=== PATIENT | female | born 1960 | race Caucasian/White ===

== ENCOUNTER 2020-07-02 13:04 | Outpatient (REF) | payer MEDICARE, SELFPAY | END 2020-07-02 13:05 | disposition home or self-care (01) | LOC: HO.LAB 13:04 | PROVIDERS: Visit Provider Nurse Practitioner Family | DX: K14.8 Other diseases of tongue (principal) | CPT/HCPCS: 87255 ==

== ENCOUNTER 2020-11-08 11:47 | Observation (INO) | payer MEDICARE, SELFPAY ==
--- NOTE | ~2020-11-08 | CT_ITS ---
EXAMINATION: CT ABDOMEN AND PELVIS WITH CONTRAST CLINICAL INFORMATION: Left flank/lower quadrant abdominal pain. COMPARISON: None TECHNIQUE: Multidetector volumetric images were obtained from the superior aspect of the liver through the pubic symphysis following administration 85 mL of Omnipaque 350 intravenous contrast. Sagittal and coronal reformatted images were obtained on the technologist's workstation. Oral contrast: No This CT examination was performed using dose optimization techniques as appropriate, variously including the following: *Automated exposure control *Adjustment of mA and/or kV according to patient size (this includes techniques or standardized protocols for targeted exams where dose is matched to indication/reason for exam; i.e. extremities or head) *Use of iterative reconstruction technique DLP: 444 mGy-cm FINDINGS: LUNG BASES: The visualized lung bases are unremarkable. No pleural or pericardial effusion. LIVER, GALLBLADDER, AND BILIARY TREE: The liver is normal in size, shape, and attenuation. No focal hepatic lesion or significant biliary ductal dilatation is present. Patient is status post cholecystectomy. PANCREAS: Unremarkable. SPLEEN: Unremarkable. ADRENAL GLANDS: Unremarkable. KIDNEYS AND URETERS: The kidneys are normal in size, shape, and attenuation. No hydronephrosis, hydroureter, or calculi seen. No perinephric stranding. BLADDER: Unremarkable. GASTROINTESTINAL TRACT: No dilated loops of large or small bowel are seen. No free air or free fluid. No pericolonic inflammatory change is noted. No definite abscess collection is seen. The cecum lies low within the pelvis adjacent to right adnexa, sigmoid colon, and small bowel. The appendix appears unremarkable. ABDOMINAL WALL: No significant hernia is appreciated. LYMPH NODES: No lymphadenopathy appreciated. VASCULAR: There is mild calcified plaque seen within the aorta. Portal vein is patent. No abdominal aortic aneurysm. PELVIC VISCERA: There are prominent uterine veins present but Not measuring greater than 1 cm in diameter. The evaluation is somewhat limited due to the large amount of bowel lying within the pelvis with some lack of fat planes. If there is suspicion of ovarian or adnexal abnormality. Pelvic ultrasound would be more sensitive for this evaluation. OSSEOUS STRUCTURES: No suspicious destructive bony lesions identified. There is multilevel degenerative disc disease present within the lumbar and lower thoracic spine. CT/CT abdomen pelvis w con IMPRESSION: No evidence of obstructive uropathy. No evidence of acute diverticulitis. No CT findings to explain patient's left lower quadrant and left flank pain.
--- NOTE | ~2020-11-08 | US_ITS ---
EXAMINATION: US PELVIS CLINICAL INFORMATION: Follow-up abnormal CT scan. COMPARISON: CT scan of the abdomen and pelvis from earlier the same day TECHNIQUE: Transabdominal pelvic ultrasound was performed. Patient refused transvaginal exam. FINDINGS: The uterus is slightly retroverted and retroflexed and measures 5.2 x 2.5 x 3.8 cm in dimension. No focal uterine lesion is seen. The endometrium is not well visualized but does not appear thickened. The ovaries are not seen. No pelvic mass is seen. There is no fluid in the pelvis. US/US pelvic complete IMPRESSION: Normal-appearing uterus. Ovaries not seen.
[2020-11-08 11:57] VITALS: BP 139/80; PULSE 87; RESP 16; TEMP 36.4; O2SAT 100; BMI 24.5
[2020-11-08 12:55] LABS: MANUAL DIFF FLAG NO
[2020-11-08] MEDS: ondansetron HCL 4 MG/2 ML VIAL IVPUSH (12:55)
[2020-11-08] MEDS: Ketorolac Tromethamine 15 MG/ML VIAL IVPUSH (12:56)
[2020-11-08] MEDS: Morphine Sulfate 4 MG/ML CARTRIDGE IVPUSH (12:56)
[2020-11-08] MEDS: 0.9 % Sodium Chloride 1,000 ML 999 ML IVCONT ×2 (12:57→16:32)
[2020-11-08 12:58] LABS: Basophils Absolute Auto 0.1 X10*3/uL (0.0-0.2); Basophils Percent Auto 0.5 % (0-2); Eosinophils Percent Auto 0.2 % (0-4); Hematocrit 47.8 % (37-47); Hemoglobin 15.5 g/dl (12.0-16.0); Imm Gran Abs Auto 0.14 X10*3/uL (0.00-0.03); Imm Gran Pct Auto 0.8 % (0.0-0.4); Lymphocytes Absolute Auto 1.9 X10*3/uL (1.2-4.9); Lymphocytes Percent Auto 10.2 % (20-40); Mean Corpuscular HGB Conc 32.4 g/dl (31.0-35.0); Mean Corpuscular Hemoglobin 29.6 pg (27.0-33.0); Mean Corpuscular Volume 91.2 fL (80-98); Mean Platelet Volume 8.9 fL (9.4-12.3); Monocytes Percent Auto 5.5 % (2-11); Neutrophils Absolute Auto 15.3 X10*3/uL (2.0-8.3); Neutrophils Percent Auto 82.8 % (45-73); Platelet Count 456 X10*3/uL (160-400); Red Blood Count 5.24 X10*6/uL (4.20-5.50); Red Cell Distribution Width 12.4 % (11.0-16.0); White Blood Count 18.4 X10*3/uL (4.8-10.8)
[2020-11-08 12:59] LABS: Glucose Urine UA 250 MG/DL (NEG); Leukocyte Esterase Urine NEG (NEG); Nitrite Urine NEG (NEG); Specific Gravity - Urine >= 1.030 (1.005-1.025); Urine Blood NEG (NEG); Urine Ketones >=80 MG/DL (NEG); Urine Protein TRACE MG/DL (NEG-TRACE)
[2020-11-08 13:01] LABS: Appearance Urine CLEAR; Color Urine YELLOW
[2020-11-08 13:18] LABS: Alanine Aminotransferase 19 U/L (0-31); Albumin Level 5.1 g/dL (3.5-5.0); Alkaline Phosphatase 97 U/L (39-117); Anion Gap 21 (12-20); Aspartate Amino Transferase 23 U/L (5-31); Bilirubin Total 1.3 mg/dL (0.0-1.0); Blood Urea Nitrogen 21 mg/dL (9-16); Carbon Dioxide 22 mmol/L (22-29); Chloride 96 mmol/L (96-108); Creatinine Clr Calc Pharmacy 56.5; Estimated Glomerular Filt Rate > 60; Glucose Random 233 mg/dL (60-115); Potassium 4.6 mmol/L (3.3-5.1); Sodium 134 mmol/L (135-145); Total Protein 7.9 g/dL (6.5-8.0)
--- NOTE | 2020-11-08 13:20 | ED.ABDPAIN ---
HPI - Abdominal Pain General Chief Complaint: Abdominal Pain Stated Complaint: L SIDED ABD PAIN Time Seen by Provider: 11/08/20 12:38 Source: patient Mode of arrival: ambulatory Limitations: no limitations History of Present Illness HPI narrative: 60-year-old female with a past medical history of diabetes currently on an insulin pump, hypertension, GERD, osteoporosis, tongue lesion and kidney stones presenting to the ED with complaints of left back pain that is now radiates to the left flank / left lower quadrant with associated nausea /vomiting for the past 2 days. Denies any fevers, chills, chest pain, shortness of breath, dyspnea on exertion, orthopnea, diarrhea, constipation, black or bloody stools, hematuria, abnormal vaginal discharge, dysuria, recent travel or sick contacts or any other symptoms complaints or concerns at this time. MD elicited complaint: abdominal pain and flank pain Pertinent past history: kidney stones Onset (ago): day(s) ( Two days worse today) Pain Consistency: constant Location: LLQ and L flank Severity: severe Pain scale (0-10): 10 Quality: aching and sharp Radiation: none Migration to: no migration Exacerbating factors: nothing Relieving factors: nothing Associated symptoms: nausea and vomiting Related Data Home Medications Medication Instructions Recorded Confirmed zoledronic acid 5 mg/100 mL in IV 07/11/20 07/11/20 mannitol 5 %-water intravenous piggybck Previous Rx's Medication Instructions Recorded azithromycin 500 mg tablet 500 mg PO DAILY 5 Days #5 tab 07/08/20 lidocaine HCl 2 % mucosal solution 1 appl MUCOUS MEMBRANE QID PRN 08/18/20 #100 ml triamcinolone acetonide 0.5 % 1 appl TOPICAL BID 14 Days #15 g 09/19/20 topical cream insulin lispro 200 unit/mL (3 mL) 20 unit SUBCUT BID 90 Days #18 ml 10/19/20 subcutaneous pen losartan 50 mg tablet 50 mg PO DAILY 90 Days #90 tab 10/19/20 omeprazole 20 mg capsule,delayed 20 mg PO BID PRN 90 Days #180 cap 10/19/20 release Allergies Allergy/AdvReac Type Severity Reaction Status Date / Time acetaminophen [Percocet] Allergy Unknown Unknown Verified 11/08/20 12:01 alendronate sodium Allergy Unknown STOMACH Verified 11/08/20 12:01 [From FOSAMAX] PROBLEMS aspirin [Percodan] Allergy Unknown Unknown Verified 11/08/20 12:01 cephalexin [CEPHALEXIN] Allergy Unknown WHOLE BODY Verified 11/08/20 12:01 RASH clindamycin Allergy Unknown Unknown Verified 11/08/20 12:01 latex Allergy Unknown Unknown Verified 11/08/20 12:01 oxycodone [Percocet] Allergy Unknown Unknown Verified 11/08/20 12:01 risedronate sodium Allergy Unknown STOMACH Verified 11/08/20 12:01 [From ACTONEL] PROBLEMS sulfamethoxazole Allergy Unknown BODY RASH Verified 11/08/20 12:01 [SULFAMETHOXAZOLE] trimethoprim [Bactrim] Allergy Unknown Unknown Verified 11/08/20 12:01 Review of Systems Review of Systems Constitutional : No Weight loss, No Fever, No Chills, No Night Sweats, No Fatigue, NoMalaise ENT/Mouth: No ear pain, No sore throat, No Difficulty swallowing Cardiovascular : No Chest Pain, No SOB, No Dyspnea on Exertion, No Orthopnea, NoEdema, No Palpitations Respiratory : No Cough, No Sputum, No Wheezing, No Dyspnea Gastrointestinal : positive nausea/vomiting /abdominal pain/ flank pain, No Diarrhea, No blood streaked emesis, No coffee-ground emesis, No gross hematemesis, No blood streak stool, No gross hematochezia, No Melena Genitourinary : No irregular bleeding, No Dysuria, No Urinary Frequency, No Hematuria,No Urinary Incontinence, No Urgency, No Flank Pain Musculoskeletal : No joint pain, No Myalgias, No Joint Swelling Skin : No Skin Lesions, No rash Neuro : No Weakness, No Numbness, No Paresthesias, No Loss of Consciousness, NoDizziness, No Headache Psych : No Social Issues, Heme/Lymph: No Bruising, No Bleeding,No Lymphadenopathy Endocrine : No Polyuria, No Polydipsia, No Temperature Intolerance Yes all other systems are reviewed and are negative Physical Exam Vital Signs: Vital Signs: Last Vital Signs Temp 98.9 F 11/08/20 13:22 Pulse 99 11/08/20 13:22 Resp 18 11/08/20 13:22 BP 157/62 H 11/08/20 13:22 Pulse Ox 100 11/08/20 13:22 Body Mass Index 24.5 vital signs have been reviewed as normal and appeared to be correct. Blood pressure normal. Heart rate normal. Respiration rate normal. Temperature normal. Oxygen saturation normal. Appearance: Alert. Oriented X3. No acute distress. Head: Normal external exam. Normocephalic. Eyes: PERRLA. EOMI. Conjunctiva and sclera normal. Eyelids normal. ENT: Pharynx normal. Uvula midline. Moist mucous membranes. Neck: Normal inspection. Neck supple. FROM. No adenopathy. No meningeal signs. CVS: Normal heart rate and rhythm. Heart sound normal. No murmurs noted. Pulses normal throughout. Respiratory: No respiratory distress. Painless inspiration. Breath sounds normal. No wheezes/rales/rhonchi noted. Chest nontender. No accessory muscle usage noted or decreased air movement noted. Abdomen: Soft and tender to palpation of left flank /left lower quadrant with guarding. Nondistended. No rigidity. Bowel sounds normal in all 4 quadrants. No distention noted. No organomegaly noted. No visible injury noted. No rebound tenderness. Negative Rovsing sign. Negative obturator's sign. Negative psoas sign. Negative Ferrer sign. Back: positive left CVA tenderness. no right CVA tenderness is noted. Full range of motion noted. Skin: Skin warm and dry. Normal skin color. Normal skin turgor. No rashes/lesions/lacerations noted. Extremities: Extremities exhibit normal range of motion. Extremities nontender. Neuro: Oriented X 3. No motor deficit. No sensory deficit. Reflexes normal. Normal steady gait. Course Course Course Narrative: 12:40 - 60-year-old female with a past medical history of diabetes currently on an insulin pump, hypertension, GERD, osteoporosis, tongue lesion and kidney stones presenting to the ED with complaints of left back pain that is now radiates to the left flank / left lower quadrant with associated nausea /vomiting for the past 2 days. Plan: Labs, CT scan abdomen pelvis with IV contrast, UA. Provide a L of IV fluids, 4 mg of Zofran, 15 mg of IV Toradol and 4 mg of morphine and re-evaluate. Reevaluation(s) Reevaluation #1: - labs obtained and patient noted to have an elevated white blood cell count. Elevated platelet count at 456. Sodium 134. Anion gap 21. BUN 21. Random glucose 233. Total bilirubin 1.3. Albumin 5.1. UA with 80 ketones and 250 glucose otherwise no evidence of UTI. - Therefore blood cultures lactic acid and fluids were ordered. Although no source of infection at this time to indicate IV antibiotics. Time: 14:00 Reevaluation #2: - CT scan abdomen pelvis with IV contrast was unable to evaluate the pelvis/ovarian/ adnexal area therefore they recommended a pelvic ultrasound otherwise no other acute processes were noted. - Therefore pelvis ultrasound obtained due to patient refused transvaginal exam which revealed normal appearing uterus they were unable to see the ovaries. - I explained this to the patient and she became very tearful and reports that she can not go home with this much pain I have not found a source of the patient's left flank/ left abdominal pain therefore will admit to Dr. Coleman at this time for unknown source of abdominal pain /intractable pain. Patient understands agrees with this plan. Time: 17:41 [facility] - Abdominal Pain Medical Records Attestation: I reviewed the patient's medical records. Lab Data Attestation: I reviewed the patient's lab results. Result diagrams: 11/08/20 12:51 11/08/20 12:51 Labs: Lab Results 11/08/20 11/08/20 11/08/20 Range/Units 12:51 12:51 12:51 WBC 18.4 H (4.8-10.8) X10*3/uL RBC 5.24 (4.20-5.50) X10*6/uL Hgb 15.5 (12.0-16.0) g/dl Hct 47.8 H (37-47) % MCV 91.2 (80-98) fL MCH 29.6 (27.0-33.0) pg MCHC 32.4 (31.0-35.0) g/dl RDW 12.4 (11.0-16.0) % Plt Count 456 H (160-400) X10*3/uL MPV 8.9 L (9.4-12.3) fL Immature Gran % (Auto) 0.8 H (0.0-0.4) % Neut % (Auto) 82.8 H (45-73) % Lymph % (Auto) 10.2 L (20-40) % [place] % (Auto) 5.5 (2-11) % Eos % (Auto) 0.2 (0-4) % Baso % (Auto) 0.5 (0-2) % Lymph # (Auto) 1.9 (1.2-4.9) X10*3/uL [place] # (Auto) 1.0 (0.1-1.2) X10*3/uL Eos # (Auto) 0.0 (0.0-0.4) X10*3/uL Baso # (Auto) 0.1 (0.0-0.2) X10*3/uL Abs Immat Gran (auto) 0.14 H (0.00-0.03) X10*3/uL Absolute Neuts (auto) 15.3 H (2.0-8.3) X10*3/uL Absolute Nucleated RBC 0.000 (0.0-0.012) X10*3/uL Nucleated RBC % (auto) 0.0 (0.0-0.2) /100WBC Sodium 134 L (135-145) mmol/L Potassium 4.6 (3.3-5.1) mmol/L Chloride 96 (96-108) mmol/L Carbon Dioxide 22 (22-29) mmol/L Anion Gap 21 H (12-20) BUN 21 H (9-16) mg/dL Creatinine 0.89 (0.5-1.4) mg/dL Estim Creat Clear Calc 56.5 Estimated GFR > 60 Random Glucose 233 H (60-115) mg/dL Calcium 10.0 (8.4-10.2) mg/dL Magnesium 2.0 (1.6-2.6) mg/dL Total Bilirubin 1.3 H (0.0-1.0) mg/dL AST 23 (5-31) U/L ALT 19 (0-31) U/L Alkaline Phosphatase 97 (39-117) U/L Total Protein 7.9 (6.5-8.0) g/dL Albumin 5.1 H (3.5-5.0) g/dL Urine Color YELLOW Urine Appearance CLEAR Urine pH 6.0 (5.0-8.0) Ur Specific [place] >= 1.030 H (1.005-1.025) Urine Protein TRACE (NEG-TRACE) MG/DL Urine Glucose (UA) 250 H (NEG) MG/DL Urine Ketones >=80 (NEG) MG/DL Urine Blood NEG (NEG) Urine Nitrite NEG (NEG) Ur Leukocyte Esterase NEG (NEG) Imaging Data CT scan abdomen pelvis with IV contrast: Attestation: I personally reviewed and interpreted this imaging study as follows: Radiologist's impression: FINDINGS: LUNG BASES: The visualized lung bases are unremarkable. No pleural or pericardial effusion. LIVER, GALLBLADDER, AND BILIARY TREE: The liver is normal in size, shape, and attenuation. No focal hepatic lesion or significant biliary ductal dilatation is present. Patient is status post cholecystectomy. PANCREAS: Unremarkable. SPLEEN: Unremarkable. ADRENAL GLANDS: Unremarkable. KIDNEYS AND URETERS: The kidneys are normal in size, shape, and attenuation. No hydronephrosis, hydroureter, or calculi seen. No perinephric stranding. BLADDER: Unremarkable. GASTROINTESTINAL TRACT: No dilated loops of large or small bowel are seen. No free air or free fluid. No pericolonic inflammatory change is noted. No definite abscess collection is seen. The cecum lies low within the pelvis adjacent to right adnexa, sigmoid colon, and small bowel. The appendix appears unremarkable. ABDOMINAL WALL: No significant hernia is appreciated. LYMPH NODES: No lymphadenopathy appreciated. VASCULAR: There is mild calcified plaque seen within the aorta. Portal vein is patent. No abdominal aortic aneurysm. PELVIC VISCERA: There are prominent uterine veins present but Not measuring greater than 1 cm in diameter. The evaluation is somewhat limited due to the large amount of bowel lying within the pelvis with some lack of fat planes. If there is suspicion of ovarian or adnexal abnormality. Pelvic ultrasound would be more sensitive for this evaluation. OSSEOUS STRUCTURES: No suspicious destructive bony lesions identified. There is multilevel degenerative disc disease present within the lumbar and lower thoracic spine. CT/CT abdomen pelvis w con IMPRESSION: No evidence of obstructive uropathy. No evidence of acute diverticulitis. No CT findings to explain patient's left lower quadrant and left flank pain. pelvis ultrasound patient refused transvaginal aspect: Attestation: I personally reviewed and interpreted this imaging study as follows: Radiologist's impression: FINDINGS: The uterus is slightly retroverted and retroflexed and measures 5.2 x 2.5 x 3.8 cm in dimension. No focal uterine lesion is seen. The endometrium is not well visualized but does not appear thickened. The ovaries are not seen. No pelvic mass is seen. There is no fluid in the pelvis. US/US pelvic complete IMPRESSION: Normal-appearing uterus. Ovaries not seen. Critical Care Time Critical Care Time Critical Care Time: Yes Total Critical Care Time: 60 Attestation: I personally attest to this time spent taking care of the patient Discharge Plan Discharge Clinical Impression: Abdominal pain, Intractable abdominal pain Patient Disposition: Admitted As Inpatient Prescriptions: No Action azithromycin 500 mg tablet 500 mg PO DAILY 5 Days Qty: 5 RF: 0 Lidocaine Viscous 2 % solution 1 appl mucous membrane QID PRN (Reason: pain) Qty: 100 RF: 0 triamcinolone acetonide 0.5 % cream 1 appl topical BID 14 Days Qty: 15 RF: 1 losartan 50 mg tablet 50 mg PO DAILY 90 Days Qty: 90 RF: 3 Humalog KwikPen Insulin 200 unit/mL (3 mL) insulin pen 20 unit subcut BID 90 Days Qty: 18 RF: 3 omeprazole 20 mg capsule,delayed release(DR/EC) 20 mg PO BID PRN (Reason: gerd) 90 Days Qty: 180 RF: 3 zoledronic [id number] [Reclast] 5 mg/100 mL piggyback IV RF: 0 PMFSH Past Medical History Attestation statement: The following information was validated with the patient. Medical History Diabetes mellitus Essential hypertension GERD (gastroesophageal reflux disease) Osteoporosis Surgical History No pertinent past surgical history Family History Family History Father Diabetes CVD (cardiovascular disease) Chronic mental illness Mother CVD (cardiovascular disease) Diabetes Family/Other FH: mental illness Social History Social History Advance Directives: Yes Advance Directives Information Provided: Yes Advance Directives on File: No
[2020-11-08 13:22] VITALS: BP 157/62; PULSE 99; RESP 18; TEMP 37.2; O2SAT 100
[2020-11-08] MEDS: iohexoL 350 MG/ML 100 ML INFUS..BTL IV (13:47)
[2020-11-08 17:43] LABS: Glucose, Whole Blood 209 mg/dL (60-115)
[2020-11-08 17:57] LABS: COVID-19 Test Negative (Negative); IDNOW Serial# 9DD0AD1C
--- NOTE | 2020-11-08 17:58 | PM.IMHP ---
History of Present Illness Date of Service: 11/08/20 Chief Complaint: left hip pain, n/v 60F presented with 4 days of left hip pain. pain is on lateral side of hip, radiates to suprapubic region. worse on motion, relieved by lying on same side and opiates. denies specific trauma. she has also been complaining of severe nausa and vomitting, inability to tolerate po. in ED labs c/w dehydration. CT abd and pelvis us unremarkable. Review of Systems Review of Systems: Constitutional: Denies fever, denies Chills Eyes: denies blurry vision ENT: denies sore throat CVS: denies chest pain Respiratory: Denies dyspnea GI: abdominal pain : denies dysuria MSK: denies neck pain Skin: denies rash Neuro: denies specific motor weakness Psych: denies suicidal ideation Endocrine: denies heat/cold intoleratnce Hematologic: denies easy bleeding Allergy: denies hives [facility] Medical History Diabetes mellitus Essential hypertension GERD (gastroesophageal reflux disease) Osteoporosis Family History Father Diabetes CVD (cardiovascular disease) Chronic mental illness Mother CVD (cardiovascular disease) Diabetes Family/Other FH: mental illness Family history: reviewed and not pertinent Surgical History No pertinent past surgical history Social History Patient Tobacco Use Status: Former Tobacco user Use of substances other than those prescribed or required for medical reasons: No Advance Directives: Yes Advance Directives Information Provided: Yes Advance Directives on File: No Meds Allergies Allergy/AdvReac Type Severity Reaction Status Date / Time acetaminophen [Percocet] Allergy Unknown Unknown Verified 11/08/20 12:01 alendronate sodium Allergy Unknown STOMACH Verified 11/08/20 12:01 [From FOSAMAX] PROBLEMS aspirin [Percodan] Allergy Unknown Unknown Verified 11/08/20 12:01 cephalexin [CEPHALEXIN] Allergy Unknown WHOLE BODY Verified 11/08/20 12:01 RASH clindamycin Allergy Unknown Unknown Verified 11/08/20 12:01 latex Allergy Unknown Unknown Verified 11/08/20 12:01 oxycodone [Percocet] Allergy Unknown Unknown Verified 11/08/20 12:01 risedronate sodium Allergy Unknown STOMACH Verified 11/08/20 12:01 [From ACTONEL] PROBLEMS sulfamethoxazole Allergy Unknown BODY RASH Verified 11/08/20 12:01 [SULFAMETHOXAZOLE] trimethoprim [Bactrim] Allergy Unknown Unknown Verified 11/08/20 12:01 Active Medications: Current Medications Generic Name Dose Route Start Last Admin Trade Name Freq PRN Reason Stop Dose Admin Pharmacy Consult 1 each 11/08/20 17:15 Consult Rx Perform Med Rec MISCELLANE ONCE PRN Consult order Home Medications Medication Instructions Recorded Confirmed Last Taken Type zoledronic acid 5 mg/100 mL in IV 07/11/20 07/11/20 Unknown History mannitol 5 %-water intravenous piggybck Physical Exam Vital Signs and Narrative: Vital Signs: Last Vital Signs Temp 98.9 F 11/08/20 13:22 Pulse 99 11/08/20 13:22 Resp 18 11/08/20 13:22 BP 157/62 H 11/08/20 13:22 Pulse Ox 100 11/08/20 13:22 Body Mass Index 24.5 General: appears to be in less distress since recieivng analgesics HEENT: atraumatic Neck: normal to visual inspection CVS: S1, S2, RRR Resp: CTA bilateral Chest: non tender GI: soft, non tender, non distended : no CVA tenderness Skin: no rashes Extremities: no edema, point tenderness over lateral left hip, negative straight leg test Neuro: Oriented X3, grossly intact Psych: cooperative Results Labs CBC and Chem 7: 11/08/20 12:51 11/08/20 12:51 Labs: Laboratory Results - last 24 hr 11/08/20 11/08/20 11/08/20 12:51 12:51 12:51 MCV 91.2 MCH 29.6 MCHC 32.4 RDW 12.4 Plt Count 456 H MPV 8.9 L Immature Gran % (Auto) 0.8 H Neut % (Auto) 82.8 H Lymph % (Auto) 10.2 L [place] % (Auto) 5.5 Eos % (Auto) 0.2 Baso % (Auto) 0.5 Lymph # (Auto) 1.9 [place] # (Auto) 1.0 Eos # (Auto) 0.0 Baso # (Auto) 0.1 Abs Immat Gran (auto) 0.14 H Absolute Neuts (auto) 15.3 H Absolute Nucleated RBC 0.000 Nucleated RBC % (auto) 0.0 Anion Gap 21 H Estim Creat Clear Calc 56.5 Estimated GFR > 60 POC Glucose Random Glucose 233 H Lactic Acid Calcium 10.0 Magnesium 2.0 Total Bilirubin 1.3 H AST 23 ALT 19 Alkaline Phosphatase 97 Total Protein 7.9 Albumin 5.1 H Urine Color YELLOW Urine Appearance CLEAR Urine pH 6.0 Ur Specific [place] >= 1.030 H Urine Protein TRACE Urine Glucose (UA) 250 H Urine Ketones >=80 Urine Blood NEG Urine Nitrite NEG Ur Leukocyte Esterase NEG COVID-19 ([facility]) COVID-19 Clin Com 11/08/20 11/08/20 11/08/20 17:05 17:36 17:39 MCV MCH MCHC RDW Plt Count MPV Immature Gran % (Auto) Neut % (Auto) Lymph % (Auto) [place] % (Auto) Eos % (Auto) Baso % (Auto) Lymph # (Auto) [place] # (Auto) Eos # (Auto) Baso # (Auto) Abs Immat Gran (auto) Absolute Neuts (auto) Absolute Nucleated RBC Nucleated RBC % (auto) Anion Gap Estim Creat Clear Calc Estimated GFR POC Glucose 209 H Random Glucose Lactic Acid 1.0 Calcium Magnesium Total Bilirubin AST ALT Alkaline Phosphatase Total Protein Albumin Urine Color Urine Appearance Urine pH Ur Specific [place] Urine Protein Urine Glucose (UA) Urine Ketones Urine Blood Urine Nitrite Ur Leukocyte Esterase COVID-19 ([facility]) Negative COVID-19 Clin Com See Note Imaging Radiologist's Impressions: Impressions Abdomen/Pelvis CT 11/08/20 13:26 IMPRESSION: No evidence of obstructive uropathy. No evidence of acute diverticulitis. No CT findings to explain patient's left lower quadrant and left flank pain. Pelvis Ultrasound 11/08/20 14:46 IMPRESSION: Normal-appearing uterus. Ovaries not seen. Assessment and Plan (1) Left hip pain: Status: Acute (2) Dehydration: Status: Acute 60F presented with left hip pain, nausea and vomiting left hip pain ddx includes trochanteric bursitis, piriformis syndrome, muscle strain nsaids, opiates n/v dehydration IVF, antiemetics DM insulin Quality Stroke Does the patient have a stroke diagnosis?: No VTE Prior VTE?: No VTE Risk Level:: Medical - moderate - high VTE Device Contraindication: Treatment Not Indicated VTE Drug Contraindication: N/A - Med Ordered
--- NOTE | 2020-11-08 18:26 | PHA.MEDREC ---
Pharmacy Consult ? Medication Reconciliation Pharmacy has completed the medication reconciliation. Patient uses a Humalog Insulin Pump. She receives zoldronic acid once yearly. She reports last taking her home med about 2 days ago.
[2020-11-08] MEDS: Metoclopramide HCl 10 MG/2 ML VIAL IVPUSH (18:30)
[2020-11-08] MEDS: HYDROmorphone HCl 0.5 MG/0.5 ML SYRINGE IVPUSH (18:30)
[2020-11-08] MEDS: Lactated Ringers 1,000 ML 80 ML IVCONT ×2 (19:48→20:21)
--- NOTE | 2020-11-08 20:18 | MHC.CM.PN ---
Pt admitted to Observation. GUILLE reviewed and signed per protocol. Pt had some concerns about possible co-pay. Encouraged pt to check with her Health Care Plan. CM also explained that if she receives a bill that she cannot pay, she can contact the billing office for payment options. Pt given copy of [facility] and [facility] pamphlet. Pt agreeable to admisssion under Observation.HCP/, Alex Burnham ([phone]). HCP is not on file. Copy requested. Pt lives with , has just returned to work at [employer], and has an insulin pump. D/C plan is home without services. Transportation by family. CM to follow for d/c needs.
[2020-11-08 21:51] VITALS: BP 135/66; PULSE 98; RESP 18; TEMP 36.7; O2SAT 98
[2020-11-08 22:01] LABS: Glucose, Whole Blood 226 mg/dL (60-115)
[2020-11-08] MEDS: Ascorbic Acid 500 MG TABLET PO (22:10)
[2020-11-08] MEDS: Atorvastatin Calcium 40 MG TABLET PO (22:10)
[2020-11-08 23:24] VITALS: BP 143/63; PULSE 95; RESP 16; TEMP 37.3; O2SAT 97
[2020-11-09] VITALS (7 sets, daily range): BP systolic 138–148; BP diastolic 61–68; PULSE 80–96; RESP 16–20; TEMP 36.3–36.8; O2SAT 94–97
[2020-11-09] MEDS: Omeprazole 40 MG CAPSULE.DR PO (06:00)
[2020-11-09 07:34] LABS: Glucose, Whole Blood 63 mg/dL (60-115)
[2020-11-09 07:37] LABS: Hematocrit 40.9 % (37-47); Hemoglobin 13.2 g/dl (12.0-16.0); Mean Corpuscular HGB Conc 32.3 g/dl (31.0-35.0); Mean Corpuscular Hemoglobin 29.8 pg (27.0-33.0); Mean Corpuscular Volume 92.3 fL (80-98); Mean Platelet Volume 9.3 fL (9.4-12.3); Platelet Count 428 X10*3/uL (160-400); Red Blood Count 4.43 X10*6/uL (4.20-5.50); Red Cell Distribution Width 12.6 % (11.0-16.0); White Blood Count 14.5 X10*3/uL (4.8-10.8)
[2020-11-09 07:43] LABS: Anion Gap 16 (12-20); Blood Urea Nitrogen 16 mg/dL (9-16); Calcium 8.7 mg/dL (8.4-10.2); Carbon Dioxide 20 mmol/L (22-29); Chloride 104 mmol/L (96-108); Creatinine Clr Calc Pharmacy 71.9; Estimated Glomerular Filt Rate > 60; Glucose Random 64 mg/dL (60-115); Potassium 4.5 mmol/L (3.3-5.1); Sodium 135 mmol/L (135-145)
[2020-11-09] MEDS: Morphine Sulfate 2 MG/ML CARTRIDGE IVPUSH ×2 (07:51→16:04)
[2020-11-09] MEDS: Lactated Ringers 1,000 ML 80 ML IVCONT ×2 (07:58→21:54)
[2020-11-09] MEDS: 0.9 % Sodium Chloride Flush 3 ML SYRINGE IVFLUSH ×2 (07:59→16:08)
--- NOTE | 2020-11-09 10:08 | HO.PM.IMPN ---
Subjective Subjective Date of Service: 11/09/20 Interval History: was ok overnight, but woke up with persisent hip pain, LLQ pain, nausea with no appetite Cardiovascular Cardiovascular: Reports no additional cardiovascular complaints Respiratory Respiratory: Reports no additional respiratory complaints Physical Exam Vital Signs: Vital Signs: Last Vital Signs Temp 97.9 F 11/09/20 07:27 Pulse 84 11/09/20 08:23 Resp 17 11/09/20 07:27 BP 140/63 H 11/09/20 08:23 Pulse Ox 97 11/09/20 08:23 Body Mass Index 24.5 General: AO X 3, in pain Resp: CTA bilateral CVS: S1,S2,RRR GI: soft, LLQ tender, non distended Neuro: motor grossly intact Psych: appropriate affect Objective Data Current Medications Generic Name Dose Route Start Last Admin Trade Name Freq PRN Reason Stop Dose Admin Ascorbic Acid 500 mg 11/08/20 21:00 11/08/20 22:10 Ascorbic Acid 500 Mg Tablet PO 500 mg BID PERNELL Administration Aspirin 81 mg 11/09/20 09:00 Aspirin 81 Mg Tab.Chew PO DAILY [facility] Atorvastatin Calcium 40 mg 11/08/20 21:00 11/08/20 22:10 Atorvastatin Calcium 40 Mg Tablet PO 40 mg BEDTIME PERNELL Administration Lactated Ringer's 1,000 mls @ 80 mls/hr 11/08/20 18:30 11/09/20 07:58 Lr IVCONT 80 mls/hr .[id number] PERNELL Administration Ibuprofen 600 mg 11/08/20 18:06 Ibuprofen 600 Mg Tablet PO Q8H PRN Pain, Moderate (Pain Scale 4-6 Insulin Human Lispro 0 unit 11/08/20 21:00 11/09/20 07:41 Insulin Lispro 100 Unit/Ml 3 Ml Vial SUBCUT Not Given QIDACHS [facility] Protocol Loratadine 10 mg 11/09/20 09:00 Loratadine 10 Mg Tablet PO DAILY [facility] Morphine Sulfate 2 mg 11/08/20 18:06 11/09/20 07:51 Morphine Sulfate 2 Mg/Ml Cartridge IVPUSH 2 mg Q4H PRN Administration Pain, Severe (Pain Scale 7-10) Omeprazole 40 mg 11/09/20 06:30 11/09/20 06:00 Omeprazole 40 Mg Capsule. PO 40 mg DAILY@0630 [facility] Administration Pharmacy Consult 1 each 11/08/20 17:15 Consult Rx Perform Med Rec MISCELLANE ONCE PRN Consult order Rivaroxaban 10 mg 11/09/20 09:00 Rivaroxaban 10 Mg Tablet PO DAILY [facility] Sodium Chloride 3 ml 11/09/20 00:00 11/09/20 07:59 0.9 % Sodium Chloride Flush 3 Ml Syringe IVFLUSH 3 ml QSHIFT [facility] Administration Labs CBC & Chem 7: 11/09/20 06:15 11/09/20 06:15 Labs: Laboratory Results - last 24 hr 11/08/20 11/08/20 11/08/20 12:51 12:51 12:51 WBC 18.4 H RBC 5.24 Hgb 15.5 Hct 47.8 H MCV 91.2 MCH 29.6 MCHC 32.4 RDW 12.4 Plt Count 456 H MPV 8.9 L Immature Gran % (Auto) 0.8 H Neut % (Auto) 82.8 H Lymph % (Auto) 10.2 L [place] % (Auto) 5.5 Eos % (Auto) 0.2 Baso % (Auto) 0.5 Lymph # (Auto) 1.9 Daggett # (Auto) 1.0 Eos # (Auto) 0.0 Baso # (Auto) 0.1 Abs Immat Gran (auto) 0.14 H Absolute Neuts (auto) 15.3 H Absolute Nucleated RBC 0.000 Nucleated RBC % (auto) 0.0 Sodium 134 L Potassium 4.6 Chloride 96 Carbon Dioxide 22 Anion Gap 21 H BUN 21 H Creatinine 0.89 Estim Creat Clear Calc 56.5 Estimated GFR > 60 POC Glucose Random Glucose 233 H Lactic Acid Calcium 10.0 Magnesium 2.0 Total Bilirubin 1.3 H AST 23 ALT 19 Alkaline Phosphatase 97 Total Protein 7.9 Albumin 5.1 H Urine Color YELLOW Urine Appearance CLEAR Urine pH 6.0 Ur Specific [place] >= 1.030 H Urine Protein TRACE Urine Glucose (UA) 250 H Urine Ketones >=80 Urine Blood NEG Urine Nitrite NEG Ur Leukocyte Esterase NEG COVID-19 ([facility]) COVID-19 Clin Com 11/08/20 11/08/20 11/08/20 17:05 17:36 17:39 WBC RBC Hgb Hct MCV MCH MCHC RDW Plt Count MPV Immature Gran % (Auto) Neut % (Auto) Lymph % (Auto) Daggett % (Auto) Eos % (Auto) Baso % (Auto) Lymph # (Auto) Daggett # (Auto) Eos # (Auto) Baso # (Auto) Abs Immat Gran (auto) Absolute Neuts (auto) Absolute Nucleated RBC Nucleated RBC % (auto) Sodium Potassium Chloride Carbon Dioxide Anion Gap BUN Creatinine Estim Creat Clear Calc Estimated GFR POC Glucose 209 H Random Glucose Lactic Acid 1.0 Calcium Magnesium Total Bilirubin AST ALT Alkaline Phosphatase Total Protein Albumin Urine Color Urine Appearance Urine pH Ur Specific [place] Urine Protein Urine Glucose (UA) Urine Ketones Urine Blood Urine Nitrite Ur Leukocyte Esterase COVID-19 ([facility]) Negative COVID-19 Clin Com See Note 11/08/20 11/09/20 11/09/20 21:54 06:15 06:15 WBC 14.5 H RBC 4.43 Hgb 13.2 Hct 40.9 MCV 92.3 MCH 29.8 MCHC 32.3 RDW 12.6 Plt Count 428 H MPV 9.3 L Immature Gran % (Auto) Neut % (Auto) Lymph % (Auto) Daggett % (Auto) Eos % (Auto) Baso % (Auto) Lymph # (Auto) Daggett # (Auto) Eos # (Auto) Baso # (Auto) Abs Immat Gran (auto) Absolute Neuts (auto) Absolute Nucleated RBC 0.000 Nucleated RBC % (auto) 0.0 Sodium 135 Potassium 4.5 Chloride 104 Carbon Dioxide 20 L Anion Gap 16 BUN 16 Creatinine 0.70 Estim Creat Clear Calc 71.9 Estimated GFR > 60 POC Glucose 226 H Random Glucose 64 D Lactic Acid Calcium 8.7 D Magnesium Total Bilirubin AST ALT Alkaline Phosphatase Total Protein Albumin Urine Color Urine Appearance Urine pH Ur Specific [place] Urine Protein Urine Glucose (UA) Urine Ketones Urine Blood Urine Nitrite Ur Leukocyte Esterase COVID-19 ([facility]) COVID-19 Clin Com 11/09/20 07:25 WBC RBC Hgb Hct MCV MCH MCHC RDW Plt Count MPV Immature Gran % (Auto) Neut % (Auto) Lymph % (Auto) Daggett % (Auto) Eos % (Auto) Baso % (Auto) Lymph # (Auto) Dag[place] # (Auto) Eos # (Auto) Baso # (Auto) Abs Immat Gran (auto) Absolute Neuts (auto) Absolute Nucleated RBC Nucleated RBC % (auto) Sodium Potassium Chloride Carbon Dioxide Anion Gap BUN Creatinine Estim Creat Clear Calc Estimated GFR POC Glucose 63 Random Glucose Lactic Acid Calcium Magnesium Total Bilirubin AST ALT Alkaline Phosphatase Total Protein Albumin Urine Color Urine Appearance Urine pH Ur Specific [place] Urine Protein Urine Glucose (UA) Urine Ketones Urine Blood Urine Nitrite Ur Leukocyte Esterase COVID-19 ([facility]) COVID-19 Clin Com Quality Stroke Does the patient have a stroke diagnosis?: No VTE Prior VTE?: No VTE Risk Level:: Medical - moderate - high VTE Device Contraindication: Treatment Not Indicated VTE Drug Contraindication: N/A - Med Ordered Assessment and Plan (1) Dehydration: Status: Acute Assessment and Plan: 60F presented with left hip pain, nausea and vomiting left hip pain ddx includes trochanteric bursitis, piriformis syndrome, muscle strain nsaids, opiates hip seems to be improved, now complaining more of LLQ pain CT and US were both unremarkable, continue concervative management for now and monitor n/v dehydration IVF, antiemetics DM insulin
[2020-11-09 11:27] LABS: Glucose, Whole Blood 157 mg/dL (60-115)
[2020-11-09] MEDS: Insulin Lispro 100 UNIT/ML 3 ML VIAL SUBCUT ×2 (11:49→16:07)
[2020-11-09] MEDS: Ascorbic Acid 500 MG TABLET PO ×2 (11:50→20:12)
[2020-11-09] MEDS: Aspirin 81 MG TAB.CHEW PO (11:51)
[2020-11-09 16:04] LABS: Glucose, Whole Blood 208 mg/dL (60-115)
[2020-11-09 20:11] LABS: Glucose, Whole Blood 138 mg/dL (60-115)
[2020-11-09] MEDS: Atorvastatin Calcium 40 MG TABLET PO (20:12)
[2020-11-09] MEDS: Ibuprofen 600 MG TABLET PO (21:56)
[2020-11-10 04:00] VITALS: BP 168/76; PULSE 83; RESP 18; TEMP 36.6; O2SAT 97
[2020-11-10] MEDS: Ibuprofen 600 MG TABLET PO (06:00)
[2020-11-10] MEDS: Omeprazole 40 MG CAPSULE.DR PO (06:00)
[2020-11-10 07:11] LABS: Hematocrit 41.6 % (37-47); Hemoglobin 13.5 g/dl (12.0-16.0); Mean Corpuscular HGB Conc 32.5 g/dl (31.0-35.0); Mean Corpuscular Hemoglobin 30.2 pg (27.0-33.0); Mean Corpuscular Volume 93.1 fL (80-98); Platelet Count 343 X10*3/uL (160-400); Red Blood Count 4.47 X10*6/uL (4.20-5.50); Red Cell Distribution Width 12.3 % (11.0-16.0); White Blood Count 9.2 X10*3/uL (4.8-10.8)
[2020-11-10 07:18] LABS: Glucose, Whole Blood 11 mg/dL (60-115)
[2020-11-10 07:26] LABS: Glucose, Whole Blood 14 mg/dL (60-115)
[2020-11-10 07:41] LABS: Alanine Aminotransferase 17 U/L (0-31); Albumin Level 3.9 g/dL (3.5-5.0); Alkaline Phosphatase 74 U/L (39-117); Anion Gap 17 (12-20); Aspartate Amino Transferase 29 U/L (5-31); Bilirubin Direct 0.6 mg/dL (0.0-0.5); Bilirubin Total 0.7 mg/dL (0.0-1.0); Blood Urea Nitrogen 10 mg/dL (9-16); C Reactive Protein 0.39 mg/dL (< or = 0.50); Calcium 8.8 mg/dL (8.4-10.2); Carbon Dioxide 21 mmol/L (22-29); Chloride 105 mmol/L (96-108); Creatinine Clr Calc Pharmacy 86.8; Estimated Glomerular Filt Rate > 60; Glucose Fasting 22 mg/dL (60-99); Magnesium 2.1 mg/dL (1.6-2.6); Potassium 3.9 mmol/L (3.3-5.1); Sodium 139 mmol/L (135-145); Total Protein 6.3 g/dL (6.5-8.0)
[2020-11-10 07:44] LABS: Glucose, Whole Blood 186 mg/dL (60-115)
--- NOTE | 2020-11-10 07:46 | PC.NURSE ---
pt this am arousable for vital signs and blood sugar. Initial blood sugar reading 11 and recheck was 14. pt alert and appropriate, diaphoretic/ shivering. updated, stat order for dextrose 25g pushed via IV. pt also given juice and rechecked BS 15 min after - now 186. MD updated. pt reported that last night her blood sugar was 130s and she only had half of an [place] muffin and soup. pt reported that she typically eats more after dinner/ has a snack before bed, but did not last night. Pt also reported that when her blood sugar is good and she doesn't eat she can manually change the basal in her pump, but did not think to last night. Will cont to monitor and assess.
[2020-11-10] MEDS: 0.9 % Sodium Chloride Flush 3 ML SYRINGE IVFLUSH (07:53)
[2020-11-10 08:00] VITALS: BP 161/84; PULSE 99; RESP 19; TEMP 36.5; O2SAT 97
[2020-11-10] MEDS: Ascorbic Acid 500 MG TABLET PO (09:12)
[2020-11-10] MEDS: Aspirin 81 MG TAB.CHEW PO (09:12)
[2020-11-10] MEDS: Loratadine 10 MG TABLET PO (09:13)
--- NOTE | 2020-11-10 10:19 | PM.DS ---
DS: Providers Provider Date of Service: 11/10/20 Date of admission: 11/08/20 18:06 Primary care physician: Wilda Brooks MD DS: Diagnosis Discharge Diagnosis (1) Dehydration: Status: Acute DS: Medications Discharge Medications Home Medications: Home Medications Medication Instructions Recorded Confirmed zoledronic acid 5 mg/100 mL in 1 ea IV DIRECTED 07/11/20 11/08/20 mannitol 5 %-water intravenous piggybck Caltrate 600 plus D 1 tab PO BID 11/08/20 11/08/20 ascorbic acid (vitamin C) 500 mg PO BID 11/08/20 11/08/20 aspirin [Aspirin Childrens] 81 mg PO DAILY 11/08/20 11/08/20 cholecalciferol (vitamin D3) 25 mcg PO DAILY 11/08/20 11/08/20 insulin lispro [Humalog U-100 See Rx Instructions .ROUTE .COMPLEX 11/08/20 11/08/20 Insulin] insulin pump-infus. set-meter 11/08/20 11/08/20 loratadine [Claritin] 10 mg PO DAILY 11/08/20 11/08/20 polyvinyl alcohol [Artificial 1 drp OPHTHALMIC (EYE) QID PRN 11/08/20 11/08/20 Tears (polyvin alc)] rosuvastatin 1 tab PO BEDTIME 11/08/20 11/08/20 triamcinolone acetonide 1 appl TOPICAL BID PRN 11/08/20 11/08/20 Previous Rx's Medication Instructions Recorded losartan 50 mg tablet 50 mg PO DAILY 90 Days #90 tab 10/19/20 omeprazole 20 mg capsule,delayed 20 mg PO BID PRN 90 Days #180 cap 10/19/20 release DS: Summary Hospital Course Hospital Course: Patient was admitted for dehydration in the setting of gastroenteritis and left hip presumed trochanteric bursitis. She was given pain meds and antiemetics along with IV hydration. She seemed to respond best to NSAIDs. Eventually nausea vomiting improved and patient was able to tolerate solid diet. Course was complicated by hypoglycemia, patient is very knowledgeable about her diabetes and will continue to monitor closely at home, now that appetite has improved do not expect hypoglycemia to recur. Time Spent with Patient Time attestation: Total time spent providing and/or coordinating discharge services: Discharge coordination time: Greater than 30 minutes Quality: Stroke Does the patient have a stroke diagnosis?: No Physical Exam Vital Signs: Vital Signs: Last Vital Signs Temp 97.7 F 11/10/20 08:00 Pulse 99 11/10/20 08:00 Resp 19 11/10/20 08:00 BP 161/84 H 11/10/20 08:00 Pulse Ox 97 11/10/20 08:00 Body Mass Index 24.5 General: AO X 3, no acute distress Resp: CTA bilateral CVS: S1,S2,RRR GI: soft, non tender, non distended Neuro: motor grossly intact Psych: appropriate affect DS: Data Data Completed and Pending Labs on day of discharge: Laboratory Results - last 24 hr 11/09/20 11/09/20 11/09/20 11:14 15:52 20:01 WBC RBC Hgb Hct MCV MCH MCHC RDW Plt Count MPV Absolute Nucleated RBC Nucleated RBC % (auto) Sodium Potassium Chloride Carbon Dioxide Anion Gap BUN Creatinine Estim Creat Clear Calc Estimated GFR POC Glucose 157 H 208 H 138 H Fasting Glucose Calcium Magnesium Total Bilirubin Direct Bilirubin AST ALT Alkaline Phosphatase C-Reactive Protein Total Protein Albumin 11/10/20 11/10/20 11/10/20 06:21 06:21 07:14 WBC 9.2 RBC 4.47 Hgb 13.5 Hct 41.6 MCV 93.1 MCH 30.2 MCHC 32.5 RDW 12.3 Plt Count 343 MPV 9.0 L Absolute Nucleated RBC 0.000 Nucleated RBC % (auto) 0.0 Sodium 139 Potassium 3.9 Chloride 105 Carbon Dioxide 21 L Anion Gap 17 BUN 10 Creatinine 0.58 Estim Creat Clear Calc 86.8 Estimated GFR > 60 POC Glucose 11 L* Fasting Glucose 22 L* Calcium 8.8 Magnesium 2.1 Total Bilirubin 0.7 Direct Bilirubin 0.6 H AST 29 ALT 17 Alkaline Phosphatase 74 D C-Reactive Protein 0.39 Total Protein 6.3 L D Albumin 3.9 D 11/10/20 11/10/20 07:21 07:40 WBC RBC Hgb Hct MCV MCH MCHC RDW Plt Count MPV Absolute Nucleated RBC Nucleated RBC % (auto) Sodium Potassium Chloride Carbon Dioxide Anion Gap BUN Creatinine Estim Creat Clear Calc Estimated GFR POC Glucose 14 L* 186 H Fasting Glucose Calcium Magnesium Total Bilirubin Direct Bilirubin AST ALT Alkaline Phosphatase C-Reactive Protein Total Protein Albumin Preliminary micro results at discharge 11/08/20 17:36 Blood Culture - Preliminary Blood - Venous No growth after 24 hours. 11/08/20 17:05 Blood Culture - Preliminary Blood - Venous No growth after 24 hours. Discharge Plan Discharge Patient Disposition: Home, Self-Care Discharge Diagnosis: dehydration, gastroenteritis, left hip pain Referrals: Wilda Schwartz MD [Primary Care Provider] - 1 Week Discharge Medications: Continued losartan 50 mg tablet 50 mg PO DAILY 90 Days Qty: 90 RF: 3 omeprazole 20 mg capsule,delayed release(DR/EC) 20 mg PO BID PRN (Reason: gerd) 90 Days Qty: 180 RF: 3 polyvinyl alcohol [Artificial Tears (polyvin alc)] 1.4 % drops 1 drp ophthalmic (eye) QID PRN (Reason: Dry Eye(S)) RF: 0 insulin lispro [Humalog U-100 Insulin] 100 unit/mL solution See Rx Instructions .ROUTE .COMPLEX RF: 0 (DME) insulin pump-infus. set-meter Kit MISCELLANEOUS RF: 0 triamcinolone acetonide 0.1 % cream 1 appl topical BID PRN (Reason: SHINGLES) RF: 0 ascorbic acid (vitamin C) 500 mg Tablet 500 mg PO BID RF: 0 aspirin [Aspirin Childrens] 81 mg Tablet,Chewable 81 mg PO DAILY RF: 0 loratadine [Claritin] 10 mg Tablet 10 mg PO DAILY RF: 0 rosuvastatin 10 mg tablet 1 tab PO BEDTIME RF: 0 cholecalciferol (vitamin D3) 25 mcg (1,000 unit) Tablet 25 mcg PO DAILY RF: 0 Caltrate 600 plus D 600 mg (1,500 mg)-800 unit Tablet,Chewable 1 tab PO BID RF: 0 zoledronic [id number] [Reclast] 5 mg/100 mL piggyback 1 ea IV DIRECTED RF: 0 Discharge Orders: Discharge Order (Routine); Ordered 11/10/20 Ordered By: Giovanni Coleman Diet: advance to usual diet Activity on Discharge: As tolerated Stand Alone Forms: Patient Portal Discharge page Care Plan Goals: recovery Health Concerns: hip pain, stomache pains, hypoglycemia Plan of Treatment: monitor sugars closely, can use nsaids for hip pain Assessment: see above
--- NOTE | 2020-11-10 10:20 | MHC.CM.PN ---
PT CLEARED TO DC HOME TODAY WITH NO SERVICES FAMILY TO TRANSPORT
[2020-11-10 11:25] LABS: Glucose, Whole Blood 187 mg/dL (60-115)
== END 2020-11-10 11:51 | disposition home or self-care (01) ==
LOC: HO.ED 17:44 → HO.S3 11-09 13:49
PROVIDERS: Physician Assistant Medical; Admitting Provider Internal Medicine; Emergency Provider Emergency Medicine; PCP Internal Medicine; Visit Provider Internal Medicine
DX: E86.0 Dehydration (principal); K52.9 Noninfective gastroenteritis and colitis, unspecified; R10.32 Left lower quadrant pain; M25.552 Pain in left hip; E11.649 Type 2 diabetes mellitus with hypoglycemia without coma; I10 Essential (primary) hypertension; K21.9 Gastro-esophageal reflux disease without esophagitis; M81.0 Age-related osteoporosis without current pathological fracture; Z90.49 Acquired absence of other specified parts of digestive tract; Z79.4 Long term (current) use of insulin; Z96.41 Presence of insulin pump (external) (internal); Z79.899 Other long term (current) drug therapy
CPT/HCPCS: 36415; 74177; 76856; 80048; 80053; 80076; 81003; 82947; 83605; 83735; 85025; 85027; 86140; 87040; 87635; 96361; 96374; 96375; 96376; 97162; 99218; 99285; 99291; J1170; J1885; J2270; J2405; J2765; Q9967

== ENCOUNTER 2021-11-12 09:01 | Outpatient (REF) | payer MEDICARE, SELFPAY ==
[2021-11-12 11:33] LABS: Hematocrit 43.1 % (37.0-47.0); Mean Corpuscular HGB Conc 32.5 g/dl (31.0-35.0); Mean Corpuscular Hemoglobin 31.1 pg (27.0-33.0); Mean Corpuscular Volume 95.8 fL (80.0-98.0); Platelet Count 464 X10*3/uL (160-400); Red Cell Distribution Width 13.9 % (11.0-16.0); White Blood Count 9.8 X10*3/uL (4.8-10.8)
[2021-11-12 11:48] LABS: Anion Gap 11 (12-20); Blood Urea Nitrogen 13 mg/dL (9-16); Calcium 9.8 mg/dL (8.4-10.2); Carbon Dioxide 28 mmol/L (22-29); Chloride 104 mmol/L (96-108); Estimated Glomerular Filt Rate > 60; Glucose Fasting 92 mg/dL (60-99); Sodium 138 mmol/L (135-145)
== END 2021-11-12 09:02 | disposition home or self-care (01) ==
LOC: HO.HMGCLDS 09:01
PROVIDERS: PCP Internal Medicine; Visit Provider Nurse Practitioner Family
DX: E87.6 Hypokalemia (principal)
CPT/HCPCS: 36415; 80048; 85027

== ENCOUNTER → 2022-03-17 11:24 | Outpatient (BNVA) | payer MEDICARE, SELFPAY | PROVIDERS: PCP Internal Medicine; Referring Provider Internal Medicine; Visit Provider Nurse Practitioner Family | DX: K90.0 Celiac disease (principal); K21.9 Gastro-esophageal reflux disease without esophagitis; K58.2 Mixed irritable bowel syndrome; R63.4 Abnormal weight loss | CPT/HCPCS: 99202 ==

== ENCOUNTER 2022-03-25 08:36 | Outpatient (REF) | payer MEDICARE, SELFPAY ==
[2022-03-25 11:43] LABS: Alanine Aminotransferase 17 U/L (0-31); Albumin Level 4.6 g/dL (3.5-5.0); Alkaline Phosphatase 98 U/L (39-117); Anion Gap 15 (12-20); Aspartate Amino Transferase 22 U/L (5-31); Bilirubin Total 0.4 mg/dL (0.0-1.0); Blood Urea Nitrogen 11 mg/dL (9-16); Calcium 9.7 mg/dL (8.4-10.2); Carbon Dioxide 28 mmol/L (22-29); Chloride 102 mmol/L (96-108); Cholesterol 161 mg/dL; Estimated Glomerular Filt Rate > 60; Glucose Fasting 119 mg/dL (60-99); HDL Cholesterol 55 mg/dL; LDL Cholesterol Calculated 85 mg/dl; Sodium 140 mmol/L (135-145); Total Protein 6.9 g/dL (6.5-8.0); Triglycerides 108 mg/dL
[2022-03-25 11:58] LABS: Creatinine Urine 192.73 mg/dL; Microalbum/Creatinine Ratio Ur 7.7 ug/mg cr
[2022-03-30 12:12] LABS: Transglutaminase Ab IgG <1.0 U/mL
[2022-03-31 05:52] LABS: Vitamin D 25-OH, D2 <4 ng/mL; Vitamin D 25-OH, D3 42 ng/mL; Vitamin D 25-OH, Total 42 ng/mL (30-100)
[2022-04-03 23:14] LABS: Pancreatic Elastase-1 274 mcg/g
== END 2022-03-25 08:37 | disposition home or self-care (01) ==
LOC: HO.HMGCLDS 08:36
PROVIDERS: Absent Provider Nurse Practitioner Family; PCP Internal Medicine; Visit Provider Internal Medicine
DX: R10.9 Unspecified abdominal pain (principal); E55.9 Vitamin D deficiency, unspecified; E78.5 Hyperlipidemia, unspecified; E11.9 Type 2 diabetes mellitus without complications
CPT/HCPCS: 36415; 80053; 80061; 82043; 82306; 82656; 86364

== ENCOUNTER 2023-02-01 10:50 | Outpatient (AMB) | payer MEDICARE, SELFPAY ==
[2023-02-01 10:56] VITALS: BP 135/77; PULSE 81; BMI 22.5
--- NOTE | 2023-02-01 10:56 | MHC.OFFVIS ---
Intake Vital Signs 02/01/23 10:56 Height 5 ft 4.5 in Weight 133 lb 2.547 oz BMI 22.5 BP 135/77 Blood Pressure Location Lt brachial Position Sitting Pulse 81 Intake Visit Reasons: pt is requesting a f/u Intake Note: Presents to in office visit today in follow up of celiac disease. CC: Patient reports she has been eating well and feeling good. Denies any new GI concerns today. [employer] Lead Required: No Accompanied by: Self / Same As Patient Allergies metronidazole Allergy (Severe, Verified 02/01/23 11:02) Rash acetaminophen [Percocet] Allergy (Unknown, Verified 02/01/23 11:02) Unknown alendronate sodium [From FOSAMAX] Allergy (Unknown, Verified 02/01/23 11:02) STOMACH PROBLEMS aspirin [Percodan] Allergy (Unknown, Verified 02/01/23 11:02) Unknown cephalexin [CEPHALEXIN] Allergy (Unknown, Verified 02/01/23 11:02) WHOLE BODY RASH clindamycin Allergy (Unknown, Verified 02/01/23 11:02) Unknown latex Allergy (Unknown, Verified 02/01/23 11:02) Unknown oxycodone [Percocet] Allergy (Unknown, Verified 02/01/23 11:02) Unknown risedronate sodium [From ACTONEL] Allergy (Unknown, Verified 02/01/23 11:02) STOMACH PROBLEMS sulfamethoxazole [SULFAMETHOXAZOLE] Allergy (Unknown, Verified 02/01/23 11:02) BODY RASH trimethoprim [Bactrim] Allergy (Unknown, Verified 02/01/23 11:02) Unknown HPI pt is requesting a f/u HPI Details LAST VISIT GERD (gastroesophageal reflux disease) Patient reports that she is on low-dose PPI and she is able to tolerate that okay. For the most part she denies having any symptoms. Discussed with patient avoiding dietary triggers and late night snacking. Staying upright for minimum 3 hours after meals discussed with patient. Celiac disease Patient reports that she was diagnosed with celiac disease she believes in her 30s. Patient states that she does not remember what kind the test was performed. Patient states that she had upper endoscopies in the past, however unsure if she was told she has a celiac disease then or not. I will do transglutaminase. Patient will go for upper endoscopy to better evaluate in the short future. Will try to obtain her records Weight loss Weight loss of 17 lb since August. Patient did change her diet unsure if this weight loss is related to her new diet. She continues to have occasional postprandial abdominal bloating and cramping. Will send her to rule out pancreatic insufficiency. Patient should probably go for colonoscopy. Last colonoscopy over 5 years ago. Patient believes that it was in 2014. IBS (irritable bowel syndrome) Patient diagnosed with IBS in the past. Continue avoiding gluten and lactose. List of food recommended and lose the food to avoid given to patient. Discussed with patient FODMAP diet. I will see patient in 3 months, sooner on as needed basis. We will discuss her going for upper endoscopy and colonoscopy then. Patient is agreeable to this plan and verbalizes understanding of instructions. She was given the opportunity to ask questions and all questions answered. ? Thank you for allowing me to participate in her care Plan Orders Orders Pancreatic Elastase-1 Today R10.9 Transglutaminase IgA Today R10.9 Transglutaminase Ab IgG Today R10.9 Vitamin D 25-OH (D2 and D3) Today E55.9 TODAY'S VISIT Patient is here today for follow-up. Patient reports that she has been feeling quite well and is avoiding gluten. Her last labs show no elevation in transglutaminase. Patient reports that she has been feeling well. She takes omeprazole as needed basis and her symptoms of acid reflux are suppressed for the most part. Patient denies dyspepsia, dysphagia or odynophagia. Denies melena, hematochezia, unintentional weight loss or ribbon like stools. Ten year colo screen will be in 2024. Patient would like to wait till then to have colonoscopy. Patient denies any other GI concerning symptoms. [facility] Medical History IBS (irritable bowel syndrome) Osteoporosis Essential hypertension Diabetes mellitus GERD (gastroesophageal reflux disease) Surgical History (Updated 02/01/23 @ 11:03 by HAYDER Major) H/O colonoscopy Hx laparoscopic cholecystectomy Family History Father Diabetes CVD (cardiovascular disease) Chronic mental illness Mental health disorder Mother CVD (cardiovascular disease) Diabetes Family/Other FH: mental illness Mental health disorder Social History Housing: House Alcohol intake: current Alcohol intake frequency: holidays/special occasions only Alcohol type: hard liquor Patient Tobacco Use Status: Former Tobacco user (30 years plus) e-Cigarette/Vaping Use: Never Used Second Hand Smoke Exposure: No Advance Directives Date on File: 11/08/20 service: No Current occupational status: employed Cognitive needs: No Hearing needs: No Vision needs: Yes (glasses) Review of Systems Const Denies weight gain and Denies weight loss ENT Reports no additional complaints, Denies dysphagia and Denies odynophagia Card Reports no additional complaints Resp Reports no additional complaints GI Denies abdominal pain, Denies belching, Denies melena, Denies bloating, Denies change in bowel habits, Denies dysphagia, Denies excessive flatus, Denies dyspepsia, Denies heartburn, Denies diarrhea, Denies loose stools, Denies nausea, Denies odynophagia and Denies vomiting Musc Reports no additional complaints Neuro Reports no additional complaints Psych Reports no additional complaints Endo Reports no additional complaints Physical Exam Vital Signs: Last Vital Signs Pulse 81 02/01/23 10:56 BP 135/77 02/01/23 10:56 BMI result Body Mass Index 22.5 Const General: healthy appearing, no acute distress and well developed Nutritional Appearance: well nourished Orientation/consciousness: patient oriented x3 HEENT Head: Yes normal to inspection, Yes normocephalic and Yes atraumatic Face and sinus: Yes normal facial exam Mouth: Normal oral and palatal mucosa present Throat: Yes posterior oropharynx normal, Yes tonsils normal and Yes uvula midline Eyes General: appearance normal, both eyes and all related structures Neck Neck: Yes normal visual inspection, Yes full ROM and Yes trachea midline Thyroid: Thyroid normal Resp Effort & Inspection: normal respiratory effort, able to speak in complete sentences, no tracheal deviation and symmetric chest movement Auscultation: clear to auscultation bilaterally Cardio Rate: regular rate Heart sounds: S1 normal heart sound present and S2 normal heart sound present GI Inspection: Yes normal to inspection and No distended Palpation (GI): Soft to palpation, not firm, nontender and No hepatosplenomegaly present Auscultation: normal bowel sounds General: Yes no CVA tenderness Back/Spine/Pelvis Back: no CVA tenderness Skin General skin exam: elasticity normal, turgor normal and dry skin Neuro General: patient oriented x3 Psych Appearance: grossly normal Mental Status: mental status grossly normal Speech and movement: Normal speech and movement present Assessment & Plan Assessment & Plan (1) Celiac disease: Code(s): K90.0 - Celiac disease (2) GERD (gastroesophageal reflux disease): Code(s): K21.9 - Gastro-esophageal reflux disease without esophagitis Qualifiers: Esophagitis presence: esophagitis presence not specified Qualified Code(s): K21.9 - Gastro-esophageal reflux disease without esophagitis Plan Continue avoiding gluten. For continue avoiding dietary triggers and late night snacking. Staying upright for minimal 3 hours after meals discussed with patient. Mom patient will follow-up in our office in 1 year, sooner on as needed basis. She is agreeable to this plan and verbalizes understanding of instructions. She was given the opportunity to ask questions and all questions answered. Thank you for allowing me to participate in her care Coding Level of Care Code Est Pt Level 3 (22485) Diagnoses Celiac disease K90.0 Gastroesophageal reflux disease, unspecified whether esophagitis present K21.9 Esophagitis presence: esophagitis presence not specified Time Spent (min) 25 Comment 30 minutes spent with patient and additional 10 minutes spent reviewing her records
== END 2023-02-01 11:24 | disposition home or self-care (01) ==
PROVIDERS: PCP Internal Medicine; Visit Provider Nurse Practitioner Family
DX: K90.0 Celiac disease (principal); K21.9 Gastro-esophageal reflux disease without esophagitis
CPT/HCPCS: 99213

== ENCOUNTER → 2023-02-01 10:50 | Outpatient (BNVA) | payer MEDICARE, SELFPAY | PROVIDERS: PCP Internal Medicine; Visit Provider Nurse Practitioner Family | DX: K90.0 Celiac disease (principal); K21.9 Gastro-esophageal reflux disease without esophagitis | CPT/HCPCS: 99212 ==

== ENCOUNTER 2024-02-24 10:24 | Outpatient (AMB) | payer MEDICARE, SELFPAY ==
--- NOTE | 2024-02-24 10:26 | A.OFFVIS_ITS ---
Vital Signs 02/24/24 10:30 Height 5 ft 4.5 in Weight 141 lb 1.533 oz BMI 23.8 BP 122/72 Blood Pressure Location Rt brachial Position Sitting Pulse 84 Pulse Source Pulse Oximeter Intake Visit Reasons: T2DM/LVM Intake Note: NEW Patient presents today to establish treatment for Type 2 Diabetes Mellitus: Last Diabetic eye exam was on: 12/31/2023 Last Podiatry exam was on: Does not see a Diecast Machine Operator Most recent HbA1c: 8.9%, 02/24/2024 Random Glucose- 216 mg/dL, Today Hand Bunch Maker Required: No Accompanied by: Self / Same As Patient Allergies metronidazole Allergy (Severe, Verified 02/24/24 10:27) Rash acetaminophen [Percocet] Allergy (Unknown, Verified 02/24/24 10:27) Unknown alendronate sodium [From FOSAMAX] Allergy (Unknown, Verified 02/24/24 10:27) STOMACH PROBLEMS aspirin [Percodan] Allergy (Unknown, Verified 02/24/24 10:) Unknown cephalexin [CEPHALEXIN] Allergy (Unknown, Verified 02/24/24 10:) WHOLE BODY RASH clindamycin Allergy (Unknown, Verified 02/24/24 10:) Unknown latex Allergy (Unknown, Verified 02/24/24 10:27) Unknown oxycodone [Percocet] Allergy (Unknown, Verified 02/24/24 10:27) Unknown risedronate sodium [From ACTONEL] Allergy (Unknown, Verified 02/24/24 10:27) STOMACH PROBLEMS sulfamethoxazole [SULFAMETHOXAZOLE] Allergy (Unknown, Verified 02/24/24 10:) BODY RASH trimethoprim [Bactrim] Allergy (Unknown, Verified 02/24/24 10:) Unknown HPI Comments Details: This is a 63-year-old female with diabetes mellitus type 2 on insulin pump presenting for diabetes She has been 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 [facility] Medical History IBS (irritable bowel syndrome) Osteoporosis Essential hypertension Diabetes mellitus GERD (gastroesophageal reflux disease) Surgical History H/O colonoscopy Hx laparoscopic cholecystectomy Family History Father Diabetes CVD (cardiovascular disease) Chronic mental illness Mental health disorder Mother CVD (cardiovascular disease) Diabetes Family/Other FH: mental illness Mental health disorder Social History Housing: House Alcohol intake: current Alcohol intake frequency: holidays/special occasions o nly Alcohol type: hard liquor Patient Tobacco Use Status: Former Tobacco user e-Cigarette/Vaping Use: Never Used Second Hand Smoke Exposure: No Advance Directives Date on File: 11/08/20 service: No Current occupational status: employed Cognitive needs: No Hearing needs: No Vision needs: Yes (glasses) Physical Exam Vital Signs: Last Vital Signs Pulse 84 02/24/24 10:30 BP 122/72 02/24/24 10:30 BMI result Body Mass Index 23.8 Results AMB Hemoglobin A1c AMB Hemoglobin A1c 8.9 % Last Edit by MOHAN Guerra on 02/24/24 11:09 Results Reviewed Results Reviewed: Laboratory Last Values Glucose (Clinic) 216 mg/dL (60-115) H 02/24/24 10:34 Hgb A1c (Clinic) 8.9 % (4.0-6.0) H 02/24/24 10:52 Assessment & Plan Assessment & Plan Orders: Orders AMB Hemoglobin A1c Today E11.9 - Type 2 diabetes mellitus without complications Coding
[2024-02-24 10:30] VITALS: BP 122/72; PULSE 84; BMI 23.8
[2024-02-24 10:40] LABS: Glucose, Whole Blood 216 mg/dL (60-115)
== END 2024-02-24 11:21 | disposition home or self-care (01) ==
PROVIDERS: PCP Internal Medicine; Visit Provider Internal Medicine
DX: E11.9 Type 2 diabetes mellitus without complications (principal)

== ENCOUNTER → 2024-02-24 10:24 | Outpatient (BNVA) | payer MEDICARE, SELFPAY | PROVIDERS: PCP Internal Medicine; Visit Provider Internal Medicine | DX: E11.9 Type 2 diabetes mellitus without complications (principal) | CPT/HCPCS: 82947; 83036 ==

== ENCOUNTER 2024-03-02 12:24 | Outpatient (AMB) | payer MEDICARE, SELFPAY ==
[2024-03-02 12:33] VITALS: BP 160/84; PULSE 84; BMI 24.0
--- NOTE | 2024-03-02 12:33 | A.OFFVIS_ITS ---
Vital Signs 3 03/02/24 12:33 Height 5 ft 4.5 in Weight 141 lb 12.116 oz BMI 24.0 BP 160/84 H Blood Pressure Location Lt brachial Position Sitting Pulse 84 Pulse Source Pulse Oximeter Intake Visit Reasons: T2DM, Osteoporosis-per Dr. Valenzuela-conf Intake Note: Patient presents today for D2MT and Osteoporosis follow up visit. Last Diabetic Eye exam: 01/2024 Last Podiatry Visit: Doesn't' have one Random Glucose: 138 mg/dl HgA1c: 8.9% 02/24/24 Ski Molder Required: No Accompanied by: Self / Same As Patient Allergies metronidazole Allergy (Severe, Verified 03/02/24 12:38) Rash acetaminophen [Percocet] Allergy (Unknown, Verified 03/02/24 12:38) Unknown alendronate sodium [From FOSAMAX] Allergy (Unknown, Verified 03/02/24 12:38) STOMACH PROBLEMS aspirin [Percodan] Allergy (Unknown, Verified 03/02/24 12:38) Unknown cephalexin [CEPHALEXIN] Allergy (Unknown, Verified 03/02/24 12:38) WHOLE BODY RASH clindamycin Allergy (Unknown, Verified 03/02/24 12:38) Unknown latex Allergy (Unknown, Verified 03/02/24 12:38) Unknown oxycodone [Percocet] Allergy (Unknown, Verified 03/02/24 12:38) Unknown risedronate sodium [From ACTONEL] Allergy (Unknown, Verified 03/02/24 12:38) STOMACH PROBLEMS sulfamethoxazole [SULFAMETHOXAZOLE] Allergy (Unknown, Verified 03/02/24 12:38) BODY RASH trimethoprim [Bactrim] Allergy (Unknown, Verified 03/02/24 12:38) Unknown Medication List - Last Reconciled 03/02/24 by Sandi Ortiz MD ascorbic acid (vitamin C) 500 mg PO BID aspirin (Aspirin Childrens) 81 mg PO DAILY cholecalciferol (vitamin D3) 25 mcg PO DAILY glucagon 1 mg IM Q20M PRN insulin glargine (Lantus Solostar U-100 Insulin) 30 units (0.3 mL) subcut QAM insulin lispro (Humalog U-100 Insulin) PT USING HUMALOG IN INSULIN PUMP insulin pump-infus. set-meter HUMALOG loratadine (Claritin) 10 mg PO DAILY losartan 50 mg PO BID olopatadine 0.1% 1 drp ophthalmic (eye) BID omeprazole 20 mg PO BID pen needle, diabetic (1st Tier Unifine Pentips) As directed rosuvastatin 1 tab PO BEDTIME triamcinolone acetonide 0.1% 1 appl topical BID PRN zoledronic xddp-obwthfus-nqcij 5 mg/100 mL (Reclast) 1 ea IV DIRECTED HPI Comments Details: 63-year-old female here for initial evaluation of type 2 diabetes mellitus as well as osteoporosis. Was previously seeing Dr. Scotty Koo who retired. Type 2 diabetes mellitus History of diabetes Diagnosed at age 33 Prior therapy: Was on glucophage for 1 year and didnt help acheive targets hence insulin was started Current regimen: Medtronic insulin pump 780 G with humalog U-100 Isnt using guardian sensor due to prior bad exerience with sensor resulting in hemoatoma, huge needle 20 years ago and afraid of extra cost Checks finger sticks Denies any symptoms of hyperglycemia including polyphagia, polyuria. Gets symptoms of hypoglycemia in 50s. Decreased awareness. Random Glucose: 138 mg/dl HgA1c: 8.9% 02/24/24 Complications Last Diabetic Eye exam: 01/2024, no retinopathy Last Podiatry Visit: Doesn't' have one Neuropathy: very mild pins and needles, foot exam done 03/02/24 Kidney disease: no kidney disease Macrovascular complications: No history of macrovascular complications. Statin: on rosuvastatin 10 mg daily LEEANNE/ARB: on losartan 50 mg BID Exercise: active at work , walks the dog twice daily Diet control: she has celiac has never had any hospitalizations for hyperglycemia/hypoglycemia. Osteoporosis new pt evaluation Diagnosed in her 30s. She reports she had early natural menopause in her 30s, subsequently was not on HRT. Her construction flagger ordered a bone density which showed osteoporosis. Fracture History:None Height loss: ? Back pain: None Pharmacotherapeutic hx: She describes she has been on therapy for many years, her last Reclast infusion was in June 2023 this year. She has also been trialed on Prolia in the middle but gave her excessive aches inner thighs. I will obtain these records. She can not tell me exactly what year she got which medication. vitamin D 1000 units day Secondary risk factors: Steroid use: None Hyperthyroidism: Neg Seizure medication use: None Chemo or Radiation use: Neg Heparin Use: Neg History of eating disorder: Negative long-term immobilization: Negative History of kidney stones or disease: negative PI Use: Chronic use Chronic inflammatory lung disease: Negative Chronic inflammatory bowel disease: Negative Daily calcium intake: She is not on calcium supplements, drinks milk occasionally, no yogurt or cheese. Vitamin D intake: 1000 units daily Exercise: active at work , walks the dog twice daily Smoking history: quit 31 years ago Dental: Has regular dental cleaning, no issues Review of systems Constitutional: no fevers, chills or weight loss HEENT: no changes in vision Cardiac: No chest pain, discomfort or palpitations. Pulmonary: No SOB GI:No abdominal pain, no nausea or vomiting, no anorexia, no blood in stool : no burning micturition, dysuria or increase in urinary frequency Physical exam General: sitting comfortably in no acute distress HEENT: normocephalic/atraumatic, moist oral mucosa Neck: supple, symmetrical, no thyromegaly , no dorsocervical or supraclavicular fat pads Cardiac: normal heart sounds Pulm: normal breath sounds B/L, no added breath sounds Abd: not distended, no tenderness Extremities: no edema, no signs of myxedema Neuro: AAO x3, Speech: normal, no facial droop, moving all 4 extremities Skin: no rash Foot exam: intact sensation to monofilament, intact pulses, intact vibration, she does have thickened nails questionable fungus. Laboratory Tests Laboratory Tests 03/25/22 08:45 Calcium 9.7 25-OH Vitamin D Total 42 25-Hydroxy Vitamin D2 <4 25-Hydroxy Vitamin D3 42 11/12/21 03/25/22 02/24/24 09:08 08:45 10:52 Hgb 14.0 Hct 43.1 Plt Count 464 H Creatinine 0.71 Estimated GFR > 60 Hgb A1c (Clinic) 8.9 H AST 22 ALT 17 Albumin 4.6 Triglycerides 108 Cholesterol 161 LDL Cholesterol, Calc 85 HDL Cholesterol 55 PFSH Medical History IBS (irritable bowel syndrome) Osteoporosis Essential hypertension Diabetes mellitus GERD (gastroesophageal reflux disease) Surgical History H/O colonoscopy Hx laparoscopic cholecystectomy Family History Father Diabetes CVD (cardiovascular disease) Chronic mental illness Mental health disorder Mother CVD (cardiovascular disease) Diabetes Family/Other FH: mental illness Mental health disorder Social History Housing: House Alcohol intake: current Alcohol intake frequency: holidays/special occasions only Alcohol type: hard liquor Patient Tobacco Use Status: Former Tobacco user e-Cigarette/Vaping Use: Never Used Second Hand Smoke Exposure: No Advance Directives Date on File: 11/08/20 service: No Current occupational status: employed Cognitive needs: No Hearing needs: No Vision needs: Yes (glasses) Assessment & Plan Assessment & Plan (1) Diabetes mellitus: Code(s): E11.9 - Type 2 diabetes mellitus without complications Category: Medical Qualifiers: Diabetes mellitus type: type 2 Diabetes mellitus penitentiary insulin use: with filler leaf cutter long use Diabetes mellitus complication status: with hyperglycemia Qualified Code(s): E11.65 - Type 2 diabetes mellitus with hyperglycemia; Z79.4 - terminal block assembler (current) use of insulin Plan: Patient with insulin-dependent diabetes mellitus diagnosed in her 30s, with mild neuropathy, who has very poor control at this time with most recent A1c from February 2024 at 8.9%. She is on insulin pump Medtronic 780G with Humalog. About 20 years ago she had a bad experience with the sensor so she has not been using any sensor hence she is not in automated mode. She is using fingersticks to manually give herself boluses through the pump. I reviewed her pump data, which showed that she is hyperglycemic at dinner time and definitely after breakfast. Her post lunch readings are usually better. She also has hyperglycemia in the morning. However given no sensor data is limited and she is reporting hypoglycemic episodes as well which she has not recorded with fingersticks into the pump. She has so many basal rates set into her Medtronic pump, I would like to limit these to much fewer, however this time given lack of data I do not want to modify her settings. I would like to obtain more data by putting her on the sensor. I will refer her to our special education paraeducator to get her started on guardian for sensor that goes with her Medtronic 780 G pump. Patient is willing to try. She tells me she has been having hypoglycemic episodes in the 40s and 50s which are not available on her pump data. She also tells me that she lacks hypoglycemia awareness in the 60s and 70s and only has symptoms when she is down to the 40s or 50s. All the more reason for her to go on a sensor. Her fingersticks have been mostly around 200s during pre meal checks, fastings have been very variable anywhere from early 100s to late 100s. I will also have her see our mounter sousaphones, especially given that she has gluten sensitivity, it is difficult for her to be Akila with her foods. She finds it hard manage her nutrition. She also reports history of celiac disease and given that she is insulin dependent I am concerned that she might have type 1 diabetes or latent autoimmune diabetes. I will check her antibodies. Counseled about hypoglycemia management Plan: -referred to special education paraeducator to start guardian sensor with the Medtronic pump -see mounter sousaphones -ordered annual screening labs for complications including urine microalbumin, BMP, lipid panel -up-to-date with eye visit, no history of retinopathy -foot exam showed thickened nails today, we talked about referral to podiatry however given most of the visit time was spent with counseling her about the pump and sensor usage, I will place Podiatry referral next time after talking to her which 1 is close to her area -follow up in 3 weeks On insulin pump: Backup Lantus pen and pen needles prescribed: To take 30 units of Lantus in case pump failure , she has been using 37 units daily on the pump Glucagon prescribed Pump insertion sites look unremarkable (2) Osteoporosis: Code(s): M81.0 - Age-related osteoporosis without current pathological fracture Category: Medical Qualifiers: Osteoporosis type: other Presence of current pathological fracture: w ithout current pathological fracture Qualified Code(s): M81.8 - Other osteoporosis without current pathological fracture Plan: Patient with a history of osteoporosis diagnosed in her 30s. Her risk factors were early menopause in her 30s. Unclear why she had premature ovarian insufficiency. She was not on hormone replacement therapy. Her most recent bone density scan is from May 2023 which showed T-score of-3.3 at the femoral neck with 6.9 % decreased compared to last time, T-score of-2.4 at the total hip with 3.4 % decrease compared to last time. No lumbar spine done. Bone density-2.7 at the forearm. She denies any fracture history. She has been on Reclast therapy most recently last infusion was June 2023 per patient. I do not have any of these records size get them done since she reports being on therapy for osteoporosis for many years since her 30s. She reports she was also briefly on Prolia in the middle. Plan: -obtain calcium, phosphorus, magnesium, PTH, vitamin-D levels -encouraged to continue vitamin-D 1000 units daily -encouraged to incorporate 1000 mg of calcium in her diet -weight-bearing exercise advised -obtain records from her prior construction flagger -follow up in 3 weeks (3) Dyslipidemia: Code(s): E78.5 - Hyperlipidemia, unspecified Category: Medical Plan: LDL at 85 from 2022. Ordered repeat lipid panel Plan: -continue rosuvastatin 10 mg daily (4) Essential hypertension: Code(s): I10 - Essential (primary) hypertension Category: Medical Plan: Blood pressure elevated today, we will follow up in the next few visits. Plan: -continue losartan 50 mg BID Plan I spent 60 minutes in reviewing the record, seeing the patient and documenting in the medical record. Orders: Orders 2 Islet Cell Antibody Scrn/Titer Today E11.9 - Type 2 diabetes mellitus without complications Liver Panel Today E11.9 - Type 2 diabetes mellitus without complications Platelet Count Today E11.9 - Type 2 diabetes mellitus without complications Alkaline Phosphatase Bone Today M81.0 - Age-related osteoporosis without current pathological fracture TSH reflex Free T4 Today M81.0 - Age-related osteoporosis without current pathological fracture Phosphorus Today M81.0 - Age-related osteoporosis without current pathological fracture Calcium, Random Urine Today M81.0 - Age-related osteoporosis without current pathological fracture Lipid Panel Today E11.9 - Type 2 diabetes mellitus without complications Microalbumin, Random (w Creat) Today E11.9 - Type 2 diabetes mellitus without complications Basic Metabolic Panel Today E11.9 - Type 2 diabetes mellitus without complications Glutamic acid decarboxylase Ab Today E11.9 - Type 2 diabetes mellitus without complications C Peptide Today E11.9 - Type 2 diabetes mellitus without complications Collagen Type I C-Telopeptide Today M81.0 - Age-related osteoporosis without current pathological fracture Albumin Level Today M81.0 - Age-related osteoporosis without current pathological fracture Calcium Today M81.0 - Age-related osteoporosis without current pathological fracture Vitamin D 25-OH Total Today M81.0 - Age-related osteoporosis without current pathological fracture Parathyroid Hormone Intact Today M81.0 - Age-related osteoporosis without current pathological fracture Magnesium Today M81.0 - Age-related osteoporosis without current pathological fracture Collagen Crosslinks NTX Today M81.0 - Age-related osteoporosis without current pathological fracture Creatinine Urine Today M81.0 - Age-related osteoporosis without current pathological fracture Referrals 2 Head Buyer Tobacco Nutrition Referral E11.9 - Type 2 diabetes mellitus without complications Diabetes Education Referral E11.9 - Type 2 diabetes mellitus without complications Medications: New 2 glucagon until target blood sugar attained 1 mg IM Q20M PRN 1 ea 0RF hypoglycemia insulin glargine (Lantus Solostar U-100 Insulin) Inject 30 units in case of pump failure 30 units (0.3 mL) subcut QAM 3 mL 0RF pen needle, diabetic (1st Tier Unifine Pentips) As directed 100 ea 0RF Patient Instructions: For Diabetes See mounter sousaphones See diabtes educator to consider switching to automated mode on pump with sensor Back up lantus prescribed : inject 30 units in case of pump failure and call medtronic Glucagon prescribed for emergencies Rule of 15 Treatment for Hypoglycemia (Low blood sugar) If your blood glucose is low (70 and below)*, follow the steps below to treat: Eat or drink something from the list below equal to 15 grams of carbohydrate (carb). Rest for 15 minutes Re-check your blood glucose. If it is still low, (below 70), repeat step 1 above. ? If your next meal is more than an hour away, you will need to eat one carbohydrate choice as a snack to keep your blood glucose from going low again. ?If you can't figure out why you have low blood glucose, call your healthcare provider, as your medicine may need to be adjusted. ?Always carry something with you to treat an insulin reaction. Use food from the list below. ? Foods equal to One Carbohydrate Choice (15 grams of carbohydrate): 3 Glucose ?tablets or 4 Dextrose tablets 4 ounces of fruit juice 5-6 ounces (about 1/2 can) of regular soda such as Coke or Pepsi ? 7-8 gummy or regular Life Savers ? 1 Tbsp. of sugar or jelly NOTE: If your blood sugar is less than 50, double the portion above for a total of 30 gm. ?Carbohydrate. ? Follow meal plan of 45-60 g of consistent carbohydrates at 3 meals each day and 15 g of carbohydrate at 1-2 snacks each day. Coding Level of Care Code New Pt Level 5 (50235) Complex EM visit Add On G2211 Diagnoses Type 2 diabetes mellitus with hyperglycemia, with long-term current use of insulin E11.65; Z79.4 Diabetes mellitus type: type 2 Diabetes mellitus filler leaf cutter long insulin use: with penitentiary use Diabetes mellitus complication status: with hyperglycemia Other osteoporosis without current pathological fracture M81.8 Osteoporosis type: other Presence of current pathological fracture: without current pathological fracture Dyslipidemia E78.5 Essential hypertension I10 Time Spent (min) 60
[2024-03-02 12:45] LABS: Glucose, Whole Blood 138 mg/dL (60-115)
== END 2024-03-02 13:50 | disposition home or self-care (01) ==
LOC: HO.ENCR 12:24
PROVIDERS: PCP Internal Medicine; Visit Provider Student in an Organized Health Care Education/Training Program
DX: E11.65 Type 2 diabetes mellitus with hyperglycemia (principal); Z79.4 Long term (current) use of insulin; M81.8 Other osteoporosis without current pathological fracture; E78.5 Hyperlipidemia, unspecified; I10 Essential (primary) hypertension
CPT/HCPCS: 99205; G2211

== ENCOUNTER → 2024-03-02 12:24 | Outpatient (BNVA) | payer MEDICARE, SELFPAY | PROVIDERS: PCP Internal Medicine; Visit Provider Student in an Organized Health Care Education/Training Program | DX: E11.65 Type 2 diabetes mellitus with hyperglycemia (principal); M81.8 Other osteoporosis without current pathological fracture; E78.5 Hyperlipidemia, unspecified; I10 Essential (primary) hypertension; Z79.4 Long term (current) use of insulin | CPT/HCPCS: 82947; 99202 ==

== ENCOUNTER 2024-03-21 08:52 | Outpatient (AMB) | payer MEDICARE, SELFPAY ==
--- NOTE | 2024-03-21 08:56 | MHC.PC.OV ---
Vital Signs 03/21/24 08:59 Height 5 ft 4.5 in Weight 140 lb BMI 23.7 BP 148/80 H Blood Pressure Location Lt brachial Position Sitting Intake Visit Reasons: annual exam- needs A1C Intake Note: Patient here for an annual physical exam Manager Integrity Required: No Accompanied by: Self / Same As Patient Allergies metronidazole Allergy (Severe, Verified 03/21/24 09:27) Rash acetaminophen [Percocet] Allergy (Unknown, Verified 03/21/24 09:27) Unknown alendronate sodium [From FOSAMAX] Allergy (Unknown, Verified 03/21/24 09:27) STOMACH PROBLEMS aspirin [Percodan] Allergy (Unknown, Verified 03/21/24 09:27) Unknown cephalexin [CEPHALEXIN] Allergy (Unknown, Verified 03/21/24 09:27) WHOLE BODY RASH clindamycin Allergy (Unknown, Verified 03/21/24 09:27) Unknown latex Allergy (Unknown, Verified 03/21/24 09:27) Unknown oxycodone [Percocet] Allergy (Unknown, Verified 03/21/24 09:27) Unknown risedronate sodium [From ACTONEL] Allergy (Unknown, Verified 03/21/24 09:27) STOMACH PROBLEMS sulfamethoxazole [SULFAMETHOXAZOLE] Allergy (Unknown, Verified 03/21/24 09:27) BODY RASH trimethoprim [Bactrim] Allergy (Unknown, Verified 03/21/24 09:27) Unknown Medication List - Last Reconciled 03/21/24 by Wilda Brooks MD ascorbic acid (vitamin C) 500 mg PO BID aspirin (Aspirin Childrens) 81 mg PO DAILY cholecalciferol (vitamin D3) 25 mcg PO DAILY glucagon 1 mg IM Q20M PRN insulin glargine (Lantus Solostar U-100 Insulin) 30 units (0.3 mL) subcut QAM insulin lispro (Humalog U-100 Insulin) PT USING HUMALOG IN INSULIN PUMP insulin pump-infus. set-meter HUMALOG lidocaine 5% 1 patch topical DAILY loratadine (Claritin) 10 mg PO DAILY losartan 50 mg PO BID olopatadine 0.1% 1 drp ophthalmic (eye) BID omeprazole 20 mg PO BID pen needle, diabetic (1st Tier Unifine Pentips) As directed rosuvastatin 1 tab PO BEDTIME triamcinolone acetonide 0.1% 1 appl topical BID PRN zoledronic rfbp-wfrsjcza-vqavx 5 mg/100 mL (Reclast) 1 ea IV DIRECTED Tobacco use date assessed: 03/21/24 Fall risk assessment: No Falls in past year Last assessed Fall Risk: 03/21/24 Dental Screening Dental Screen Date: 03/21/24 Did you have a dental visit in the last 12 months?: Yes Did you have a dental problem in the last 6 months where you did not have access to dental care?: No Was dental information given to patient?: Patient has dentist HPI HPI Comments History of Present Illness Details The patient is a 63-year-old female presenting with a request for a physical examination. She has a significant medical history including Type 1 Diabetes Mellitus, for which she follows with endocrinology and uses an insulin pump along with Lantus 30 units daily. She was reviewed by her covered buckle assembler shortly ago. Her last Hemoglobin A1c was reported as 8.9% last month, indicating suboptimal glycemic control. She had a diabetic eye exam 2-3 weeks ago, which did not reveal diabetic retinopathy, and her routine eye exam was in January. The patient also has a history of Essential Hypertension managed with Losartan 50 mg twice daily and reports adherence issues related to meal timing. Hyperlipidemia is managed with Rosuvastatin. Osteoporosis is treated with Reclast annually, and she had a bone density scan last year. Her GERD is managed with Omeprazole. Her surgical history includes cholecystectomy, and she underwent a colonoscopy in 2014 which returned normal. She is adherent to annual mammograms, with the last one conducted in May, and current with her Pap smear from last year. Declines pneumonia and Td vaccine today. Her allergy profile indicates reactions to several medications including rashes. She discontinued smoking and limits alcohol intake to special occasions. She is not currently experiencing any symptoms of depression or anxiety. [facility] Medical History IBS (irritable bowel syndrome) Osteoporosis Essential hypertension Diabetes mellitus GERD (gastroesophageal reflux disease) Surgical History H/O colonoscopy Hx laparoscopic cholecystectomy Family History Father Diabetes CVD (cardiovascular disease) Chronic mental illness Mental health disorder Mother CVD (cardiovascular disease) Diabetes Family/Other FH: mental illness Mental health disorder Social History Housing: House Alcohol intake: current Alcohol intake frequency: holidays/special occasions only Alcohol type: hard liquor Patient Tobacco Use Status: Former Tobacco user e-Cigarette/Vaping Use: Never Used Second Hand Smoke Exposure: No Advance Directives Date on File: 11/08/20 service: No Current occupational status: employed Current occupational exposures/hazards: No Cognitive needs: No Hearing needs: No Vision needs: Yes (glasses) Questionnaire PHQ-9 Over the last 2 weeks, how often have you been bothered by any of the following problems? 1. Little interest or pleasure in doing things: not at all 2. Feeling down, depressed, or hopeless: not at all 3. Trouble falling or staying asleep, or sleeping too much: not at all 4. Feeling tired or having little energy: not at all 5. Poor appetite or overeating: not at all 6. Feeling bad about yourself - or that you are a failure or have let yourself or your family down: not at all 7. Trouble concentrating on things, such as reading the newspaper or watching television: not at all 8. Moving or speaking so slowly that other people could have noticed. Or the opposite - being so fidgety or restless that you have been moving around a lot more than usual: not at all 9. Thoughts that you would be better off or of hurting yourself in some way: not at all Total score: 0 Depression Screening Interpretation: Negative Depression Screening Done: Yes 57450 - PHQ-9 Billing: Yes Source: Developed by Drs. Miguelangel Jeong, Alannah Ferreira, Murali Norton and colleagues, with an educational jefe from [employer]. Thrive Questionnaire Date Thrive assessed: 03/21/24 I am a: Patient What is your living situation today?: I have a steady place to live Within the past 12 months, did the food you bought not last and you didn't have the money to get more?: Never true Within the past 12 months, did you worry whether your food would run out before you got money to buy more?: Never true Do you have trouble paying for medicines?: No Do you have trouble getting transportation to medical appointments?: No Do you have trouble paying your heating and electricity bill?: No Do you have trouble taking care of your child, family member or friend?: No Do you have trouble with day-to-day activities such as bathing, preparing meals, shopping, managing finances, etc.?: No Are you currently unemployed and looking for a job?: No Are you interested in more education?: No Please select the resources that you would like help with: None Currently or been in a relationship where the following occur: No concerns reported THRIVE Score: 0 AUDIT C Alcohol Use Questionnaire (AUDIT-C) 1. How often do you have a drink containing alcohol?: Monthly or less 2. How many drinks containing alcohol do you have on a typical day when you are drinking?: 1 or 2 3. How often do you have six or more drinks on one occasion?: Never Total Score: 1 Score Reviewed/Action Taken: No YOVANY-7 AMB Questionnaire YOVANY-7 Date YOVANY - 7 assessed: 03/21/24 Feeling nervous, anxious, or on edge: 0 = Not at all Not being able to stop or control worryin = Not at all Worrying too much about different things: 0 = Not at all Trouble relaxin = Not at all Being so restless that it is hard to sit still: 0 = Not at all Becoming easily annoyed or irritable: 0 = Not at all Feeling afraid as if something awful might happen: 0 = Not at all Total YOVANY-7 score (0-4 normal; 5-9 mild; 10-14 moderate; 15-21 severe): 0 Source: Developed by Drs. Miguelangel Jeong, Alannah Ferreira, Murali Norton and colleagues, with an educational jefe from [employer]. YOVANY-7 Assessment Billing YOVANY-7 Assessment Tool: YOVANY-7 Assessment 47278 Review of Systems Const All systems reviewed & are unremarkable except as noted in HPI and below Card Denies chest pain at rest, Denies chest pain with activity, Denies edema, Denies irregular heart rhythm, Denies claudication, Denies dyspnea, Denies dyspnea on exertion, Denies orthopnea, Denies paroxysmal nocturnal dyspnea and Denies slow heart rate Resp Denies cough, Denies dyspnea and Denies dyspnea on exertion GI Denies abdominal pain, Denies change in bowel habits, Denies excessive flatus, Denies nausea and Denies vomiting Physical exam (Primary Care) Vital Signs: Last Vital Signs BP 148/80 H 03/21/24 08:59 BMI result Body Mass Index 23.7 Tobacco/Smoking Status: Tobacco use Status Tobacco use date assessed 03/21/24 03/21/24 09:11 Patient Tobacco Use Status Former Tobacco user 03/21/24 08:58 e-Cigarette/Vaping Use Never Used 03/21/24 08:58 PHQ-9: PHQ-9 Score PHQ-9: Total score 0 03/21/24 09:33 Depression Screening Interpretation: Negative Thrive Assessment: Date of Thrive Assessment Date Thrive assessed 03/21/24 03/21/24 08:58 Currently or been in a relationship where the following occur: No concerns reported HENMT Head: Yes normal to inspection, Yes normocephalic and Yes atraumatic Ears: external ears normal Eyes General: appearance normal, both eyes and all related structures Eyelids: Yes eyelids normal Conjunctivae: conjunctivae normal Neck Neck: Yes normal visual inspection and Yes supple Resp Effort & Inspection: normal respiratory effort Auscultation: clear to auscultation bilaterally Cardio Jugular venous distension: no JVD Rate: regular rate Rhythm: regular rhythm Heart sounds: S1 normal heart sound present and S2 normal heart sound present GI Inspection: Yes normal to inspection Palpation (GI): Soft to palpation and nontender Auscultation: normal bowel sounds Skin General skin exam: no rashes or lesions noted Neuro General: no focal motor deficits Extrem General: Yes full ROM Psych Appearance: grossly normal Office Procedures Flu Questionnaire Does the patient have a severe egg allergy?: No Immunizations Fluarix Triv [id number] (PF) 45 mcg (15 mcg x 3)/0.5 mL IM syringe Performing Provider: Wilda Brooks MD [facility] [place] Documented (not given) by: MOHAN Brown on 03/21/24 09:11 Reason Not Given: Patient Refused Coding Level of Care Code Est Pt Prev Care >65y(45707) Diagnoses Physical exam Z00.00 Type 2 diabetes mellitus with hyperglycemia, with long-term current use of insulin E11.65; Z79.4 Diabetes mellitus type: type 2 Diabetes mellitus half-way insulin use: with supervisor intermediates use Diabetes mellitus complication status: with hyperglycemia Additional Codes YOVANY-7 Assessment Billing - YOVANY-7 Assessment Tool: YOVANY-7 Assessment 97483 ([id number]) PHQ-9 - 92658 - PHQ-9 Billing: Yes ([id number]) Time Spent (min) 32 Assessment & Plan Assessment & Plan (1) Physical exam: Code(s): Z00.00 - Encounter for general adult medical examination without abnormal findings Category: Medical (2) Diabetes mellitus: Code(s): E11.9 - Type 2 diabetes mellitus without complications Category: Medical Qualifiers: Diabetes mellitus type: type 2 Diabetes mellitus half-way insulin use: with supervisor intermediates use Diabetes mellitus complication status: with hyperglycemia Qualified Code(s): E11.65 - Type 2 diabetes mellitus with hyperglycemia; Z79.4 - 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) use of insulin Plan - Continue current management for Type 1 Diabetes with insulin therapy; encourage adherence to covered buckle assembler's follow-up - Monitor blood pressure with encouragement for regular Losartan intake - Maintain current treatment for Hyperlipidemia with Rosuvastatin - Continue annual Reclast for Osteoporosis and remain vigilant for bone density screenings - Persist with Omeprazole for GERD management - Remain vigilant about allergies and avoid known allergens - Schedule routine follow-ups to reassess treatment plans and preventive screenings Patient was informed and verbally consented to the use of an ambient scribe for clinic note documentation during this visit. We discussed the importance of maintaining compliance with prescribed insulin regimen and the impact of managing blood glucose levels on overall health. We reviewed her refusal to receive the Td booster and pneumonia vaccine at this time and will revisit these in future appointments. The patient was reminded of the necessitated annual laboratory work to monitor her diabetes, cholesterol, and organ functions. The possibility of family history implications on her cardiovascular risk was acknowledged. We agreed that routine health screenings like mammograms and bone density tests are critical and will continue as per guidelines. Orders: Orders Lipid Panel Today E78.5 - Hyperlipidemia, unspecified Microalbumin, Random (w Creat) Today R80.9 - Proteinuria, unspecified Vitamin D 25-OH Total Today E55.9 - Vitamin D deficiency, unspecified Comprehensive [place]. Panel Fast Today Z00.00 - Encounter for general adult medical examination without abnormal findings Influenza [id number] Immunization Today Z23 - Encounter for immunization Patient Instructions: - Continue all current medications as prescribed - Monitor blood glucose levels regularly and report significant changes - Schedule and complete pending laboratory tests within the next three months - Adhere to recommended annual health screenings, including future colonoscopy - Follow-up with covered buckle assembler as previously scheduled - Maintain current lifestyle choices; limit alcohol intake and avoid allergens - Return for medical reassessment if any new symptoms arise or existing conditions worsen
[2024-03-21 08:59] VITALS: BP 148/80; BMI 23.7
== END 2024-03-21 09:40 | disposition home or self-care (01) ==
PROVIDERS: PCP Internal Medicine; Visit Provider Internal Medicine
DX: Z00.00 Encounter for general adult medical examination without abnormal findings (principal); E11.65 Type 2 diabetes mellitus with hyperglycemia; Z79.4 Long term (current) use of insulin

== ENCOUNTER → 2024-03-21 08:52 | Outpatient (BNVA) | payer MEDICARE, SELFPAY | PROVIDERS: PCP Internal Medicine; Visit Provider Internal Medicine | DX: Z00.00 Encounter for general adult medical examination without abnormal findings (principal); E11.65 Type 2 diabetes mellitus with hyperglycemia; Z79.4 Long term (current) use of insulin | CPT/HCPCS: 96127; 99397 ==

== ENCOUNTER 2024-03-23 13:48 | Outpatient (AMB) | payer MEDICARE, SELFPAY ==
[2024-03-23 13:50] VITALS: BP 150/72; PULSE 86; BMI 23.7
--- NOTE | 2024-03-23 13:50 | A.OFFVIS_ITS ---
Vital Signs 3 03/23/24 13:50 03/23/24 14:46 Height 5 ft 4.5 in Weight 140 lb 3.424 oz BMI 23.7 BP 150/72 H 142/72 H Blood Pressure Location Lt brachial Lt brachial Position Sitting Pulse 86 Pulse Source Pulse Oximeter Intake Visit Reasons: Type 1 dm, osteoporosis-confirmed Intake Note: Patient presents today for D1MT follow up visit. Last Diabetic Eye exam: 01/2024 Last Podiatry Visit: Doesn't have one Random Glucose: 114 mg/dl HgA1c: 8.9% 02/24/24 Belly Dump Driver Required: No Accompanied by: Self / Same As Patient Allergies metronidazole Allergy (Severe, Verified 03/23/24 13:55) Rash acetaminophen [Percocet] Allergy (Unknown, Verified 03/23/24 13:55) Unknown alendronate sodium [From FOSAMAX] Allergy (Unknown, Verified 03/23/24 13:55) STOMACH PROBLEMS aspirin [Percodan] Allergy (Unknown, Verified 03/23/24 13:55) Unknown cephalexin [CEPHALEXIN] Allergy (Unknown, Verified 03/23/24 13:55) WHOLE BODY RASH clindamycin Allergy (Unknown, Verified 03/23/24 13:55) Unknown latex Allergy (Unknown, Verified 03/23/24 13:55) Unknown oxycodone [Percocet] Allergy (Unknown, Verified 03/23/24 13:55) Unknown risedronate sodium [From ACTONEL] Allergy (Unknown, Verified 03/23/24 13:55) STOMACH PROBLEMS sulfamethoxazole [SULFAMETHOXAZOLE] Allergy (Unknown, Verified 03/23/24 13:55) BODY RASH trimethoprim [Bactrim] Allergy (Unknown, Verified 03/23/24 13:55) Unknown Medication List - Last Reconciled 03/23/24 by Sandi Ortiz MD ascorbic acid (vitamin C) 500 mg PO BID aspirin (Aspirin Childrens) 81 mg PO DAILY cholecalciferol (vitamin D3) 25 mcg PO DAILY glucagon 1 mg IM Q20M PRN insulin glargine (Lantus Solostar U-100 Insulin) 30 units (0.3 mL) subcut QAM insulin lispro (Humalog U-100 Insulin) PT USING HUMALOG IN INSULIN PUMP insulin pump-infus. set-meter HUMALOG lidocaine 5% 1 patch topical DAILY loratadine (Claritin) 10 mg PO DAILY losartan 50 mg PO BID olopatadine 0.1% 1 drp ophthalmic (eye) BID omeprazole 20 mg PO BID pen needle, diabetic (1st Tier Unifine Pentips) As directed rosuvastatin 1 tab PO BEDTIME triamcinolone acetonide 0.1% 1 appl topical BID PRN zoledronic hytx-[id number]-[id number] 5 mg/100 mL (Reclast) 1 ea IV DIRECTED HPI Comments Details: 63-year-old female here for initial evaluation of type 2 diabetes mellitus as well as osteoporosis. Was previously seeing Dr. Scotty Koo who retired. Type 2 diabetes mellitus History of diabetes Diagnosed at age 33 Prior therapy: Was on glucophage for 1 year and didnt help acheive targets hence insulin was started Current regimen: Medtronic insulin pump 780 G with humalog U-100 Isnt using guardian sensor due to prior bad exerience with sensor resulting in hemoatoma, huge needle 20 years ago and afraid of extra cost Checks finger sticks Denies any symptoms of hyperglycemia including polyphagia, polyuria. Gets symptoms of hypoglycemia in 50s. Decreased awareness. Random Glucose: 114 mg/dl HgA1c: 8.9% 02/24/24 Fingersticks data reviewed, blood sugars all over the place with hyperglycemia in the 200s mostly with breakfast, and then sometimes pre-dinner, blood sugars are lower sometimes around lunchtime. Again pattern is very variable, and also noted to have hypoglycemic episodes multiple times some of these are in the middle of the day when blood sugars dropped to the 40s, other episodes noted at 03:00. Complications Last Diabetic Eye exam: 01/2024, no retinopathy Last Podiatry Visit: Doesn't' have one Neuropathy: very mild pins and needles, foot exam done 03/02/24 Kidney disease: no kidney disease Macrovascular complications: No history of macrovascular complications. Statin: on rosuvastatin 10 mg daily LEEANNE/ARB: on losartan 50 mg BID Exercise: active at work , walks the dog twice daily Diet control: she has celiac has never had any hospitalizations for hyperglycemia/hypoglycemia. Osteoporosis Diagnosed in her 40s. She reports she had early natural menopause in her 40s s, subsequently was not on HRT. Her field sales executive ordered a bone density which showed osteoporosis. Fracture History:None Height loss: ? Back pain: None Pharmacotherapeutic hx: She describes she has been on therapy for many years, her last Reclast infusion was in June 2023 this year. She has also been trialed on Prolia in the middle, just 2 injections some 10 years ago, but gave her excessive aches inner thighs. She can not tell me exactly what year she got which medication. I reviewed the records from her circulation man as well as her previous field sales executive but very unclear in the nodes how many Reclast infusion she has gotten, but patient says she has at least gotten 10 infusions, likely more over the last 20 years. vitamin D 1000 units day Secondary risk factors: Steroid use: None Hyperthyroidism: Neg Seizure medication use: None Chemo or Radiation use: Neg Heparin Use: Neg History of eating disorder: Negative terminal manager immobilization: Negative History of kidney stones or disease: negative PI Use: Chronic use Chronic inflammatory lung disease: Negative Chronic inflammatory bowel disease: Negative Daily calcium intake: She is not on calcium supplements, drinks milk occasionally, no yogurt or cheese. Vitamin D intake: 1000 units daily Exercise: active at work , walks the dog twice daily Smoking history: quit 31 years ago Dental: Has regular dental cleaning, no issues Review of systems Constitutional: no fevers, chills or weight loss HEENT: no changes in vision Cardiac: No chest pain, discomfort or palpitations. Pulmonary: No SOB GI:No abdominal pain, no nausea or vomiting, no anorexia, no blood in stool : no burning micturition, dysuria or increase in urinary frequency Physical exam General: sitting comfortably in no acute distress HEENT: normocephalic/atraumatic, moist oral mucosa Neck: supple, symmetrical, no thyromegaly , no dorsocervical or supraclavicular fat pads Cardiac: normal heart sounds Pulm: normal breath sounds B/L, no added breath sounds Abd: not distended, no tenderness Extremities: no edema, no signs of myxedema Neuro: AAO x3, Speech: normal, no facial droop, moving all 4 extremities Skin: no rash Foot exam: Done February 2024: intact sensation to monofilament, intact pulses, intact vibration, she does have thickened nails questionable fungus. Laboratory Tests Laboratory Tests 03/25/22 08:45 Calcium 9.7 25-OH Vitamin D Total 42 25-Hydroxy Vitamin D2 <4 25-Hydroxy Vitamin D3 42 11/12/21 03/25/22 02/24/24 09:08 08:45 10:52 Hgb 14.0 Hct 43.1 Plt Count 464 H Creatinine 0.71 Estimated GFR > 60 Hgb A1c (Clinic) 8.9 H AST 22 ALT 17 Albumin 4.6 Triglycerides 108 Cholesterol 161 LDL Cholesterol, Calc 85 HDL Cholesterol 55 [facility] Medical History IBS (irritable bowel syndrome) Osteoporosis Essential hypertension Diabetes mellitus GERD (gastroesophageal reflux disease) Surgical History H/O colonoscopy Hx laparoscopic cholecystectomy Family History Father Diabetes CVD (cardiovascular disease) Chronic mental illness Mental health disorder Mother CVD (cardiovascular disease) Diabetes Family/Other FH: mental illness Mental health disorder Social History Housing: House Alcohol intake: current Alcohol intake frequency: holidays/special occasions only Alcohol type: hard liquor Patient Tobacco Use Status: Former Tobacco user e-Cigarette/Vaping Use: Never Used Second Hand Smoke Exposure: No Advance Directives Date on File: 11/08/20 service: No Current occupational status: employed Current occupational exposures/hazards: No Cognitive needs: No Hearing needs: No Vision needs: Yes (glasses) Physical Exam Vital Signs: Last Vital Signs Pulse 86 03/23/24 13:50 BP 150/72 H 03/23/24 13:50 BMI result Body Mass Index 23.7 Results Reviewed Results Reviewed: Laboratory Last Values Glucose (Clinic) 114 mg/dL (60-115) 03/23/24 13:57 Assessment & Plan Assessment & Plan (1) Diabetes mellitus: Code(s): E11.9 - Type 2 diabetes mellitus without complications Category: Medical Qualifiers: Diabetes mellitus type: type 2 Diabetes mellitus termite technician insulin use: with termite technician use Diabetes mellitus complication status: with hyperglycemia Qualified Code(s): E11.65 - Type 2 diabetes mellitus with hyperglycemia; Z79.4 - jail (current) use of insulin Plan: Patient with insulin-dependent diabetes mellitus diagnosed in her 30s, with mild neuropathy, who has very poor control at this time with most recent A1c from February 2024 at 8.9%. She is on insulin pump Medtronic 780G with Humalog. About 20 years ago she had a bad experience with the sensor so she has not been using any sensor hence she is not in automated mode. She is using fingersticks to manually give herself boluses through the pump. I reviewed her pump data, Fingersticks data reviewed, blood sugars all over the place with hyperglycemia in the 200s mostly with breakfast, and then sometimes pre-dinner, blood sugars are lower sometimes around lunchtime. Again pattern is very variable, and also noted to have hypoglycemic episodes multiple times some of these are in the middle of the day when blood sugars dropped to the 40s, other episodes noted at 03:00. I would like to obtain more data by putting her on the sensor. She has an upcoming appointment with our living manager on 03/27/2024 to get her started on guardian for sensor that goes with her Medtronic 780 G pump. Patient is willing to try. She also tells me that she lacks hypoglycemia awareness in the 60s and 70s and only has symptoms when she is down to the 40s or 50s. All the more reason for her to go on a sensor. Her fingersticks have been mostly around 200s during pre meal checks She has a lot of basal rates divided in different time intervals, making everything very confusing, we will streamline this. Pump change is made as below: 20:00 to 06:00: 0.8 units/hour 06:00 to 20:00: 0.75 units/hour Based on her total daily dose of around 38 units, her carb ratio should be around 15, sensitivity should be around 45. Midnight to 15:00: From 10 to 12 15:00 to midnight: From 20 to 18 No changes made to sensitivity factor which is as below Midnight to noon: 100 Noon to midnight: 75 I will also have her see our warehouse packer, especially given that she has gluten sensitivity, it is difficult for her to be picky with her foods. She finds it hard manage her nutrition. She also reports history of celiac disease and given that she is insulin dependent I am concerned that she might have type 1 diabetes or latent autoimmune diabetes. I will check her antibodies. Counseled about hypoglycemia management Plan: -referred to living manager to start guardian sensor with the Medtronic pump -see warehouse packer -ordered annual screening labs for complications including urine microalbumin, BMP, lipid panel -up-to-date with eye visit, no history of retinopathy -follow up in 8 weeks On insulin pump: Backup Lantus pen and pen needles prescribed: To take 18 units of Lantus in case pump failure Glucagon prescribed Pump insertion sites look unremarkable (2) Osteoporosis: Code(s): M81.0 - Age-related osteoporosis without current pathological fracture Category: Medical Qualifiers: Osteoporosis type: other Presence of current pathological fracture: w ithout current pathological fracture Qualified Code(s): M81.8 - Other osteoporosis without current pathological fracture Plan: Patient with a history of osteoporosis diagnosed in her 40s. Her risk factors were early menopause in her 30s. Unclear why she had premature ovarian insufficiency. She was not on hormone replacement therapy. Her most recent bone density scan is from May 2023 which showed T-score of-3.3 at the femoral neck with 6.9 % decreased compared to last time, T-score of-2.4 at the total hip with 3.4 % decrease compared to last time. No lumbar spine done. Bone density-2.7 at the forearm. Unclear why they did not include the spine, she denies getting any procedures in her spine, no recent fractures. She denies any fracture history. She has been on Reclast therapy most recently last infusion was June 2023 per patient. She says she has at least gotten 10, likely more infusions over the last 20 years. She also received 2 injections of Prolia around 10 years ago, could not tolerate these. I reviewed the records from her circulation man in previous field sales executive, however very unclear history in terms of when and how many Reclast she got, just states she has been on Reclast therapy. Given that she has received so many Reclast infusions, I am concerned about long-term side effects of bisphosphonates in her. I have ordered bone resorption markers to see how those are, might consider holding off on the Reclast infusion this year if her resorption marker is suppressed. Plan: -obtain calcium, phosphorus, magnesium, PTH, vitamin-D levels , CTX -encouraged to continue vitamin-D 1000 units daily -encouraged to incorporate 1000 mg of calcium in her diet -weight-bearing exercise advised -follow up in 8 weeks (3) Dyslipidemia: Code(s): E78.5 - Hyperlipidemia, unspecified Category: Medical Plan: LDL at 85 from 2022. Ordered repeat lipid panel Plan: -continue rosuvastatin 10 mg daily (4) Essential hypertension: Code(s): I10 - Essential (primary) hypertension Category: Medical Plan: Blood pressure elevated today, we will follow up in the next few visits. Plan: -continue losartan 50 mg BID Plan I spent 30 minutes in reviewing the record, seeing the patient and documenting in the medical record. Patient Instructions: For Diabetes See warehouse packer See diabtes educator to consider switching to automated mode on pump with sensor Back up lantus prescribed : inject 18 units in case of pump failure and call medtronic Glucagon prescribed for emergencies Rule of 15 Treatment for Hypoglycemia (Low blood sugar) If your blood glucose is low (70 and below)*, follow the steps below to treat: Eat or drink something from the list below equal to 15 grams of carbohydrate (carb). Rest for 15 minutes Re-check your blood glucose. If it is still low, (below 70), repeat step 1 above. ? If your next meal is more than an hour away, you will need to eat one carbohydrate choice as a snack to keep your blood glucose from going low again. ?If you can't figure out why you have low blood glucose, call your healthcare provider, as your medicine may need to be adjusted. ?Always carry something with you to treat an insulin reaction. Use food from the list below. ? Foods equal to One Carbohydrate Choice (15 grams of carbohydrate): 3 Glucose ?tablets or 4 Dextrose tablets 4 ounces of fruit juice 5-6 ounces (about 1/2 can) of regular soda such as Coke or Pepsi ? 7-8 gummy or regular Life Savers ? 1 Tbsp. of sugar or jelly NOTE: If your blood sugar is less than 50, double the portion above for a total of 30 gm. ?Carbohydrate. ? Follow meal plan of 45-60 g of consistent carbohydrates at 3 meals each day and 15 g of carbohydrate at 1-2 snacks each day. Coding Level of Care Code Est Pt Level 4 (93418) Complex EM visit Add On G2211 Diagnoses Type 2 diabetes mellitus with hyperglycemia, with long-term current use of insulin E11.65; Z79.4 Diabetes mellitus type: type 2 Diabetes mellitus termite technician insulin use: with halfway use Diabetes mellitus complication status: with hyperglycemia Other osteoporosis without current pathological fracture M81.8 Osteoporosis type: other Presence of current pathological fracture: without current pathological fracture Dyslipidemia E78.5 Essential hypertension I10 Time Spent (min) 30
[2024-03-23 14:01] LABS: Glucose, Whole Blood 114 mg/dL (60-115)
[2024-03-23 14:46] VITALS: BP 142/72
== END 2024-03-23 14:45 | disposition home or self-care (01) ==
PROVIDERS: PCP Internal Medicine; Visit Provider Student in an Organized Health Care Education/Training Program
DX: E11.65 Type 2 diabetes mellitus with hyperglycemia (principal); Z79.4 Long term (current) use of insulin; M81.8 Other osteoporosis without current pathological fracture; E78.5 Hyperlipidemia, unspecified; I10 Essential (primary) hypertension
CPT/HCPCS: 99214; G2211

== ENCOUNTER → 2024-03-23 13:48 | Outpatient (BNVA) | payer MEDICARE, SELFPAY | PROVIDERS: PCP Internal Medicine; Visit Provider Student in an Organized Health Care Education/Training Program | DX: E10.65 Type 1 diabetes mellitus with hyperglycemia (principal); M81.8 Other osteoporosis without current pathological fracture; E78.5 Hyperlipidemia, unspecified; I10 Essential (primary) hypertension; Z79.4 Long term (current) use of insulin; Z96.41 Presence of insulin pump (external) (internal) | CPT/HCPCS: 82947; 99212 ==

== ENCOUNTER 2024-03-27 11:05 | Outpatient (AMB) | payer MEDICARE, SELFPAY ==
--- NOTE | 2024-03-27 11:40 | MHC.AMDMED ---
Intake Intake Visit Reasons: DM-confirmed Full Stack Net Developer Required: No Accompanied by: Self / Same As Patient Allergies metronidazole Allergy (Severe, Verified 03/23/24 13:55) Rash acetaminophen [Percocet] Allergy (Unknown, Verified 03/23/24 13:55) Unknown alendronate sodium [From FOSAMAX] Allergy (Unknown, Verified 03/23/24 13:55) STOMACH PROBLEMS aspirin [Percodan] Allergy (Unknown, Verified 03/23/24 13:55) Unknown cephalexin [CEPHALEXIN] Allergy (Unknown, Verified 03/23/24 13:55) WHOLE BODY RASH clindamycin Allergy (Unknown, Verified 03/23/24 13:55) Unknown latex Allergy (Unknown, Verified 03/23/24 13:55) Unknown oxycodone [Percocet] Allergy (Unknown, Verified 03/23/24 13:55) Unknown risedronate sodium [From ACTONEL] Allergy (Unknown, Verified 03/23/24 13:55) STOMACH PROBLEMS sulfamethoxazole [SULFAMETHOXAZOLE] Allergy (Unknown, Verified 03/23/24 13:55) BODY RASH trimethoprim [Bactrim] Allergy (Unknown, Verified 03/23/24 13:55) Unknown HPI Comprehensive Diabetes Asmnt Most Recent Diabetes Results: No Data to Display [facility] Medical History IBS (irritable bowel syndrome) Osteoporosis Essential hypertension Diabetes mellitus GERD (gastroesophageal reflux disease) Surgical History H/O colonoscopy Hx laparoscopic cholecystectomy Family History Father Diabetes CVD (cardiovascular disease) Chronic mental illness Mental health disorder Mother CVD (cardiovascular disease) Diabetes Family/Other FH: mental illness Mental health disorder Social History Housing: House Alcohol intake: current Alcohol intake frequency: holidays/special occasions only Alcohol type: hard liquor Patient Tobacco Use Status: Former Tobacco user e-Cigarette/Vaping Use: Never Used Second Hand Smoke Exposure: No Advance Directives Date on File: 11/08/20 service: No Current occupational status: employed Current occupational exposures/hazards: No Cognitive needs: No Hearing needs: No Vision needs: Yes (glasses) Assessment & Plan Assessment & Plan (1) Diabetes mellitus: Code(s): E11.9 - Type 2 diabetes mellitus without complications Qualifiers: Diabetes mellitus type: type 2 Diabetes mellitus [facility] insulin use: with program clerk use Diabetes mellitus complication status: with hyperglycemia Qualified Code(s): E11.65 - Type 2 diabetes mellitus with hyperglycemia; Z79.4 - FDC (current) use of insulin Plan: Patient presents for pump training for Medtronic 780 G pump not intergrated CGM The following topics were reviewed today: -Pump therapy basic concepts: Basal/bolus, insulin to carb ratio, correction factor, insulin on board -Device settings: Bluetooth/mobile connection (if applicable), correct date and time, sound volume -Benefits of CGM And is not currently using CGM She is doing 4-12 fingersticks daily. Patient's pump settings adjusted by tattoo identifier on 03/23/2024 Patient reports since then glucose numbers have been much better,, teaching on the Meghan been reduced amount of hypoglycemia. At today's visit demonstrated to patient how to stop Bolus once in progress Connected patient's glucose meter to patient's insulin pump Extensively reviewed rules about testing for ketones, message sent to provider to send prescription for keto strips Insulin delivery settings Instructed patient to only use room temperature insulin, how to load cartridge or fill pod, with insulin. Fill tubing and cannula (if applicable) Troubleshooting after starting new pod or inserting new insulin set: Occlusion, adhesive tape sensitivity, redness Check BG 2 hours after site change Safety information: Importance of a backup plan, for manual injections, proper prescriptions and emergency supplies ketone strips, and rules for testing for ketones Patient was able to insert insulin set today without difficulty. Patient understands the basic concepts of pump therapy, how to give insulin for meals and snacks, how to troubleshoot for hyper and hypoglycemia. Setting verified by CDCES Basal rate(s) (units/hour) : 12 AM to 6 AM?0.750 units / hr 6 AM? to 8 PM 0.800 units / hr 8 PM? to 12 AM? 0.750 units / hr Bolus setting Insulin Carbohydrate Ratio (s) 12 AM? to 3 PM? 1:12 3 PM to 12 AM 1:18 Correction Factor / Sensitivity Factor 12 AM to 12 PM 1:100 12 PM to 12 AM 1:75 Active Insulin Time:? 4 hours Target(s): 12 AM? to 12 AM 120-120 mg/dL Patient will follow up with [facility] as instructed Patient will contact [facility] with questions or concerns, patient given IT number to support in any technical issues related to insulin pump Portions of this note were created using voice recognition software, please excuse any words or phrases that may have been misinterpreted. Patient Instructions: DIABETES PROBLEMS HOMECARE INSTRUCTIONS? for High Blood Sugar and When to Test for Ketones Hyperglycemia is the technical term for high blood glucose (blood sugar). High blood sugar happens when the body has too little insulin or when the body can't use insulin properly. What causes hyperglycemia? A number of things can cause hyperglycemia: If you have type 1, you may not have given yourself enough insulin. ? If you have type 2, your body may have enough insulin, but it is not as effective as it should be. You ate more than planned or exercised less than planned. You have stress from an illness, such as a cold or flu. You have other stress, such as family conflicts or school or dating problems. How to lower your blood sugar level. ? Take medications as directed by physician. ? Drink extra water or noncaffeinated, nonsugared drinks to prevented hydration. ? Exercise if you are not sick However, if your blood sugar is above 250 mg/dl, check your urine for ketones. If you have ketones, do not exercise Exercising when ketones are present may make your blood sugar level go even higher. You'll need to work with your doctor to find the safest way for you to lower your blood sugar level. Regularly check blood sugar or urine for sugar and acetone during illness. Diabetic ketoacidosis (DKA) Is serious condition that can lead to diabetic coma (passing out for a long time) or even . When your cells don't get the glucose they need for energy, your body begins to burn fat for energy, which produces ketones. Ketones are chemicals that the body creates when it breaks down fat to use for energy. The body does this when it doesn?t have enough insulin to use glucose, the body?s normal source of energy. When ketones build up in the blood, they make it more acidic. They are a warning sign that your diabetes is out of control or that you are getting sick. Symptoms of Diabetic Ketoacidosis (DKA) ? DKA usually develops slowly. But when vomiting occurs, this life-threatening condition can develop in a few hours. Early symptoms include the following: ? Thirst or a very dry mouth ? Frequent urination ? High blood glucose (blood sugar) levels ? High levels of ketones in the urine ? Then, other symptoms appear: ? Constantly feeling tired ? Dry or flushed skin ? Nausea, vomiting, or abdominal pain ? (Vomiting can be caused by many illnesses, not just ketoacidosis. If vomiting continues for more than 2 hours, contact your health care provider.) ? Difficulty breathing ? Fruity odor on breath ? A hard time paying attention, or confusion When should you test for ketones? It is advisable to check for ketones under the following conditions when: Your blood glucose is higher than 250mg/dl. Feeling nauseated, throwing up, or have pains in your abdominal region. Have a cold or flu. Have general body fatigue. Feel thirsty or have a very dry mouth. Have flushed skin. Have a fruity breath or a hard time breathing. You feel perplexed or in fog. How to Test Urine for Ketones You can detect ketones with a simple urine test using a test strip, similar to a blood testing strip. Ask your health care provider when and how you should test for ketones. Many experts advise to check your urine for ketones when your blood glucose is more than 250 mg/dl. When you are ill (when you have a cold or the flu, for example), check for ketones every 4 to 6 hours. And check every 4 to 6 hours when your blood sugar is more than 250 mg/dl. Also, check for ketones when you have any symptoms of DKA. How to lower your blood sugar level. ? Take medications as directed by physician. ? Drink extra water or noncaffeinated, nonsugared drinks to prevented hydration. ? Exercise if you are not sick However, if your blood sugar is above 250 mg/dl, check your urine for ketones. If you have ketones, do not exercise Exercising when ketones are present may make your blood sugar level go even higher. You'll need to work with your doctor to find the safest way for you to lower your blood sugar level. Regularly check blood sugar or urine for sugar and acetone during illness Follow-up with outreach educator in 3 months, contact outreach educator with questions concerns Coding Level of Care Code Est Pt Level 1 (10842) Diagnoses Type 2 diabetes mellitus with hyperglycemia, with long-term current use of insulin E11.65; Z79.4 Diabetes mellitus type: type 2 Diabetes mellitus [facility] insulin use: with program clerk use Diabetes mellitus complication status: with hyperglycemia
== END 2024-03-27 11:53 | disposition home or self-care (01) ==
PROVIDERS: PCP Internal Medicine; Visit Provider Registered Nurse Diabetes Educator
DX: E11.65 Type 2 diabetes mellitus with hyperglycemia (principal); Z79.4 Long term (current) use of insulin

== ENCOUNTER → 2024-03-27 11:05 | Outpatient (BNVA) | payer MEDICARE, SELFPAY | PROVIDERS: PCP Internal Medicine; Visit Provider Registered Nurse Diabetes Educator | DX: E11.65 Type 2 diabetes mellitus with hyperglycemia (principal); Z96.41 Presence of insulin pump (external) (internal); Z46.81 Encounter for fitting and adjustment of insulin pump; Z79.4 Long term (current) use of insulin | CPT/HCPCS: 99211 ==

== ENCOUNTER 2024-04-10 10:30 | Outpatient (AMB) | payer MEDICARE, SELFPAY ==
[2024-04-10 10:33] VITALS: BP 148/62; PULSE 76; BMI 23.6
--- NOTE | 2024-04-10 10:33 | MHC.OFFVIS ---
Vital Signs 04/10/24 10:33 Height 5 ft 4.5 in Weight 139 lb 12.369 oz BMI 23.6 BP 148/62 H Blood Pressure Location Rt brachial Position Sitting Pulse 76 Pulse Source Pulse Oximeter Intake Visit Reasons: Type 1 DM Intake Note: Patient presents today for D1MT follow up visit. Last Diabetic Eye exam: 01/2024 Last Podiatry Visit: Doesn't have one Random Glucose: 211 mg/dl HgA1c: 8.9% 02/24/24 Accounts Payable Associate Required: No Accompanied by: Self / Same As Patient Allergies metronidazole Allergy (Severe, Verified 04/10/24 10:37) Rash acetaminophen [Percocet] Allergy (Unknown, Verified 04/10/24 10:37) Unknown alendronate sodium [From FOSAMAX] Allergy (Unknown, Verified 04/10/24 10:37) STOMACH PROBLEMS aspirin [Percodan] Allergy (Unknown, Verified 04/10/24 10:37) Unknown cephalexin [CEPHALEXIN] Allergy (Unknown, Verified 04/10/24 10:37) WHOLE BODY RASH clindamycin Allergy (Unknown, Verified 04/10/24 10:37) Unknown latex Allergy (Unknown, Verified 04/10/24 10:37) Unknown oxycodone [Percocet] Allergy (Unknown, Verified 04/10/24 10:37) Unknown risedronate sodium [From ACTONEL] Allergy (Unknown, Verified 04/10/24 10:37) STOMACH PROBLEMS sulfamethoxazole [SULFAMETHOXAZOLE] Allergy (Unknown, Verified 04/10/24 10:37) BODY RASH trimethoprim [Bactrim] Allergy (Unknown, Verified 04/10/24 10:37) Unknown HPI Comments Details: 63-year-old female here for initial evaluation of type 2 diabetes mellitus as well as osteoporosis. Was previously seeing Dr. Scotty Koo who retired. Todays visit was to address hypoglycemic episodes and make pump chnages Type 2 diabetes mellitus History of diabetes Diagnosed at age 33 Prior therapy: Was on glucophage for 1 year and didnt help acheive targets hence insulin was started Current regimen: Medtronic insulin pump 780 G with humalog U-100 Isnt using guardian sensor due to prior bad exerience with sensor resulting in hemoatoma, huge needle 20 years ago and afraid of extra cost Checks finger sticks Denies any symptoms of hyperglycemia including polyphagia, polyuria. Gets symptoms of hypoglycemia in 50s. Decreased awareness. Random Glucose: 211 mg/dl HgA1c: 8.9% 02/24/24 Fingersticks data reviewed, blood sugars all over the place with hyperglycemia in the 200s mostly with breakfast, and then sometimes pre-dinner, blood sugars are lower sometimes around lunchtime. Sice making chnages to seetings last time noted to have hypoglycemia mostly between 4 pm to 8 PM and then sometimes around 6 AM.Hyperglycemic mostly with breakfast and dinner around 200s Complications Last Diabetic Eye exam: 01/2024, no retinopathy Last Podiatry Visit: Doesn't' have one Neuropathy: very mild pins and needles, foot exam done 03/02/24 Kidney disease: no kidney disease Macrovascular complications: No history of macrovascular complications. Statin: on rosuvastatin 10 mg daily LEEANNE/ARB: on losartan 50 mg BID Exercise: active at work , walks the dog twice daily Diet control: she has celiac has never had any hospitalizations for hyperglycemia/hypoglycemia. Osteoporosis : not addressed today Diagnosed in her 40s. She reports she had early natural menopause in her 40s s, subsequently was not on HRT. Her chief engineering division ordered a bone density which showed osteoporosis. Fracture History:None Height loss: ? Back pain: None Pharmacotherapeutic hx: She describes she has been on therapy for many years, her last Reclast infusion was in June 2023 this year. She has also been trialed on Prolia in the middle, just 2 injections some 10 years ago, but gave her excessive aches inner thighs. She can not tell me exactly what year she got which medication. I reviewed the records from her gear tester as well as her previous chief engineering division but very unclear in the nodes how many Reclast infusion she has gotten, but patient says she has at least gotten 10 infusions, likely more over the last 20 years. vitamin D 1000 units day Secondary risk factors: Steroid use: None Hyperthyroidism: Neg Seizure medication use: None Chemo or Radiation use: Neg Heparin Use: Neg History of eating disorder: Negative FDC immobilization: Negative History of kidney stones or disease: negative PI Use: Chronic use Chronic inflammatory lung disease: Negative Chronic inflammatory bowel disease: Negative Daily calcium intake: She is not on calcium supplements, drinks milk occasionally, no yogurt or cheese. Vitamin D intake: 1000 units daily Exercise: active at work , walks the dog twice daily Smoking history: quit 31 years ago Dental: Has regular dental cleaning, no issues Review of systems Constitutional: no fevers, chills or weight loss HEENT: no changes in vision Cardiac: No chest pain, discomfort or palpitations. Pulmonary: No SOB GI:No abdominal pain, no nausea or vomiting, no anorexia, no blood in stool : no burning micturition, dysuria or increase in urinary frequency Physical exam General: sitting comfortably in no acute distress HEENT: normocephalic/atraumatic, moist oral mucosa Neck: supple, symmetrical, no thyromegaly , no dorsocervical or supraclavicular fat pads Cardiac: normal heart sounds Pulm: normal breath sounds B/L, no added breath sounds Abd: not distended, no tenderness Extremities: no edema, no signs of myxedema Neuro: AAO x3, Speech: normal, no facial droop, moving all 4 extremities Skin: no rash Foot exam: Done February 2024: intact sensation to monofilament, intact pulses, intact vibration, she does have thickened nails questionable fungus. Laboratory Tests Laboratory Tests 03/25/22 08:45 Calcium 9.7 25-OH Vitamin D Total 42 25-Hydroxy Vitamin D2 <4 25-Hydroxy Vitamin D3 42 11/12/21 03/25/22 02/24/24 09:08 08:45 10:52 Hgb 14.0 Hct 43.1 Plt Count 464 H Creatinine 0.71 Estimated GFR > 60 Hgb A1c (Clinic) 8.9 H AST 22 ALT 17 Albumin 4.6 Triglycerides 108 Cholesterol 161 LDL Cholesterol, Calc 85 HDL Cholesterol 55 PFSH Medical History IBS (irritable bowel syndrome) Osteoporosis Essential hypertension Diabetes mellitus GERD (gastroesophageal reflux disease) Surgical History H/O colonoscopy Hx laparoscopic cholecystectomy Family History Father Diabetes CVD (cardiovascular disease) Chronic mental illness Mental health disorder Mother CVD (cardiovascular disease) Diabetes Family/Other FH: mental illness Mental health disorder Social History Housing: House Alcohol intake: current Alcohol intake frequency: holidays/special occasions only Alcohol type: hard liquor Patient Tobacco Use Status: Former Tobacco user e-Cigarette/Vaping Use: Never Used Second Hand Smoke Exposure: No Advance Directives Date on File: 11/08/20 service: No Current occupational status: employed Current occupational exposures/hazards: No Cognitive needs: No Hearing needs: No Vision needs: Yes (glasses) Physical Exam Vital Signs: Last Vital Signs Pulse 76 04/10/24 10:33 BP 148/62 H 04/10/24 10:33 BMI result Body Mass Index 23.6 Assessment & Plan Assessment & Plan (1) Diabetes mellitus: Code(s): E11.9 - Type 2 diabetes mellitus without complications Category: Medical Qualifiers: Diabetes mellitus type: type 2 Diabetes mellitus remote computer terminal operator insulin use: with halfway use Diabetes mellitus complication status: with hyperglycemia Qualified Code(s): E11.65 - Type 2 diabetes mellitus with hyperglycemia; Z79.4 - FDC (current) use of insulin Plan: Patient with insulin-dependent diabetes mellitus diagnosed in her 30s, with mild neuropathy, who has very poor control at this time with most recent A1c from February 2024 at 8.9%. She is on insulin pump Medtronic 780G with Humalog. About 20 years ago she had a bad experience with the sensor so she has not been using any sensor hence she is not in automated mode. She is using fingersticks to manually give herself boluses through the pump. I reviewed her pump data, Fingersticks data reviewed, blood sugars all over the place with hyperglycemia in the 200s mostly with breakfast, and then sometimes pre-dinner, blood sugars are lower sometimes around lunchtime. Sice making chnages to seetings last time noted to have hypoglycemia mostly between 4 pm to 8 PM and then sometimes around 6 AM.Hyperglycemic mostly with breakfast and dinner around 200s Again pattern is very variable, and also noted to have hypoglycemic episodes multiple times. She met with our educator , doesnt want sensore at this time, ongoing discussions. She also tells me that she lacks hypoglycemia awareness in the 60s and 70s and only has symptoms when she is down to the 40s or 50s. All the more reason for her to go on a sensor. Her fingersticks have been mostly around 200s during pre meal checks Pump change is made as below: 20:00 to 06:00: from 0.75 to 0.725 units/hour 06:00 to 20:00: from 0.8 to 0.725 units/hour Based on her total daily dose of around 36 units, her carb ratio should be around 15, sensitivity should be around 47. Carb ratio Midnight to 15:00: From 12 to 15 15:00 to midnight: From 18 to 15 Sensitivity Midnight to noon: 100 to 47 Noon to midnight: 75 to 47 Counseled about hypoglycemia management Plan: -follow with educator -see food bagging machine operator -ordered annual screening labs for complications including urine microalbumin, BMP, lipid panel ( already ordered) -up-to-date with eye visit, no history of retinopathy -follow up in 4 weeks On insulin pump: Backup Lantus pen and pen needles prescribed: To take 15 units of Lantus in case pump failure Glucagon prescribed (2) Osteoporosis: Code(s): M81.0 - Age-related osteoporosis without current pathological fracture Category: Medical Qualifiers: Osteoporosis type: other Presence of current pathological fracture: without current pathological fracture Qualified Code(s): M81.8 - Other osteoporosis without current pathological fracture Plan: Not addressed today : Patient with a history of osteoporosis diagnosed in her 40s. Her risk factors were early menopause in her 30s. Unclear why she had premature ovarian insufficiency. She was not on hormone replacement therapy. Her most recent bone density scan is from May 2023 which showed T-score of-3.3 at the femoral neck with 6.9 % decreased compared to last time, T-score of-2.4 at the total hip with 3.4 % decrease compared to last time. No lumbar spine done. Bone density-2.7 at the forearm. Unclear why they did not include the spine, she denies getting any procedures in her spine, no recent fractures. She denies any fracture history. She has been on Reclast therapy most recently last infusion was June 2023 per patient. She says she has at least gotten 10, likely more infusions over the last 20 years. She also received 2 injections of Prolia around 10 years ago, could not tolerate these. I reviewed the records from her gear tester in previous chief engineering division, however very unclear history in terms of when and how many Reclast she got, just states she has been on Reclast therapy. Given that she has received so many Reclast infusions, I am concerned about long-term side effects of bisphosphonates in her. I have ordered bone resorption markers to see how those are, might consider holding off on the Reclast infusion this year if her resorption marker is suppressed. Plan: -obtain calcium, phosphorus, magnesium, PTH, vitamin-D levels , CTX, alk phos (already ordered) -encouraged to continue vitamin-D 1000 units daily -encouraged to incorporate 1000 mg of calcium in her diet -weight-bearing exercise advised -follow up in 8 weeks (3) Dyslipidemia: Code(s): E78.5 - Hyperlipidemia, unspecified Category: Medical Plan: LDL at 85 from 2022. Ordered repeat lipid panel Plan: -continue rosuvastatin 10 mg daily (4) Essential hypertension: Code(s): I10 - Essential (primary) hypertension Category: Medical Plan: Blood pressure elevated today, we will follow up in the next few visits. Plan: -continue losartan 50 mg BID Plan I spent 30 minutes in reviewing the record, seeing the patient and documenting in the medical record. Medications: Refilled glucagon until target blood sugar attained 1 mg IM Q20M PRN 1 ea 0RF hypoglycemia Patient Instructions: For Diabetes See food bagging machine operator See diabtes educator Back up lantus prescribed : inject 15 units in case of pump failure and call medtronic Glucagon prescribed for emergencies Rule of 15 Treatment for Hypoglycemia (Low blood sugar) If your blood glucose is low (70 and below)*, follow the steps below to treat: Eat or drink something from the list below equal to 15 grams of carbohydrate (carb). Rest for 15 minutes Re-check your blood glucose. If it is still low, (below 70), repeat step 1 above. ? If your next meal is more than an hour away, you will need to eat one carbohydrate choice as a snack to keep your blood glucose from going low again. ?If you can't figure out why you have low blood glucose, call your healthcare provider, as your medicine may need to be adjusted. ?Always carry something with you to treat an insulin reaction. Use food from the list below. ? Foods equal to One Carbohydrate Choice (15 grams of carbohydrate): 3 Glucose ?tablets or 4 Dextrose tablets 4 ounces of fruit juice 5-6 ounces (about 1/2 can) of regular soda such as Coke or Pepsi ? 7-8 gummy or regular Life Savers ? 1 Tbsp. of sugar or jelly NOTE: If your blood sugar is less than 50, double the portion above for a total of 30 gm. ?Carbohydrate. ? Follow meal plan of 45-60 g of consistent carbohydrates at 3 meals each day and 15 g of carbohydrate at 1-2 snacks each day. Do fasting blood work and urine test Coding Level of Care Code Est Pt Level 4 (77933) Complex EM visit Add On [id number] Diagnoses Type 2 diabetes mellitus with hyperglycemia, with long-term current use of insulin E11.65; Z79.4 Diabetes mellitus type: type 2 Diabetes mellitus remote computer terminal operator insulin use: with halfway use Diabetes mellitus complication status: with hyperglycemia Other osteoporosis without current pathological fracture M81.8 Osteoporosis type: other Presence of current pathological fracture: without current pathological fracture Dyslipidemia E78.5 Essential hypertension I10 Time Spent (min) 30
[2024-04-10 10:43] LABS: Glucose, Whole Blood 211 mg/dL (60-115)
--- OUTSIDE RECORDS SUMMARY | 2024-04-12 14:45 | XMS_ITS | Continuity of Care Document ---
Author Organization [facility] [address] [place] [address] Phone [phone] Care Team Providers Care Embedded Nurse Name Role Phone Wilda Schwartz Care Team Information Chief Engineer Production [phone] Problems Active Problems Provider Date Diabetes mellitus Scotty River M.D. Onset: 0 12/15/2021 Osteoporosis Scotty River M.D. Onset: Hyperkalemia Scotty River M.D. Onset: Gastroesophageal reflux disease Scotty River M.D. Onset: 12/15/2021 Essential hypertension Scotty River M.D. Ons et: 12/15/2021 Celiac disease Scotty River M.D. Onset: Social History Type Date Description Comments Sex Unknown Lives With Spouse ETOH Use Rarely consumes alcohol Tobacco Use Start: Unknown End: Unknown Patient is a former smoker Smoking Status Reviewed: 08/28/22 Patient is a former smoker Allergies and adverse reactions Active Allergies Criticality Reaction Severity Comments Date Percocet Unable to assess criticality 12/15/2021 Bactrim Unable to assess criticality 12/15/2021 Cephalexin Unable to assess criticality 12/15/2021 Keflex Unable to assess criticality 12/15/2021 Medications Active Medications SIG Qnty Indications Order ing Provider Date Accu-Chek GuideStrips Use 1 Strip Via Meter as Directed. Test Up To 7 Times Daily With The Pump. 900units E10.9 Scotty River M.D. 10/20/2023 Vovqcjp873Gvrm/ML Solution Inject 50 Units Every Day With Pump 50units E10.9 Scotty River M.D. 05/26/2022 Rosuvastatin Rxdrzki08kp Tablets Take 1 Tablet 1 Time Daily 90tabs Scotty River M.D. 05/18/2022 Losartan Qboxccfxt72rp Tablets Take 1 Tablet twice a day 180tabs Scotty River M.D. 12/15/2021 Aspirin Adult Low Myis58ub Tablets DR 1 by mouth every day Scotty River M.D. 12/15/2021 Vqvjqad2hf/100ML Solution Scotty River M.D. 12/15/2021 Lidocaine5% Patches Use 1 Patch Daily 90units Florence Gilbert M.D. Valacyclovir HCL1gm Tablets Take 2 Tablets By Mouth Now And 2 Tabs 12 Hours Later. Evan Kraus MD Pantoprazole Ghoucr82af Tablets DR Take One Tablet By Mouth Half An Hour Before Breakfast Edna Pope NP Vital Signs Date Vital Result Comment 01/13/2024 3:12pm BP Systolic 150 mmHg BP Diastolic 90 mmHg Heart Rate 75 /min Height 64 inches 5'4 Weight 139.38 lb BMI (Body Mass Index) 23.9 kg/m2 Results Test Acquired Date Facility Test Result H/L Range Note Laboratory test finding 01/13/2024 [facility]house Hemoglobin A1c 8.2% Glucose Fingerstick 135 Laboratory test finding 08/31/2023 [facility] Potassium 5.0 mmol/L 3.5-5.2 Laboratory test finding 08/31/2023 Inhouse Hemoglobin A1c 8.3% Glucose Fingerstick 112 Laboratory test finding 07/29/2023 [facility] C-Peptide, Serum <0.1 ng/mL Low 1.1-4.4 1 Glucose 94 mg/dL 70-99 Laboratory test finding 07/08/2023 [facility] Potassium 5.3 mmol/L High (3.6-5.2 ) Laboratory test finding 06/04/2023 [facility] TSH With Reflex To FT4 1.20 uIU/mL (0.4-4.2 ) Urinary Microalbumin 06/04/2023 [facility] Micro-Albumin <12.0 mg/L (<20) 2 Malb/Creat Ratio Unable t o calcul <SEE NOTE> MG/GM (0-20) 3 Urine Creat For Micro Albumin 82.6 mg/dL Complete Abc With Diff 06/04/2023 [facility] WBC 9.0 K/MM3 (4.0-11. 0) RBC 4.67 M/MM3 (4.20-5. 40) HGB 14.0 GM/DL (11.7-15 .5) HCT 43.1 % (35.7-45 .8) MCV 92.3 FL (80.0-10 0.0) MCH 30.0 pg (27.0-34 .0) MCHC 32.5 g/dL Low (33.0-37 .0) PLT 463 K/MM3 High (150-460 ) RDW-SD 45.7 FL (<47.0) MPV 8.9 FL Low (9.4-12. 4) Automated NRBC 0.0 #/100WBC' S Abs. NRBC 0.0 K/MM3 Neut # 5.0 K/MM3 (1.3-7.0 ) Lymph # 2.4 K/MM3 (0.8-3.1 ) Lassen# 0.9 K/MM3 (0.4-0.9 ) Eo # 0.4 K/MM3 (0.0-0.4 ) Baso # 0.1 K/MM3 (0.0-0.1 ) Abs. Imm Gran 0.1 K/MM3 Neut 55.8 % (44-76) Lymph 27.1 % (15-43) Monocyte 9.9 % (4.5-10. 5) Eo 4.8 % (0-6) Baso 1.0 % (0-2) Imm Gran 1.4 % Laboratory test finding 06/04/2023 [facility] Hemoglobin A1c 8.5 % High (4.0-5.6 ) 4 Lipid Panel 06/04/2023 [facility] Cholesterol, Total 182 mg/dL (<200) Triglyceride 57 mg/dL (<150) HDL Chol 81 mg/dL (>39) LDL Cholesterol , Calculated 90 mg/dL (0-130) Non HDL Cholesterol (Calc) 101 mg/dL (<160) Comprehensive Metabolic Panl 06/04/2023 [facility] Glucose 204 mg/dL High (70-99) BUN 9 mg/dL (8-23) Creatinine 0.7 mg/dL (0.5-1.0 ) Sodium 136 mmol/L (133-145 ) Potassium 5.6 mmol/L High (3.6-5.2 ) Chloride 97 mmol/L Low (98-107) Bicarbonate 28 mmol/L (22-29) Anion Gap 11 (4-17) Albumin 4.7 GM/DL (3.4-4.8 ) Calcium 9.9 mg/dL (8.6-10. 5) Bilirubin,Total 0.3 mg/dL (0-1.2 ) Total Protein 7.2 GM/DL (6.2-8.2 ) Ag Ratio 1.9 Ast 18 U/L (0-32) Alk Phos 130 U/L High (35-104) Alt 17 U/L (0-33) Estimated GFR Creatinine 97 ML/MIN/1. 73M2 5 Laboratory test finding 05/14/2023 [facility] Hemoglobin A1c 8.8% Glucose Fingerstick 246 Laboratory test finding 12/29/2022 [facility] Hemoglobin A1c 8.7% Glucose Fingerstick 199 Urinary Microalbumin 08/28/2022 [facility] Micro-Albumin <12.0 mg/L (<20) 6 Malb/Creat Ratio Unable t o calcul <SEE NOTE> MG/GM (0-20) 7 Urine Creat For Micro Albumin 28.5 mg/dL Laboratory test finding 08/28/2022 [facility] Hemoglobin A1c 407 Glucose Fingerstick 8.7% Laboratory test finding 05/29/2022 [facility] Albumin 4.7 GM/DL (3.4-4.8 ) BUN 10 mg/dL (8-23) Calcium 9.9 mg/dL (8.6-10. 5) Creatinine 05/29/2022 [facility] Creatinine 0.6 mg/dL (0.5-1.0 ) Estimated GFR Creatinine 99 ML/MIN/1. 73M2 8 Laboratory test finding 05/14/2022 [facility] Hemoglobin A1c 8.6% Glucose Fingerstick 214 Laboratory test finding 12/15/2021 [facility]house Hemoglobin A1c 8.0% Glucose Fingerstick 221 1 C-Peptide reference interval is for fasting patients. 2 The urine microalbum in test is designed to monitor renal function. When screening for Bence Owen proteinuria, urine electrophoresis is recommended. 3 Unable to calculate 4 MONITORING: In known diabetic patients, hemoglobin A1c targets should be discussed with health care provider. DIAGNOSTIC USE: The [place] Diabetes Association (ADA) and the World Health Organization (WHO) recommend the use of HbA1c to diagnose diabetes using a threshold of 6.5%. Patients who have an HbA1c between 5.7% and 6.4% are considered at increased risk for developing diabetes in the future. CAUTION: Falsely low HbA1c results may be observed in patients with hemolytic anemia, homozygous forms of abnormal hemoglobin (e.g. SS, CC, SC), , recent blood loss or hemoglobin F greater than 7%. Fructosamine may be used as an alternate test in these cases. REFERENCE: ADA: Standards of Medical Care in Diabetes 2020, The Journal of Clinical and Applied Research and Education Volume 43, Supplement 1 5 Creatinine based est imated glomerular filtration (eGFR) in adults is calculated using the National Kidney Foundation recommended 2020 CKD-EPI equation. Estimates GFR from serum creatinine, age and sex. 6 The urine microalbum in test is designed to monitor renal function. When screening for Bence Owen proteinuria, urine electrophoresis is recommended. 7 Unable to calculate 8 Creatinine based est imated glomerular filtration (eGFR) in adults is calculated using the National Kidney Foundation recommended 2020 CKD-EPI equation. Estimates GFR from serum creatinine, age and sex. Procedures Date Code Description Status 01/13/2024 22358 Glucose Monitoring Interpeta tion And Report Completed 08/28/2022 71816 Glucose Monitoring Interpeta tion And Report Completed 05/14/2022 63652 Glucose Monitoring Interpeta tion And Report Completed 05/12/2022 NSHOWOFF No Show Office Visit Complet ed Medical Devices Description No Information Available Encounters Type Date Location Provider Dx Diagnosis Office Visit 01/13/2024 3:00p Main Office ANA Vigil E10.9 Type 1 diabet es mellitus without complications M81.0 Age-related osteopor osis w/o current pathological fracture I10 Essential (primary) hypertension Assessments Date Code Description Provider 01/13/2024 E10.9 Type 1 diabetes mellitus wit hout complications ANA Vigil 01/13/2024 M81.0 Osteoporosis ANA Vigil 01/13/2024 I10 Essential (primary) hyperten sandro ANA Vigil Plan of Treatment No Information Available Functional Status Description No Information Available Mental Status Description No Information Available Referrals Description No Information Available
== END 2024-04-10 11:20 | disposition home or self-care (01) ==
PROVIDERS: PCP Internal Medicine; Visit Provider Student in an Organized Health Care Education/Training Program
DX: E11.65 Type 2 diabetes mellitus with hyperglycemia (principal); Z79.4 Long term (current) use of insulin; M81.8 Other osteoporosis without current pathological fracture; E78.5 Hyperlipidemia, unspecified; I10 Essential (primary) hypertension
CPT/HCPCS: 99214; G2211

== ENCOUNTER → 2024-04-10 10:30 | Outpatient (BNVA) | payer MEDICARE, SELFPAY | PROVIDERS: PCP Internal Medicine; Visit Provider Student in an Organized Health Care Education/Training Program | DX: E11.65 Type 2 diabetes mellitus with hyperglycemia (principal); E78.5 Hyperlipidemia, unspecified; I10 Essential (primary) hypertension; M81.8 Other osteoporosis without current pathological fracture; Z79.4 Long term (current) use of insulin | CPT/HCPCS: 82947; 99212 ==

== ENCOUNTER 2024-06-26 07:46 | Outpatient (REF) | payer MEDICARE, SELFPAY ==
--- OUTSIDE RECORDS SUMMARY | 2024-06-26 07:59 | XMS_ITS ---
Author Organization [facility] Address [address] [facility] [address] [place] [address] Care Team Providers Care Child Development Instructor Name Role Phone TAYLOR KNIGHT Primary Care Provider Puja Horn Unavailable [phone] REASON FOR VISIT WANTS TO RESUME CALTRATE Encounters Encounter Location Date Provider Diagnosis [facility] [address] [facility] [address] [place] [address] 05/30/2024 Puja Camp Plan Of Treatment Next Appt Details Provider Name:Puja cook, 05/18/2025 01:00:00 PM, [address] [facility] [address] [facility], [address], [place], [address], Progress Notes * GINO DORANTESB:1960 ([age] yo F)Acc No.[id number]:05/30/2024 Patient:?STORM DORANTES :1960???Age:64 Y???Sex:Female [address] [facility] [place], [address] * true * Date:? Generated for Printi ng/Fanatalieg/eTransmitting on:?06/26/2024 07:59 AM EST
--- OUTSIDE RECORDS SUMMARY | 2024-06-26 07:59 | XMS_ITS | Patient Health Record ---
Author Organization [facility] Address [address] [place] [address] Care Team Providers Care Professor Of Music Name Role Phone TAYLOR KNIGHT Primary Care Provider Unavailab Puja Escobar Unavailable [phone] Allergies Allergen (clinical drug ingredient) Drug/Non Drug Allergy documented on EMR Reaction Allergy Type Onset Date Status risedronate ACTONEL Unknown Drug Allergy Activ e cephalexin Cephalexin Unknown Drug Allergy Activ e clindamycin Clindamycin HCl Unknown Drug Allergy Active alendronate FOSAMAX Internal Bleeding Drug Allergy Active acetaminophen / oxycodone PERCOCET Unknown Drug Allergy Active PERCODAN Skin Rash Drug Allergy Active Sulfamethoxazole Skin Rash Drug Allergy Active metronidazole Metronidazole Unknown Drug Allergy Active Reason For Referral No Information Medications Medication SIG (Take, Route, Frequency, Duration) Notes Start Date End Date Status Vitamin D 1000 UNIT 1 tablet Orally Once a day Active Reclast 5 MG/100ML as directed Intravenous Once a year Active Lantus SoloStar 100 UNIT/ML Subcutaneous for 90 Days Active Vitamin C 500 MG 1 tablet Orally Twice a day Active Aspirin 81MG 1 ORAL daily for -3 12/15/2012 Active Denia Allergy Acti ve HumaLOG 100 UNIT/ML Subcutaneous bolus on pump Active Propranolol HCl Acti ve Omeprazole 20 MG 1 capsule Orally 1-2 x daily prn 12/15/2012 Active Glucagon Emergency 1 MG PLEASE SEE ATTACHED FOR DETAILED DIRECTIONS Injection for 1 Days Active Rosuvastatin Calcium 10 MG 1 tablet Orally Once a day Active Lotrisone 1-0.05 % 1 application to affected area Externally Twice a day for 14 days 12/25/2019 Not-Taking Lidocaine 5 % External for 90 Days Active Losartan Potassium 50 MG 1 tablet Orally Once a day for 30 day(s) plus 25 mg at night Active Social History Tobacco Use: Social History Observation Description Date Details (start date - stop date) Former Smoker NA - NA Sexual History Question Answer Notes Had sex in the past 12 months (vaginal, oral, or anal)? Yes with Men only Prevention strategies discussed: Other AUDIT-C (Standard) Question Answer Notes Did you have a drink contain ing alcohol in the past year? Yes How often did you have six o r more drinks on one occasion in the past year? Never (0 point) How many drinks did you have on a typical day when you were drinking in the past year? 1 or 2 drinks (0 point) How often did you have a dri nk containing alcohol in the past year? Monthly or less (1 point) Points 1 Interpretation Negative Tobacco Control (Standard) Question Answer Notes Tobacco use: Former smoker How long has it been since you last smoked? Grea ter than 10 years Problems Problem Type SNOMED Code ICD Code Onset Dates Problem Status W/U Status Risk Notes Problem Postmenopausal atrophic vaginitis (92152718) Postmenopausal atrophic vaginitis (N95.2) Active confirmed Problem Age-related osteoporosis (019749281) Age-related osteoporosis without current pathological fracture (M81.0) Active confirmed Problem Type I diabetes mellitus without complication (478031012) Diabetes mellitus without mention of complication, type I [juvenile type], not stated as uncontrolled (250.01) Active confirmed Major Problem Menopausal symptom (50946138) Symptomatic menopausal or female climacteric states (627.2) Active confirmed Major Problem Osteoporosis (14534026) Unspecified osteoporosis (733.00) Active confirmed Diag Problem Gynecological examination normal (439802851928729) Routine gynecological examination (V72.31) Active confirmed Major Problem Screening for malignant neoplasm of colon (439514299) Special screening for malignant neoplasms, colon (V76.51) Active confirmed Major Vital Signs Temperature 97.9 degrees Fahrenheit 05/11/2024 Blood pressure diastolic 78 mm Hg 05/11/2024 Height 65 in 05/11/2024 Blood pressure systolic 128 mm Hg 05/11/2024 Weight 134 lbs 05/11/2024 BMI 22.3 kg/m2 05/11/2024 Encounters Encounter Location Date Provider Diagnosis [facility] [address] [place] [address] 05/11/2024 Puja Camp Encounter for gynecological examination (general) (routine) without abnormal findings Z01.419 ; Encounter for screening mammogram for malignant neoplasm of breast Z12.31 ; Age-related osteoporosis without current pathological fracture M81.0 and Other ovarian cyst, right side N83.291 [facility] [address] [place] [address] 05/30/2024 Puja Camp Assessments Encounter Date Diagnosis (ICD Code) Assessment Notes Treatment Notes Treatment Clinical Notes Section Notes 05/11/2024 Encounter for gynecological examination (general) (routine) without abnormal findings (ICD-10 - Z01.419) NO PAP TEST, DUE IN 2025. 05/11/2024 Encounter for screening mammogram for malignant neoplasm of breast (ICD-10 - Z12.31) REGULAR MAMMOGRAMS AND SBE'S WERE RECOMMENDED. 05/11/2024 Age-related osteoporosis without current pathological fracture (ICD-10 - M81.0) DISCUSSED HER LAST BMD AND OSTEOPOROSIS AND THE NEGATIVE EFFECTS OF PROLONGED RECLAST TREATMENTS. DISCUSSED NEGATIVE EFFECTS OF OSTEOPOROSIS ON HER HEALTH. ADEQUATE CALCIUM AND VIT D. WEIGHT BEARING EXERCISES. REPEAT BMD IN 2025. PAT IS NOW SEEING DR BLACKMON FOR HER OSTEOPOROSIS. 05/11/2024 Other ovarian cyst, right side (ICD-10 - N83.291) PELVIC ULTRASOUND WAS ORDERED TO MONITOR THIS RIGHT CYST. Plan Of Treatment Pending Test Test Name Order Date X ray : Pelvis 09/17/2021 BONE DENSITY EXTREMITY 12/15/2018 MAMMOGRAM, SCREENING 12/15/2018 MAMMOGRAM, SCREENING 09/17/2021 MAMMOGRAM, SCREENING 12/31/2022 MAMMOGRAM, SCREENING 05/11/2024 Urinalysis 09/17/2021 Urinalysis 12/05/2020 BONE DENSITY 09/17/2021 BONE DENSITY 12/31/2022 MM Digital Mammo Screening 05/11/2024 MM Digital Mammo Screening 12/31/2022 MM Digital Mammo Screening 09/17/2021 MM Digital Mammo Screening 12/15/2018 Next Appt Details Provider Name:Puja Bandar cook, 05/18/2025 01:00:00 PM, [address], [place], [address], Insurance Providers Payer Name Payer Address Payer Phone Subscriber Number Group Number Insured Name Patient Relationship to Insured Coverage Start Date Coverage End Date [employer] [address] [facility] [place] [id number] [phone] [id number] STORM DORANTES Self - patient is the insured Medical (General) History Medical History History ICD Code Age-related osteoporosis without current pathological fracture M81.0 Type 1 diabetes mellitus without complic ations E10.9 Menopausal and female climacteric states N95.1 Postmenopausal atrophic vaginitis N95.2 Abnormal weight loss R63.4 Pelvic Pain R10.2 Disorder of bone density and structure, unspecified 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
--- OUTSIDE RECORDS SUMMARY | 2024-06-26 07:59 | XMS_ITS ---
Author Organization [facility] Address [address] [place] [address] Care Team Providers Care Kier Operator Name Role Phone TAYLOR KNIGHT Primary Care Provider Jasenab Puja Escobar Unavailable [phone] REASON FOR VISIT HR MEDICARE PE Encounters Encounter Location Date Provider Diagnosis [facility] [address] [place] [address] 01/07/2024 Puja Camp Plan Of Treatment Next Appt Details Provider Name:Puja cook, 05/18/2025 01:00:00 PM, [address], [address], [place], [address], Progress Notes * GINO DORANTESB:1960 ([age] yo F)Acc No.[id number]:01/07/2024 PROGRESS NOTES Patient:?REYMUNDO DORANTESI Appointment Provider:?Puja cook M.D. :1960???Age:63 Y???Sex:Female D ate:01/07/2024 Address:[address] [place], [place] [id number] Pcp:TAYLOR NEWMAN Subjective: * Chief Complaints: * ???1. HR MEDICARE PE. * Medical History:? Objective: * Vitals:? Assessment: Plan: * Treatment: * Images: Billing Information: * Visit Code:? * Procedure Codes:? * Electronic signature of Екатерина Camp MD on 06/26/2024 at 07:58 AM EST Sign off status: Pending * Appointment Provider:?Puja Camp M.D. Date:?01/07/2024 Generated for Owen pantoja/Santana/Rosalind on:?06/26/2024 07:58 AM EST
--- OUTSIDE RECORDS SUMMARY | 2024-06-26 07:59 | XMS_ITS ---
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+ Medications Medication SIG (Take, Route, Frequency, Duration) Notes Start Date End Date Status HumaLOG 100 UNIT/ML Subcutaneous bolus on pump Active Omeprazole 20 MG 1 capsule Orally 1-2 x daily prn 12/15/2012 Active Lotrisone 1-0.05 % 1 application to affected area Externally Twice a day for 14 days 12/25/2019 Not-Taking Lidocaine 5 % External for 90 Days Active Vitamin D 1000 UNIT 1 tablet Orally Once a day Active Reclast 5 MG/100ML as directed Intravenous Once a year Active Vitamin C 500 MG 1 tablet Orally Twice a day Active Aspirin 81MG 1 ORAL daily for -3 12/15/2012 Active Losartan Potassium 50 MG 1 tablet Orally Once a day for 30 day(s) plus 25 mg at night Active Lantus SoloStar 100 UNIT/ML Subcutaneous for 90 Days Active Denia Allergy Acti ve Propranolol HCl Acti ve Glucagon Emergency 1 MG PLEASE SEE ATTACHED FOR DETAILED DIRECTIONS Injection for 1 Days Active Rosuvastatin Calcium 10 MG 1 tablet Orally Once a day Active Social History Tobacco Use: Social History [...] has it been since you last smoked? Noah ter than 10 years Vital Signs Temperature 97.9 degrees Fahrenheit 05/11/19 25 Blood pressure systolic 128 mm Hg 05/11/19 25 Blood pressure diastolic 78 mm Hg 025 Height 65 in 05/11/2024 Weight 134 lbs 05/11/2024 BMI 22.3 kg/m2 05/11/2024 Encounters Encounter Location Date Provider Diagnosis [address] [place] [address] 05/11/2024 Puja Camp Encounter for gynecological examination (general) (routine) without abnormal findings Z01.419 ; Encounter for screening mammogram for malignant neoplasm of breast Z12.31 ; Age-related osteoporosis without current pathological fracture M81.0 and Other ovarian cyst, right side N83.291 Assessments Encounter Date Diagnosis (ICD Code) Assessment [...] MONITOR THIS RIGHT CYST. Plan Of Treatment Treatment Notes Assessment Notes Encounter for gynecological examination (general) (routine) without abnormal findings NO PAP TEST, DUE IN 2025. Encounter for screening mamm ogram for malignant neoplasm of breast REGULAR MAMMOGRAMS AND SBE'S WERE RECOMMENDED. Age-related osteoporosis wit hout current pathological fracture DISCUSSED HER LAST BMD AND OSTEOPOROSIS AND THE NEGATIVE EFFECTS OF PROLONGED RECLAST TREATMENTS. DISCUSSED NEGATIVE EFFECTS OF OSTEOPOROSIS ON HER HEALTH. ADEQUATE CALCIUM AND VIT D. WEIGHT BEARING EXERCISES. REPEAT BMD IN 2025. PAT IS NOW SEEING DR BLACKMON FOR HER OSTEOPOROSIS. Other ovarian cyst, right side PELVIC UL TRASOUND WAS ORDERED TO MONITOR THIS RIGHT CYST. Pending Test Test Name Order Date MAMMOGRAM, SCREENING 05/11/2024 MM Digital Mammo Screening 05/11/2024 Next Appt Details Follow Up: 1 Year, Reason: Provider Name:Puja cook, 05/18/2025 01:00:00 PM, [email or web address] [facility], [address], [place], [address], Progress Notes * GINO DORANTESB:1960 (4 5 yo F)Acc No.[id number]:05/11/2024 PROGRESS NOTES Patient:?JOSE E STORM Appointment Provider:?Puja cook M.D. :1960???Age:63 Y???Sex:Female D ate:05/11/2024 Address:[address] [place] [address] [address] 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 SHE DENIES DYSPAREUNIA. SHE IS A KNOWN TYPE 2 DIABETIC WITH GOOD GLUCOSE CONTROL. PELVIC ULTRASOUND DONE IN 2021 SHOWED A POSSIBLE RIGHT DERMOID CYST.? SHE REMAINS ASYMPTOMATIC.? WE WILL REPEAT HER PELVIC ULTRASOUND THIS YEAR. SHE HAD SKIN LESIONS ALONG THE MONS PUBIS THAT HAVE NOW RESOLVED. HER LAST MAMMOGRAM DONE IN MAY 2023 SHOWED BREASTS ARE NOT DENSE AND WAS NORMAL. HER LAST PAP TEST IN 2022 WAS NEGATIVE AND HPV NEGATIVE.?? SHE IS KNOWN TO BE OSTEOPOROTIC AND HAD BEEN UNDER THE CARE OF HER PCP, DR ALBRECHT WHO HAS BEEN GIVING HER RECLAST YEARLY FOR AT LEAST 10 YEARS.? HER LAST BMD IN 2023 SHOWED HER T-SCORES TO BE -2.4 AT THE SPINE, -3.3 AT THE FEMORAL NECK AND -2.7 AT THE FOREARM.? NO SIGNIFICANT CHANGE COMPARED TO HER BMD IN 2021.?? SHE HAD A COLONOSCOPY DONE IN 2018.?? PFIZER X 2. ???Annual:? Patient presents for annual exam, ages 60-85, postmenopausal. 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 * Medical History:? * Consulting Sme History:?/ Para?2/1.?Sexual activity?currently sexually active.?Last Pap Smear:?12/31/22 NIL, NEG HPV, 12/25/19 NIL, NEG HPV, 12/24/2016, neg, NEG HRHPV.?Mammogram:?05/11/23 Breast Tissue is Almost Entirely Fatty, 10/16/21 Breast Tissue is Almost Entirely Fatty, 03/11/20 Breast Tissue is Almost Entirely Fatty, 07/05/18 Breast Tissue is Almost Entirely Fatty, 05/08/16 Breast Tissue is Almost Entirely Fatty, 04/2014 , normal, < 25 % Glandular.?LMP and menses?nacho.?Colonoscopy?yes 2017, 2007.?Bone Density:?05/11/23, 03/11/20, 06/08/2017 05/01/15, 03/2013.? * OB History:?Total pregnancies?2.?Total living children?1.?NVD?1.? * Surgical History:?Cholecyste ctomy 01/2015D&C 1976Colonoscopy * Hospitalization/Major Diagno stic Procedure:?Child See Surgical Hx * Family History:?Mother: dece ased 60 yrs, coronary artery disease, [place], diagnosed with Diabetes mellitus without mention of complication, type II or unspecified type, not stated as uncontrolled.?Father: 51 yrs, Brain Embolism.?Paternal Grand Father: prostate cancer.? * Social History:?Tobacco Use:?Tobacco Control (Standard)?Tobacco use:?Former smoker ?How long has it been since you last smoked??Greater than 10 years ???Sexual History:?Sexual History?Had sex in the past 12 months (vaginal, oral, or anal)??Yes ?with?Men only ?Prevention strategies discussed:?Other ?Details of Sexual History?Are you sexually active??Yes ???Drugs/Alcohol:?Drugs?Have you used drugs other than those for medical reasons in the past 12 months??No ???Miscellaneous:?Children: yes. ?Exercise: yes, Cardio, Weight Lifting. ?Home smoke detector use: yes. ?Living with: spouse. ?Marital status: . ?Natural support system: yes. ?Occupation: Unemployed Disability. ?Sexually active: yes, monogamous relationship. ???Drug/Alcohol:?AUDIT-C (Standard)?Did you have a drink containing alcohol in the past year??Yes ?How often did you have six or more drinks on one occasion in the past year??Never (0 point) ?How many drinks did you have on a typical day when you were drinking in the past year??1 or 2 drinks (0 point) ?How often did you have a drink containing alcohol in the past year??Monthly or less (1 point) ?Points?1 ?Interpretation?Negative * Medications:?TakingPropranol ol HCl Denia Allergy Rosuvastatin Calcium 10 MG Tablet 1 tablet Orally Once a day Glucagon Emergency 1 MG Kit PLEASE SEE ATTACHED FOR DETAILED DIRECTIONS Injection Lantus SoloStar 100 UNIT/ML Solution Pen-injector Subcutaneous Reclast 5 MG/100ML Solution as directed Intravenous Once a year Aspirin 81MG 1 ORAL daily Vitamin C 500 MG Capsule 1 tablet Orally Twice a day Vitamin D 1000 UNIT Tablet 1 tablet Orally Once a day Losartan Potassium 50 MG Tablet 1 tablet Orally Once a day , Notes to Pharmacist: plus 25 mg at nightLidocaine 5 % Patch External Omeprazole 20 MG Capsule Delayed Release 1 capsule Orally 1-2 x daily prn HumaLOG 100 UNIT/ML Solution Subcutaneous bolus on pump Taking Propranolol HCl Taking Denia Allergy Taking Rosuvastatin Calcium 10 MG Tablet 1 tablet Orally Once a day Taking Glucagon Emergency 1 MG Kit PLEASE SEE ATTACHED FOR DETAILED DIRECTIONS Injection Taking Lantus SoloStar 100 UNIT/ML Solution Pen-injector Subcutaneous Taking Reclast 5 MG/100ML Solution as directed Intravenous Once a year Taking Aspirin 81MG 1 ORAL daily Taking Vitamin C 500 MG Capsule 1 tablet Orally Twice a day Taking Vitamin D 1000 UNIT Tablet 1 tablet Orally Once a day Taking Losartan Potassium 50 MG Tablet 1 tablet Orally Once a day , Notes to Pharmacist: plus 25 mg at nightTaking Lidocaine 5 % Patch External Taking Omeprazole 20 MG Capsule Delayed Release 1 capsule Orally 1-2 x daily prn Taking HumaLOG 100 UNIT/ML Solution Subcutaneous bolus on pump Not-TakingLotrisone 1-0.05 % Cream 1 application to affected area Externally Twice a day Not-Taking Lotrisone 1-0.05 % Cream 1 application to affected area Externally Twice a day DiscontinuedCaltrate 600 1500 (600 Ca) MG Tablet Orally twice a day Medication List reviewed and reconciled with the patientDiscontinued Caltrate 600 1500 (600 Ca) MG Tablet Orally twice a day Medication List reviewed and reconciled with the patient * Allergies:?ACTONEL: AllergyF OSAMAX: Internal Bleeding - AllergyPERCOCET: AllergyPERCODAN: Skin Rash - AllergySulfamethoxazole: Skin Rash - AllergyClindamycin HCl: AllergyCephalexin: AllergyMetronidazole: Allergyno[Allergies Verified] Objective: * Vitals:?Ht: 65 in, Wt: 134 l bs, BMI:22.3Index, BP: 128/78 mm Hg, Temp: 97.9 F. * Examination: ???General Exam: ?CONSTITUTIONAL:?NECK/THYROID:?RESPIRATORY:?Auscultation: clear to auscultation bilaterally, Respiratory Effort: normal.?CARDIOVASCULAR:?Auscultation: regular rate and rhythm.?BREAST, Right:?BREAST, Left:?GASTROINTESTINAL:?MUSCULOSKELETAL:?SKIN:?NEURO/PSYCH:?Genitourinary: ?EXTERNAL GENITALIA:?VAGINA:?BLADDER:?URETHRA:?CERVIX:?UTERUS:?ADNEXA:?ANUS AND PERINEUM:? Assessment: * Assessment: 1.?Encounter for gynecologic al examination (general) (routine) without abnormal findings - Z01.419 (Primary)???2.?Encounter for screening mammogram for malignant neoplasm of breast - Z12.31???3.?Age-related osteoporosis without current pathological fracture - M81.0???4.?Other ovarian cyst, right side - N83.291??? Plan: * Treatment: 2.?Encounter for screening m ammogram for malignant neoplasm of breast?Imaging: MM Digital Mammo Screening Notes: REGULAR MAMMOGRAMS AND SBE'S WERE RECOMMENDED.?? 3.?Age-related osteoporosis without current pathological fracture? Notes: DISCUSSED HER LAST BMD AND OSTEOPOROSIS AND THE NEGATIVE EFFECTS OF PROLONGED RECLAST TREATMENTS. DISCUSSED NEGATIVE EFFECTS OF OSTEOPOROSIS ON HER HEALTH. ADEQUATE CALCIUM AND VIT D. WEIGHT BEARING EXERCISES. REPEAT BMD IN 2025. CHACHA IS NOW SEEING DR BLACKMON FOR HER OSTEOPOROSIS.?? 4.?Other ovarian cyst, right side? Notes: PELVIC ULTRASOUND WAS ORDERED TO MONITOR THIS RIGHT CYST.?? * Imaging:? * ?Imaging: MAMMOGRAM, SCR EENING * Procedure Codes:? * Preventive Medicine:? ??YOUR PREVENTIVE WELLNESS PLAN:?Osteoporosis prevention?Calcium, D, strength training.?Breast Cancer Screening (Mammogram):?annually.?Cervical Cancer Screening (Pap Smear):?q 3 years with HPV screen.?Colorectal Cancer Screening:?q 10 years.? * Follow Up:?1 Year * Images: Billing Information: * Visit Code:? 66971 Preventive Care Est Pt. Age 65 and over. * Procedure Codes:? * Sign off status: Completed true * Appointment Provider:?Puja Camp M.D. Date:?05/11/2024 Generated for Owen pantoja/Santana/Joeitting on:?06/26/2024 07:58 AM EST History and Physical Notes * HPI (History of Present Illness) Category Sub-Category Detail Notes Category Not es New/Follow-up Patient Consult PAT ENTERED MENOPAUSE IN HER 50'S. SHE DENIES DYSPAREUNIA. SHE IS A KNOWN TYPE 2 DIABETIC WITH GOOD GLUCOSE CONTROL. PELVIC ULTRASOUND DONE IN 2021 SHOWED A POSSIBLE RIGHT DERMOID CYST. SHE REMAINS ASYMPTOMATIC. WE WILL REPEAT HER PELVIC ULTRASOUND THIS YEAR. SHE HAD SKIN LESIONS ALONG THE MONS PUBIS THAT HAVE NOW RESOLVED. HER LAST MAMMOGRAM DONE IN MAY 2023 SHOWED BREASTS ARE NOT DENSE AND WAS NORMAL. HER LAST PAP TEST IN 2022 WAS NEGATIVE AND HPV NEGATIVE. SHE IS KNOWN TO BE OSTEOPOROTIC AND HAD BEEN UNDER THE CARE OF HER PCP, DR ALBRECHT WHO HAS BEEN GIVING HER RECLAST YEARLY FOR AT LEAST 10 YEARS. HER LAST BMD IN 2023 SHOWED HER T-SCORES TO BE -2.4 AT THE SPINE, -3.3 AT THE FEMORAL NECK AND -2.7 AT THE FOREARM. NO SIGNIFICANT CHANGE COMPARED TO HER BMD IN 2021. SHE HAD A COLONOSCOPY DONE IN 2018. PFIZER X 2. 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 problems:: n o significant engineering analyst symptoms or problems Examination Category Sub-Category Detail Notes Category Not es General Exam CONSTITUTIONAL: General Appearan ce:: alert, in no acute distress, normal, well nourished NECK/THYROID: Thyroid:: normal size and shape Inspection/Palpation:: normal RESPIRATORY: Auscultation: clear to auscultation bilaterally, Respiratory Effort: normal CARDIOVASCULAR: Auscultation: regula r rate and rhythm GASTROINTESTINAL: Hernias:: no hernias present, no inguinal adenopathy Liver and Spleen:: normal Abdomen:: no masses, nontender, nondiste nded MUSCULOSKELETAL: Inspection/Palpation:: no clubb ing, cyanosis, or edema SKIN: Skin:: normal NEURO/PSYCH: Mood/Affect:: normal Orientation:: time , place, person BREAST, Right: Inspection/Palpation :: no discharge, no masses present, no nipple retraction, no skin changes, no skin dimpling, no tenderness, no lymphadenopathy, no axillary mass, no axillary tenderness BREAST, Left: Inspection/Palpation :: no discharge, no masses present, no nipple retraction, no skin changes, no skin dimpling, no tenderness, no lymphadenopathy, no axillary mass, no axillary tenderness Genitourinary EXTERNAL GENITALIA: External Genitalia:: nor mal, no lesions VAGINA: Vagina:: normal appearance, no a bnormal discharge, no lesions BLADDER: Bladder:: no mass, nontender URETHRA: Urethra:: no erythema or lesions present CERVIX: Cervix:: no lesions, nontender UTERUS: Uterus:: nontender, normal conto ur, normal mobility, normal size ADNEXA: Adnexa:: no masses, no tendernes s ANUS AND PERINEUM: Anus/Perineum:: visually norm al
--- OUTSIDE RECORDS SUMMARY | 2024-06-26 07:59 | XMS_ITS | Continuity of Care Document ---
Author Organization [facility] [address] [place] [address] Phone [phone] Care Team Providers Care Project Manager/Team Coach Name Role Phone Wilda Schwartz Care Team Information Painter Maintenance [phone] Problems Active Problems Provider Date Diabetes mellitus Scotty River M.D. Onset: 0 12/15/2021 Osteoporosis Scotty River M.D. Onset: Hyperkalemia Scotty River M.D. Onset: Gastroesophageal reflux disease Scotyt River M.D. Onset: 12/15/2021 Essential hypertension Scotty [...] Pump. 900units E10.9 Scotty River M.D. 10/20/2023 Eaallyp430Zxpo/ML Solution Inject 50 Units Every Day With Pump 50units E10.9 Scotty River M.D. 05/26/2022 Rosuvastatin Uzivejq46ai Tablets Take 1 Tablet 1 Time Daily 90tabs Scotty River M.D. 05/18/2022 Losartan Daruldnnh48lr Tablets Take 1 Tablet twice a day 180tabs Scotty River M.D. 12/15/2021 Aspirin Adult Low Avag45qs Tablets DR 1 by mouth every day Scotty River M.D. 12/15/2021 Ukdhxnf4ke/100ML Solution Scotty River M.D. 12/15/2021 Lidocaine5% Patches Use 1 Patch Daily 90units Florence Gilbert M.D. Valacyclovir HCL1gm Tablets Take 2 Tablets By Mouth Now And 2 Tabs 12 Hours Later. Evan Kraus MD Pantoprazole Escbkz05yx Tablets DR Take One Tablet By Mouth [...] 94 mg/dL 70-99 Laboratory test finding 07/08/2023 [facility] Potassium 5.3 mmol/L High (3.6-5.2 ) Laboratory test finding 06/04/2023 [facility] TSH With Reflex To FT4 1.20 uIU/mL (0.4-4.2 ) Urinary Microalbumin 06/04/2023 [facility] Micro-Albumin <12.0 mg/L (<20) 2 Malb/Creat Ratio Unable t o calcul <SEE NOTE> MG/GM (0-20) 3 Urine Creat For Micro Albumin 82.6 mg/dL Complete Abc With Diff 06/04/2023 [facility] WBC 9.0 K/MM3 (4.0-11. 0) [...] ) Lymph # 2.4 K/MM3 (0.8-3.1 ) Bacon# 0.9 K/MM3 (0.4-0.9 ) Eo # 0.4 K/MM3 (0.0-0.4 ) Baso # 0.1 K/MM3 (0.0-0.1 ) Abs. Imm Gran 0.1 K/MM3 Neut 55.8 % (44-76) Lymph 27.1 % (15-43) Monocyte 9.9 % (4.5-10. 5) Eo 4.8 % (0-6) Baso 1.0 % (0-2) Imm Gran 1.4 % Laboratory test finding 06/04/2023 [facility] Hemoglobin A1c 8.5 % High (4.0-5.6 ) 4 Lipid Panel 06/04/2023 [facility] Cholesterol, Total 182 mg/dL (<200) Triglyceride 57 mg/dL (<150) HDL Chol 81 mg/dL (>39) LDL Cholesterol , Calculated 90 mg/dL (0-130) Non HDL Cholesterol (Calc) 101 mg/dL (<160) Comprehensive Metabolic Panl 06/04/2023 [facility] Glucose 204 mg/dL High (70-99) [...] 8.7% Glucose Fingerstick 199 Urinary Microalbumin 08/28/2022 [facility] Micro-Albumin <12.0 mg/L (<20) 6 Malb/Creat Ratio Unable t o calcul <SEE NOTE> MG/GM (0-20) 7 Urine Creat For Micro Albumin 28.5 mg/dL Laboratory test finding 08/28/2022 [facility] Hemoglobin A1c 407 Glucose Fingerstick 8.7% Laboratory test finding 05/29/2022 [facility] Albumin 4.7 GM/DL (3.4-4.8 ) BUN 10 mg/dL (8-23) Calcium 9.9 mg/dL (8.6-10. 5) Creatinine 05/29/2022 [facility] Creatinine 0.6 mg/dL (0.5-1.0 ) [...] with health care provider. DIAGNOSTIC USE: The [place] [employer] (ADA) and the World Health [...] sex. Procedures Date Code Description Status 01/13/2024 38050 Glucose Monitoring Interpeta tion And Report Completed 08/28/2022 94595 Glucose Monitoring Interpeta tion And Report Completed 05/14/2022 04641 Glucose Monitoring Interpeta tion And Report Completed [...]
[2024-06-26 10:37] LABS: Platelet Count 486 X10*3/uL (160-400)
[2024-06-26 11:22] LABS: Alanine Aminotransferase 24 U/L (0-31); Albumin Level 4.3 g/dL (3.5-5.0); Alkaline Phosphatase 101 U/L (39-117); Anion Gap 12 (12-20); Aspartate Amino Transferase 31 U/L (5-31); Bilirubin Direct 0.2 mg/dL (0.0-0.5); Bilirubin Total 0.5 mg/dL (0.0-1.0); Blood Urea Nitrogen 13 mg/dL (9-16); Calcium 9.4 mg/dL (8.4-10.2); Carbon Dioxide 28 mmol/L (22-29); Chloride 101 mmol/L (96-108); Cholesterol 139 mg/dL (<200); Estimated Glomerular Filt Rate > 60; Glucose Random 246 mg/dL (60-115); HDL Cholesterol 61 mg/dL (>40); LDL Cholesterol Calculated 67 mg/dL (<100); Magnesium 2.2 mg/dL (1.6-2.6); Phosphorus 3.2 mg/dL (2.7-4.5); Potassium 4.7 mmol/L (3.3-5.1); Sodium 136 mmol/L (135-145); Triglycerides 56 mg/dL (<150)
[2024-06-26 11:30] LABS: TSH reflex Free T4 1.28 uIU/mL (0.32-4.0)
[2024-06-26 12:26] LABS: Creatinine Urine 130.36 mg/dL; Microalbum/Creatinine Ratio Ur 6.1 ug/mg cr (<30)
[2024-06-26 14:28] LABS: Parathyroid Hormone Intact 63.2 pg/mL (8.7-77.1)
[2024-06-27 17:33] LABS: Calcium, Random Urine 23.6 mg/dL
[2024-06-28 17:34] LABS: C Peptide 0.98 ng/mL (0.80-3.85)
[2024-06-30 20:08] LABS: Glutamic acid decarboxylase Ab 25 IU/mL (<5)
[2024-06-30 23:19] LABS: Islet Cell Antibody Screen NEGATIVE (NEGATIVE)
[2024-07-02 07:08] LABS: N-Telopeptide 48 (see note); NTXCreaRU 138 mg/dL (20-275)
[2024-07-02 17:59] LABS: Collagen Type I C-Telopeptide 296 pg/mL (see note)
== END 2024-06-26 07:47 | disposition home or self-care (01) ==
LOC: HO.HMGCLDS 07:46
PROVIDERS: PCP Internal Medicine; Visit Provider Student in an Organized Health Care Education/Training Program
DX: E11.9 Type 2 diabetes mellitus without complications (principal); M81.0 Age-related osteoporosis without current pathological fracture
CPT/HCPCS: 36415; 80048; 80061; 80076; 82043; 82306; 82310; 82523; 82570; 83735; 83970; 84075; 84100; 84443; 84681; 85049; 86341

== ENCOUNTER 2024-06-29 10:48 | Outpatient (AMB) | payer MEDICARE, SELFPAY ==
[2024-06-29 11:14] VITALS: BP 148/76; PULSE 78; O2SAT 95; BMI 23.1
--- NOTE | 2024-06-29 11:14 | A.OFFVIS_ITS ---
Vital Signs 3 06/29/24 11:14 Height 5 ft 4.5 in Weight 136 lb 10.986 oz BMI 23.1 BP 148/76 H Blood Pressure Location Lt brachial Position Sitting Pulse 78 Pulse Source Pulse Oximeter Pulse Oximetry (%) 95 Oxygen Delivery Method Room Air Intake Visit Reasons: T1DM Intake Note: Patient present today for Type 1 Diabetes Mellitus Last Diabetic eye exam: 05/2024 Last Podiatry Visit: Doesn't have one Random Glucose: 402 mg/dl @11:22am HgA1C: 8.6% Scalp Treatment Operator Required: No Accompanied by: Self / Same As Patient Allergies metronidazole Allergy (Severe, Verified 06/29/24 11:19) Rash acetaminophen [Percocet] Allergy (Unknown, Verified 06/29/24 11:19) Unknown alendronate sodium [From FOSAMAX] Allergy (Unknown, Verified 06/29/24 11:19) STOMACH PROBLEMS aspirin [Percodan] Allergy (Unknown, Verified 06/29/24 11:19) Unknown cephalexin [CEPHALEXIN] Allergy (Unknown, Verified 06/29/24 11:19) WHOLE BODY RASH clindamycin Allergy (Unknown, Verified 06/29/24 11:19) Unknown latex Allergy (Unknown, Verified 06/29/24 11:19) Unknown oxycodone [Percocet] Allergy (Unknown, Verified 06/29/24 11:19) Unknown risedronate sodium [From ACTONEL] Allergy (Unknown, Verified 06/29/24 11:19) STOMACH PROBLEMS sulfamethoxazole [SULFAMETHOXAZOLE] Allergy (Unknown, Verified 06/29/24 11:19) BODY RASH trimethoprim [Bactrim] Allergy (Unknown, Verified 06/29/24 11:19) Unknown HPI Comments Details: 63-year-old female here for initial evaluation of type 2 diabetes mellitus as well as osteoporosis. Was previously seeing Dr. Scotty Koo who retired. Todays visit was to address hypoglycemic episodes and make pump chnages Type 2 diabetes mellitus History of diabetes Diagnosed at age 33 Prior therapy: Was on glucophage for 1 year and didnt help acheive targets hence insulin was started Current regimen: Medtronic insulin pump 780 G with humalog U-100 Isnt using guardian sensor due to prior bad exerience with sensor resulting in hemoatoma, huge needle 20 years ago and afraid of extra cost Checks finger sticks Random Glucose: 402 mg/dl @11:22am, urine ketones checked were negative. Patient denies any nausea, vomiting, abdominal pain, mental status changes, does complain of fatigue. We checked her pump site, which looks good, no leakage of any insulin. We gave her about a L of water during this visit to drink up. I advised her that given blood glucose level is greater than 400 mg/dL and we get concerned about diabetic ketoacidosis, I would like to give her an injection of rapid acting insulin and then repeat her blood glucose and urine ketones in an hour. Patient says she has a lot of things to do today and can not wait in the office for 1 hour. I explained to her policy that we can not administer insulin if she is not willing to wait for repeat blood glucose level. She told me that she will be home in the next few hours, and give herself an injection of rapid acting insulin if blood sugars are greater than 350 mg/dL. We discussed she will have to give herself the amount of correction she would give for her blood glucose based on sensitivity factor. I also advised her to repeat her urine ketone levels when she gets home of blood sugars continued to be greater than 350 mg/dL. We reviewed signs and symptoms of diabetic ketoacidosis in to go to the emergency room if she is having any of those symptoms. HgA1C POC 06/29/2024: 8.6% HgA1c: 8.9% 02/24/24 Gets symptoms of hypoglycemia in 50s. Decreased awareness. Fingersticks data reviewed, blood sugars all over the place with hyperglycemia in the 200s and 300s mostly with breakfast, with a worsening control over the past 2 weeks and her morning numbers are in the 300s. and then sometimes pre- dinner, blood sugars are lower sometimes around lunchtime. She feels that she has been under lot of stress lately due to her has been undergoing surgery resulting in worsened control over the past 2-3 weeks. Complications Last Diabetic eye exam: 05/2024, no retinopathy Last Podiatry Visit: Doesn't have one Neuropathy: very mild pins and needles, foot exam done 03/02/24 Kidney disease: no kidney disease Macrovascular complications: No history of macrovascular complications. Statin: on rosuvastatin 10 mg daily LEEANNE/ARB: on losartan 50 mg BID Exercise: active at work , walks the dog twice daily Diet control: she has celiac has never had any hospitalizations for hyperglycemia/hypoglycemia. Osteoporosis Diagnosed in her 40s. She reports she had early natural menopause in her 40s s, subsequently was not on HRT. Her curer acid drum ordered a bone density which showed osteoporosis. Fracture History:None Height loss: ? Back pain: None Pharmacotherapeutic hx: She describes she has been on therapy for many years, her last Reclast infusion was in June 2023 . She has also been trialed on Prolia in the middle, just 2 injections some 10 years ago, but gave her excessive aches inner thighs. She can not tell me exactly what year she got which medication. 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 vitamin D 1000 units day Secondary risk factors: Steroid use: None Hyperthyroidism: Neg Seizure medication use: None Chemo or Radiation use: Neg Heparin Use: Neg History of eating disorder: Negative group home immobilization: Negative History of kidney stones or disease: negative PI Use: Chronic use Chronic inflammatory lung disease: Negative Chronic inflammatory bowel disease: Negative Daily calcium intake: She is not on calcium supplements, drinks milk occasionally, no yogurt or cheese. Vitamin D intake: 1000 units daily Exercise: active at work , walks the dog twice daily Smoking history: quit 31 years ago Dental: Has regular dental cleaning, no issues Physical exam General: sitting comfortably in no acute distress HEENT: normocephalic/atraumatic, moist oral mucosa Neck: supple, symmetrical, no thyromegaly , no dorsocervical or supraclavicular fat pads Cardiac: normal heart sounds Pulm: normal breath sounds B/L, no added breath sounds Abd: not distended, no tenderness Extremities: no edema, no signs of myxedema Neuro: AAO x3, Speech: normal, no facial droop, moving all 4 extremities Skin: no rash Foot exam: Done February 2024: intact sensation to monofilament, intact pulses, intact vibration, she does have thickened nails questionable fungus. Laboratory Tests Laboratory Tests 03/25/22 08:45 Calcium 9.7 25-OH Vitamin D Total 42 25-Hydroxy Vitamin D2 <4 25-Hydroxy Vitamin D3 42 11/12/21 03/25/22 02/24/24 09:08 08:45 10:52 Hgb 14.0 Hct 43.1 Plt Count 464 H Creatinine 0.71 Estimated GFR > 60 Hgb A1c (Clinic) 8.9 H AST 22 ALT 17 Albumin 4.6 Triglycerides 108 Cholesterol 161 LDL Cholesterol, Calc 85 HDL Cholesterol 55 Laboratory Tests 06/26/24 06/26/24 06/29/24 07:30 07:50 11:21 Sodium 136 Potassium 4.7 Glucose (Clinic) 402 H* Random Glucose 246 H Hgb A1c (Clinic) C-Peptide 0.98 Calcium 9.4 Phosphorus 3.2 Magnesium 2.2 Alkaline Phosphatase 101 Total Protein 7.0 Albumin 4.3 25-OH Vitamin D Total 133.0 TSH 1.28 PTH Intact 63.2 Ur Random Calcium 23.6 Urine Creatinine 130.36 Urine Microalbumin 8.0 Microalb/Creat Ratio 6.1 06/29/24 11:24 Sodium Potassium Glucose (Clinic) Random Glucose Hgb A1c (Clinic) 8.6 H C-Peptide Calcium Phosphorus Magnesium Alkaline Phosphatase Total Protein Albumin 25-OH Vitamin D Total TSH PTH Intact Ur Random Calcium Urine Creatinine Urine Microalbumin Microalb/Creat Ratio Laboratory Tests 06/26/24 07:50 Triglycerides 56 Cholesterol 139 LDL Cholesterol, Calc 67 HDL Cholesterol 61 PFSH Medical History IBS (irritable bowel syndrome) Osteoporosis Essential hypertension Diabetes mellitus GERD (gastroesophageal reflux disease) Surgical History H/O colonoscopy Hx laparoscopic cholecystectomy Family History Father Diabetes CVD (cardiovascular disease) Chronic mental illness Mental health disorder Mother CVD (cardiovascular disease) Diabetes Family/Other FH: mental illness Mental health disorder Social History Housing: House Alcohol intake: current Alcohol intake frequency: holidays/special occasions only Alcohol type: hard liquor Patient Tobacco Use Status: Former Tobacco user e-Cigarette/Vaping Use: Never Used Second Hand Smoke Exposure: No Advance Directives Date on File: 11/08/20 service: No Current occupational status: employed Current occupational exposures/hazards: No Cognitive needs: No Hearing needs: No Vision needs: Yes (glasses) Physical Exam Vital Signs: Last Vital Signs Pulse 78 06/29/24 11:14 BP 148/76 H 06/29/24 11:14 Pulse Ox 95 06/29/24 11:14 Oxygen Delivery Method Room Air 06/29/24 11:14 BMI result Body Mass Index 23.1 Results AMB Hemoglobin A1c 2 AMB Hemoglobin A1c 8.6 % Last Edit by MOHAN Luther on 06/29/24 11:32 UR Ketone Dip 2 UR Ketone Dip Negative Last Edit by MOHAN Luther on 06/29/24 11:39 Results Reviewed Results Reviewed: Laboratory Last Values Glucose (Clinic) 402 mg/dL (60-115) H* 06/29/24 11:21 Hgb A1c (Clinic) 8.6 % (4.0-6.0) H 06/29/24 11:24 Assessment & Plan Assessment & Plan (1) Diabetes mellitus: Code(s): E11.9 - Type 2 diabetes mellitus without complications Category: Medical Qualifiers: Diabetes mellitus type: type 2 Diabetes mellitus intermission coordinator insulin use: with intermission coordinator use Diabetes mellitus complication status: with hyperglycemia Qualified Code(s): E11.65 - Type 2 diabetes mellitus with hyperglycemia; 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 She is on insulin pump Medtronic 780G with Humalog. About 20 years ago she had a bad experience with the sensor so she has not been using any sensor hence she is not in automated mode. She is using fingersticks to manually give herself boluses through the pump. Random Glucose: 402 mg/dl @11:22am, urine ketones checked were negative. Patient denies any nausea, vomiting, abdominal pain, mental status changes, does complain of fatigue. We checked her pump site, which looks good, no leakage of any insulin. We gave her about a L of water during this visit to drink up. I advised her that given blood glucose level is greater than 400 mg/dL and we get concerned about diabetic ketoacidosis, I would like to give her an injection of rapid acting insulin and then repeat her blood glucose and urine ketones in an hour. Patient says she has a lot of things to do today and can not wait in the office for 1 hour. I explained to her policy that we can not administer insulin if she is not willing to wait for repeat blood glucose level. She told me that she will be home in the next few hours, and give herself an injection of rapid acting insulin if blood sugars are greater than 350 mg/dL. We discussed she will have to give herself the amount of correction she would give for her blood glucose based on sensitivity factor. I also advised her to repeat her urine ketone levels when she gets home of blood sugars continued to be greater than 350 mg/dL. We reviewed signs and symptoms of diabetic ketoacidosis in to go to the emergency room if she is having any of those symptoms. I reviewed her pump data as well, based on her total daily dose of 40.6 units per day for the past 2 weeks, her insulin carb ratio comes close to 12. Patient is currently at 15 on the pump and she has been telling me that she has actually been giving herself insulin based on a carb ratio of 10. We will just change this to 10 at this time. I will also increase her basal rate during daytime by 20%. Based on her total daily insulin use, her insulin sensitivity factor is 42. I will go down on her sensitivities but not too much either to avoid risk of hypoglycemia. I again reiterated to her today the benefits of being in auto mode with the usage of a CGM sensor. I explained all the benefits, but she is still very much against it and would not like to go on another machine. Pump change is made as below: Changes in bold Midnight to 06:00: 0.725 units/hour 06:00 to 20:00: from 0.725 to 0.85 units/hour 20:00 to midnight : 0.725 units/hour Based on her total daily dose of around 40 units, her carb ratio should be around 12, but she has been using 10 and the pump setting currently is at 15. I will just change it to 10. sensitivity should be around 42. Carb ratio Midnight to 15:00: From 15 to 10 15:00 to midnight: From 15 to 10 Sensitivity From midnight to 06:00: From 90 to 70 From 06:00 to 12:00: From 90 to 50 Noon to midnight: From 70 to 50 Note: Last visit in April I had changed her sensitivity to being in the 40s, I am not sure how she got back in the 90s and 70s. Counseled about hypoglycemia management Plan: -follow with educator -see tool specialist -up-to-date with eye visit, no history of retinopathy -follow up in 2 weeks On insulin pump: Backup Lantus pen and pen needles prescribed: To take 15 units of Lantus in case pump failure has Glucagon has ketone strips (2) Osteoporosis: Code(s): M81.0 - Age-related osteoporosis without current pathological fracture Category: Medical Qualifiers: Osteoporosis type: other Presence of current pathological fracture: w ithout current pathological fracture Qualified Code(s): M81.8 - Other osteoporosis without current pathological fracture Plan: Patient with a history of osteoporosis diagnosed in her 40s. Her risk factors were early menopause in her 30s. Unclear why she had premature ovarian insufficiency. She was not on hormone replacement therapy. Her most recent bone density scan is from May 2023 which showed T-score of-3.3 at the femoral neck with 6.9 % decreased compared to last time, T-score of-2.4 at the total hip with 3.4 % decrease compared to last time. No lumbar spine done. Bone density-2.7 at the forearm. Unclear why they did not include the spine, she denies getting any procedures in her spine, no recent fractures. She denies any fracture history. She has been on Reclast therapy most recently last infusion was June 2023 per patient. She says she has at least gotten 10, likely more infusions over the last 20 years. She also received 2 injections of Prolia around 10 years ago, could not tolerate these. 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 Given that she has received so many Reclast infusions, I am concerned about long-term side effects of bisphosphonates in her. I had ordered bone resorption markers to see how those are, might consider holding off on the Reclast infusion this year if her resorption marker is suppressed. These are still pending from her labs done on 06/27/2024. Her vitamin-D was elevated at 133, I asked her to stop taking vitamin-D for now, we will plan to repeat vitamin-D levels in 3-4 months. Plan: -follow up bone resorption markers -stopped vitamin-D supplementation -repeat vitamin-D levels around summer 2024 -encouraged to incorporate 1000 mg of calcium in her diet -weight-bearing exercise advised -follow up in 2 weeks (3) Dyslipidemia: Code(s): E78.5 - Hyperlipidemia, unspecified Category: Medical Plan: LDL at 67 from June 2023. Within goal LDL of less than 70 mg/dL Plan: -continue rosuvastatin 10 mg daily (4) Essential hypertension: Code(s): I10 - Essential (primary) hypertension Category: Medical Plan: Blood pressure elevated today, we could not get to up titration of blood pressure medication today given elevated blood sugars. We will address this in the next few visits. Plan: -continue losartan 50 mg BID Plan I spent 50 minutes in reviewing the record, seeing the patient and documenting in the medical record. 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
[2024-06-29 11:26] LABS: Glucose, Whole Blood 402 mg/dL (60-115)
--- OUTSIDE RECORDS SUMMARY | 2024-06-29 12:51 | XMS_ITS | Patient Health Record ---
Author Organization [facility] Address [address] [place] [address] Care Team Providers Care Strap Setter Name Role Phone TAYLOR KNIGHT Primary Care Provider Unavailab Puja Escobar Unavailable [phone] Allergies Allergen (clinical drug ingredient) Drug/Non Drug [...] Status Risk Notes Problem Postmenopausal atrophic vaginitis (04114761) Postmenopausal atrophic vaginitis (N95.2) Active confirmed Problem Age-related osteoporosis (123503314) Age-related osteoporosis without current pathological fracture (M81.0) Active confirmed Problem Type I diabetes mellitus without complication (872523972) Diabetes mellitus without mention of complication, type I [juvenile type], not stated as uncontrolled (250.01) Active confirmed Major Problem Menopausal symptom (97144604) Symptomatic menopausal or female climacteric states (627.2) Active confirmed Major Problem Osteoporosis (61687377) Unspecified osteoporosis (733.00) Active confirmed Diag Problem Gynecological examination normal (964448536884248) Routine gynecological examination (V72.31) Active confirmed Major Problem Screening for malignant neoplasm of colon (770966297) Special screening for malignant neoplasms, colon (V76.51) Active confirmed Major Vital Signs Temperature 97.9 degrees Fahrenheit 05/11/2024 Blood pressure diastolic 78 mm Hg 05/11/2024 Height 65 in 05/11/2024 Blood pressure systolic 128 mm Hg 05/11/2024 Weight 134 lbs 05/11/2024 BMI 22.3 kg/m2 05/11/2024 Encounters Encounter Location Date Provider Diagnosis Total [address] [place] [address] 05/11/2024 Puja Camp Encounter for gynecological examination (general) (routine) without abnormal findings Z01.419 ; Encounter for screening mammogram for malignant neoplasm of breast Z12.31 ; Age-related osteoporosis without current pathological fracture M81.0 and Other ovarian cyst, right side N83.291 Total [facility] [address] [place] [address] 05/30/2024 Puja Camp Assessments Encounter Date Diagnosis [...] Name:Puja Bandar cook, 05/18/2025 01:00:00 PM, [address], [address], [place], [address], Insurance Providers Payer Name Payer Address Payer Phone Subscriber Number Group Number Insured Name Patient Relationship to Insured Coverage Start Date Coverage End Date [employer] [address] [facility] URIAH [place]ÑO [id number] STORM DORANTES Self - patient is the [...]
--- OUTSIDE RECORDS SUMMARY | 2024-06-29 12:51 | XMS_ITS ---
Author Organization [facility] Address [address] [place] [address] Care Team Providers Care Certified Medical Asst Name Role Phone TAYLOR KNIGHT Primary Care Provider Jasenab Puja Escobar Unavailable [phone] REASON FOR VISIT HR MEDICARE PE Encounters Encounter Location Date Provider Diagnosis [facility] [address] [place] [address] 01/07/2024 Puja Camp Plan Of Treatment Next Appt Details Provider Name:Puja cook, 05/18/2025 01:00:00 PM, [address], [address], [place], [address], Progress Notes * GINO DORANTESB:1960 ([age] yo F)Acc No.[id number]:01/07/2024 PROGRESS NOTES Patient:?REYMUNDO DORANTESI Appointment Provider:?Puja cook M.D. :1960???Age:63 Y???Sex:Female D ate:01/07/2024 Address:[address] [place], [place] [address] Pcp:TAYLOR NEWMAN Subjective: * Chief Complaints: * ???1. HR MEDICARE PE. * Medical History:? Objective: * Vitals:? Assessment: Plan: * Treatment: * Images: Billing Information: * Visit Code:? * Procedure Codes:? * Electronic signature of Екатерина Camp MD on 06/29/2024 at 12:50 PM EST Sign off status: Pending * Appointment Provider:?Puja Camp M.D. Date:?01/07/2024 Generated for Owen pantoja/Santana/Rosalind on:?06/29/2024 12:50 PM EST
--- OUTSIDE RECORDS SUMMARY | 2024-06-29 12:52 | XMS_ITS ---
Author Organization [facility] Address [address] [place] [address] Care Team Providers Care Architectural Engineer Name Role Phone TAYLOR KNIGHT Primary Care Provider Puja Horn Unavailable [phone] REASON FOR VISIT WANTS TO RESUME CALTRATE Encounters Encounter Location Date Provider Diagnosis [facility] [address] [place] [address] 05/30/2024 Puja Camp Plan Of Treatment Next Appt Details Provider Name:Puja cook, 05/18/2025 01:00:00 PM, [address], [address], [place], [address], Progress Notes * GINO DORANTESB:1960 ([age] yo F)Acc No.[id number]:05/30/2024 Patient:?STORM DORANTES :1960???Age:64 Y???Sex:Female [address] [facility] [place], [address] * true * Date:? Generated for Printi ng/Fanatalieg/eTransmitting on:?06/29/2024 12:51 PM EST
--- OUTSIDE RECORDS SUMMARY | 2024-06-29 12:52 | XMS_ITS | Continuity of Care Document ---
Author Organization [facility] [address] [place] [address] Phone [phone] Care Team Providers Care Mattress Finisher Name Role Phone Wilda Schwartz Care Team Information Headwaiter/Headwaitress [phone] Problems Active Problems Provider Date Diabetes mellitus [...] Pump. 900units E10.9 Scotty River M.D. 10/20/2023 Qsdrbjv398Lcym/ML Solution Inject 50 Units Every Day With Pump 50units E10.9 Scotty River M.D. 05/26/2022 Rosuvastatin Edckhau89du Tablets Take 1 Tablet 1 Time Daily 90tabs Scotty River M.D. 05/18/2022 Losartan Zvaobezor40am Tablets Take 1 Tablet twice a day 180tabs Scotty River M.D. 12/15/2021 Aspirin Adult Low Avcd57yj Tablets DR 1 by mouth every day Scotty River M.D. 12/15/2021 Dghslfq3qx/100ML Solution Scotty River M.D. 12/15/2021 Lidocaine5% Patches Use 1 Patch Daily 90units Florence Gilbert M.D. Valacyclovir HCL1gm Tablets Take 2 Tablets By Mouth Now And 2 Tabs 12 Hours Later. Evan Kraus MD Pantoprazole Snubga74sr Tablets DR Take One Tablet By Mouth [...] 94 mg/dL 70-99 Laboratory test finding 07/08/2023 [facility] Potassium 5.3 mmol/L High (3.6-5.2 ) Laboratory test finding 06/04/2023 [facility] TSH With Reflex To FT4 1.20 uIU/mL (0.4-4.2 ) Urinary Microalbumin 06/04/2023 [facility] Micro-Albumin <12.0 mg/L (<20) 2 Malb/Creat Ratio Unable t o calcul <SEE NOTE> MG/GM (0-20) 3 Urine Creat For Micro Albumin 82.6 mg/dL Complete Abc With Diff 06/04/2023 [facility] WBC 9.0 K/MM3 (4.0-11. [...] ) Lymph # 2.4 K/MM3 (0.8-3.1 ) Dyer# 0.9 K/MM3 (0.4-0.9 ) Eo # 0.4 K/MM3 (0.0-0.4 ) Baso # 0.1 K/MM3 (0.0-0.1 ) Abs. Imm Gran 0.1 K/MM3 Neut 55.8 % (44-76) Lymph 27.1 % (15-43) Monocyte 9.9 % (4.5-10. 5) Eo 4.8 % (0-6) Baso 1.0 % (0-2) Imm Gran 1.4 % Laboratory test finding 06/04/2023 [facility] Hemoglobin A1c 8.5 % High (4.0-5.6 ) 4 Lipid Panel 06/04/2023 [facility] Cholesterol, Total 182 mg/dL (<200) Triglyceride 57 mg/dL (<150) HDL Chol 81 mg/dL (>39) LDL Cholesterol , Calculated 90 mg/dL (0-130) Non HDL Cholesterol (Calc) 101 mg/dL (<160) Comprehensive Metabolic Panl 06/04/2023 [facility] Glucose 204 mg/dL High [...] 8.7% Glucose Fingerstick 199 Urinary Microalbumin 08/28/2022 [facility] Micro-Albumin <12.0 mg/L (<20) 6 Malb/Creat Ratio Unable t o calcul <SEE NOTE> MG/GM (0-20) 7 Urine Creat For Micro Albumin 28.5 mg/dL Laboratory test finding 08/28/2022 [facility] Hemoglobin A1c 407 Glucose Fingerstick 8.7% Laboratory test finding 05/29/2022 [facility] Albumin 4.7 GM/DL (3.4-4.8 ) BUN 10 mg/dL (8-23) Calcium 9.9 mg/dL (8.6-10. 5) Creatinine 05/29/2022 [facility] Creatinine 0.6 mg/dL (0.5-1.0 ) [...] with health care provider. DIAGNOSTIC USE: The [place] Diabetes Association (ADA) and the World Health [...] sex. Procedures Date Code Description Status 01/13/2024 51853 Glucose Monitoring Interpeta tion And Report Completed 08/28/2022 37385 Glucose Monitoring Interpeta tion And Report Completed 05/14/2022 01583 Glucose Monitoring Interpeta tion And Report Completed [...]
== END 2024-06-29 12:14 | disposition home or self-care (01) ==
PROVIDERS: PCP Internal Medicine; Visit Provider Student in an Organized Health Care Education/Training Program
DX: E11.65 Type 2 diabetes mellitus with hyperglycemia (principal); Z79.4 Long term (current) use of insulin; M81.8 Other osteoporosis without current pathological fracture; E78.5 Hyperlipidemia, unspecified; I10 Essential (primary) hypertension; Z13.9 Encounter for screening, unspecified
CPT/HCPCS: 99215; G2211

== ENCOUNTER → 2024-06-29 10:48 | Outpatient (BNVA) | payer MEDICARE, SELFPAY | PROVIDERS: PCP Internal Medicine; Visit Provider Student in an Organized Health Care Education/Training Program | DX: Z46.81 Encounter for fitting and adjustment of insulin pump (principal); E11.65 Type 2 diabetes mellitus with hyperglycemia; E78.5 Hyperlipidemia, unspecified; I10 Essential (primary) hypertension; M81.8 Other osteoporosis without current pathological fracture; Z79.4 Long term (current) use of insulin | CPT/HCPCS: 81002; 82947; 83036; 99212 ==

== ENCOUNTER 2024-07-13 12:39 | Outpatient (AMB) | payer MEDICARE, SELFPAY ==
[2024-07-13 12:42] VITALS: BP 118/72; PULSE 88; O2SAT 98; BMI 23.5
--- NOTE | 2024-07-13 12:42 | A.OFFVIS_ITS ---
Vital Signs 3 07/13/24 12:42 Height 5 ft 4.5 in Weight 138 lb 14.259 oz BMI 23.5 BP 118/72 Blood Pressure Location Rt brachial Position Sitting Pulse 88 Pulse Source Pulse Oximeter Pulse Oximetry (%) 98 Oxygen Delivery Method Room Air Intake Visit Reasons: T1DM Intake Note: Patient presents today for a follow-up on Type 1 Diabetes Mellitus: Patient on insulin Pump Last Diabetic eye exam was on: 05/2024 Last Podiatry exam was on: Patient does not see a Director Client Most recent HbA1c: 8.6%, 06/29/2024 Random Glucose- 127 mg/dL, Today State Appellate Clerk Required: No Accompanied by: Self / Same As Patient Allergies metronidazole Allergy (Severe, Verified 07/13/24 12:48) Rash acetaminophen [Percocet] Allergy (Unknown, Verified 07/13/24 12:48) Unknown alendronate sodium [From FOSAMAX] Allergy (Unknown, Verified 07/13/24 12:48) STOMACH PROBLEMS aspirin [Percodan] Allergy (Unknown, Verified 07/13/24 12:48) Unknown cephalexin [CEPHALEXIN] Allergy (Unknown, Verified 07/13/24 12:48) WHOLE BODY RASH clindamycin Allergy (Unknown, Verified 07/13/24 12:48) Unknown latex Allergy (Unknown, Verified 07/13/24 12:48) Unknown oxycodone [Percocet] Allergy (Unknown, Verified 07/13/24 12:48) Unknown risedronate sodium [From ACTONEL] Allergy (Unknown, Verified 07/13/24 12:48) STOMACH PROBLEMS sulfamethoxazole [SULFAMETHOXAZOLE] Allergy (Unknown, Verified 07/13/24 12:48) BODY RASH trimethoprim [Bactrim] Allergy (Unknown, Verified 07/13/24 12:48) Unknown HPI Comments Details: 64-year-old female here for follow up of type 2 diabetes mellitus as well as osteoporosis. Type 2 diabetes mellitus History of diabetes Diagnosed at age 33 Prior therapy: Was on glucophage for 1 year and didnt help acheive targets hence insulin was started Current regimen: Medtronic insulin pump 780 G with humalog U-100 Isnt using guardian sensor due to prior bad exerience with sensor resulting in hemoatoma, huge needle 20 years ago and afraid of extra cost Checks finger sticks HgA1C POC 06/29/2024: 8.6% HgA1c: 8.9% 02/24/24 Random Glucose- 127 mg/dL, Today Has appointment wiht educator 07/27/24 Pump settings Basal rate Midnight to 06:00: 0.8 units/hour 06:00 to 20:00: 0.85 units/hour 20:00 to midnight : 0.725 units/hour Carb ratio Midnight to 15:00: 10 15:00 to midnight: 12 Sensitivity From midnight to 06:00: 70 From 06:00 to 12:00: 50 Noon to midnight: 50 Gets symptoms of hypoglycemia in 50s. Decreased awareness. Fingersticks data reviewed, much improvement noted since pump settings changed last. Her blood sugars are around 160s to 200s. When she is in the 300s to 400s is either when she forgets to bolus or gives herself less than what was the pump recommending. Complications Last Diabetic eye exam: 05/2024, no retinopathy Last Podiatry Visit: Doesn't have one Neuropathy: very mild pins and needles, foot exam done 03/02/24 Kidney disease: no kidney disease Macrovascular complications: No history of macrovascular complications. Statin: on rosuvastatin 10 mg daily LEEANNE/ARB: on losartan 50 mg BID Exercise: active at work , walks the dog twice daily Diet control: she has celiac has never had any hospitalizations for hyperglycemia/hypoglycemia. Osteoporosis Her most recent bone density scan is from May 2023 which showed T-score of- 3.3 at the femoral neck with 6.9 % decreased compared to last time, T-score of- 2.4 at the total hip with 3.4 % decrease compared to last time. No lumbar spine done. Bone density-2.7 at the forearm. Unclear why they did not include the spine, she denies getting any procedures in her spine Diagnosed in her 40s. She reports she had early natural menopause in her 40s s, subsequently was not on HRT. Her radiological engineer ordered a bone density which showed osteoporosis. Fracture History:None Height loss: ? Back pain: None Pharmacotherapeutic hx: She describes she has been on therapy for many years, her last Reclast infusion was in June 2023 . She has also been trialed on Prolia in the middle, just 2 injections some 10 years ago, but gave her excessive aches inner thighs. She can not tell me exactly what year she got which medication. I reviewed the records from her stunt driver as well as her previous radiological engineer but very unclear in the nodes how many Reclast infusion she has gotten, but patient says she has at least gotten 10 infusions, likely more over the last 20 years. vitamin D 1000 units day Secondary risk factors: Steroid use: None Hyperthyroidism: Neg Seizure medication use: None Chemo or Radiation use: Neg Heparin Use: Neg History of eating disorder: Negative FCI immobilization: Negative History of kidney stones or disease: negative PI Use: Chronic use Chronic inflammatory lung disease: Negative Chronic inflammatory bowel disease: Negative Daily calcium intake: She is not on calcium supplements, drinks milk occasionally, no yogurt or cheese. Exercise: active at work , walks the dog twice daily Smoking history: quit 31 years ago Dental: Has regular dental cleaning, no issues Interval history Jun 2024 stopped vitamin D as level was very high at 133 June 2024, CTX 96, urine NTX 48, and bone specific alkaline phosphatase 14. no fractures Physical exam General: sitting comfortably in no acute distress HEENT: normocephalic/atraumatic, moist oral mucosa Neck: supple, symmetrical, no thyromegaly , no dorsocervical or supraclavicular fat pads Cardiac: normal heart sounds Pulm: normal breath sounds B/L, no added breath sounds Abd: not distended, no tenderness Extremities: no edema, no signs of myxedema Neuro: AAO x3, Speech: normal, no facial droop, moving all 4 extremities Skin: no rash Foot exam: Done February 2024: intact sensation to monofilament, intact pulses, intact vibration, she does have thickened nails questionable fungus. Laboratory Tests Laboratory Tests 03/25/22 08:45 Calcium 9.7 25-OH Vitamin D Total 42 25-Hydroxy Vitamin D2 <4 25-Hydroxy Vitamin D3 42 11/12/21 03/25/22 02/24/24 09:08 08:45 10:52 Hgb 14.0 Hct 43.1 Plt Count 464 H Creatinine 0.71 Estimated GFR > 60 Hgb A1c (Clinic) 8.9 H AST 22 ALT 17 Albumin 4.6 Triglycerides 108 Cholesterol 161 LDL Cholesterol, Calc 85 HDL Cholesterol 55 Laboratory Tests 06/26/24 06/26/24 06/29/24 07:30 07:50 11:21 Sodium 136 Potassium 4.7 Glucose (Clinic) 402 H* Random Glucose 246 H Hgb A1c (Clinic) C-Peptide 0.98 Calcium 9.4 Phosphorus 3.2 Magnesium 2.2 Alkaline Phosphatase 101 Total Protein 7.0 Albumin 4.3 25-OH Vitamin D Total 133.0 TSH 1.28 PTH Intact 63.2 Ur Random Calcium 23.6 Urine Creatinine 130.36 Urine Microalbumin 8.0 Microalb/Creat Ratio 6.1 06/29/24 11:24 Sodium Potassium Glucose (Clinic) Random Glucose Hgb A1c (Clinic) 8.6 H C-Peptide Calcium Phosphorus Magnesium Alkaline Phosphatase Total Protein Albumin 25-OH Vitamin D Total TSH PTH Intact Ur Random Calcium Urine Creatinine Urine Microalbumin Microalb/Creat Ratio Laboratory Tests 06/26/24 07:50 Triglycerides 56 Cholesterol 139 LDL Cholesterol, Calc 67 HDL Cholesterol 61 Laboratory Tests 06/26/24 06/26/24 06/29/24 07:30 07:50 11:21 Glucose (Clinic) 402 H* Hgb A1c (Clinic) C-Peptide 0.98 Alk Phos Bone Specific 14.0 N-Telopeptide X-linked 48 Collgn I C-Telopeptide 296 06/29/24 11:24 Glucose (Clinic) Hgb A1c (Clinic) 8.6 H C-Peptide Alk Phos Bone Specific N-Telopeptide X-linked Collgn I C-Telopeptide [facility] Medical History IBS (irritable bowel syndrome) Osteoporosis Essential hypertension Diabetes mellitus GERD (gastroesophageal reflux disease) Surgical History H/O colonoscopy Hx laparoscopic cholecystectomy Family History Father Diabetes CVD (cardiovascular disease) Chronic mental illness Mental health disorder Mother CVD (cardiovascular disease) Diabetes Family/Other FH: mental illness Mental health disorder Social History Housing: House Alcohol intake: current Alcohol intake frequency: holidays/special occasions only Alcohol type: hard liquor Patient Tobacco Use Status: Former Tobacco user e-Cigarette/Vaping Use: Never Used Second Hand Smoke Exposure: No Advance Directives Date on File: 11/08/20 service: No Current occupational status: employed Current occupational exposures/hazards: No Cognitive needs: No Hearing needs: No Vision needs: Yes (glasses) Assessment & Plan Assessment & Plan (1) Diabetes mellitus: Code(s): E11.9 - Type 2 diabetes mellitus without complications Category: Medical Qualifiers: Diabetes mellitus type: type 2 Diabetes mellitus terminal clerk insulin use: with terminal clerk use Diabetes mellitus complication status: with hyperglycemia Qualified Code(s): E11.65 - Type 2 diabetes mellitus with hyperglycemia; Z79.4 - FCI (current) use of insulin Plan: Patient with insulin-dependent diabetes mellitus diagnosed in her 30s, with mild neuropathy, who has very poor control at this time with most recent A1c POC today 06/29/2024 at 8.6% which is about the same as that from from February 2024 at 8.9%. She is on insulin pump Medtronic 780G with Humalog. About 20 years ago she had a bad experience with the sensor so she has not been using any sensor hence she is not in automated mode. She is using fingersticks to manually give herself boluses through the pump. Pump settings Basal rate Midnight to 06:00: 0.8 units/hour 06:00 to 20:00: 0.85 units/hour 20:00 to midnight : 0.725 units/hour Carb ratio Midnight to 15:00: 10 15:00 to midnight: 12 Sensitivity From midnight to 06:00: 70 From 06:00 to 12:00: 50 Noon to midnight: 50 I again reiterated to her today the benefits of being in auto mode with the usage of a CGM sensor. I explained all the benefits, but she is still very much against it and would not like to go on another machine. Fingersticks data reviewed, much improvement noted since pump settings changed last. Her blood sugars are around 160s to 200s. When she is in the 300s to 400s is either when she forgets to bolus or gives herself less than what was the pump recommending. Counseled about hypoglycemia management Plan: - Educated about pre bolusing interesting the pump settings - educated about importance of consistency with the meals - no pump settings changed today. -follow with educator -see caster operator -up-to-date with eye visit, no history of retinopathy -follow up in 8 weeks On insulin pump: Backup Lantus pen and pen needles prescribed: To take 15 units of Lantus in case pump failure has Glucagon has ketone strips (2) Osteoporosis: Code(s): M81.0 - Age-related osteoporosis without current pathological fracture Category: Medical Qualifiers: Osteoporosis type: other Presence of current pathological fracture: w ithout current pathological fracture Qualified Code(s): M81.8 - Other osteoporosis without current pathological fracture Plan: Patient with a history of osteoporosis diagnosed in her 40s. Her risk factors were early menopause in her 30s. Unclear why she had premature ovarian insufficiency. She was not on hormone replacement therapy. Her most recent bone density scan is from May 2023 which showed T-score of-3.3 at the femoral neck with 6.9 % decreased compared to last time, T-score of-2.4 at the total hip with 3.4 % decrease compared to last time. No lumbar spine done. Bone density-2.7 at the forearm. Unclear why they did not include the spine, she denies getting any procedures in her spine, no recent fractures. She denies any fracture history. She has been on Reclast therapy most recently last infusion was June 2023 per patient. She says she has at least gotten 10, likely more infusions over the last 20 years. She also received 2 injections of Prolia around 10 years ago, could not tolerate these. I reviewed the records from her stunt driver in previous radiological engineer, however very unclear history in terms of when and how many Reclast she got, just states she has been on Reclast therapy. Given that she has received so many Reclast infusions, I am concerned about long-term side effects of bisphosphonates in her. Jun 2024 stopped vitamin D as level was very high at 133 June 2024, CTX 96, urine NTX 48, and bone specific alkaline phosphatase 14. no fractures at this time given her bone resorption markers are on the lower side, I will take the CTX into account not the urine NTX. Her vitamin-D was elevated at 133, I asked her to stop taking vitamin-D Jun 27, we will plan to repeat vitamin-D levels in 3-4 months in end of summer 2024. Plan: - next bone density would be due May 2025 - plan to repeat vitamin-D end of summer 2024 -encouraged to incorporate 1000 mg of calcium in her diet -weight-bearing exercise advised (3) Dyslipidemia: Code(s): E78.5 - Hyperlipidemia, unspecified Category: Medical Plan: LDL at 67 from June 2024. Within goal LDL of less than 70 mg/dL Plan: -continue rosuvastatin 10 mg daily (4) Essential hypertension: Code(s): I10 - Essential (primary) hypertension Category: Medical Plan: Blood pressure within goal today Plan: -continue losartan 50 mg BID Plan I spent 30 minutes in reviewing the record, seeing the patient and documenting in the medical record. Coding Level of Care Code Est Pt Level 4 (93026) Diagnoses Type 2 diabetes mellitus with hyperglycemia, with long-term current use of insulin E11.65; Z79.4 Diabetes mellitus type: type 2 Diabetes mellitus terminal clerk insulin use: with fdc use Diabetes mellitus complication status: with hyperglycemia Other osteoporosis without current pathological fracture M81.8 Osteoporosis type: other Presence of current pathological fracture: without current pathological fracture Dyslipidemia E78.5 Essential hypertension I10 Time Spent (min) 30
[2024-07-13 12:49] LABS: Glucose, Whole Blood 127 mg/dL (60-115)
--- OUTSIDE RECORDS SUMMARY | 2024-07-13 15:54 | XMS_ITS ---
Author Organization [facility] Address [address] [place] [address] Care Team Providers Care Power Equipment Mechanics Instructor Name Role Phone TAYLOR KNIGHT Primary Care Provider Jasenab Puja Escobar Unavailable [phone] REASON FOR VISIT HR MEDICARE PE Encounters Encounter Location Date Provider Diagnosis [facility] [address] [place] [address] 01/07/2024 Puja Camp Plan Of Treatment Next Appt Details Provider Name:Puja cook, 05/18/2025 01:00:00 PM, [address], [address], [place], [address], Progress Notes * GINO DORANTESB:1960 ([age] yo F)Acc No.[id number]:01/07/2024 PROGRESS NOTES Patient:?REYMUNDO DORANTESI Appointment Provider:?Puja cook M.D. :1960???Age:63 Y???Sex:Female D ate:01/07/2024 Address:[address] [place], [place] [id number] Pcp:TAYLOR NEWMAN Subjective: * Chief Complaints: * ???1. HR MEDICARE PE. * Medical History:? Objective: * Vitals:? Assessment: Plan: * Treatment: * Images: Billing Information: * Visit Code:? * Procedure Codes:? * Electronic signature of Екатерина Camp MD on 07/13/2024 at 03:54 PM EDT Sign off status: Pending * Appointment Provider:?Puja Camp M.D. Date:?01/07/2024 Generated for Owen pantoja/Santana/Rosalind on:?07/13/2024 03:54 PM EDT
--- OUTSIDE RECORDS SUMMARY | 2024-07-13 15:54 | XMS_ITS | Patient Health Record ---
Author Organization [facility] Address [address] [place] [address] Care Team Providers Care Hub Bander Name Role Phone TAYLOR KNIGHT Primary Care Provider Unavailab Puja Escobar Unavailable [phone] Allergies Allergen (clinical drug ingredient) Drug/Non Drug [...] Status Risk Notes Problem Postmenopausal atrophic vaginitis (42432227) Postmenopausal atrophic vaginitis (N95.2) Active confirmed Problem Age-related osteoporosis (766431388) Age-related osteoporosis without current pathological fracture (M81.0) Active confirmed Problem Type I diabetes mellitus without complication (048596669) Diabetes mellitus without mention of complication, type I [juvenile type], not stated as uncontrolled (250.01) Active confirmed Major Problem Menopausal symptom (52201963) Symptomatic menopausal or female climacteric states (627.2) Active confirmed Major Problem Osteoporosis (29523596) Unspecified osteoporosis (733.00) Active confirmed Diag Problem Gynecological examination normal (409453691872519) Routine gynecological examination (V72.31) Active confirmed Major Problem Screening for malignant neoplasm of colon (017449420) Special screening for malignant neoplasms, colon (V76.51) Active confirmed Major Vital Signs Temperature 97.9 degrees Fahrenheit 05/11/2024 Blood pressure diastolic 78 mm Hg 05/11/2024 Height 65 in 05/11/2024 Blood pressure systolic 128 mm Hg 05/11/2024 Weight 134 lbs 05/11/2024 BMI 22.3 kg/m2 05/11/2024 Encounters Encounter Location Date Provider Diagnosis [facility] [address] [place] [address] 05/11/2024 Puja Camp Encounter for gynecological examination (general) (routine) without abnormal findings Z01.419 ; Encounter for screening mammogram for malignant neoplasm of breast Z12.31 ; Age-related osteoporosis without current pathological fracture M81.0 and Other ovarian cyst, right side N83.291 [facility] [address] [place] [address] 05/30/2024 Puja Camp Assessments Encounter Date Diagnosis [...] Name:Puja Bandar cook, 05/18/2025 01:00:00 PM, [address], [place], [address], Insurance Providers Payer Name Payer Address Payer Phone Subscriber Number Group Number Insured Name Patient Relationship to Insured Coverage Start Date Coverage End Date [employer] [address] [facility] [place] [id number] STORM DORANTES Self - patient is the [...]
--- OUTSIDE RECORDS SUMMARY | 2024-07-13 15:54 | XMS_ITS ---
Author Organization [facility] Address [address] [place] [address] Care Team Providers Care Lens Coating Technician Name Role Phone TAYLOR KNIGHT Primary Care Provider UnavailPuja Frankel Unavailable [phone] Allergies Allergen (clinical drug ingredient) Drug/Non Drug [...] REASON FOR VISIT HR MEDICARE PE, Annual REVIEW ENGINEER Physical 60-85+ Medications Medication SIG (Take, Route, [...] Encounters Encounter Location Date Provider Diagnosis [address] [place] [address] 05/11/2024 Puja Camp Encounter for gynecological examination [...] Provider Name:Puja cook, 05/18/2025 01:00:00 PM, [address], [address], [place], [address], Progress Notes * GINO DORANTESB:1960 ([age] yo F)Acc No.[id number]:05/11/2024 PROGRESS NOTES Patient:?JOSE E STORM Appointment Provider:?Puja cook M.D. :1960???Age:63 Y???Sex:Female D ate:05/11/2024 Address:[address] [place] [address] [place] [facility] Pcp:TAYLOR NEWMAN Subjective: * Chief Complaints: * ???HR MEDICARE PEAnnual REVIEW ENGINEER Physical 60-85+ * HPI: ???New/Follow-up Patient Consult:?PAT [...] adequate calcium via diet and supplementation ?Significant REVIEW ENGINEER problems:?no significant leadership development instructor symptoms or problems * ROS:?general:?no?chest pain.?no?palpitations.?no?headache.?no?cough.?no?shortness of breath.?no?fever.?no?unexplained weight loss.?no?nausea/vomiting.?no?change in bowel movements.?no blood in stool.?no?genitourinary complaints.?no?skin complaints.? * Medical History:? * Stock Control Supervisor History:?/ Para?2/1.?Sexual activity?currently sexually active.?Last Pap Smear:?12/31/22 [...] dece ased 58 yrs, coronary artery disease, [place], diagnosed with Diabetes mellitus without mention of [...] Temp: 97.9 F. * Examination: ???General Exam: ?CONSTITUTIONAL:?General Appearance:?alert, in no acute distress, normal, well nourished ?NECK/THYROID:?Inspection/Palpation:?normal ?Thyroid:?normal size and shape ?RESPIRATORY:?Auscultation: clear to auscultation bilaterally, Respiratory Effort: normal.?CARDIOVASCULAR:?Auscultation: regular rate and rhythm.?BREAST, Right:?Inspection/Palpation:?no discharge, no masses present, no nipple retraction, no skin changes, no skin dimpling, no tenderness, no lymphadenopathy, no axillary mass, no axillary tenderness ?BREAST, Left:?Inspection/Palpation:?no discharge, no masses present, no nipple retraction, no skin changes, no skin dimpling, no tenderness, no lymphadenopathy, no axillary mass, no axillary tenderness ?GASTROINTESTINAL:?Abdomen:?no masses, nontender, nondistended ?Liver and Spleen:?normal ?Hernias:?no hernias present, no inguinal adenopathy ?MUSCULOSKELETAL:?Inspection/Palpation:?no clubbing, cyanosis, or edema ?SKIN:?Skin:?normal ?NEURO/PSYCH:?Orientation:?time , place, person ?Mood/Affect:?normal?Genitourinary: ?EXTERNAL GENITALIA:?External Genitalia:?normal, no lesions ?VAGINA:?Vagina:?normal appearance, no abnormal discharge, no lesions ?BLADDER:?Bladder:?no mass, nontender ?URETHRA:?Urethra:?no erythema or lesions present ?CERVIX:?Cervix:?no lesions, nontender ?UTERUS:?Uterus:?nontender, normal contour, normal mobility, normal size ?ADNEXA:?Adnexa:?no masses, no tenderness ?ANUS AND PERINEUM:?Anus/Perineum:?visually normal??? Assessment: * Assessment: 1.?Encounter for gynecologic al [...] * Images: Billing Information: * Visit Code:? 72371 Preventive Care Est Pt. Age 65 and over. * Procedure Codes:? * Sign off status: Completed true * Appointment Provider:?Puja Camp M.D. Date:?05/11/2024 Generated for Owen pantoja/Santana/Joeitting on:?07/13/2024 03:54 PM EDT History and Physical Notes * HPI (History [...] ate calcium via diet and supplementation Significant REVIEW ENGINEER problems:: n o significant leadership development instructor symptoms or problems Examination Category Sub-Category Detail [...]
--- OUTSIDE RECORDS SUMMARY | 2024-07-13 15:54 | XMS_ITS ---
Author Organization [facility] Address [address] [place] [address] Care Team Providers Care Trailer Park Manager Name Role Phone TAYLOR KNIGHT Primary Care Provider Puja Horn Unavailable [phone] REASON FOR VISIT WANTS TO RESUME CALTRATE Encounters Encounter Location Date Provider Diagnosis [facility] [address] [place] [address] 05/30/2024 Puja Camp Plan Of Treatment Next Appt Details Provider Name:Puja cook, 05/18/2025 01:00:00 PM, [address], [address], [place], [address], Progress Notes * GINO DORANTESB:1960 ([age] yo F)Acc No.[id number]:05/30/2024 Patient:?STORM DORANTES :1960???Age:64 Y???Sex:Female [address] [facility] [place], [address] * true * Date:? Generated for Printi ng/Faxing/eTransmitting on:?07/13/2024 03:54 PM EDT
--- OUTSIDE RECORDS SUMMARY | 2024-07-13 15:55 | XMS_ITS | Continuity of Care Document ---
Author Organization [facility] [address] [place] [address] Phone [phone] Care Team Providers Care Nanotechnology Engineering Technologist Name Role Phone Wilda Schwartz Care Team Information Box Covering Machine Operator [phone] Problems Active Problems Provider Date Diabetes mellitus [...] Pump. 900units E10.9 Scotty River M.D. 10/20/2023 Sivygqu800Ovmo/ML Solution Inject 50 Units Every Day With Pump 50units E10.9 Scotty River M.D. 05/26/2022 Rosuvastatin Egshrnf78ud Tablets Take 1 Tablet 1 Time Daily 90tabs Scotty River M.D. 05/18/2022 Losartan Mcvmjtire37ja Tablets Take 1 Tablet twice a day 180tabs Scotty River M.D. 12/15/2021 Aspirin Adult Low Rkhu64ql Tablets DR 1 by mouth every day Scotty River M.D. 12/15/2021 Ensesrd5bu/100ML Solution Scotty River M.D. 12/15/2021 Lidocaine5% Patches Use 1 Patch Daily 90units Florence Gilbert M.D. Valacyclovir HCL1gm Tablets Take 2 Tablets By Mouth Now And 2 Tabs 12 Hours Later. Evan Kraus MD Pantoprazole Cubfgh78ez Tablets DR Take One Tablet By Mouth Half An Hour Before Breakfast Edna Pope NP Vital Signs Date Vital Result Comment 01/13/2024 3:12pm BP Systolic 150 mmHg BP Diastolic 90 mmHg Heart Rate 75 /min Height 64 inches 5'4 Weight 139.38 lb BMI (Body Mass Index) 23.9 kg/m2 Results Test Acquired Date Facility Test Result H/L Range Note Glucose Fingerstick 01/13/2024 Inhouse Glucose Fingerstick 135 Hemoglobin A1c 01/13/2024 Inhouse Hemoglobin A1c 8.2% Potassium 08/31/2023 [facility] Potassium 5.0 mmol/L 3.5-5.2 Hemoglobin A1c 08/31/2023 Inhouse Hemoglobin A1c 8.3% Glucose Fingerstick 08/31/2023 Inhouse Glucose Fingerstick 112 C-Peptide, Serum 07/29/2023 [facility] C-Peptide, Serum <0.1 ng/mL Low 1.1-4.4 1 Glucose 07/29/2023 [facility] Glucose 94 mg/dL 70-99 Potassium 07/08/2023 [facility] Potassium 5.3 mmol/L High (3.6-5.2 ) Comprehensive Metabolic Panl 06/04/2023 [facility] Glucose 204 mg/dL High [...] (0-33) Estimated GFR Creatinine 97 ML/MIN/1. 73M2 2 Lipid Panel 06/04/2023 [facility] Cholesterol, Total 182 mg/dL (<200) Triglyceride 57 mg/dL (<150) HDL Chol 81 mg/dL (>39) LDL Cholesterol , Calculated 90 mg/dL (0-130) Non HDL Cholesterol (Calc) 101 mg/dL (<160) Hemoglobin A1c 06/04/2023 [facility] Hemoglobin A1c 8.5 % High (4.0-5.6 ) 3 Complete Abc With Diff 06/04/2023 [facility] WBC 9.0 K/MM3 (4.0-11. [...] ) Lymph # 2.4 K/MM3 (0.8-3.1 ) [place]# 0.9 K/MM3 (0.4-0.9 ) Eo # 0.4 K/MM3 (0.0-0.4 ) Baso # 0.1 K/MM3 (0.0-0.1 ) Abs. Imm Gran 0.1 K/MM3 Neut 55.8 % (44-76) Lymph 27.1 % (15-43) Monocyte 9.9 % (4.5-10. 5) Eo 4.8 % (0-6) Baso 1.0 % (0-2) Imm Gran 1.4 % TSH With Reflex To FT4 06/04/2023 [facility] TSH With Reflex To FT4 1.20 uIU/mL (0.4-4.2 ) Urinary Microalbumin 06/04/2023 [facility] Micro-Albumin <12.0 mg/L (<20) 4 Malb/Creat Ratio Unable t o calcul <SEE NOTE> MG/GM (0-20) 5 Urine Creat For Micro Albumin 82.6 mg/dL Hemoglobin A1c 05/14/2023 Inhouse Hemoglobin A1c 8.8% Glucose Fingerstick 05/14/2023 Inhouse Glucose Fingerstick 246 Hemoglobin A1c 12/29/2022 [facility]house Hemoglobin A1c 8.7% Glucose Fingerstick 12/29/2022 Inhouse Glucose Fingerstick 199 Urinary Microalbumin 08/28/2022 [facility] Micro-Albumin <12.0 mg/L (<20) 6 Malb/Creat Ratio Unable t o calcul <SEE NOTE> MG/GM (0-20) 7 Urine Creat For Micro Albumin 28.5 mg/dL Hemoglobin A1c 08/28/2022 Inhouse Hemoglobin A1c 407 Glucose Fingerstick 08/28/2022 Inhouse Glucose Fingerstick 8.7% Albumin 05/29/2022 [facility] Albumin 4.7 GM/DL (3.4-4.8 ) BUN 05/29/2022 [facility] BUN 10 mg/dL (8-23) Calcium 05/29/2022 [facility] Calcium 9.9 mg/dL (8.6-10. 5) Creatinine 05/29/2022 [facility] Creatinine 0.6 mg/dL (0.5-1.0 ) Estimated GFR Creatinine 99 ML/MIN/1. 73M2 8 Hemoglobin A1c 05/14/2022 Inhouse Hemoglobin A1c 8.6% Glucose Fingerstick 05/14/2022 Inhouse Glucose Fingerstick 214 Hemoglobin A1c 12/15/2021 Inhouse Hemoglobin A1c 8.0% Glucose Fingerstick 12/15/2021 Inhouse Glucose Fingerstick 221 1 C-Peptide reference interval is for fasting patients. 2 Creatinine based est imated glomerular filtration (eGFR) in adults is calculated using the National Kidney Foundation recommended 2020 CKD-EPI equation. Estimates GFR from serum creatinine, age and sex. 3 MONITORING: In known diabetic patients, hemoglobin A1c targets should be discussed with health care provider. DIAGNOSTIC USE: The [place] Diabetes Association (ADA) and the World Health [...] Research and Education Volume 43, Supplement 1 4 The urine microalbum in test is designed to monitor renal function. When screening for Bence Owen proteinuria, urine electrophoresis is recommended. 5 Unable to calculate 6 The urine microalbum in test is designed to monitor renal function. When screening for Bence Owen proteinuria, urine electrophoresis is recommended. 7 Unable to calculate 8 Creatinine based est imated glomerular filtration (eGFR) in adults is calculated using the National Kidney Foundation recommended 2020 CKD-EPI equation. Estimates GFR from serum creatinine, age and sex. Procedures Date Code Description Status 01/13/2024 73899 Glucose Monitoring Interpeta tion And Report Completed 08/28/2022 81074 Glucose Monitoring Interpeta tion And Report Completed 05/14/2022 69958 Glucose Monitoring Interpeta tion And Report Completed [...]
== END 2024-07-13 13:06 | disposition home or self-care (01) ==
LOC: HO.ENCR 12:39
PROVIDERS: PCP Internal Medicine; Visit Provider Student in an Organized Health Care Education/Training Program
DX: E11.65 Type 2 diabetes mellitus with hyperglycemia (principal); Z79.4 Long term (current) use of insulin; M81.8 Other osteoporosis without current pathological fracture; E78.5 Hyperlipidemia, unspecified; I10 Essential (primary) hypertension
CPT/HCPCS: 99214

== ENCOUNTER → 2024-07-13 12:39 | Outpatient (BNVA) | payer MEDICARE, SELFPAY | PROVIDERS: PCP Internal Medicine; Visit Provider Student in an Organized Health Care Education/Training Program | DX: E11.65 Type 2 diabetes mellitus with hyperglycemia (principal); M81.8 Other osteoporosis without current pathological fracture; E78.5 Hyperlipidemia, unspecified; I10 Essential (primary) hypertension; Z96.41 Presence of insulin pump (external) (internal); Z79.4 Long term (current) use of insulin | CPT/HCPCS: 82947; 99212 ==

== ENCOUNTER 2024-08-09 15:05 | Outpatient (AMB) | payer MEDICARE, SELFPAY ==
--- NOTE | 2024-08-09 14:30 | A.OFFVIS_ITS ---
Vital Signs 08/09/24 15:07 Height 5 ft 4.5 in Weight 134 lb 7.712 oz BMI 22.7 BP 114/78 Blood Pressure Location Rt brachial Position Sitting Pulse 85 Pulse Source Pulse Oximeter Pulse Oximetry (%) 97 Oxygen Delivery Method Room Air Intake Visit Reasons: Type 1 DM Intake Note: Patient presents today for a follow-up on Type 2 Diabetes Mellitus: Patient on insulin Pump Last Diabetic eye exam was on: 05/2024 Last Podiatry exam was on: Patient does not see a Business Systems Analyst Most recent HbA1c: 8.6%, 06/29/2024 Random Glucose- 163 mg/dL, Today Company Tanker Truck Driver Required: No Accompanied by: Self / Same As Patient Allergies metronidazole Allergy (Severe, Verified 08/09/24 15:08) Rash acetaminophen [Percocet] Allergy (Unknown, Verified 08/09/24 15:08) Unknown alendronate sodium [From FOSAMAX] Allergy (Unknown, Verified 08/09/24 15:08) STOMACH PROBLEMS aspirin [Percodan] Allergy (Unknown, Verified 08/09/24 15:08) Unknown cephalexin [CEPHALEXIN] Allergy (Unknown, Verified 08/09/24 15:08) WHOLE BODY RASH clindamycin Allergy (Unknown, Verified 08/09/24 15:08) Unknown latex Allergy (Unknown, Verified 08/09/24 15:08) Unknown oxycodone [Percocet] Allergy (Unknown, Verified 08/09/24 15:08) Unknown risedronate sodium [From ACTONEL] Allergy (Unknown, Verified 08/09/24 15:08) STOMACH PROBLEMS sulfamethoxazole [SULFAMETHOXAZOLE] Allergy (Unknown, Verified 08/09/24 15:08) BODY RASH trimethoprim [Bactrim] Allergy (Unknown, Verified 08/09/24 15:08) Unknown Medication List - Last Reconciled 08/09/24 by Yahaira Cameron NP acetone (urine) test (Ketone Care strips) As directed ascorbic acid (vitamin C) 500 mg PO BID aspirin (Aspirin Childrens) 81 mg PO DAILY betamethasone dipropionate 0.05% 1 appl topical DAILY PRN cholecalciferol (vitamin D3) 25 mcg PO DAILY glucagon 1 mg IM Q20M PRN insulin glargine (Lantus Solostar U-100 Insulin) 18 units (0.18 mL) subcut QAM insulin lispro (Humalog U-100 Insulin) PT USING HUMALOG IN INSULIN PUMP insulin pump-infus. set-meter HUMALOG lidocaine 5% 1 patch topical DAILY loratadine (Claritin) 10 mg PO DAILY losartan 100 mg PO DAILY 90 days olopatadine 0.1% 1 drp ophthalmic (eye) BID omeprazole 20 mg PO DAILY 90 days pen needle, diabetic (1st Tier Unifine Pentips) As directed rosuvastatin 10 mg PO BEDTIME 90 days triamcinolone acetonide 0.1% 1 appl topical BID PRN zoledronic msjp-dnvmifpk-ktvmm 5 mg/100 mL (Reclast) 1 ea IV DIRECTED HPI Comments Details: This is an interim visit for this 64 year old type 2 diabetic on a medtronic insulin pump. She reports her sugars have been running higher than target for approx 5-7 days. She has not felt ill. She has been under increa se stress secondary to insurance issues related to her pump. I spoke with her this morning on the phone and she reported she had not started any new medications. Today while she is in the office she remembers that she was given a steroid injection 1 week ago for a rash. SH eis also using betamethasone cream. She is a patient of Dr. Chavez's and called into the clinic this morning with due to the trends of higher glucose. She has tested for ketones and has changed her set several times taking a manual injection at the time of the set change per protocol. Glucose readings for the last day- 4-5 days had been in the 200 range she had 1 isolated reading over for 100 for which she changed her pump site yesterday her readings were 197 in the morning 175 postprandial breakfast in the afternoon she was 278-67 and 190. This morning she was again 049839 and since that time has been running 138-161. See pump download. No change from previous settings. [facility] Medical History IBS (irritable bowel syndrome) Osteoporosis Essential hypertension Diabetes mellitus GERD (gastroesophageal reflux disease) Surgical History H/O colonoscopy Hx laparoscopic cholecystectomy Family History Father Diabetes CVD (cardiovascular disease) Chronic mental illness Mental health disorder Mother CVD (cardiovascular disease) Diabetes Family/Other FH: mental illness Mental health disorder Social History Housing: House Alcohol intake: current Alcohol intake frequency: holidays/special occasions only Alcohol type: hard liquor Patient Tobacco Use Status: Former Tobacco user e-Cigarette/Vaping Use: Never Used Second Hand Smoke Exposure: No Advance Directives Date on File: 11/08/20 service: No Current occupational status: employed Current occupational exposures/hazards: No Cognitive needs: No Hearing needs: No Vision needs: Yes (glasses) Physical Exam Vital Signs: Last Vital Signs Pulse 85 08/09/24 15:07 BP 114/78 08/09/24 15:07 Pulse Ox 97 08/09/24 15:07 Oxygen Delivery Method Room Air 08/09/24 15:07 BMI result Body Mass Index 22.7 Const Other: Absence of Cushingoid features. Absence of acromegalic features. Neck exam non tender. Heart S1 S2, Reg R/R. No M/R G. abd exam benign. Results Reviewed Results Reviewed: Laboratory Last Values Glucose (Clinic) 163 mg/dL (60-115) H 08/09/24 15:12 Assessment & Plan Assessment & Plan (1) Diabetes mellitus: Code(s): E11.9 - Type 2 diabetes mellitus without complications Category: Medical Qualifiers: Diabetes mellitus type: type 2 Diabetes mellitus intermediate accountant insulin use: with custodial use Diabetes mellitus complication status: with hyperglycemia Qualified Code(s): E11.65 - Type 2 diabetes mellitus with hyperglycemia; Z79.4 - exterminator (current) use of insulin Plan: This is a type [address] Villalba on a Medtronic insulin pump who had been running higher secondary to a steroid shot 1 week ago. The effects of the steroids maybe running out as she has been 138-160 for the last 5-6 hours. She is familiar with the use of temporary basal. If her numbers increase she can use a temporary basal for 4 hours at a time adding roughly 10% to the temporary basal. The patient had an opportunity to ask questions regarding treatment plan. The patient expressed understanding and agreement with the above treatment plan. The patient is aware they should contact our office by phone for worsening glucose readings or for any low blood sugars which may warrant a change in diabetes medication. Compliance is encouraged with medications and any followup testing/consults which may have been ordered. Coding Level of Care Code Est Pt Level 3 (66515) Diagnoses Type 2 diabetes mellitus with hyperglycemia, with long-term current use of insulin E11.65; Z79.4 Diabetes mellitus type: type 2 Diabetes mellitus custodial insulin use: with custodial use Diabetes mellitus complication status: with hyperglycemia Time Spent (min) 15 Comment Time spent reviewing labs/provider notes, face to face, chart doc
[2024-08-09 15:07] VITALS: BP 114/78; PULSE 85; O2SAT 97; BMI 22.7
[2024-08-09 15:15] LABS: Glucose, Whole Blood 163 mg/dL (60-115)
--- OUTSIDE RECORDS SUMMARY | 2024-08-09 17:13 | XMS_ITS | Continuity of Care Document ---
Author Organization [facility] [address] [place] [address] Phone [phone] Care Team Providers Care Global Position System Technician Name Role Phone Wilda Schwartz Care Team Information Supervisor Newspaper Deliveries [phone] Problems Active Problems Provider Date Diabetes mellitus [...] Pump. 900units E10.9 Scotty River M.D. 10/20/2023 Cjkfotm936Vigs/ML Solution Inject 50 Units Every Day With Pump 50units E10.9 Scotty River M.D. 05/26/2022 Rosuvastatin Fcdruky36oh Tablets Take 1 Tablet 1 Time Daily 90tabs Scotty River M.D. 05/18/2022 Losartan Ubtnusowo39cp Tablets Take 1 Tablet twice a day 180tabs Scotty River M.D. 12/15/2021 Aspirin Adult Low Hdmp91bh Tablets DR 1 by mouth every day Scotty River M.D. 12/15/2021 Khdxjtc5qn/100ML Solution Scotty River M.D. 12/15/2021 Lidocaine5% Patches Use 1 Patch Daily 90units Florence Gilbert M.D. Valacyclovir HCL1gm Tablets Take 2 Tablets By Mouth Now And 2 Tabs 12 Hours Later. Evan Kraus MD Pantoprazole Zrupty28yw Tablets DR Take One Tablet By Mouth [...] [facility] Glucose 94 mg/dL 70-99 Potassium 07/08/2023 [facility] Potassium 5.3 mmol/L High (3.6-5.2 ) Comprehensive Metabolic Panl 06/04/2023 [facility] Glucose 204 mg/dL High (70-99) [...] 97 ML/MIN/1. 73M2 2 Lipid Panel 06/04/2023 [facility] Cholesterol, Total 182 mg/dL (<200) Triglyceride 57 mg/dL (<150) HDL Chol 81 mg/dL (>39) LDL Cholesterol , Calculated 90 mg/dL (0-130) Non HDL Cholesterol (Calc) 101 mg/dL (<160) Hemoglobin A1c 06/04/2023 [facility] Hemoglobin A1c 8.5 % High (4.0-5.6 ) 3 Complete Abc With Diff 06/04/2023 [facility] WBC 9.0 K/MM3 (4.0-11. 0) [...] ) Lymph # 2.4 K/MM3 (0.8-3.1 ) Webb# 0.9 K/MM3 (0.4-0.9 ) Eo # 0.4 K/MM3 (0.0-0.4 ) Baso # 0.1 K/MM3 (0.0-0.1 ) Abs. Imm Gran 0.1 K/MM3 Neut 55.8 % (44-76) Lymph 27.1 % (15-43) Monocyte 9.9 % (4.5-10. 5) Eo 4.8 % (0-6) Baso 1.0 % (0-2) Imm Gran 1.4 % TSH With Reflex To FT4 06/04/2023 [facility] TSH With Reflex To FT4 1.20 uIU/mL (0.4-4.2 ) Urinary Microalbumin 06/04/2023 [facility] Micro-Albumin <12.0 mg/L (<20) 4 Malb/Creat Ratio Unable t o calcul <SEE NOTE> MG/GM (0-20) 5 Urine Creat For Micro Albumin 82.6 mg/dL Hemoglobin A1c 05/14/2023 Inhouse Hemoglobin A1c 8.8% Glucose Fingerstick 05/14/2023 Inhouse Glucose Fingerstick 246 Hemoglobin A1c 12/29/2022 Inhouse Hemoglobin A1c 8.7% Glucose Fingerstick 12/29/2022 Inhouse Glucose Fingerstick 199 Urinary Microalbumin 08/28/2022 [facility] Micro-Albumin <12.0 mg/L (<20) 6 Malb/Creat Ratio Unable t o calcul <SEE NOTE> MG/GM (0-20) 7 Urine Creat For Micro Albumin 28.5 mg/dL Hemoglobin A1c 08/28/2022 [facility]house Hemoglobin A1c 407 Glucose Fingerstick 08/28/2022 Inhouse Glucose Fingerstick 8.7% Albumin 05/29/2022 [facility] Albumin 4.7 GM/DL (3.4-4.8 ) BUN 05/29/2022 [facility] BUN 10 mg/dL (8-23) Calcium 05/29/2022 [facility] Calcium 9.9 mg/dL (8.6-10. 5) Creatinine 05/29/2022 [facility] Creatinine 0.6 mg/dL (0.5-1.0 ) [...] with health care provider. DIAGNOSTIC USE: The [place] Diabetes Association (ADA) and the World Health [...] sex. Procedures Date Code Description Status 01/13/2024 23135 Glucose Monitoring Interpeta tion And Report Completed 08/28/2022 09862 Glucose Monitoring Interpeta tion And Report Completed 05/14/2022 84123 Glucose Monitoring Interpeta tion And Report Completed [...]
== END 2024-08-09 15:31 | disposition home or self-care (01) ==
LOC: HO.ENCR 15:05
PROVIDERS: PCP Internal Medicine; Visit Provider Nurse Practitioner Adult Health
DX: E11.65 Type 2 diabetes mellitus with hyperglycemia (principal); Z79.4 Long term (current) use of insulin
CPT/HCPCS: 99213

== ENCOUNTER → 2024-08-09 15:05 | Outpatient (BNVA) | payer MEDICARE, SELFPAY | PROVIDERS: PCP Internal Medicine; Visit Provider Nurse Practitioner Adult Health | DX: E11.65 Type 2 diabetes mellitus with hyperglycemia (principal); Z79.4 Long term (current) use of insulin | CPT/HCPCS: 82947; 99212 ==

== ENCOUNTER 2024-09-07 13:30 | Outpatient (AMB) | payer MEDICARE, SELFPAY ==
[2024-09-07 13:32] VITALS: BP 140/72; PULSE 84; O2SAT 96; BMI 23.0
--- NOTE | 2024-09-07 13:32 | A.OFFVIS_ITS ---
Vital Signs 3 09/07/24 13:32 Height 5 ft 4.5 in Weight 136 lb 3.931 oz BMI 23.0 BP 140/72 H Blood Pressure Location Lt brachial Position Sitting Pulse 84 Pulse Source Pulse Oximeter Pulse Oximetry (%) 96 Oxygen Delivery Method Room Air Intake Visit Reasons: T1DM Intake Note: Patient present today for Type 1 Diabetes Mellitus Last Diabetic eye exam: 01/2024 Last Podiatry Visit: Doesn't have one Random Glucose: 201 mg/dl HgA1C: 8.6% 06/29/24 Fish Checker Required: No Accompanied by: Self / Same As Patient Allergies metronidazole Allergy (Severe, Verified 09/07/24 13:36) Rash acetaminophen [Percocet] Allergy (Unknown, Verified 09/07/24 13:36) Unknown alendronate sodium [From FOSAMAX] Allergy (Unknown, Verified 09/07/24 13:36) STOMACH PROBLEMS aspirin [Percodan] Allergy (Unknown, Verified 09/07/24 13:36) Unknown cephalexin [CEPHALEXIN] Allergy (Unknown, Verified 09/07/24 13:36) WHOLE BODY RASH clindamycin Allergy (Unknown, Verified 09/07/24 13:36) Unknown latex Allergy (Unknown, Verified 09/07/24 13:36) Unknown oxycodone [Percocet] Allergy (Unknown, Verified 09/07/24 13:36) Unknown risedronate sodium [From ACTONEL] Allergy (Unknown, Verified 09/07/24 13:36) STOMACH PROBLEMS sulfamethoxazole [SULFAMETHOXAZOLE] Allergy (Unknown, Verified 09/07/24 13:36) BODY RASH trimethoprim [Bactrim] Allergy (Unknown, Verified 09/07/24 13:36) Unknown HPI Comments Details: 64-year-old female here for follow up of type 2 diabetes mellitus as well as osteoporosis. Type 2 diabetes mellitus History of diabetes Diagnosed at age 33 Prior therapy: Was on glucophage for 1 year and didnt help acheive targets hence insulin was started Current regimen: Medtronic insulin pump 780 G with humalog U-100 Isnt using guardian sensor due to prior bad exerience with sensor resulting in hemoatoma, huge needle 20 years ago and afraid of extra cost Checks finger sticks HgA1C POC 06/29/2024: 8.6% HgA1c: 8.9% 02/24/24 Random Glucose- 201 mg/dL, Today Missed appointment [facility] 07/27/24 Pump settings Basal rate Midnight to 04:30: 0.8 units/hour 430-8 a.m. 0.875 units/hour (she changed this basal rate herself a few weeks ago) 08:00 to 20:00: 0.85 units/hour 20:00 to midnight : 0.725 units/hour Carb ratio Midnight to 15:00: 10 15:00 to midnight: 12 Sensitivity From midnight to 06:00: 70 From 06:00 to 12:00: 50 Noon to midnight: 50 Gets symptoms of hypoglycemia in 50s. Decreased awareness. Interval history Fingersticks data reviewed, she is overall doing much better than the 1st time I saw her no more 300s. Mostly her but if blood sugars are in the 160s to 180s a few times she gets 200s. Sometimes she does not give herself the recommended bolus by the pump. She also got a steroid shot in June 2024 after which she was having elevated blood sugars in the 300s. Complications Last Diabetic eye exam: 05/2024, no retinopathy Last Podiatry Visit: Doesn't have one Neuropathy: very mild pins and needles, foot exam done 03/02/24 Kidney disease: no kidney disease Macrovascular complications: No history of macrovascular complications. Statin: on rosuvastatin 10 mg daily LEEANNE/ARB: on losartan 50 mg BID Exercise: active at work , walks the dog twice daily Diet control: she has celiac has never had any hospitalizations for hyperglycemia/hypoglycemia. Osteoporosis Her most recent bone density scan is from May 2023 which showed T-score of- 3.3 at the femoral neck with 6.9 % decreased compared to last time, T-score of- 2.4 at the total hip with 3.4 % decrease compared to last time. No lumbar spine done. Bone density-2.7 at the forearm. Unclear why they did not include the spine, she denies getting any procedures in her spine Diagnosed in her 40s. She reports she had early natural menopause in her 40s s, subsequently was not on HRT. Her feather cutting machine feeder ordered a bone density which showed osteoporosis. Fracture History:None Height loss: ? Back pain: None Pharmacotherapeutic hx: She describes she has been on therapy for many years, her last Reclast infusion was in June 2023 . She has also been trialed on Prolia in the middle, just 2 injections some 10 years ago, but gave her excessive aches inner thighs. She can not tell me exactly what year she got which medication. I reviewed the records from her night coordinator as well as her previous feather cutting machine feeder but very unclear in the notes how many Reclast infusion she has gotten, but patient says she has at least gotten 10 infusions, likely more over the last 20 years. vitamin D 1000 units day Secondary risk factors: Steroid use: None Hyperthyroidism: Neg Seizure medication use: None Chemo or Radiation use: Neg Heparin Use: Neg History of eating disorder: Negative oysterman immobilization: Negative History of kidney stones or disease: negative PI Use: Chronic use Chronic inflammatory lung disease: Negative Chronic inflammatory bowel disease: Negative Daily calcium intake: She is not on calcium supplements, drinks milk occasionally, no yogurt or cheese. Exercise: active at work , walks the dog twice daily Smoking history: quit 31 years ago Dental: Has regular dental cleaning, no issues Interval history Jun 2024 stopped vitamin D as level was very high at 133 June 2024, CTX 96, urine NTX 48, and bone specific alkaline phosphatase 14. no fractures Physical exam General: sitting comfortably in no acute distress HEENT: normocephalic/atraumatic, moist oral mucosa Neck: supple, symmetrical, no thyromegaly , no dorsocervical or supraclavicular fat pads Cardiac: normal heart sounds Pulm: normal breath sounds B/L, no added breath sounds Abd: not distended, no tenderness Extremities: no edema, no signs of myxedema Neuro: AAO x3, Speech: normal, no facial droop, moving all 4 extremities Skin: no rash Foot exam: Done February 2024: intact sensation to monofilament, intact pulses, intact vibration, she does have thickened nails questionable fungus. Laboratory Tests Laboratory Tests 03/25/22 08:45 Calcium 9.7 25-OH Vitamin D Total 42 25-Hydroxy Vitamin D2 <4 25-Hydroxy Vitamin D3 42 11/12/21 03/25/22 02/24/24 09:08 08:45 10:52 Hgb 14.0 Hct 43.1 Plt Count 464 H Creatinine 0.71 Estimated GFR > 60 Hgb A1c (Clinic) 8.9 H AST 22 ALT 17 Albumin 4.6 Triglycerides 108 Cholesterol 161 LDL Cholesterol, Calc 85 HDL Cholesterol 55 Laboratory Tests 02/24/25 02/24/25 02/27/25 07:30 07:50 11:21 Sodium 136 Potassium 4.7 Glucose (Clinic) 402 H* Random Glucose 246 H Hgb A1c (Clinic) C-Peptide 0.98 Calcium 9.4 Phosphorus 3.2 Magnesium 2.2 Alkaline Phosphatase 101 Total Protein 7.0 Albumin 4.3 25-OH Vitamin D Total 133.0 TSH 1.28 PTH Intact 63.2 Ur Random Calcium 23.6 Urine Creatinine 130.36 Urine Microalbumin 8.0 Microalb/Creat Ratio 6.1 06/29/24 11:24 Sodium Potassium Glucose (Clinic) Random Glucose Hgb A1c (Clinic) 8.6 H C-Peptide Calcium Phosphorus Magnesium Alkaline Phosphatase Total Protein Albumin 25-OH Vitamin D Total TSH PTH Intact Ur Random Calcium Urine Creatinine Urine Microalbumin Microalb/Creat Ratio Laboratory Tests 06/26/24 07:50 Triglycerides 56 Cholesterol 139 LDL Cholesterol, Calc 67 HDL Cholesterol 61 Laboratory Tests 06/26/24 06/26/24 06/29/24 07:30 07:50 11:21 Glucose (Clinic) 402 H* Hgb A1c (Clinic) C-Peptide 0.98 Alk Phos Bone Specific 14.0 N-Telopeptide X-linked 48 Collgn I C-Telopeptide 296 06/29/24 11:24 Glucose (Clinic) Hgb A1c (Clinic) 8.6 H C-Peptide Alk Phos Bone Specific N-Telopeptide X-linked Collgn I C-Telopeptide Laboratory Tests 06/29/24 07/13/24 08/09/24 11:24 12:44 15:12 Glucose (Clinic) 127 H 163 H Hgb A1c (Clinic) 8.6 H PFSH Medical History IBS (irritable bowel syndrome) Osteoporosis Essential hypertension Diabetes mellitus GERD (gastroesophageal reflux disease) Surgical History H/O colonoscopy Hx laparoscopic cholecystectomy Family History Father Diabetes CVD (cardiovascular disease) Chronic mental illness Mental health disorder Mother CVD (cardiovascular disease) Diabetes Family/Other FH: mental illness Mental health disorder Social History Housing: House Alcohol intake: current Alcohol intake frequency: holidays/special occasions only Alcohol type: hard liquor Patient Tobacco Use Status: Former Tobacco user e-Cigarette/Vaping Use: Never Used Second Hand Smoke Exposure: No Advance Directives Date on File: 11/08/20 service: No Current occupational status: employed Current occupational exposures/hazards: No Cognitive needs: No Hearing needs: No Vision needs: Yes (glasses) Assessment & Plan Assessment & Plan (1) Diabetes mellitus: Code(s): E11.9 - Type 2 diabetes mellitus without complications Category: Medical Qualifiers: Diabetes mellitus complication status: with hyperglycemia Diabetes mellitus oysterman insulin use: with prison use Diabetes mellitus type: type 2 Qualified Code(s): E11.65 - Type 2 diabetes mellitus with hyperglycemia; Z79.4 - USP (current) use of insulin Plan: Patient with insulin-dependent diabetes mellitus diagnosed in her 30s, with mild neuropathy, who has very poor control at this time with most recent A1c POC 06/29/2024 at 8.6% which is about the same as that from from February 2024 at 8.9%. She is on insulin pump Medtronic 780G with Humalog. About 20 years ago she had a bad experience with the sensor so she has not been using any sensor hence she is not in automated mode. She is using fingersticks to manually give herself boluses through the pump. Pump settings Basal rate Midnight to 04:30: 0.8 units/hour 430-8 a.m. 0.875 units/hour (she changed this basal rate herself a few weeks ago) 08:00 to 20:00: 0.85 units/hour 20:00 to midnight : 0.725 units/hour Carb ratio Midnight to 15:00: 10 15:00 to midnight: 12 Sensitivity From midnight to 06:00: 70 From 06:00 to 12:00: 50 Noon to midnight: 50 Fingersticks data reviewed, she is overall doing much better than the 1st time I saw her no more 300s. Mostly her but if blood sugars are in the 160s to 180s a few times she gets 200s. Sometimes she does not give herself the recommended bolus by the pump. She also got a steroid shot in June 2024 after which she was having elevated blood sugars in the 300s. Counseled about hypoglycemia management Plan: - Educated about pre bolusing - educated about importance of consistency with the meals - pump settings changed as below: Sensitivity From midnight to 06:00: From 70 to 65 From 06:00 to 12:00: From 50 to 45 Noon to midnight: From 50 to 45 -up-to-date with eye visit, no history of retinopathy -follow up in 10 weeks On insulin pump: Backup Lantus pen and pen needles prescribed: To take 15 units of Lantus in case pump failure has Glucagon has ketone strips (2) Osteoporosis: Code(s): M81.0 - Age-related osteoporosis without current pathological fracture Category: Medical Qualifiers: Osteoporosis type: other Presence of current pathological fracture: w ithout current pathological fracture Qualified Code(s): M81.8 - Other osteoporosis without current pathological fracture Plan: Patient with a history of osteoporosis diagnosed in her 40s. Her risk factors were early menopause in her 30s. Unclear why she had premature ovarian insufficiency. She was not on hormone replacement therapy. Her most recent bone density scan is from May 2023 which showed T-score of-3.3 at the femoral neck with 6.9 % decreased compared to last time, T-score of-2.4 at the total hip with 3.4 % decrease compared to last time. No lumbar spine done. Bone density-2.7 at the forearm. Unclear why they did not include the spine, she denies getting any procedures in her spine, no recent fractures. She denies any fracture history. She has been on Reclast therapy most recently last infusion was June 2023 per patient. She says she has at least gotten 10, likely more infusions over the last 20 years. She also received 2 injections of Prolia around 10 years ago, could not tolerate these. I reviewed the records from her night coordinator in previous feather cutting machine feeder, however very unclear history in terms of when and how many Reclast she got, just states she has been on Reclast therapy. Given that she has received so many Reclast infusions, I am concerned about long-term side effects of bisphosphonates in her. Jun 2024 stopped vitamin D as level was very high at 133 June 2024, CTX 96, urine NTX 48, and bone specific alkaline phosphatase 14. no fractures at this time given her bone resorption markers are on the lower side, I will take the CTX into account not the urine NTX. Her vitamin-D was elevated at 133, I asked her to stop taking vitamin-D Jun 27, we will plan to repeat vitamin-D levels in 3-4 months in end of summer 2024. Plan: - next bone density would be due May 2025 - plan to repeat vitamin-D end of summer 2024 -encouraged to incorporate 1000 mg of calcium in her diet -weight-bearing exercise advised (3) Dyslipidemia: Code(s): E78.5 - Hyperlipidemia, unspecified Category: Medical Plan: LDL at 67 from June 2024. Within goal LDL of less than 70 mg/dL Plan: -continue rosuvastatin 10 mg daily (4) Essential hypertension: Code(s): I10 - Essential (primary) hypertension Category: Medical Plan: Blood pressure mildly elevated today, but she is in a marcial to get to her next appointment and was very anxious. We will monitor this. Plan: -continue losartan 50 mg BID Plan I spent 30 minutes in reviewing the record, seeing the patient and documenting in the medical record. Coding Level of Care Code Est Pt Level 4 (78074) Complex EM visit Add On G2211 Diagnoses Type 2 diabetes mellitus with hyperglycemia, with long-term current use of insulin E11.65; Z79.4 Diabetes mellitus complication status: with hyperglycemia Diabetes mellitus oysterman insulin use: with prison use Diabetes mellitus type: type 2 Other osteoporosis without current pathological fracture M81.8 Osteoporosis type: other Presence of current pathological fracture: without current pathological fracture Dyslipidemia E78.5 Essential hypertension I10 Time Spent (min) 30
[2024-09-07 13:42] LABS: Glucose, Whole Blood 201 mg/dL (60-115)
--- OUTSIDE RECORDS SUMMARY | 2024-09-07 14:32 | XMS_ITS ---
Author Organization [facility] [employer] [facility] Address [address] [place] [address] Care Team Providers Care Landscaping Manager Name Role Phone TAYLOR KNIGHT Primary Care Provider Unavailab Puja Escobar Unavailable [phone] REASON FOR VISIT HR MEDICARE PE Encounters Encounter Location Date Provider Diagnosis [facility] [employer] [facility] [address] [place] [address] 01/07/2024 Puja Camp Plan Of Treatment Next Appt Details Provider Name:Puja cook, 05/18/2025 01:00:00 PM, [address], [address], [place], [address], Progress Notes * GINO DORANTESB:1960 ([age] yo F)Acc No.[id number]:01/07/2024 PROGRESS NOTES Patient:?REYMUNDO DORANTESI Appointment Provider:?Puja cook M.D. :1960???Age:63 Y???Sex:Female D ate:01/07/2024 Address:[address] [place], [place] [address] [facility] Pcp:TAYLOR NEWMAN Subjective: * Chief Complaints: * ???1. HR MEDICARE PE. * Medical History:? Objective: * Vitals:? Assessment: Plan: * Treatment: * Images: Billing Information: * Visit Code:? * Procedure Codes:? * Electronic signature of Екатерина Camp MD on 09/07/2024 at 02:32 PM EDT Sign off status: Pending * Appointment Provider:?Puja Camp M.D. Date:?01/07/2024 Generated for Owen pantoja/Santana/Rosalind on:?09/07/2024 02:32 PM EDT
--- OUTSIDE RECORDS SUMMARY | 2024-09-07 14:33 | XMS_ITS | Patient Health Record ---
Author Organization [facility] Address [address] [place] [address] Care Team Providers Care Supervisor Fertilizer Name Role Phone TAYLOR KNIGHT Primary Care Provider Unavailab Puja Escobar Unavailable [phone] Allergies Allergen (clinical drug ingredient) Drug/Non Drug [...] Status Risk Notes Problem Postmenopausal atrophic vaginitis (95230972) Postmenopausal atrophic vaginitis (N95.2) Active confirmed Problem Age-related osteoporosis (962832980) Age-related osteoporosis without current pathological fracture (M81.0) Active confirmed Problem Type I diabetes mellitus without complication (500200129) Diabetes mellitus without mention of complication, type I [juvenile type], not stated as uncontrolled (250.01) Active confirmed Major Problem Menopausal symptom (83330057) Symptomatic menopausal or female climacteric states (627.2) Active confirmed Major Problem Osteoporosis (79526019) Unspecified osteoporosis (733.00) Active confirmed Diag Problem Gynecological examination normal (781871534919326) Routine gynecological examination (V72.31) Active confirmed Major Problem Screening for malignant neoplasm of colon (816308663) Special screening for malignant neoplasms, colon (V76.51) Active confirmed Major Vital Signs Temperature 97.9 degrees Fahrenheit 05/11/2024 Blood pressure diastolic 78 mm Hg 05/11/2024 Height 65 in 05/11/2024 Blood pressure systolic 128 mm Hg 05/11/2024 Weight 134 lbs 05/11/2024 BMI 22.3 kg/m2 05/11/2024 Encounters Encounter Location Date Provider Diagnosis [facility] [address] [place] [address] 05/11/2024 Puja Camp Encounter for gynecological examination (general) (routine) without abnormal findings Z01.419 ; Encounter for screening mammogram for malignant neoplasm of breast Z12.31 ; Age-related osteoporosis without current pathological fracture M81.0 and Other ovarian cyst, right side N83.291 [facility] [address] [place] [address] 05/30/2024 Puja Camp Assessments Encounter Date Diagnosis [...] Name:Puja Bandar cook, 05/18/2025 01:00:00 PM, [address], [address], [place], [address], Insurance Providers Payer Name Payer Address Payer Phone Subscriber Number Group Number Insured Name Patient Relationship to Insured Coverage Start Date Coverage End Date [employer] [address] [facility] [place] [id number] STORM DORANTES Self - patient is the [...]
--- OUTSIDE RECORDS SUMMARY | 2024-09-07 14:33 | XMS_ITS | Continuity of Care Document ---
Author Organization [facility] [address] [place] [address] Phone [phone] Care Team Providers Care Brancher Name Role Phone Wilda Schwartz Care Team Information Vessel Master [phone] Problems Active Problems Provider Date Diabetes mellitus [...] End: Unknown Patient is a former smoker Allergies and [...] Pump. 900units E10.9 Scotty River M.D. 10/20/2023 Noernnp427Pgad/ML Solution Inject 50 Units Every Day With Pump 50units E10.9 Scotty River M.D. 05/26/2022 Rosuvastatin Rkyrryw69rr Tablets Take 1 Tablet 1 Time Daily 90tabs Scotty River M.D. 05/18/2022 Losartan Rpchnxwvs46eu Tablets Take 1 Tablet twice a day 180tabs Scotty River M.D. 12/15/2021 Aspirin Adult Low Mkxv31od Tablets DR 1 by mouth every day Scotty River M.D. 12/15/2021 Ksveoxx2ek/100ML Solution Scotty River M.D. 12/15/2021 Lidocaine5% Patches Use 1 Patch Daily 90units Florence Gilbert M.D. Valacyclovir HCL1gm Tablets Take 2 Tablets By Mouth Now And 2 Tabs 12 Hours Later. Evan Kraus MD Pantoprazole Gcppkr54jo Tablets DR Take One Tablet By Mouth [...] [facility] Glucose 94 mg/dL 70-99 Potassium 07/08/2023 [facility] Potassium 5.3 mmol/L High (3.6-5.2 ) Comprehensive Metabolic Panl 06/04/2023 [facility] Glucose 204 mg/dL High [...] 97 ML/MIN/1. 73M2 2 Lipid Panel 06/04/2023 [facility] Cholesterol, Total 182 mg/dL (<200) Triglyceride 57 mg/dL (<150) HDL Chol 81 mg/dL (>39) LDL Cholesterol , Calculated 90 mg/dL (0-130) Non HDL Cholesterol (Calc) 101 mg/dL (<160) Hemoglobin A1c 06/04/2023 [facility] Hemoglobin A1c 8.5 % High (4.0-5.6 ) 3 Complete Abc With Diff 06/04/2023 [facility] WBC 9.0 K/MM3 (4.0-11. [...] ) Lymph # 2.4 K/MM3 (0.8-3.1 ) Jasper# 0.9 K/MM3 (0.4-0.9 ) Eo # 0.4 K/MM3 (0.0-0.4 ) Baso # 0.1 K/MM3 (0.0-0.1 ) Abs. Imm Gran 0.1 K/MM3 Neut 55.8 % (44-76) Lymph 27.1 % (15-43) Monocyte 9.9 % (4.5-10. 5) Eo 4.8 % (0-6) Baso 1.0 % (0-2) Imm Gran 1.4 % TSH With Reflex To FT4 06/04/2023 [facility] TSH With Reflex To FT4 1.20 uIU/mL (0.4-4.2 ) Urinary Microalbumin 06/04/2023 [facility] Micro-Albumin <12.0 mg/L (<20) 4 Malb/Creat Ratio Unable t o calcul <SEE NOTE> MG/GM (0-20) 5 Urine Creat For Micro Albumin 82.6 mg/dL Hemoglobin A1c 05/14/2023 [facility] Hemoglobin A1c 8.8% Glucose Fingerstick 05/14/2023 Inhouse Glucose Fingerstick 246 Hemoglobin A1c 12/29/2022 Inhouse Hemoglobin A1c 8.7% Glucose Fingerstick 12/29/2022 Inhouse Glucose Fingerstick 199 Urinary Microalbumin 08/28/2022 [facility] Micro-Albumin <12.0 mg/L (<20) 6 Malb/Creat Ratio Unable t o calcul <SEE NOTE> MG/GM (0-20) 7 Urine Creat For Micro Albumin 28.5 mg/dL Hemoglobin A1c 08/28/2022 [facility]house Hemoglobin A1c 407 Glucose Fingerstick 08/28/2022 Inhouse Glucose Fingerstick 8.7% Albumin 05/29/2022 [facility] Albumin 4.7 GM/DL (3.4-4.8 ) BUN 05/29/2022 [facility] BUN 10 mg/dL (8-23) Calcium 05/29/2022 [facility] Calcium 9.9 mg/dL (8.6-10. 5) Creatinine 05/29/2022 [facility] Creatinine 0.6 mg/dL (0.5-1.0 [...] calculated using the National Kidney Foundation recommended 202 CKD-EPI equation. Estimates GFR from serum creatinine, age and sex. 3 MONITORING: In known diabetic patients, hemoglobin A1c targets should be discussed with health care provider. DIAGNOSTIC USE: The [place] [employer] (ADA) and the World Health [...] sex. Procedures Date Code Description Status 01/13/2024 65685 Glucose Monitoring Interpeta tion And Report Completed 08/28/2022 53897 Glucose Monitoring Interpeta tion And Report Completed 05/14/2022 24899 Glucose Monitoring Interpeta tion And Report Completed [...]
--- OUTSIDE RECORDS SUMMARY | 2024-09-07 14:33 | XMS_ITS ---
Author Organization [facility] Address [address] [place] [address] Care Team Providers Care Gear Cutting Machine Operator Name Role Phone TAYLOR KNIGHT Primary Care Provider Puja Horn Unavailable [phone] REASON FOR VISIT WANTS TO RESUME CALTRATE Encounters Encounter Location Date Provider Diagnosis [facility] [address] [place] [address] 05/30/2024 Puja Camp Plan Of Treatment Next Appt Details Provider Name:Puja cook, 05/18/2025 01:00:00 PM, [address], [address], [place], [address], Progress Notes * GINO DORANTESB:1960 ([age] yo F)Acc No.[id number]:05/30/2024 Patient:?STORM DORANTES :1960???Age:64 Y???Sex:Female [address] [place], [address] * true * Date:? Generated for Printi ng/Faxing/eTransmitting on:?09/07/2024 02:32 PM EDT
--- OUTSIDE RECORDS SUMMARY | 2024-09-07 14:33 | XMS_ITS ---
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 :1960???Age:63 Y???Sex:Female D ate:05/11/2024 Address:[address] [place] [address] [address] [id number] Pcp:TAYLOR NEWMAN Subjective: * Chief Complaints: * ???HR MEDICARE PEAnnual SUPERVISOR BOAT OUTFITTING Physical 60-85+ * HPI: ???New/Follow-up Patient Consult:?PAT [...] adequate calcium via diet and supplementation ?Significant SUPERVISOR BOAT OUTFITTING problems:?no significant aboriginal home school liaison officer symptoms or problems * ROS:?general:?no?chest pain.?no?palpitations.?no?headache.?no?cough.?no?shortness of breath.?no?fever.?no?unexplained weight loss.?no?nausea/vomiting.?no?change in bowel movements.?no blood in stool.?no?genitourinary complaints.?no?skin complaints.? * Medical History:? * Divine Healer History:?/ Para?2/1.?Sexual activity?currently sexually active.?Last Pap Smear:?12/31/22 [...] dece ased 58 yrs, coronary artery disease, NM, diagnosed with Diabetes mellitus without mention of [...] * Images: Billing Information: * Visit Code:? 26926 Preventive Care Est Pt. Age 65 and over. * Procedure Codes:? * Sign off status: Completed true * Appointment Provider:?Puja Camp M.D. Date:?05/11/2024 Generated for Owen pantoja/Santana/Joeitting on:?09/07/2024 02:32 PM EDT History and Physical Notes * [...] UNDER THE CARE OF HER PCP, DR ABLRECHT WHO HAS BEEN GIVING HER RECLAST YEARLY [...] ate calcium via diet and supplementation Significant SUPERVISOR BOAT OUTFITTING problems:: n o significant aboriginal home school liaison officer symptoms or problems Examination Category Sub-Category Detail [...]
== END 2024-09-07 13:56 | disposition home or self-care (01) ==
LOC: HO.ENCR 13:30
PROVIDERS: PCP Internal Medicine; Visit Provider Student in an Organized Health Care Education/Training Program
DX: E11.65 Type 2 diabetes mellitus with hyperglycemia (principal); Z79.4 Long term (current) use of insulin; M81.8 Other osteoporosis without current pathological fracture; E78.5 Hyperlipidemia, unspecified; I10 Essential (primary) hypertension
CPT/HCPCS: 99214; G2211

== ENCOUNTER → 2024-09-07 13:30 | Outpatient (BNVA) | payer MEDICARE, SELFPAY | PROVIDERS: PCP Internal Medicine; Visit Provider Student in an Organized Health Care Education/Training Program | DX: E11.65 Type 2 diabetes mellitus with hyperglycemia (principal); M81.0 Age-related osteoporosis without current pathological fracture; E78.5 Hyperlipidemia, unspecified; Z96.41 Presence of insulin pump (external) (internal); Z79.4 Long term (current) use of insulin | CPT/HCPCS: 82947; 99212 ==

== ENCOUNTER 2024-10-30 10:55 | Outpatient (AMB) | payer MEDICARE, SELFPAY ==
--- OUTSIDE RECORDS SUMMARY | 2024-01-07 09:00 | XMS_ITS ---
Author Organization Total [facility] Address [address] [place] [address] Care Team Providers Care Story Editor Name Role Phone TAYLRO KNIGHT Primary Care Provider Unavailab Puja Escobar Unavailable [phone] REASON FOR VISIT HR MEDICARE PE Encounters Encounter Location Date Provider Diagnosis [facility] [address] [place] [address] 01/07/2024 Puja Camp Plan Of Treatment Next Appt Details Provider Name:Puja cook, 05/18/2025 01:00:00 PM, [address], [address], [place], [address], Progress Notes * JOSE EGINO HUERTAB:1960 ([age] yo F)Acc No.[id number]:01/07/2024 PROGRESS NOTES Patient: STORM WADSWORTH Appointment Provider: Nidhi Camp M.D. :1960 A ge:63 Y S ex:Female Date:01/07/2024 Address:[address] [place], [place] [address] Pcp:TAYLOR NEWMAN Subjective: * Chief Complaints: * 1 . HR MEDICARE PE. * Medical History: Objective: * Vitals: Assessment: Plan: * Treatment: * Images: Billing Information: * Visit Code: * Procedure Codes: * Electronic signature of Екатерина Camp MD on 10/30/2024 at 11:46 AM EDT Sign off status: Pending * Appointment Provider: Nidhi Camp M.D. Date: 0 01/07/2024 Generated for Owen pantoja/Santana/Joeitting on: 0 10/30/2024 11:46 AM EDT
--- NOTE | 2024-10-30 10:58 | A.OFFVIS_ITS ---
Vital Signs 3 10/30/24 10:59 Height 5 ft 4.5 in Weight 139 lb 1.787 oz BMI 23.5 BP 136/70 Blood Pressure Location Lt brachial Position Sitting Pulse 100 Pulse Source Pulse Oximeter Pulse Oximetry (%) 98 Oxygen Delivery Method Room Air Intake Visit Reasons: T1DM frequent lows Intake Note: Patient present today for Type 1 Diabetes Mellitus with frequent lows. Last Diabetic eye exam: 05/27 Last Podiatry Visit: Doesn't have one Random Glucose: 164 mg/dl HgA1C: 8.2 % A Class Lineman Required: No Accompanied by: Self / Same As Patient Allergies metronidazole Allergy (Severe, Verified 10/30/24 11:06) Rash acetaminophen (Percocet) Allergy (Unknown, Verified 10/30/24 11:06) Unknown alendronate sodium (From FOSAMAX) Allergy (Unknown, Verified 10/30/24 11:06) STOMACH PROBLEMS aspirin (Percodan) Allergy (Unknown, Verified 10/30/24 11:06) Unknown cephalexin (CEPHALEXIN) Allergy (Unknown, Verified 10/30/24 11:06) WHOLE BODY RASH clindamycin Allergy (Unknown, Verified 10/30/24 11:06) Unknown latex Allergy (Unknown, Verified 10/30/24 11:06) Unknown oxycodone (Percocet) Allergy (Unknown, Verified 10/30/24 11:06) Unknown risedronate sodium (From ACTONEL) Allergy (Unknown, Verified 10/30/24 11:06) STOMACH PROBLEMS sulfamethoxazole (SULFAMETHOXAZOLE) Allergy (Unknown, Verified 10/30/24 11:06) BODY RASH trimethoprim (Bactrim) Allergy (Unknown, Verified 10/30/24 11:06) Unknown HPI Comments Details: 64-year-old female here for follow up of type 2 diabetes mellitus . She also sees me for osteoporosis. Type 2 diabetes mellitus History of diabetes Diagnosed at age 33 Prior therapy: Was on glucophage for 1 year and didnt help acheive targets hence insulin was started Current regimen: Medtronic insulin pump 780 G with humalog U-100 Isnt using guardian sensor due to prior bad exerience with sensor resulting in hemoatoma, huge needle 20 years ago and afraid of extra cost Checks finger sticks HgA1C POC 06/29/2024: 8.6% HgA1c: 8.9% 02/24/24 HgA1C: 8.2 % POC 10/30/24 Random Glucose: 164 mg/dl Missed appointment wiht educator 07/27/24, last seen 03/26 Pump settings Basal rate Midnight to 04:30: 0.8 units/hour 430-8 a.m. 0.875 units/hour (she changed this basal rate herself a few weeks ago) 08:00 to 20:00: 0.85 units/hour 20:00 to midnight : 0.725 units/hour Carb ratio Midnight to 15:00: 10 15:00 to midnight: 12 Sensitivity From midnight to 06:00: 65 From 06:00 to 12:00: 45 Noon to midnight: 45 Gets symptoms of hypoglycemia in 50s. Decreased awareness. Interval history Reports blood sugar was 30 at 3 pm yesterday woke up from sleep feeling unwell , had taken bolus at 1 30 p.m. . Fingersticks data reviewed, I can not see the hypoglycemic episodes on her pump report/glucometer, but patient describes that she thinks her carb ratios too much for her us she is getting lows after she boluses herself with insulin. Complications Last Diabetic eye exam: 05/2024, no retinopathy Last Podiatry Visit: Doesn't have one Neuropathy: very mild pins and needles, foot exam done 03/02/24 Kidney disease: no kidney disease Macrovascular complications: No history of macrovascular complications. Statin: on rosuvastatin 10 mg daily LEEANNE/ARB: on losartan 50 mg BID Exercise: active at work , walks the dog twice daily Diet control: she has celiac has never had any hospitalizations for hyperglycemia/hypoglycemia. Osteoporosis Her most recent bone density scan is from May 2023 which showed T-score of- 3.3 at the femoral neck with 6.9 % decreased compared to last time, T-score of- 2.4 at the total hip with 3.4 % decrease compared to last time. No lumbar spine done. Bone density-2.7 at the forearm. Unclear why they did not include the spine, she denies getting any procedures in her spine Diagnosed in her 40s. She reports she had early natural menopause in her 40s s, subsequently was not on HRT. Her protein scientist ordered a bone density which showed osteoporosis. Fracture History:None Height loss: ? Back pain: None Pharmacotherapeutic hx: She describes she has been on therapy for many years, her last Reclast infusion was in June 2023 . She has also been trialed on Prolia in the middle, just 2 injections some 10 years ago, but gave her excessive aches inner thighs. She can not tell me exactly what year she got which medication. I reviewed the records from her quality assurance practice manager as well as her previous protein scientist but very unclear in the notes how many Reclast infusion she has gotten, but patient says she has at least gotten 10 infusions, likely more over the last 20 years. vitamin D 1000 units day Secondary risk factors: Steroid use: None Hyperthyroidism: Neg Seizure medication use: None Chemo or Radiation use: Neg Heparin Use: Neg History of eating disorder: Negative longterm immobilization: Negative History of kidney stones or disease: negative PI Use: Chronic use Chronic inflammatory lung disease: Negative Chronic inflammatory bowel disease: Negative Daily calcium intake: She is not on calcium supplements, drinks milk occasionally, no yogurt or cheese. Exercise: active at work , walks the dog twice daily Smoking history: quit 31 years ago Dental: Has regular dental cleaning, no issues Interval history Jun 2024 stopped vitamin D as level was very high at 133 June 2024, CTX 96, urine NTX 48, and bone specific alkaline phosphatase 14. no fractures Physical exam General: sitting comfortably in no acute distress HEENT: normocephalic/atraumatic, moist oral mucosa Neck: supple, symmetrical, no thyromegaly , no dorsocervical or supraclavicular fat pads Cardiac: normal heart sounds Pulm: normal breath sounds B/L, no added breath sounds Abd: not distended, no tenderness Extremities: no edema, no signs of myxedema Neuro: AAO x3, Speech: normal, no facial droop, moving all 4 extremities Skin: no rash Foot exam: Done February 2024: intact sensation to monofilament, intact pulses, intact vibration, she does have thickened nails questionable fungus. Laboratory Tests Laboratory Tests 03/25/22 08:45 Calcium 9.7 25-OH Vitamin D Total 42 25-Hydroxy Vitamin D2 <4 25-Hydroxy Vitamin D3 42 11/12/21 03/25/22 02/24/24 09:08 08:45 10:52 Hgb 14.0 Hct 43.1 Plt Count 464 H Creatinine 0.71 Estimated GFR > 60 Hgb A1c (Clinic) 8.9 H AST 22 ALT 17 Albumin 4.6 Triglycerides 108 Cholesterol 161 LDL Cholesterol, Calc 85 HDL Cholesterol 55 Laboratory Tests 06/26/24 06/26/24 06/29/24 07:30 07:50 11:21 Sodium 136 Potassium 4.7 Glucose (Clinic) 402 H* Random Glucose 246 H Hgb A1c (Clinic) C-Peptide 0.98 Calcium 9.4 Phosphorus 3.2 Magnesium 2.2 Alkaline Phosphatase 101 Total Protein 7.0 Albumin 4.3 25-OH Vitamin D Total 133.0 TSH 1.28 PTH Intact 63.2 Ur Random Calcium 23.6 Urine Creatinine 130.36 Urine Microalbumin 8.0 Microalb/Creat Ratio 6.1 06/29/24 11:24 Sodium Potassium Glucose (Clinic) Random Glucose Hgb A1c (Clinic) 8.6 H C-Peptide Calcium Phosphorus Magnesium Alkaline Phosphatase Total Protein Albumin 25-OH Vitamin D Total TSH PTH Intact Ur Random Calcium Urine Creatinine Urine Microalbumin Microalb/Creat Ratio Laboratory Tests 06/26/24 07:50 Triglycerides 56 Cholesterol 139 LDL Cholesterol, Calc 67 HDL Cholesterol 61 Laboratory Tests 06/26/24 06/26/24 06/29/24 07:30 07:50 11:21 Glucose (Clinic) 402 H* Hgb A1c (Clinic) C-Peptide 0.98 Alk Phos Bone Specific 14.0 N-Telopeptide X-linked 48 Collgn I C-Telopeptide 296 06/29/24 11:24 Glucose (Clinic) Hgb A1c (Clinic) 8.6 H C-Peptide Alk Phos Bone Specific N-Telopeptide X-linked Collgn I C-Telopeptide Laboratory Tests 06/29/24 07/13/24 08/09/24 11:24 12:44 15:12 Glucose (Clinic) 127 H 163 H Hgb A1c (Clinic) 8.6 H PFSH Medical History IBS (irritable bowel syndrome) Osteoporosis Essential hypertension Diabetes mellitus GERD (gastroesophageal reflux disease) Surgical History H/O colonoscopy Hx laparoscopic cholecystectomy Family History Father Diabetes CVD (cardiovascular disease) Chronic mental illness Mental health disorder Mother CVD (cardiovascular disease) Diabetes Family/Other FH: mental illness Mental health disorder Social History Housing: House Alcohol intake: current Alcohol intake frequency: holidays/special occasions only Alcohol type: hard liquor Patient Tobacco Use Status: Former Tobacco user e-Cigarette/Vaping Use: Never Used Second Hand Smoke Exposure: No Advance Directives Date on File: 11/08/20 service: No Current occupational status: employed Current occupational exposures/hazards: No Cognitive needs: No Hearing needs: No Vision needs: Yes (glasses) Physical Exam Vital Signs: Last Vital Signs Pulse 100 10/30/24 10:59 BP 136/70 10/30/24 10:59 Pulse Ox 98 10/30/24 10:59 Oxygen Delivery Method Room Air 10/30/24 10:59 BMI result Body Mass Index 23.5 Results AMB Hemoglobin A1c 2 AMB Hemoglobin A1c 8.2 % Last Edit by MOHAN Luther on 10/30/24 11:17 Results Reviewed Results Reviewed: Laboratory Last Values Glucose (Clinic) 164 mg/dL (60-115) H 10/30/24 11:08 Assessment & Plan Assessment & Plan (1) Diabetes mellitus: Code(s): E11.9 - Type 2 diabetes mellitus without complications Category: Medical Qualifiers: Diabetes mellitus complication status: with hyperglycemia Diabetes mellitus remote computer terminal operator insulin use: with remote computer terminal operator use Diabetes mellitus type: type 2 Qualified Code(s): E11.65 - Type 2 diabetes mellitus with hyperglycemia; Z79.4 - longterm (current) use of insulin Plan: Patient with insulin-dependent diabetes mellitus diagnosed in her 30s, with mild neuropathy, who has very poor control at this time with most recent A1c POC 10/30/2024 at 8.2% down from 06/29/2024 at 8.6% which is about the same as that from from February 2024 at 8.9%. She is on insulin pump Medtronic 780G with Humalog. About 20 years ago she had a bad experience with the sensor so she has not been using any sensor hence she is not in automated mode. She is using fingersticks to manually give herself boluses through the pump. Pump settings Basal rate Basal rate Midnight to 04:30: 0.8 units/hour 430-8 a.m. 0.875 units/hour (she changed this basal rate herself a few weeks ago) 08:00 to 20:00: 0.85 units/hour 20:00 to midnight : 0.725 units/hour Carb ratio Midnight to 15:00: 10 15:00 to midnight: 12 Sensitivity From midnight to 06:00: 65 From 06:00 to 12:00: 45 Noon to midnight: 45 Her concern has been hypoglycemia and she has had episodes per patient in the 30s to 50s. Says mostly it is after she boluses for food. Counseled about hypoglycemia management Plan: - Educated about pre bolusing - educated about importance of consistency with the meals - pump settings changed as below: carb ratio Midnight to 15:00: Increased from 10 to 12 and discussed with her to increase this further to 14 or 15 if continues to have low sugars after bolusing for meals 15:00 to midnight: 12 -up-to-date with eye visit, no history of retinopathy -follow up in 3 weeks On insulin pump: Backup Lantus pen and pen needles prescribed: To take 15 units of Lantus in case pump failure has Glucagon has ketone strips (2) Osteoporosis: Code(s): M81.0 - Age-related osteoporosis without current pathological fracture Category: Medical Qualifiers: Osteoporosis type: other Presence of current pathological fracture: w ithout current pathological fracture Qualified Code(s): M81.8 - Other osteoporosis without current pathological fracture Plan: Patient with a history of osteoporosis diagnosed in her 40s. Her risk factors were early menopause in her 30s. Unclear why she had premature ovarian insufficiency. She was not on hormone replacement therapy. Her most recent bone density scan is from May 2023 which showed T-score of-3.3 at the femoral neck with 6.9 % decreased compared to last time, T-score of-2.4 at the total hip with 3.4 % decrease compared to last time. No lumbar spine done. Bone density-2.7 at the forearm. Unclear why they did not include the spine, she denies getting any procedures in her spine, no recent fractures. She denies any fracture history. She has been on Reclast therapy most recently last infusion was June 2023 per patient. She says she has at least gotten 10, likely more infusions over the last 20 years. She also received 2 injections of Prolia around 10 years ago, could not tolerate these. I reviewed the records from her quality assurance practice manager in previous protein scientist, however very unclear history in terms of when and how many Reclast she got, just states she has been on Reclast therapy. Given that she has received so many Reclast infusions, I am concerned about long-term side effects of bisphosphonates in her. Jun 2024 stopped vitamin D as level was very high at 133 June 2024, CTX 96, urine NTX 48, and bone specific alkaline phosphatase 14. no fractures at this time given her bone resorption markers are on the lower side, I will take the CTX into account not the urine NTX. Her vitamin-D was elevated at 133, I asked her to stop taking vitamin-D Jun 27, we will plan to repeat vitamin-D levels in 3-4 months in end of summer 2024. Plan: - next bone density would be due May 2025 - plan to repeat vitamin-D end of summer 2024 -encouraged to incorporate 1000 mg of calcium in her diet -weight-bearing exercise advised (3) Dyslipidemia: Code(s): E78.5 - Hyperlipidemia, unspecified Category: Medical Plan: LDL at 67 from June 2024. Within goal LDL of less than 70 mg/dL Plan: -continue rosuvastatin 10 mg daily (4) Essential hypertension: Code(s): I10 - Essential (primary) hypertension Category: Medical Plan: Normal blood pressure Plan: -continue losartan 50 mg BID Plan I spent 30 minutes in reviewing the record, seeing the patient and documenting in the medical record. Orders: Orders 2 AMB Hemoglobin A1c Today E11.65 - Type 2 diabetes mellitus with hyperglycemia, Z13.9 - Encounter for screening, unspecified, Z79.4 - remote computer terminal operator (current) use of insulin Patient Instructions: On insulin pump: Backup Lantus pen and pen needles prescribed: To take 15 units of Lantus in case pump failure has Glucagon has ketone strips Rule of 15 Treatment for Hypoglycemia (Low blood sugar) If your blood glucose is low (70 and below)*, follow the steps below to treat: Eat or drink something from the list below equal to 15 grams of carbohydrate (carb). Rest for 15 minutes Re-check your blood glucose. If it is still low, (below 70), repeat step 1 above. ? If your next meal is more than an hour away, you will need to eat one carbohydrate choice as a snack to keep your blood glucose from going low again. ?If you can't figure out why you have low blood glucose, call your healthcare provider, as your medicine may need to be adjusted. ?Always carry something with you to treat an insulin reaction. Use food from the list below. ? Foods equal to One Carbohydrate Choice (15 grams of carbohydrate): 3 Glucose ?tablets or 4 Dextrose tablets 4 ounces of fruit juice 5-6 ounces (about 1/2 can) of regular soda such as Coke or Pepsi ? 7-8 gummy or regular Life Savers ? 1 Tbsp. of sugar or jelly NOTE: If your blood sugar is less than 50, double the portion above for a total of 30 gm. ?Carbohydrate. ? Follow meal plan of 45-60 g of consistent carbohydrates at 3 meals each day and 15 g of carbohydrate at 1-2 snacks each day. Coding Level of Care Code Est Pt Level 4 (59029) Complex EM visit Add On G2211 Diagnoses Type 2 diabetes mellitus with hyperglycemia, with long-term current use of insulin E11.65; Z79.4 Diabetes mellitus complication status: with hyperglycemia Diabetes mellitus prison insulin use: with prison use Diabetes mellitus type: type 2 Other osteoporosis without current pathological fracture M81.8 Osteoporosis type: other Presence of current pathological fracture: without current pathological fracture Dyslipidemia E78.5 Essential hypertension I10 Time Spent (min) 30
[2024-10-30 10:59] VITALS: BP 136/70; PULSE 100; O2SAT 98; BMI 23.5
[2024-10-30 11:12] LABS: Glucose, Whole Blood 164 mg/dL (60-115)
== END 2024-10-30 11:39 | disposition home or self-care (01) ==
LOC: HO.ENCR 10:56
PROVIDERS: PCP Internal Medicine; Visit Provider Student in an Organized Health Care Education/Training Program
DX: E11.65 Type 2 diabetes mellitus with hyperglycemia (principal); Z79.4 Long term (current) use of insulin; M81.8 Other osteoporosis without current pathological fracture; E78.5 Hyperlipidemia, unspecified; I10 Essential (primary) hypertension; Z13.9 Encounter for screening, unspecified
CPT/HCPCS: 99214; G2211

== ENCOUNTER → 2024-10-30 10:55 | Outpatient (BNVA) | payer MEDICARE, SELFPAY | PROVIDERS: PCP Internal Medicine; Visit Provider Student in an Organized Health Care Education/Training Program | DX: M79.645 Pain in left finger(s) (principal); M79.89 Other specified soft tissue disorders; E11.65 Type 2 diabetes mellitus with hyperglycemia; I10 Essential (primary) hypertension; Z79.4 Long term (current) use of insulin; E78.5 Hyperlipidemia, unspecified | CPT/HCPCS: 82947; 83036; 99202; 99212 ==

== ENCOUNTER 2024-10-30 11:59 | Outpatient (AMB) | payer MEDICARE, SELFPAY ==
[2024-10-30 12:27] VITALS: BP 132/66; PULSE 78; TEMP 36.9; O2SAT 96; BMI 23.5
--- NOTE | 2024-10-30 12:27 | AM.OFFWIN_ITS ---
Intake Vital Signs 3 10/30/24 12:27 Height 5 ft 4.5 in Weight 139 lb BMI 23.5 BP 132/66 Blood Pressure Location Rt brachial Position Sitting Pulse 78 Pulse Source Pulse Oximeter Temp 98.4 F Temp Source Oral Pulse Oximetry (%) 96 Oxygen Delivery Method Room Air Intake Visit Reasons: EP LT finger ?infection Intake Note: pt presents with left 2nd finger pain/swelling with deformity x few weeks Patient Tobacco Use Status: Former Tobacco user Allergies metronidazole Allergy (Severe, Verified 10/30/24 11:06) Rash acetaminophen (Percocet) Allergy (Unknown, Verified 10/30/24 11:06) Unknown alendronate sodium (From FOSAMAX) Allergy (Unknown, Verified 10/30/24 11:06) STOMACH PROBLEMS aspirin (Percodan) Allergy (Unknown, Verified 10/30/24 11:06) Unknown cephalexin (CEPHALEXIN) Allergy (Unknown, Verified 10/30/24 11:06) WHOLE BODY RASH clindamycin Allergy (Unknown, Verified 10/30/24 11:06) Unknown latex Allergy (Unknown, Verified 10/30/24 11:06) Unknown oxycodone (Percocet) Allergy (Unknown, Verified 10/30/24 11:06) Unknown risedronate sodium (From ACTONEL) Allergy (Unknown, Verified 10/30/24 11:06) STOMACH PROBLEMS sulfamethoxazole (SULFAMETHOXAZOLE) Allergy (Unknown, Verified 10/30/24 11:06) BODY RASH trimethoprim (Bactrim) Allergy (Unknown, Verified 10/30/24 11:06) Unknown Do you need a note to return to daycare/school/sports/work: No HPI HPI Comments 2 History of Present Illness0 Details 64 y/o Female patient who presents to [facility] with c/o Left Index finger swelling and painful for few days now. She has been soaking the finger in warm water plus Epson salt everyday since Wednesday. Wednesday she decided to Stick a small Safety Pin into the finger and drained clear fluid. [facility] Medical History (Updated 10/30/24 @ 13:13 by Alena Gibbons NP) Swelling of left index finger IBS (irritable bowel syndrome) Osteoporosis Essential hypertension Diabetes mellitus GERD (gastroesophageal reflux disease) Surgical History H/O colonoscopy Hx laparoscopic cholecystectomy Family History Father Diabetes CVD (cardiovascular disease) Chronic mental illness Mental health disorder Mother CVD (cardiovascular disease) Diabetes Family/Other FH: mental illness Mental health disorder Social History Housing: House Alcohol intake: current Alcohol intake frequency: holidays/special occasions only Alcohol type: hard liquor Patient Tobacco Use Status: Former Tobacco user e-Cigarette/Vaping Use: Never Used Second Hand Smoke Exposure: No Advance Directives Date on File: 11/08/20 service: No Current occupational status: employed Current occupational exposures/hazards: No Cognitive needs: No Hearing needs: No Vision needs: Yes (glasses) Review of Systems Const All systems reviewed & are unremarkable except as noted in HPI and below Physical Exam Vital Signs: Last Vital Signs Temp 98.4 F 10/30/24 12:27 Pulse 78 10/30/24 12:27 BP 132/66 10/30/24 12:27 Pulse Ox 96 10/30/24 12:27 Oxygen Delivery Method Room Air 10/30/24 12:27 BMI result Body Mass Index 23.5 Const General: no acute distress Nutritional Appearance: well nourished Orientation/consciousness: patient oriented x3 Neuro General: patient oriented x3 Extrem Left upper extremity: hand Details: normal capillary refill, tenderness Location: of the 2nd digit Location: involving the fingernail and at the PIP joint, normal ROM of fingers and swelling Location: of the 2nd digit Location: involving the entire digit Hand/finger images: 2 1. Left index finger swollen, TTP, mild redness Psych Speech and movement: Normal speech and movement present Results AMB Hemoglobin A1c 2 AMB Hemoglobin A1c 8.2 % Last Edit by MOHAN Luther on 10/30/24 11:17 Assessment & Plan Assessment & Plan (1) Swelling of left index finger: Code(s): M79.89 - Other specified soft tissue disorders Plan: Ordered Dicloxacillin for 10 days. Most of her allergic reactions to the Abx are Nausea/vomiting and GI upset. Denies Anaphylaxis Continue soaking Finger in warm water NSAIDs for pain relief. Medications: New 2 dicloxacillin 500 mg PO BID 20 caps 0RF 10 days M79.89 - Other specified soft tissue disorders Coding Level of Care Code New Pt Level 4 (32069) Diagnoses Swelling of left index finger M79.89
== END 2024-10-30 13:17 | disposition home or self-care (01) ==
PROVIDERS: PCP Internal Medicine; Visit Provider Nurse Practitioner Family
DX: M79.89 Other specified soft tissue disorders (principal)

== ENCOUNTER 2024-11-16 12:56 | Outpatient (AMB) | payer MEDICARE, SELFPAY ==
--- OUTSIDE RECORDS SUMMARY | 2024-01-07 09:00 | XMS_ITS ---
Author Organization Total [facility] Address [address] [place] [address] Care Team Providers Care Forestry Faculty Member Name Role Phone TAYLOR KNIGHT Primary Care Provider Unavailab Puja Escobar Unavailable [phone] REASON FOR VISIT HR MEDICARE PE Encounters Encounter Location Date Provider Diagnosis [facility] [address] [place] [address] 01/07/2024 Puja Camp Plan Of Treatment Next Appt Details Provider Name:Puja cook, 05/18/2025 01:00:00 PM, [address], [address], [place], [address], Progress Notes * JOSE EREYMUNDO HUERTAGENOB:1960 ([age] yo F)Acc No.[id number]:01/07/2024 PROGRESS NOTES Patient: STORM WADSWORTH Appointment Provider: Nidhi Camp M.D. :1960 A ge:63 Y S ex:Female Date:01/07/2024 Address:[address] [place], [place] [id number] Pcp:TAYLOR NEWMAN Subjective: * Chief Complaints: * 1 . HR MEDICARE PE. * Medical History: Objective: * Vitals: Assessment: Plan: * Treatment: * Images: Billing Information: * Visit Code: * Procedure Codes: * Electronic signature of Екатерина Camp MD on 11/16/2024 at 01:23 PM EDT Sign off status: Pending * Appointment Provider: Nidhi Camp M.D. Date: 0 01/07/2024 Generated for Owen pantoja/Santana/Joeitting on: 0 11/16/2024 01:23 PM EDT
[2024-11-16 13:00] VITALS: BP 142/74; PULSE 75; O2SAT 96; BMI 23.4
--- NOTE | 2024-11-16 13:00 | A.OFFVIS_ITS ---
Vital Signs 3 11/16/24 13:00 Height 5 ft 4.5 in Weight 138 lb 10.732 oz BMI 23.4 BP 142/74 H Blood Pressure Location Lt brachial Position Sitting Pulse 75 Pulse Source Pulse Oximeter Pulse Oximetry (%) 96 Oxygen Delivery Method Room Air Intake Visit Reasons: T1DM Intake Note: Patient present today for Type 1 Diabetes Mellitus Last Diabetic eye exam: 07/2024 Last Podiatry Visit: Doesn't have one Random Glucose: 190 mg/dl HgA1C: 8.2% 10/30/24 Wind Tunnel Engineer Required: No Accompanied by: Self / Same As Patient Allergies metronidazole Allergy (Severe, Verified 11/16/24 13:06) Rash acetaminophen (Percocet) Allergy (Unknown, Verified 11/16/24 13:06) Unknown alendronate sodium (From FOSAMAX) Allergy (Unknown, Verified 11/16/24 13:06) STOMACH PROBLEMS aspirin (Percodan) Allergy (Unknown, Verified 11/16/24 13:06) Unknown cephalexin (CEPHALEXIN) Allergy (Unknown, Verified 11/16/24 13:06) WHOLE BODY RASH clindamycin Allergy (Unknown, Verified 11/16/24 13:06) Unknown latex Allergy (Unknown, Verified 11/16/24 13:06) Unknown oxycodone (Percocet) Allergy (Unknown, Verified 11/16/24 13:06) Unknown risedronate sodium (From ACTONEL) Allergy (Unknown, Verified 11/16/24 13:06) STOMACH PROBLEMS sulfamethoxazole (SULFAMETHOXAZOLE) Allergy (Unknown, Verified 11/16/24 13:06) BODY RASH trimethoprim (Bactrim) Allergy (Unknown, Verified 11/16/24 13:06) Unknown HPI Comments Details: 64-year-old female here for follow up of insulin-dependent diabetes mellitus diagnosed in her 30s She also sees me for osteoporosis. Type 2 diabetes mellitus History of diabetes Diagnosed at age 33 Prior therapy: Was on glucophage for 1 year and didnt help acheive targets hence insulin was started Current regimen: Medtronic insulin pump 780 G with humalog U-100 Isnt using guardian sensor due to prior bad exerience with sensor resulting in hemoatoma, huge needle 20 years ago and afraid of extra cost Checks finger sticks HgA1C POC 06/29/2024: 8.6% HgA1c: 8.9% 02/24/24 HgA1C: 8.2 % POC 10/30/24 Random Glucose: 190 mg/dl Missed appointment wiht educator 07/27/24, last seen 03/26 Pump settings Basal rate Midnight to 04:30: 0.8 units/hour 430-8 a.m. 0.8 units/hour (she changed this basal rate herself a few weeks ago) 08:00 to 20:00: 0.85 units/hour 20:00 to midnight : 0.725 units/hour Carb ratio Midnight to 15:00: 12 15:00 to midnight: 12 Sensitivity From midnight to 06:00: 65 From 06:00 to 12:00: 45 Noon to midnight: 45 Gets symptoms of hypoglycemia in 50s. Decreased awareness. Interval history she decreased her basal overnight rate, reduce hypoglycemia noted . Complications Last Diabetic eye exam: 07/2024, no retinopathy Last Podiatry Visit: Doesn't have one Neuropathy: very mild pins and needles, foot exam done 03/02/24 Kidney disease: no kidney disease Macrovascular complications: No history of macrovascular complications. Statin: on rosuvastatin 10 mg daily LEEANNE/ARB: on losartan 50 mg BID Exercise: active at work , walks the dog twice daily Diet control: she has celiac has never had any hospitalizations for hyperglycemia/hypoglycemia. Osteoporosis Her most recent bone density scan is from May 2023 which showed T-score of- 3.3 at the femoral neck with 6.9 % decreased compared to last time, T-score of- 2.4 at the total hip with 3.4 % decrease compared to last time. No lumbar spine done. Bone density-2.7 at the forearm. Unclear why they did not include the spine, she denies getting any procedures in her spine Diagnosed in her 40s. She reports she had early natural menopause in her 40s s, subsequently was not on HRT. Her biologics specialist ordered a bone density which showed osteoporosis. Fracture History:None Height loss: ? Back pain: None Pharmacotherapeutic hx: She describes she has been on therapy for many years, her last Reclast infusion was in June 2023 . She has also been trialed on Prolia in the middle, just 2 injections some 10 years ago, but gave her excessive aches inner thighs. She can not tell me exactly what year she got which medication. I reviewed the records from her after school program coordinator as well as her previous biologics specialist but very unclear in the notes how many Reclast infusion she has gotten, but patient says she has at least gotten 10 infusions, likely more over the last 20 years. vitamin D 1000 units day Secondary risk factors: Steroid use: None Hyperthyroidism: Neg Seizure medication use: None Chemo or Radiation use: Neg Heparin Use: Neg History of eating disorder: Negative FDC immobilization: Negative History of kidney stones or disease: negative PI Use: Chronic use Chronic inflammatory lung disease: Negative Chronic inflammatory bowel disease: Negative Daily calcium intake: She is not on calcium supplements, drinks milk occasionally, no yogurt or cheese. Exercise: active at work , walks the dog twice daily Smoking history: quit 31 years ago Dental: Has regular dental cleaning, no issues Interval history Jun 2024 stopped vitamin D as level was very high at 133 June 2024, CTX 96, urine NTX 48, and bone specific alkaline phosphatase 14. no fractures Physical exam General: sitting comfortably in no acute distress HEENT: normocephalic/atraumatic, moist oral mucosa Neck: supple, symmetrical, no thyromegaly , no dorsocervical or supraclavicular fat pads Cardiac: normal heart sounds Pulm: normal breath sounds B/L, no added breath sounds Abd: not distended, no tenderness Extremities: no edema, no signs of myxedema Neuro: AAO x3, Speech: normal, no facial droop, moving all 4 extremities Skin: no rash Foot exam: Done February 2024: intact sensation to monofilament, intact pulses, intact vibration, she does have thickened nails questionable fungus. Laboratory Tests Laboratory Tests 03/25/22 08:45 Calcium 9.7 25-OH Vitamin D Total 42 25-Hydroxy Vitamin D2 <4 25-Hydroxy Vitamin D3 42 11/12/21 03/25/22 02/24/24 09:08 08:45 10:52 Hgb 14.0 Hct 43.1 Plt Count 464 H Creatinine 0.71 Estimated GFR > 60 Hgb A1c (Clinic) 8.9 H AST 22 ALT 17 Albumin 4.6 Triglycerides 108 Cholesterol 161 LDL Cholesterol, Calc 85 HDL Cholesterol 55 Laboratory Tests 06/26/24 06/26/24 06/29/24 07:30 07:50 11:21 Sodium 136 Potassium 4.7 Glucose (Clinic) 402 H* Random Glucose 246 H Hgb A1c (Clinic) C-Peptide 0.98 Calcium 9.4 Phosphorus 3.2 Magnesium 2.2 Alkaline Phosphatase 101 Total Protein 7.0 Albumin 4.3 25-OH Vitamin D Total 133.0 TSH 1.28 PTH Intact 63.2 Ur Random Calcium 23.6 Urine Creatinine 130.36 Urine Microalbumin 8.0 Microalb/Creat Ratio 6.1 06/29/24 11:24 Sodium Potassium Glucose (Clinic) Random Glucose Hgb A1c (Clinic) 8.6 H C-Peptide Calcium Phosphorus Magnesium Alkaline Phosphatase Total Protein Albumin 25-OH Vitamin D Total TSH PTH Intact Ur Random Calcium Urine Creatinine Urine Microalbumin Microalb/Creat Ratio Laboratory Tests 06/26/24 07:50 Triglycerides 56 Cholesterol 139 LDL Cholesterol, Calc 67 HDL Cholesterol 61 Laboratory Tests 06/26/24 06/26/24 06/29/24 07:30 07:50 11:21 Glucose (Clinic) 402 H* Hgb A1c (Clinic) C-Peptide 0.98 Alk Phos Bone Specific 14.0 N-Telopeptide X-linked 48 Collgn I C-Telopeptide 296 06/29/24 11:24 Glucose (Clinic) Hgb A1c (Clinic) 8.6 H C-Peptide Alk Phos Bone Specific N-Telopeptide X-linked Collgn I C-Telopeptide Laboratory Tests 06/29/24 07/13/24 08/09/24 11:24 12:44 15:12 Glucose (Clinic) 127 H 163 H Hgb A1c (Clinic) 8.6 H PFSH Medical History (Updated 10/30/24 @ 13:13 by Alena Gibbons NP) Swelling of left index finger IBS (irritable bowel syndrome) Osteoporosis Essential hypertension Diabetes mellitus GERD (gastroesophageal reflux disease) Surgical History H/O colonoscopy Hx laparoscopic cholecystectomy Family History Father Diabetes CVD (cardiovascular disease) Chronic mental illness Mental health disorder Mother CVD (cardiovascular disease) Diabetes Family/Other FH: mental illness Mental health disorder Social History Housing: House Alcohol intake: current Alcohol intake frequency: holidays/special occasions only Alcohol type: hard liquor Patient Tobacco Use Status: Former Tobacco user e-Cigarette/Vaping Use: Never Used Second Hand Smoke Exposure: No Advance Directives Date on File: 11/08/20 service: No Current occupational status: employed Current occupational exposures/hazards: No Cognitive needs: No Hearing needs: No Vision needs: Yes (glasses) Physical Exam Vital Signs: Last Vital Signs Pulse 75 11/16/24 13:00 BP 142/74 H 11/16/24 13:00 Pulse Ox 96 11/16/24 13:00 Oxygen Delivery Method Room Air 11/16/24 13:00 BMI result Body Mass Index 23.4 Results Reviewed Results Reviewed: Laboratory Last Values Glucose (Clinic) 190 mg/dL (60-115) H 11/16/24 13:08 Assessment & Plan Assessment & Plan (1) Diabetes mellitus: Code(s): E11.9 - Type 2 diabetes mellitus without complications Category: Medical Qualifiers: Diabetes mellitus type: type 2 Diabetes mellitus long-term insulin use: with long-term use Diabetes mellitus complication status: with hyperglycemia Q ualified Code(s): E11.65 - Type 2 diabetes mellitus with hyperglycemia; 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 She is on insulin pump Medtronic 780G with Humalog. About 20 years ago she had a bad experience with the sensor so she has not been using any sensor hence she is not in automated mode. She is using fingersticks to manually give herself boluses through the pump. Pump data downloaded today in honestly this is probably better than she has ever been, very few hypoglycemic episodes. She does have some hyperglycemia when she does not pre bolus. Pump settings Basal rate Basal rate Midnight to 04:30: 0.8 units/hour 430-8 a.m. 0.8 units/hour (she changed this basal rate herself a few weeks ago) 08:00 to 20:00: 0.85 units/hour 20:00 to midnight : 0.725 units/hour Carb ratio Midnight to 15:00: 12 15:00 to midnight: 12 Sensitivity From midnight to 06:00: 65 From 06:00 to 12:00: 45 Noon to midnight: 45 Her concern has been hypoglycemia and she has had episodes per patient in the 30s to 50s. Says mostly it is after she boluses for food. Counseled about hypoglycemia management Plan: - Educated about pre bolusing - educated about importance of consistency with the meals - no pump settings changed today -up-to-date with eye visit, no history of retinopathy -follow up in 7 weeks On insulin pump: Backup Lantus pen and pen needles prescribed: To take 15 units of Lantus in case pump failure has Glucagon has ketone strips (2) Osteoporosis: Code(s): M81.0 - Age-related osteoporosis without current pathological fracture Category: Medical Qualifiers: Osteoporosis type: other Presence of current pathological fracture: w ithout current pathological fracture Qualified Code(s): M81.8 - Other osteoporosis without current pathological fracture Plan: Patient with a history of osteoporosis diagnosed in her 40s. Her risk factors were early menopause in her 30s. Unclear why she had premature ovarian insufficiency. She was not on hormone replacement therapy. Her most recent bone density scan is from May 2023 which showed T-score of-3.3 at the femoral neck with 6.9 % decreased compared to last time, T-score of-2.4 at the total hip with 3.4 % decrease compared to last time. No lumbar spine done. Bone density-2.7 at the forearm. Unclear why they did not include the spine, she denies getting any procedures in her spine, no recent fractures. She denies any fracture history. She has been on Reclast therapy most recently last infusion was June 2023 per patient. She says she has at least gotten 10, likely more infusions over the last 20 years. She also received 2 injections of Prolia around 10 years ago, could not tolerate these. I reviewed the records from her after school program coordinator in previous biologics specialist, however very unclear history in terms of when and how many Reclast she got, just states she has been on Reclast therapy. Given that she has received so many Reclast infusions, I am concerned about long-term side effects of bisphosphonates in her. Jun 2024 stopped vitamin D as level was very high at 133 June 2024, CTX 96, urine NTX 48, and bone specific alkaline phosphatase 14. no fractures at this time given her bone resorption markers are on the lower side, I will take the CTX into account not the urine NTX. Her vitamin-D was elevated at 133, I asked her to stop taking vitamin-D Jun 27, we will plan to repeat vitamin-D levels in 3-4 months in end of summer 2024. Plan: - next bone density would be due May 2025 - ordered vitamin-D level to be done prior to next follow up -encouraged to incorporate 1000 mg of calcium in her diet -weight-bearing exercise advised (3) Dyslipidemia: Code(s): E78.5 - Hyperlipidemia, unspecified Category: Medical Plan: LDL at 67 from June 2024. Within goal LDL of less than 70 mg/dL Plan: -continue rosuvastatin 10 mg daily (4) Essential hypertension: Code(s): I10 - Essential (primary) hypertension Category: Medical Plan: Normal blood pressure Plan: -continue losartan 50 mg BID Plan I spent 30 minutes in reviewing the record, seeing the patient and documenting in the medical record. 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 Creatinine 5 Weeks E11.65 - Type 2 diabetes mellitus with hyperglycemia, M81.8 - Other osteoporosis without current pathological fracture, 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 Alanine Aminotransferase 5 Weeks E11.65 - Type 2 diabetes mellitus with hyperglycemia, M81.8 - Other osteoporosis without current pathological fracture, Z79.4 - FDC (current) use of insulin Calcium 5 Weeks E11.65 - Type 2 diabetes mellitus with hyperglycemia, M81.8 - Other osteoporosis without current pathological fracture, Z79.4 - FDC (current) use of insulin Lipid Panel 5 Weeks E11.65 - Type 2 diabetes mellitus with hyperglycemia, M81.8 - Other osteoporosis without current pathological fracture, 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 Aspartate Amino Transferase 5 Weeks E11.65 - Type 2 diabetes mellitus with hyperglycemia, M81.8 - Other osteoporosis without current pathological fracture, Z79.4 - FDC (current) use of insulin Complete Blood Count no Diff 5 Weeks E11.65 - Type 2 diabetes mellitus with hyperglycemia, M81.8 - Other osteoporosis without current pathological fracture, 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
[2024-11-16 13:11] LABS: Glucose, Whole Blood 190 mg/dL (60-115)
--- OUTSIDE RECORDS SUMMARY | 2024-11-16 13:23 | XMS_ITS | Patient Health Record ---
[facility] Address [address] [place] [address] Care Team Providers Care Hand Bander Name Role Phone Alexandre WELLS, Anderssa Primary Care Provider Unavail able Jose E Silver Unavailable [phone] Allergies Allergen (clinical drug ingredient) Drug/Non Drug Allergy documented on EMR Reaction Allergy Type Onset Date Status risedronate Actonel Unknown Drug Allergy Activ e alendronate Fosamax Unknown Drug Allergy Activ e acetaminophen / oxycodone Percocet Unknown Drug Allergy Active Percodan Unknown Drug Allergy Active Reason For Referral No Information Medications Medication SIG (Take, Route, Frequency, Duration) Notes Start Date End Date Status Insulin Infusion Pump Active Baby Aspirin 08/24/2013 Active Crestor 10 MG 1 tablet Orally Once a day 4 Active Caltrate 600+D Plus 600-400 MG-UNIT 1 tablet with food Orally Twice a day 08/24/2013 Active Loratadine 10 MG 1 tablet Orally Once a day 2013 Active Omeprazole 20 MG TAKE ONE CAPSULE BY MOUTH TWICE A DAY Oral; Duration: 90 Active Reclast 5 MG/100ML Intravenous 08/24/2013 Active Social History Tobacco use other than smoking: Question Answer Notes Are you an other tobacco user? No Problems Problem Type SNOMED Code ICD Code Onset Dates Problem Status W/U Status Risk Notes Problem Contusion of toe (50120198) Contusion of toe (924.3) Active confirmed Problem Diabetic - NIDDM (250.00) Active confirmed Problem Hammer toe (951943690) Hammer toe (735.4) Active confirmed Plan Of Treatment No Information Insurance Providers Payer Name Payer Address Payer Phone Subscriber Number Group Number Insured Name Patient Relationship to Insured Coverage Start Date Coverage End Date [facility] [address] [place] [address] [phone] [id number] Lisa Burnham Self - patient is the insured Medical (General) History Medical History History ICD Code Diabetes mellitus Osteoporosis Measles Chicken pox
--- OUTSIDE RECORDS SUMMARY | 2024-11-16 13:23 | XMS_ITS | Continuity of Care Document ---
Author Organization [facility] [address] [place] [address] Phone [phone] Care Team Providers Care Hog Counter Name Role Phone Wilda Schwartz Care Team Information Beekeeper Farmer [phone] Problems Active Problems Provider Date Diabetes mellitus Scotty River M.D. Onset: 0 12/15/2021 Osteoporosis Scotty River M.D. Onset: Hyperkalemia Scotty River M.D. Onset: Gastroesophageal reflux disease Scotty River M.D. Onset: 12/15/2021 Essential hypertension Scotty River M.D. Ons et: 12/15/2021 Celiac disease Scotty River M.D. Onset: Social History Type Date Description Comments Sex Female Sex Unknown Lives With Spouse ETOH Use [...] Pump. 900units E10.9 Scotty River M.D. 10/20/2023 [id number]/ML Solution Inject 50 Units Every Day With Pump 50units E10.9 Scotty River M.D. 05/26/2022 Rosuvastatin Eikywme48fh Tablets Take 1 Tablet 1 Time Daily 90tabs Scotty River M.D. 05/18/2022 Losartan Sokzllbtf72ni Tablets Take 1 Tablet twice a day 180tabs Scotty River M.D. 12/15/2021 Aspirin Adult Low Lqqq72qm Tablets DR 1 by mouth every day Scotty River M.D. 12/15/2021 Rbnhnvk8oh/100ML Solution Scotty River M.D. 12/15/2021 Lidocaine5% Patches Use 1 Patch Daily 90units Florence Gilbert M.D. Valacyclovir HCL1gm Tablets Take 2 Tablets By Mouth Now And 2 Tabs 12 Hours Later. Evan Kraus MD Pantoprazole Rdpxjs74sh Tablets DR Take One Tablet By Mouth [...] [facility] Glucose 94 mg/dL 70-99 Potassium 07/08/2023 [facility] Potassium 5.3 mmol/L High (3.6-5.2 ) Comprehensive Metabolic Panl 06/04/2023 [facility] Glucose 204 mg/dL High [...] 97 ML/MIN/1. 73M2 2 Lipid Panel 06/04/2023 [facility] Cholesterol, Total 182 mg/dL (<200) Triglyceride 57 mg/dL (<150) HDL Chol 81 mg/dL (>39) LDL Cholesterol , Calculated 90 mg/dL (0-130) Non HDL Cholesterol (Calc) 101 mg/dL (<160) Hemoglobin A1c 06/04/2023 [facility] Hemoglobin A1c 8.5 % High (4.0-5.6 ) 3 Complete Abc With Diff 06/04/2023 [facility] WBC 9.0 K/MM3 (4.0-11. [...] ) Lymph # 2.4 K/MM3 (0.8-3.1 ) Zapata# 0.9 K/MM3 (0.4-0.9 ) Eo # 0.4 K/MM3 (0.0-0.4 ) Baso # 0.1 K/MM3 (0.0-0.1 ) Abs. Imm Gran 0.1 K/MM3 Neut 55.8 % (44-76) Lymph 27.1 % (15-43) Monocyte 9.9 % (4.5-10. 5) Eo 4.8 % (0-6) Baso 1.0 % (0-2) Imm Gran 1.4 % TSH With Reflex To FT4 06/04/2023 [facility] TSH With Reflex To FT4 1.20 uIU/mL (0.4-4.2 ) Urinary Microalbumin 06/04/2023 [facility] Micro-Albumin <12.0 mg/L (<20) 4 Malb/Creat Ratio Unable t o calcul <SEE NOTE> MG/GM (0-20) 5 Urine Creat For Micro Albumin 82.6 mg/dL Hemoglobin A1c 05/14/2023 Inhouse Hemoglobin A1c 8.8% Glucose Fingerstick 05/14/2023 Inhouse Glucose Fingerstick 246 Hemoglobin A1c 12/29/2022 Inhouse Hemoglobin A1c 8.7% Glucose Fingerstick 12/29/2022 Inhouse Glucose Fingerstick 199 Urinary Microalbumin 08/28/2022 [facility] Micro-Albumin <12.0 mg/L (<20) 6 Malb/Creat Ratio Unable t o calcul <SEE NOTE> MG/GM (0-20) 7 Urine Creat For Micro Albumin 28.5 mg/dL Hemoglobin A1c 08/28/2022 Inhouse Hemoglobin A1c 407 Glucose Fingerstick 08/28/2022 Inhouse Glucose Fingerstick 8.7% Albumin 05/29/2022 [facility] Albumin 4.7 GM/DL (3.4-4.8 ) BUN 05/29/2022 [facility] BUN 10 mg/dL (8-23) Calcium 05/29/2022 [facility] Calcium 9.9 mg/dL (8.6-10. 5) Creatinine 05/29/2022 [facility] Creatinine 0.6 mg/dL (0.5-1.0 [...] with health care provider. DIAGNOSTIC USE: The [place] [employer] (ADA) and the World Health [...] sex. Procedures Date Code Description Status 01/13/2024 61628 Glucose Monitoring Interpeta tion And Report Completed 08/28/2022 17270 Glucose Monitoring Interpeta tion And Report Completed 05/14/2022 73342 Glucose Monitoring Interpeta tion And Report Completed [...]
== END 2024-11-16 13:39 | disposition home or self-care (01) ==
LOC: HO.ENCR 12:56
PROVIDERS: PCP Internal Medicine; Visit Provider Student in an Organized Health Care Education/Training Program
DX: E11.65 Type 2 diabetes mellitus with hyperglycemia (principal); Z79.4 Long term (current) use of insulin; M81.8 Other osteoporosis without current pathological fracture; E78.5 Hyperlipidemia, unspecified; I10 Essential (primary) hypertension
CPT/HCPCS: 99214; G2211

== ENCOUNTER → 2024-11-16 12:56 | Outpatient (BNVA) | payer MEDICARE, SELFPAY | PROVIDERS: PCP Internal Medicine; Visit Provider Student in an Organized Health Care Education/Training Program | DX: E11.65 Type 2 diabetes mellitus with hyperglycemia (principal); E78.5 Hyperlipidemia, unspecified; I10 Essential (primary) hypertension; M81.8 Other osteoporosis without current pathological fracture; Z79.4 Long term (current) use of insulin | CPT/HCPCS: 82947; 99212 ==

== ENCOUNTER 2024-12-05 09:58 | Outpatient (AMB) | payer MEDICARE, SELFPAY ==
--- OUTSIDE RECORDS SUMMARY | 2024-01-07 09:00 | XMS_ITS ---
Author Organization [employer] [facility] Address [address] [place] [address] Care Team Providers Care Mail Messenger Name Role Phone TAYLOR KNIGHT Primary Care Provider Unavailab Puja Escobar Unavailable [phone] REASON FOR VISIT HR MEDICARE PE Encounters Encounter Location Date Provider Diagnosis [facility] [employer] [facility] [address] [place] [address] 01/07/2024 Puja Camp Plan Of Treatment Next Appt Details Provider Name:Puja cook, 05/18/2025 01:00:00 PM, [address], [address], [place], [address], Progress Notes * JOSE EGINO HUERTAB:1960 ([age] yo F)Acc No.[id number]:01/07/2024 PROGRESS NOTES Patient: STORM WADSWORTH Appointment Provider: Nidhi Camp M.D. :1960 A ge:63 Y S ex:Female Date:01/07/2024 Address:[address] [place], [place] [address] Pcp:TAYLOR NEWMAN Subjective: * Chief Complaints: * 1 . HR MEDICARE PE. * Medical History: Objective: * Vitals: Assessment: Plan: * Treatment: * Images: Billing Information: * Visit Code: * Procedure Codes: * Electronic signature of Екатерина Camp MD on 12/05/2024 at 10:29 AM EDT Sign off status: Pending * Appointment Provider: Nidhi Camp M.D. Date: 0 01/07/2024 Generated for Owen pantoja/Santana/Joeitting on: 0 12/05/2024 10:29 AM EDT
--- NOTE | 2024-12-05 10:02 | A.OFFPC_ITS ---
Vital Signs 3 12/05/24 10:05 Height 5 ft 4.5 in Weight 139 lb 8 oz BMI 23.6 BP 140/70 H Blood Pressure Location Lt brachial Position Sitting Pulse 100 Pulse Source Pulse Oximeter Temp Source Temporal Artery Scan Pulse Oximetry (%) 97 Oxygen Delivery Method Room Air Intake Visit Reasons: infected finger Site Leader Required: No Accompanied by: Self / Same As Patient Allergies metronidazole Allergy (Severe, Verified 12/05/24 10:45) Rash acetaminophen (Percocet) Allergy (Unknown, Verified 12/05/24 10:45) Unknown alendronate sodium (From FOSAMAX) Allergy (Unknown, Verified 12/05/24 10:45) STOMACH PROBLEMS aspirin (Percodan) Allergy (Unknown, Verified 12/05/24 10:45) Unknown cephalexin (CEPHALEXIN) Allergy (Unknown, Verified 12/05/24 10:45) WHOLE BODY RASH clindamycin Allergy (Unknown, Verified 12/05/24 10:45) Unknown latex Allergy (Unknown, Verified 12/05/24 10:45) Unknown oxycodone (Percocet) Allergy (Unknown, Verified 12/05/24 10:45) Unknown risedronate sodium (From ACTONEL) Allergy (Unknown, Verified 12/05/24 10:45) STOMACH PROBLEMS sulfamethoxazole (SULFAMETHOXAZOLE) Allergy (Unknown, Verified 12/05/24 10:45) BODY RASH trimethoprim (Bactrim) Allergy (Unknown, Verified 12/05/24 10:45) Unknown Medication List - Last Reconciled 12/05/24 by Deanna Aragon PA-C acetone (urine) test (Ketone Care strips) As directed ascorbic acid (vitamin C) 500 mg PO BID aspirin (Aspirin Childrens) 81 mg PO DAILY betamethasone dipropionate 0.05% 1 appl topical DAILY PRN blood sugar diagnostic (Accu-Chek Guide test strips) As directed to check blood sugars 7-10 times a day , on insulin pump , doesnt have sensor dicloxacillin 500 mg PO BID 10 days glucagon 1 mg IM Q20M PRN insulin glargine (Lantus Solostar U-100 Insulin) 18 units (0.18 mL) subcut QAM insulin lispro (Humalog U-100 Insulin) PT USING HUMALOG IN INSULIN PUMP, using up to 60 units in pump daily insulin pump-infus. set-meter HUMALOG lidocaine 5% 1 patch topical DAILY losartan 100 mg PO DAILY 90 days olopatadine 0.1% 1 drp ophthalmic (eye) BID omeprazole 20 mg PO DAILY 90 days pen needle, diabetic (1st Tier Unifine Pentips) As directed rosuvastatin 10 mg PO BEDTIME 90 days triamcinolone acetonide 0.1% 1 appl topical BID PRN zoledronic lbvy-fjswqgcl-opzkz 5 mg/100 mL (Reclast) 1 ea IV DIRECTED Tobacco use date assessed: 12/05/24 Fall risk assessment: 2 + Falls in past year Last assessed Fall Risk: 12/05/24 Dental Screening Dental Screen Date: 12/05/24 Did you have a dental visit in the last 12 months?: Yes Did you have a dental problem in the last 6 months where you did not have access to dental care?: No Was dental information given to patient?: Patient has dentist HPI infected finger 2 HPI0 Details 64-year-old female with a past medical h istory of GERD, diabetes mellitus, hypertension, osteoporosis, dyslipidemia last seen 03/[address] Triana coming in for acute problem. Presenting with a persistent finger infection. The infection began at the end of October, with the finger becoming sore and eventually turning black. The patient has a history of diabetes mellitus, which may contribute to poor healing and circulation in the fingers. The patient has experienced nausea recently, which she attributes to a possible underlying condition or environmental factors. The patient reports a chronic cough since April 2018, which she initially attributed to allergies. [facility] Medical History Swelling of left index finger IBS (irritable bowel syndrome) Osteoporosis Essential hypertension Diabetes mellitus GERD (gastroesophageal reflux disease) Surgical History H/O colonoscopy Hx laparoscopic cholecystectomy Family History Father Diabetes CVD (cardiovascular disease) Chronic mental illness Mental health disorder Mother CVD (cardiovascular disease) Diabetes Family/Other FH: mental illness Mental health disorder Social History Housing: House Alcohol intake: current Alcohol intake frequency: holidays/special occasions only Alcohol type: hard liquor Patient Tobacco Use Status: Former Tobacco user e-Cigarette/Vaping Use: Never Used Second Hand Smoke Exposure: No Advance Directives Date on File: 11/08/20 service: No Current occupational status: employed Current occupational exposures/hazards: No Cognitive needs: No Hearing needs: No Vision needs: Yes (glasses) Questionnaire PHQ-9 Over the last 2 weeks, how often have you been bothered by any of the following problems? 1. Little interest or pleasure in doing things: not at all 2. Feeling down, depressed, or hopeless: not at all 3. Trouble falling or staying asleep, or sleeping too much: not at all 4. Feeling tired or having little energy: not at all Source: Developed by Drs. Miguelangel Jeong, Alannah Ferreira, Murali Norton and colleagues, with an educational jefe from [employer]. Thrive Questionnaire Date Thrive assessed: 12/05/24 I am a: Patient What is your living situation today?: I choose not to answer this question Within the past 12 months, did the food you bought not last and you didn't have the money to get more?: I choose not to answer this question Within the past 12 months, did you worry whether your food would run out before you got money to buy more?: I choose not to answer this question Do you have trouble paying for medicines?: I choose not to answer this question Do you have trouble getting transportation to medical appointments?: I choose not to answer this question Do you have trouble paying your heating and electricity bill?: I choose not to answer this question Do you have trouble taking care of your child, family member or friend?: I choose not to answer this question Do you have trouble with day-to-day activities such as bathing, preparing meals, shopping, managing finances, etc.?: I choose not to answer this question Are you currently unemployed and looking for a job?: I choose not to answer this question Are you interested in more education?: I choose not to answer this question Please select the resources that you would like help with: None Currently or been in a relationship where the following occur: I choose not to answer THRIVE Score: 0 AUDIT C Alcohol Use Questionnaire (AUDIT-C) 1. How often do you have a drink containing alcohol?: Monthly or less 2. How many drinks containing alcohol do you have on a typical day when you are drinking?: 1 or 2 3. How often do you have six or more drinks on one occasion?: Never Total Score: 1 YOVANY-7 AMB Questionnaire YOVANY-7 Date YOVANY - 7 assessed: 12/05/24 Source: Developed by Drs. Miguelangel Jeong, Alannah Ferreira, Murali Norton and colleagues, with an educational jefe from [employer]. Review of Systems Const Denies body aches, Denies chills, Denies fever(s), Denies headache(s) and Denies poor appetite Eyes Reports no additional complaints ENT Denies dysphagia, Denies dizziness, Denies headache(s) and Denies odynophagia Card Denies chest pain, Denies syncope, Denies edema, Denies irregular heart rhythm, Denies lightheadedness and Denies dyspnea Resp Denies cough and Denies dyspnea GI Denies abdominal pain, Denies constipation, Denies dysphagia, Denies diarrhea, Denies nausea, Denies odynophagia and Denies vomiting Reports no additional complaints Musc Reports no additional complaints and Denies abnormal gait Skin/Breast Reports system reviewed and no additional complaints, except as documented Neuro Denies abnormal gait, Denies dizziness, Denies syncope and Denies headache(s) Psych Reports no additional complaints Physical exam (Primary Care) Vital Signs: Last Vital Signs Pulse 100 12/05/24 10:05 BP 140/70 H 12/05/24 10:05 Pulse Ox 97 12/05/24 10:05 Oxygen Delivery Method Room Air 12/05/24 10:05 BMI result Body Mass Index 23.6 Tobacco/Smoking Status: Tobacco use Status Tobacco use date assessed 12/05/24 12/05/24 10:10 Patient Tobacco Use Status Former Tobacco user 12/05/24 10:10 e-Cigarette/Vaping Use Never Used 12/05/24 10:10 Thrive Assessment: Date of Thrive Assessment Date Thrive assessed 12/05/24 12/05/24 10:10 Currently or been in a relationship where the following occur: I choose not to answer Const General: cooperative, healthy appearing, comfortable and no acute distress Orientation/consciousness: patient oriented x3 HENMT Head: Yes normocephalic Ears: hearing grossly normal bilaterally General nose exam: Normal external nose present Eyes General: appearance normal, both eyes and all related structures Conjunctivae: conjunctivae normal Neck Neck: Yes full ROM and Yes no lymphadenopathy Resp Effort & Inspection: normal respiratory effort Auscultation: clear to auscultation bilaterally, no crackles, no rales, no rhonchi and no wheezes Cardio Rate: regular rate Rhythm: regular rhythm Skin Other: General skin exam: no rashes or lesions noted Neuro General: patient oriented x3 Gait exam (Neuro): Normal gait present Extrem Other: Abrasion on the lateral aspect of the left ankle without evidence of infection General: Yes normal to inspection, Yes full ROM and No edema Psych Affect: normal affect Attitude: cooperative Insight: Good insight present (Psych) Judgement: Good judgement present (Psych) Coding Level of Care Code Est Pt Level 4 (94955) Diagnoses Type 2 diabetes mellitus with hyperglycemia, with long-term current use of insulin E11.65; Z79.4 Diabetes mellitus complication status: with hyperglycemia Diabetes mellitus terminal computer operator insulin use: with assisted use Diabetes mellitus type: type 2 Essential hypertension I10 Swelling of left index finger M79.89 Shortness of breath R06.02 Inflammatory arthropathy M19.90 Assessment & Plan Assessment & Plan (1) Diabetes mellitus: Code(s): E11.9 - Type 2 diabetes mellitus without complications Category: Medical Qualifiers: Diabetes mellitus complication status: with hyperglycemia Diabetes mellitus assisted insulin use: with terminal computer operator use Diabetes mellitus type: type 2 Qualified Code(s): E11.65 - Type 2 diabetes mellitus with hyperglycemia; Z79.4 - correction (current) use of insulin Plan: Decrease the amount of carbohydrates such as pasta, bread, rice, and potatoes and limit the amount of sweets. Although fruits are generally healthy they should be eaten in moderation as they are still high in sugar. Continue to follow with PCP (2) Essential hypertension: Code(s): I10 - Essential (primary) hypertension Category: Medical Plan: Continue on current blood pressure medication. Avoid salt intake and encourage healthy diet and regular exercise. (3) Swelling of left index finger: Code(s): M79.89 - Other specified soft tissue disorders Category: Medical Plan: Patient having swelling of the left index finger x-ray was obtained which revealed inflammatory arthropathy concern for possible psoriatic arthritis, sarcoidosis, and/or scleroderma. Finger is swollen without redness, warmth, pain and low suspicion for infection at this time. I did review the red flag symptoms and when to present for re-evaluation. (4) Shortness of breath: Code(s): R06.02 - Shortness of breath Category: Medical Plan: Patient has been having ongoing intermittent shortness of breaths since 2018 plan to obtain chest x-ray and pulmonary function testing for further evaluation. (5) Inflammatory arthropathy: Comment: XR/XR hand LT 2V IMPRESSION: 1. 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 Soft tissue swelling of the second digit. Inflammatory etiologies suspected, although infection is not excluded especially given the second digit findings. 2. Inflammatory arthropathy as discussed, most predominant involving the second through fourth MCPs. 3. Differential diagnosis is broad but includes psoriatic arthritis, scleroderma, and sarcoidosis, among other etiologies. Code(s): M19.90 - Unspecified osteoarthritis, unspecified site Category: Medical Plan: Plan to obtain blood work for further evaluation as well as chest x-ray for concern for sarcoidosis. I discussed this with orthopedics who recommended a referral to ortho at this time which was placed. Consider referral to Rheumatology pending blood work evaluation. Plan An x-ray of the affected finger will be performed to rule out any underlying bone infection, given the patient's history of diabetes and persistent swelling. If the x-ray indicates an infection or if the condition does not improve, a course of doxycycline will be considered, as the patient has allergies to several other antibiotics. The patient is advised to minimize the use of the affected finger to prevent further irritation. This note was constructed using voice recognition software. While every effort has been made to ensure accuracy and parts counter representative, still areas may have been included sometimes these areas may affect the content or meeting of the given symptoms. Total time spent caring for the patient today was 30 minutes. This includes time spent before the visit reviewing the chart, time spent during the visit, and time spent after the visit and documentation. Patient was informed and verbally consented to the use of an ambient scribe for clinic note documentation during this visit. Orders: Orders 2 XR hand LT 2V Today M79.89 - Other specified soft tissue disorders TAYLOR Reflex Titer and Pattern Today M19.90 - Unspecified osteoarthritis, unspecified site Rheumatoid Factor Today M19.90 - Unspecified osteoarthritis, unspecified site Anti-Centromere B Antibodies Today - Unspecified osteoarthritis, unspecified site PFT pulmonary function test Today R06.02 - Shortness of breath Scleroderma 70 Antibody Today - Unspecified osteoarthritis, unspecified site Complete Blood Count Auto Diff Today - Unspecified osteoarthritis, unspecified site, Z00.00 - Encounter for general adult medical examination without abnormal findings XR chest 2V Today R06.02 - Shortness of breath Referrals 2 Orthopedics Referral - Unspecified osteoarthritis, unspecified site
[2024-12-05 10:05] VITALS: BP 140/70; PULSE 100; O2SAT 97; BMI 23.6
--- OUTSIDE RECORDS SUMMARY | 2024-12-05 10:30 | XMS_ITS | Patient Health Record ---
[facility] [place] Address [address] [place] [address] Care Team Providers Care Automatic Fancy Machine Operator Name Role Phone Alexandre WELLS, Andressa Primary Care Provider Unavail able Jose E Silver Unavailable [phone] Allergies Allergen (clinical drug ingredient) Drug/Non Drug [...] Status Risk Notes Problem Contusion of toe (03582523) Contusion of toe (924.3) Active confirmed Problem Type II diabetes mellitus without complication (205784511) Diabetic - NIDDM (250.00) Active confirmed Problem Hammer toe (855387574) Hammer toe (735.4) Active confirmed Plan Of Treatment No Information Insurance Providers Payer Name Payer Address Payer Phone Subscriber Number Group Number Insured Name Patient Relationship to Insured Coverage Start Date Coverage End Date [facility] [address] [place] [address] [id number] Lisa Burnham Self - patient is the insured Medical (General) History Medical History History ICD Code Diabetes mellitus Osteoporosis Measles Chicken pox
--- OUTSIDE RECORDS SUMMARY | 2024-12-05 10:30 | XMS_ITS | Continuity of Care Document ---
Author Organization [facility] [address] [place] [address] Phone [phone] Care Team Providers Care Residential Property Consultant Name Role Phone Wilda Schwartz Care Team Information Plumber Pipe Fitting [phone] Problems Active Problems Provider Date Diabetes mellitus [...] Pump. 900units E10.9 Scotty River M.D. 10/20/2023 [id number] Solution Inject 50 Units Every Day With Pump 50units E10.9 Scotty River M.D. 05/26/2022 Rosuvastatin Kfsmsmf21rb Tablets Take 1 Tablet 1 Time Daily 90tabs Scotty River M.D. 05/18/2022 Losartan Tbtelxgsv88of Tablets Take 1 Tablet twice a day 180tabs Scotty River M.D. 12/15/2021 Aspirin Adult Low Qqxs93wq Tablets DR 1 by mouth every day Scotty River M.D. 12/15/2021 Hxvxnqg7dd/100ML Solution Scotty River M.D. 12/15/2021 Lidocaine5% Patches Use 1 Patch Daily 90units Florence Gilbert M.D. Valacyclovir HCL1gm Tablets Take 2 Tablets By Mouth Now And 2 Tabs 12 Hours Later. Evan Kraus MD Pantoprazole [id number] Tablets DR Take One Tablet By Mouth [...] [facility] Glucose 94 mg/dL 70-99 Potassium 07/08/2023 [facility] Potassium 5.3 mmol/L High (3.6-5.2 ) Comprehensive Metabolic Panl 06/04/2023 [facility] Glucose 204 mg/dL [...] 97 ML/MIN/1. 73M2 2 Lipid Panel 06/04/2023 [facility] Cholesterol, Total 182 mg/dL (<200) Triglyceride 57 mg/dL (<150) HDL Chol 81 mg/dL (>39) LDL Cholesterol , Calculated 90 mg/dL (0-130) Non HDL Cholesterol (Calc) 101 mg/dL (<160) Hemoglobin A1c 06/04/2023 [facility] Hemoglobin A1c 8.5 % High (4.0-5.6 ) 3 Complete Abc With Diff 06/04/2023 [facility] WBC 9.0 K/MM3 [...] ) Lymph # 2.4 K/MM3 (0.8-3.1 ) [place]# 0.9 K/MM3 (0.4-0.9 ) Eo # 0.4 K/MM3 (0.0-0.4 ) Baso # 0.1 K/MM3 (0.0-0.1 ) Abs. Imm Gran 0.1 K/MM3 Neut 55.8 % (44-76) Lymph 27.1 % (15-43) Monocyte 9.9 % (4.5-10. 5) Eo 4.8 % (0-6) Baso 1.0 % (0-2) Imm Gran 1.4 % TSH With Reflex To FT4 06/04/2023 [facility] TSH With Reflex To FT4 1.20 uIU/mL (0.4-4.2 ) Urinary Microalbumin 06/04/2023 [facility] Micro-Albumin <12.0 mg/L (<20) 4 Malb/Creat Ratio Unable t o calcul <SEE NOTE> MG/GM (0-20) 5 Urine Creat For Micro Albumin 82.6 mg/dL Hemoglobin A1c 05/14/2023 [facility] Hemoglobin A1c 8.8% Glucose Fingerstick 05/14/2023 [facility] Glucose Fingerstick 246 Hemoglobin A1c 12/29/2022 [facility] Hemoglobin A1c 8.7% Glucose Fingerstick 12/29/2022 [facility] Glucose Fingerstick 199 Urinary Microalbumin 08/28/2022 [facility] Micro-Albumin <12.0 mg/L (<20) 6 Malb/Creat Ratio Unable t o calcul <SEE NOTE> MG/GM (0-20) 7 Urine Creat For Micro Albumin 28.5 mg/dL Hemoglobin A1c 08/28/2022 [facility]house Hemoglobin A1c 407 Glucose Fingerstick 08/28/2022 [facility]house Glucose Fingerstick 8.7% Albumin 05/29/2022 [facility] Albumin 4.7 GM/DL (3.4-4.8 ) BUN 05/29/2022 [facility] BUN 10 mg/dL (8-23) Calcium 05/29/2022 [facility] Calcium 9.9 mg/dL (8.6-10. 5) Creatinine 05/29/2022 [facility] Creatinine 0.6 mg/dL [...] with health care provider. DIAGNOSTIC USE: The [place] [employer] (ADA) and the World Health [...] sex. Procedures Date Code Description Status 01/13/2024 23419 Glucose Monitoring Interpeta tion And Report Completed 08/28/2022 97333 Glucose Monitoring Interpeta tion And Report Completed 05/14/2022 42609 Glucose Monitoring Interpeta tion And Report Completed [...]
== END 2024-12-05 11:18 | disposition home or self-care (01) ==
LOC: HO.HMCH 09:59
PROVIDERS: PCP Internal Medicine
DX: E11.65 Type 2 diabetes mellitus with hyperglycemia (principal); Z79.4 Long term (current) use of insulin; I10 Essential (primary) hypertension; M79.89 Other specified soft tissue disorders; R06.02 Shortness of breath; M19.90 Unspecified osteoarthritis, unspecified site

== ENCOUNTER 2024-12-05 09:58 | Outpatient (REF) | payer MEDICARE, SELFPAY ==
--- NOTE | ~2024-12-05 | XR_ITS ---
EXAMINATION: XR HAND, LEFT CLINICAL INFORMATION: M79.89 - Other specified soft tissue disorders COMPARISON: None available. TECHNIQUE: PA, lateral, and oblique views of the left hand. FINDINGS: No fracture, dislocation, or suspicious bone lesion. Acro osteolysis of the distal [place] of the distal phalanges of the second and third digits. Arthritic changes throughout the MCPs, with periarticular erosions, most significant involving the second through fourth MCP joints. Milder but similar changes of arthritis with periarticular erosions seen in the DIP joints of the digits. There is some involvement of the PIP joints of the digits as well. There is degenerative appearing arthritis in the first CMC joint. There is mild radiocarpal joint space narrowing. There is soft tissue swelling of the first digit. XR/XR hand LT 2V IMPRESSION: 1. 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 Soft tissue swelling of the second digit. Inflammatory etiologies suspected, although infection is not excluded especially given the second digit findings. 2. Inflammatory arthropathy as discussed, most predominant involving the second through fourth MCPs. 3. Differential diagnosis is broad but includes psoriatic arthritis, scleroderma, and sarcoidosis, among other etiologies. Electronically signed by: Aroldo Edmonds MD 12/05/2024 11:28 AM EDT
== END 2024-12-05 09:59 | disposition home or self-care (01) ==
LOC: HO.XRAY 09:58
PROVIDERS: PCP Internal Medicine
DX: M79.89 Other specified soft tissue disorders (principal); E11.65 Type 2 diabetes mellitus with hyperglycemia; I10 Essential (primary) hypertension; R06.02 Shortness of breath; M19.90 Unspecified osteoarthritis, unspecified site
CPT/HCPCS: 73120; 99212

== ENCOUNTER → 2024-12-05 10:57 | Outpatient (BNV) | payer MEDICARE, SELFPAY | PROVIDERS: PCP Internal Medicine; Visit Provider Radiology Diagnostic Radiology | DX: M89.542 Osteolysis, left hand (principal) | CPT/HCPCS: 73120 ==

== ENCOUNTER 2024-12-19 13:59 | Outpatient (AMB) | payer MEDICARE, SELFPAY ==
--- OUTSIDE RECORDS SUMMARY | 2024-01-07 09:00 | XMS_ITS ---
Author Organization [employer] [facility] Address [address] [place] [address] Care Team Providers Care Right Of Way Cutter Name Role Phone TAYLOR KNIGHT Primary Care Provider Unavailab Puja Escobar Unavailable [phone] REASON FOR VISIT HR MEDICARE PE Encounters Encounter Location Date Provider Diagnosis [facility] [employer] [facility] [address] [place] [address] 01/07/2024 Puja Camp Plan Of Treatment Next Appt Details Provider Name:Puja cook, 05/18/2025 01:00:00 PM, [address], [address], [place], [address], Progress Notes * JOSE EGINO HUERTAB:1960 ([age] yo F)Acc No.[id number]:01/07/2024 PROGRESS NOTES Patient: STORM WADSWORTH Appointment Provider: Nidhi Camp M.D. :1960 A ge:63 Y S ex:Female Date:01/07/2024 Address:[address] [place], [place] [address] Pcp:TAYLOR NEWMAN Subjective: * Chief Complaints: * 1 . HR MEDICARE PE. * Medical History: Objective: * Vitals: Assessment: Plan: * Treatment: * Images: Billing Information: * Visit Code: * Procedure Codes: * Electronic signature of Екатерина Camp MD on 12/19/2024 at 03:20 PM EDT Sign off status: Pending * Appointment Provider: Nidhi Camp M.D. Date: 0 01/07/2024 Generated for Owen pantoja/Santana/Joeitting on: 0 12/19/2024 03:20 PM EDT
--- NOTE | 2024-12-19 14:02 | A.OFFVIS_ITS ---
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 As per PCP note, the infection began at the end of October, with the finger becoming sore and eventually turning black. The patient has a history of diabetes mellitus, on a pump, takes insulin. Patient explains she lost length in the left index finger due to infections. Has not had pain since beginning of December since infections cleared. Reports numbness at finger tips of her bilateral hands that is consisten throughout the day. 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 . No hx of injections or surgeries in hands. No hx of using hand braces. No hx of OT for hands. No hx of EMG/NCS. When asked occupation patient refused to provide it, states she was okay with being put as unemployed Allergies metronidazole Allergy (Severe, Verified 12/19/24 14:06) Rash acetaminophen (Percocet) Allergy (Unknown, Verified 12/19/24 14:06) Unknown alendronate sodium (From FOSAMAX) Allergy (Unknown, Verified 12/19/24 14:06) STOMACH PROBLEMS aspirin (Percodan) Allergy (Unknown, Verified 12/19/24 14:06) Unknown cephalexin (CEPHALEXIN) Allergy (Unknown, Verified 12/19/24 14:06) WHOLE BODY RASH clindamycin Allergy (Unknown, Verified 12/19/24 14:06) Unknown latex Allergy (Unknown, Verified 12/19/24 14:06) Unknown oxycodone (Percocet) Allergy (Unknown, Verified 12/19/24 14:06) Unknown risedronate sodium (From ACTONEL) Allergy (Unknown, Verified 12/19/24 14:06) STOMACH PROBLEMS sulfamethoxazole (SULFAMETHOXAZOLE) Allergy (Unknown, Verified 12/19/24 14:06) BODY RASH trimethoprim (Bactrim) Allergy (Unknown, Verified 12/19/24 14:06) Unknown HPI HPI 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 She reports a Hx of a previous finger infection at the end of October, with her finger proceeding to turn black, which she says has resolved. She is unsure how she developed this infection. She says she was seen as a follow up for this finger and referred here to Orthopedics She says she is unsure why she is here exactly. She denies any pain but says she has some numbness to her fingertips. She says she has completed her course of ABX and denies any symptoms of infection. She says she is against taking any medications due to a concern over side effects [facility] Medical History Swelling of left index finger IBS (irritable bowel syndrome) Osteoporosis Essential hypertension Diabetes mellitus GERD (gastroesophageal reflux disease) Surgical History H/O colonoscopy Hx laparoscopic cholecystectomy Family History Father Diabetes CVD (cardiovascular disease) Chronic mental illness Mental health disorder Mother CVD (cardiovascular disease) Diabetes Family/Other FH: mental illness Mental health disorder Social History (Updated 12/19/24 @ 14:05 by HAYDER Randolph) Housing: House Alcohol intake: current Alcohol intake frequency: holidays/special occasions only Alcohol type: hard liquor Patient Tobacco Use Status: Former Tobacco user e-Cigarette/Vaping Use: Never Used Second Hand Smoke Exposure: No Advance Directives Date on File: 11/08/20 service: No Current occupational status: unemployed Current occupation: right hand dominant Current occupational exposures/hazards: No Cognitive needs: No Hearing needs: No Vision needs: Yes (glasses) Review of Systems Const All systems reviewed & are unremarkable except as noted in HPI and below Physical Exam Vital Signs: BMI result Body Mass Index 23.2 Const General: cooperative, healthy appearing and no acute distress Orientation/consciousness: patient oriented x3 HEENT Head: Yes normocephalic and Yes atraumatic Eyes EOM: EOMs intact bilaterally Resp Effort & Inspection: normal respiratory effort and able to speak in complete sentences Cardio Jugular venous distension: no JVD Skin General skin exam: turgor normal Rashes: no rashes Neuro General: patient oriented x3 Extrem Other: Evaluation of Left Upper Extremity: The patient is alert, oriented, and in no acute distress She has some Acrolysis to the left index & middle fingertips She has some loss of length of the index finger, and lesser loss of the middle finger Both fingertips are pale when held in extension, less pale when brought into some flexion The skin is stiffer to the tips of the index & middle fingers compared to her other digits She can bring them to a fist and then back into extension. No locking or catching I do not see any appreciable shortening of the fingers of the right hand. Radiographs: 3 views of the left hand were taken and viewed by me today in clinic. They show no fractures or dislocations. 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 Left index finger acrolysis Hx of a finger infection in ~10/2024 2. Left middle finger acrolysis I educated her about this condition I discussed treatment options I recommend activity modification & she be seen by Rheumatology I referred her to Rheumatology for assessment I discussed activity modification, she should be mindful using her hands for daily activities, as she is prone to accidents . I also discussed the early use of gloves in the colder months She will follow up prn Scribed for Ana Coronado MD by Tom Max, medical staffing coordinator, on 12/19/24 at 2:20 PM, EST. Orders: Referrals Rheumatology Referral M89.50 - Osteolysis, unspecified site Coding Level of Care Code New Pt Level 3 (44764) Diagnoses Acral osteolysis M89.50
[2024-12-19 14:04] VITALS: BMI 23.2
--- OUTSIDE RECORDS SUMMARY | 2024-12-19 15:21 | XMS_ITS | Patient Health Record ---
[facility] [place] Address [address] [place] [address] Care Team Providers Care Inbound Ingredient Logistics Specialist Name Role Phone Alexandre WELLS, Andressa Primary Care Provider Unavail able Jose E Silver Unavailable [phone] Allergies Allergen (clinical drug ingredient) Drug/Non Drug [...] Status Risk Notes Problem Contusion of toe (27305307) Contusion of toe (924.3) Active confirmed Problem Type II diabetes mellitus without complication (413501829) Diabetic - NIDDM (250.00) Active confirmed Problem Hammer toe (219006600) Hammer toe (735.4) Active confirmed Plan Of Treatment No Information Insurance Providers Payer Name Payer Address Payer Phone Subscriber Number Group Number Insured Name Patient Relationship to Insured Coverage Start Date Coverage End Date [facility] [address] [facility] [place] [address] [id number] Lisa Burnham Self - patient is the insured Medical (General) History Medical History History ICD Code Diabetes mellitus Osteoporosis Measles Chicken pox
--- OUTSIDE RECORDS SUMMARY | 2024-12-19 15:21 | XMS_ITS | Continuity of Care Document ---
Author Organization [facility] [address] [place] [address] Phone [phone] Care Team Providers Care Tile Mason Name Role Phone Wilda Schwartz Care Team Information Crotch Breaker [phone] Problems Active Problems Provider Date Diabetes mellitus [...] Pump. 900units E10.9 Scotty River M.D. 10/20/2023 Tmftzjo105Lwwd/ML Solution Inject 50 Units Every Day With Pump 50units E10.9 Scotty River M.D. 05/26/2022 Rosuvastatin Vdflrlc46aa Tablets Take 1 Tablet 1 Time Daily 90tabs Scotty River M.D. 05/18/2022 Losartan Rgetvbjxa98kx Tablets Take 1 Tablet twice a day 180tabs Scotty River M.D. 12/15/2021 Aspirin Adult Low Brla14kq Tablets DR 1 by mouth every day Scotty River M.D. 12/15/2021 Gexbvyo6ts/100ML Solution Scotty River M.D. 12/15/2021 Lidocaine5% Patches Use 1 Patch Daily 90units Florence Gilbert M.D. Valacyclovir HCL1gm Tablets Take 2 Tablets By Mouth Now And 2 Tabs 12 Hours Later. Evan Kraus MD Pantoprazole Auclxi30vj Tablets DR Take One Tablet By Mouth [...] [facility] Glucose 94 mg/dL 70-99 Potassium 07/08/2023 [facility] Potassium 5.3 mmol/L High (3.6-5.2 ) Comprehensive Metabolic Panl 06/04/2023 [facility] Glucose 204 mg/dL High [...] 97 ML/MIN/1. 73M2 2 Lipid Panel 06/04/2023 [facility] Cholesterol, Total 182 mg/dL (<200) Triglyceride 57 mg/dL (<150) HDL Chol 81 mg/dL (>39) LDL Cholesterol , Calculated 90 mg/dL (0-130) Non HDL Cholesterol (Calc) 101 mg/dL (<160) Hemoglobin A1c 06/04/2023 [facility] Hemoglobin A1c 8.5 % High (4.0-5.6 ) 3 Complete Abc With Diff 06/04/2023 [facility] WBC 9.0 K/MM3 (4.0-11. [...] ) Lymph # 2.4 K/MM3 (0.8-3.1 ) [place]# 0.9 K/MM3 (0.4-0.9 ) Eo # 0.4 K/MM3 (0.0-0.4 ) Baso # 0.1 K/MM3 (0.0-0.1 ) Abs. Imm Gran 0.1 K/MM3 Neut 55.8 % (44-76) Lymph 27.1 % (15-43) Monocyte 9.9 % (4.5-10. 5) Eo 4.8 % (0-6) Baso 1.0 % (0-2) Imm Gran 1.4 % TSH With Reflex To FT4 06/04/2023 [facility] TSH With Reflex To FT4 1.20 uIU/mL (0.4-4.2 ) Urinary Microalbumin 06/04/2023 [facility] Micro-Albumin <12.0 mg/L (<20) 4 Malb/Creat Ratio Unable t o calcul <SEE NOTE> MG/GM (0-20) 5 Urine Creat For Micro Albumin 82.6 mg/dL Hemoglobin A1c 05/14/2023 Inhouse Hemoglobin A1c 8.8% Glucose Fingerstick 05/14/2023 Inhouse Glucose Fingerstick 246 Hemoglobin A1c 12/29/2022 Inhouse Hemoglobin A1c 8.7% Glucose Fingerstick 12/29/2022 Inhouse Glucose Fingerstick 199 Urinary Microalbumin 08/28/2022 [facility] Micro-Albumin <12.0 mg/L (<20) 6 Malb/Creat Ratio Unable t o calcul <SEE NOTE> MG/GM (0-20) 7 Urine Creat For Micro Albumin 28.5 mg/dL Hemoglobin A1c 08/28/2022 Inhouse Hemoglobin A1c 407 Glucose Fingerstick 08/28/2022 Inhouse Glucose Fingerstick 8.7% Albumin 05/29/2022 [facility] Albumin 4.7 GM/DL (3.4-4.8 ) BUN 05/29/2022 [facility] BUN 10 mg/dL (8-23) Calcium 05/29/2022 [facility] Calcium 9.9 mg/dL (8.6-10. 5) Creatinine 05/29/2022 [facility] Creatinine 0.6 mg/dL (0.5-1.0 [...] care provider. DIAGNOSTIC USE: [place] Diabetes Association (ADA) and the World Health [...] sex. Procedures Date Code Description Status 01/13/2024 70211 Glucose Monitoring Interpeta tion And Report Completed 08/28/2022 98814 Glucose Monitoring Interpeta tion And Report Completed 05/14/2022 46328 Glucose Monitoring Interpeta tion And Report Completed [...]
== END 2024-12-19 14:27 | disposition home or self-care (01) ==
LOC: HO.HOS 14:00
PROVIDERS: PCP Internal Medicine; Visit Provider Orthopaedic Surgery
DX: M89.542 Osteolysis, left hand (principal)
CPT/HCPCS: 99203

== ENCOUNTER → 2024-12-19 13:59 | Outpatient (BNVA) | payer MEDICARE, SELFPAY | PROVIDERS: PCP Internal Medicine; Visit Provider Orthopaedic Surgery | DX: M89.50 Osteolysis, unspecified site (principal) | CPT/HCPCS: 99202 ==

== ENCOUNTER 2025-01-11 14:08 | Outpatient (AMB) | payer MEDICARE, SELFPAY ==
--- OUTSIDE RECORDS SUMMARY | 2024-01-07 09:00 | XMS_ITS ---
Author Organization Total [facility] Address [address] [place] [address] Care Team Providers Care Signal Worker Name Role Phone TAYLOR KNIGHT Primary Care Provider Unavailab Puja Escobar Unavailable [phone] REASON FOR VISIT HR MEDICARE PE Encounters Encounter Location Date Provider Diagnosis [facility] [address] [place] [address] 01/07/2024 Puja Camp Plan Of Treatment Next Appt Details Provider Name:Puja cook, 05/18/2025 01:00:00 PM, [address], [address], [place], [address], Progress Notes * JOSE EGINO HUERTAB:1960 ([age] yo F)Acc No.[id number]:01/07/2024 PROGRESS NOTES Patient: STORM WADSWORTH Appointment Provider: Nidhi Camp M.D. :1960 A ge:63 Y S ex:Female Date:01/07/2024 Address:[address] [place], [place] [id number] Pcp:TAYLOR NEWMAN Subjective: * Chief Complaints: * 1 . HR MEDICARE PE. * Medical History: Objective: * Vitals: Assessment: Plan: * Treatment: * Images: Billing Information: * Visit Code: * Procedure Codes: * Electronic signature of Екатерина Camp MD on 01/11/2025 at 05:56 PM EDT Sign off status: Pending * Appointment Provider: Nidhi Camp M.D. Date: 0 01/07/2024 Generated for Owen pantoja/Santana/Joeitting on: 0 01/11/2025 05:56 PM EDT
[2025-01-11 14:11] VITALS: BP 124/78; PULSE 84; O2SAT 99; BMI 23.8
--- NOTE | 2025-01-11 14:11 | MHC.PC.OV ---
Vital Signs 01/11/25 14:11 Height 5 ft 4.5 in Weight 141 lb 2 oz BMI 23.8 BP 124/78 Blood Pressure Location Lt brachial Position Sitting Pulse 84 Pulse Source Pulse Oximeter Pulse Oximetry (%) 99 Oxygen Delivery Method Room Air Intake Visit Reasons: DM Customer Solutions Representative Required: No Accompanied by: Self / Same As Patient Allergies metronidazole Allergy (Severe, Verified 01/11/25 14:30) Rash acetaminophen (Percocet) Allergy (Unknown, Verified 01/11/25 14:30) Unknown alendronate sodium (From FOSAMAX) Allergy (Unknown, Verified 01/11/25 14:30) STOMACH PROBLEMS aspirin (Percodan) Allergy (Unknown, Verified 01/11/25 14:30) Unknown cephalexin (CEPHALEXIN) Allergy (Unknown, Verified 01/11/25 14:30) WHOLE BODY RASH clindamycin Allergy (Unknown, Verified 01/11/25 14:30) Unknown latex Allergy (Unknown, Verified 01/11/25 14:30) Unknown oxycodone (Percocet) Allergy (Unknown, Verified 01/11/25 14:30) Unknown risedronate sodium (From ACTONEL) Allergy (Unknown, Verified 01/11/25 14:30) STOMACH PROBLEMS sulfamethoxazole (SULFAMETHOXAZOLE) Allergy (Unknown, Verified 01/11/25 14:30) BODY RASH trimethoprim (Bactrim) Allergy (Unknown, Verified 01/11/25 14:30) Unknown Medication List - Last Reconciled 01/11/25 by Wilda Brooks MD acetone (urine) test (Ketone Care strips) As directed ascorbic acid (vitamin C) 500 mg PO BID aspirin (Aspirin Childrens) 81 mg PO DAILY betamethasone dipropionate 0.05% 1 appl topical DAILY PRN blood sugar diagnostic (Accu-Chek Guide test strips) As directed to check blood sugars 7-10 times a day , on insulin pump , doesnt have sensor dicloxacillin 500 mg PO BID 10 days glucagon 1 mg IM Q20M PRN insulin glargine (Lantus Solostar U-100 Insulin) 18 units (0.18 mL) subcut QAM insulin lispro (Humalog U-100 Insulin) PT USING HUMALOG IN INSULIN PUMP, using up to 60 units in pump daily insulin pump-infus. set-meter HUMALOG lidocaine 5% 1 patch topical DAILY PRN 30 days losartan 100 mg PO DAILY 90 days olopatadine 0.1% 1 drp ophthalmic (eye) BID omeprazole 20 mg PO DAILY 90 days pen needle, diabetic (1st Tier Unifine Pentips) As directed rosuvastatin 10 mg PO BEDTIME 90 days triamcinolone acetonide 0.1% 1 appl topical BID PRN zoledronic zkqt-nrpteggy-pcfli 5 mg/100 mL (Reclast) 1 ea IV DIRECTED Tobacco use date assessed: 01/11/25 Fall risk assessment: 2 + Falls in past year Last assessed Fall Risk: 01/11/25 Dental Screening Dental Screen Date: 01/11/25 Did you have a dental visit in the last 12 months?: Yes Did you have a dental problem in the last 6 months where you did not have access to dental care?: No Was dental information given to patient?: Patient has dentist HPI HPI Comments History of Present Illness Details This is a 64-year-old female with diabetes mellitus on long-term current use of insulin, hypertension, dyslipidemia and GERD that comes today for follow-up on her conditions. Last A1c was 8.2% in October and she has very slowly but follow by Endocrinology. A1c goal is equal or less than 7%. Blood pressure within goal being less than 130/80. Lipid panel will be order and her LDL goal should be less than 70. GERD stable with PPIs. She declines tetanus and pneumonia vaccine. Denies any acute complaint. [facility] Medical History Swelling of left index finger IBS (irritable bowel syndrome) Osteoporosis Essential hypertension Diabetes mellitus GERD (gastroesophageal reflux disease) Surgical History H/O colonoscopy Hx laparoscopic cholecystectomy Family History Father Diabetes CVD (cardiovascular disease) Chronic mental illness Mental health disorder Mother CVD (cardiovascular disease) Diabetes Family/Other FH: mental illness Mental health disorder Social History Housing: House Alcohol intake: current Alcohol intake frequency: holidays/special occasions only Alcohol type: hard liquor Patient Tobacco Use Status: Former Tobacco user e-Cigarette/Vaping Use: Never Used Second Hand Smoke Exposure: No Advance Directives Date on File: 11/08/20 service: No Current occupational status: unemployed Current occupation: right hand dominant Current occupational exposures/hazards: No Cognitive needs: No Hearing needs: No Vision needs: Yes (glasses) Questionnaire PHQ-9 Over the last 2 weeks, how often have you been bothered by any of the following problems? 1. Little interest or pleasure in doing things: not at all 2. Feeling down, depressed, or hopeless: not at all 3. Trouble falling or staying asleep, or sleeping too much: not at all 4. Feeling tired or having little energy: not at all 5. Poor appetite or overeating: not at all 6. Feeling bad about yourself - or that you are a failure or have let yourself or your family down: not at all 7. Trouble concentrating on things, such as reading the newspaper or watching television: not at all 8. Moving or speaking so slowly that other people could have noticed. Or the opposite - being so fidgety or restless that you have been moving around a lot more than usual: not at all 9. Thoughts that you would be better off or of hurting yourself in some way: not at all Total score: 0 Depression Screening Interpretation: Negative Depression Screening Done: Yes 11638 - PHQ-9 Billing: Yes Source: Developed by Drs. Miguelangel Jeong, Alannah Ferreira, Murali Norton and colleagues, with an educational jefe from [employer]. Thrive Questionnaire Date Thrive assessed: 01/11/25 I am a: Patient What is your living situation today?: I choose not to answer this question Within the past 12 months, did the food you bought not last and you didn't have the money to get more?: I choose not to answer this question Within the past 12 months, did you worry whether your food would run out before you got money to buy more?: I choose not to answer this question Do you have trouble paying for medicines?: I choose not to answer this question Do you have trouble getting transportation to medical appointments?: I choose not to answer this question Do you have trouble paying your heating and electricity bill?: I choose not to answer this question Do you have trouble taking care of your child, family member or friend?: I choose not to answer this question Do you have trouble with day-to-day activities such as bathing, preparing meals, shopping, managing finances, etc.?: I choose not to answer this question Are you currently unemployed and looking for a job?: I choose not to answer this question Are you interested in more education?: I choose not to answer this question Please select the resources that you would like help with: None Currently or been in a relationship where the following occur: I choose not to answer THRIVE Score: 0 AUDIT C Alcohol Use Questionnaire (AUDIT-C) 1. How often do you have a drink containing alcohol?: Monthly or less 2. How many drinks containing alcohol do you have on a typical day when you are drinking?: 1 or 2 3. How often do you have six or more drinks on one occasion?: Never Total Score: 1 Score Reviewed/Action Taken: No YOVANY-7 AMB Questionnaire YOVANY-7 Date YOVANY - 7 assessed: 01/11/25 Feeling nervous, anxious, or on edge: 0 = Not at all Not being able to stop or control worryin = Not at all Worrying too much about different things: 0 = Not at all Trouble relaxin = Not at all Being so restless that it is hard to sit still: 0 = Not at all Becoming easily annoyed or irritable: 0 = Not at all Feeling afraid as if something awful might happen: 0 = Not at all Total YOVANY-7 score (0-4 normal; 5-9 mild; 10-14 moderate; 15-21 severe): 0 Source: Developed by Drs. Miguelagnel Jeong, Alannah Ferreira, Murali Norton and colleagues, with an educational jefe from [employer]. YOVANY-7 Assessment Billing YOVANY-7 Assessment Tool: YOVANY-7 Assessment 08956 Review of Systems Const All systems reviewed & are unremarkable except as noted in HPI and below Card Denies chest pain at rest, Denies chest pain with activity, Denies edema, Denies irregular heart rhythm, Denies claudication, Denies dyspnea, Denies dyspnea on exertion, Denies orthopnea, Denies paroxysmal nocturnal dyspnea and Denies slow heart rate Resp Denies cough, Denies dyspnea and Denies dyspnea on exertion GI Denies abdominal pain, Denies change in bowel habits, Denies excessive flatus, Denies nausea and Denies vomiting Denies urinary incontinence, Denies urinary hesitancy and Denies urinary urgency Physical exam (Primary Care) Vital Signs: Last Vital Signs Pulse 84 01/11/25 14:11 BP 124/78 01/11/25 14:11 Pulse Ox 99 01/11/25 14:11 Oxygen Delivery Method Room Air 01/11/25 14:11 BMI result Body Mass Index 23.8 Tobacco/Smoking Status: Tobacco use Status Tobacco use date assessed 01/11/25 01/11/25 14:15 Patient Tobacco Use Status Former Tobacco user 01/11/25 14:15 e-Cigarette/Vaping Use Never Used 01/11/25 14:15 PHQ-9: PHQ-9 Score PHQ-9: Total score 0 01/11/25 14:34 Depression Screening Interpretation: Negative Thrive Assessment: Date of Thrive Assessment Date Thrive assessed 01/11/25 01/11/25 14:15 Currently or been in a relationship where the following occur: I choose not to answer Resp Effort & Inspection: normal respiratory effort Auscultation: clear to auscultation bilaterally Cardio Jugular venous distension: no JVD Rate: regular rate Rhythm: regular rhythm Heart sounds: S1 normal heart sound present and S2 normal heart sound present Extrem General: Yes full ROM Coding Level of Care Code Est Pt Level 4 (77006) Complex EM visit Add On G2211 Diagnoses Type 2 diabetes mellitus with hyperglycemia, with long-term current use of insulin E11.65; Z79.4 Diabetes mellitus type: type 2 Diabetes mellitus chcf insulin use: with intermission coordinator use Diabetes mellitus complication status: with hyperglycemia Dyslipidemia E78.5 Essential hypertension I10 Gastroesophageal reflux disease, unspecified whether esophagitis present K21.9 Esophagitis presence: esophagitis presence not specified Additional Codes YOVANY-7 Assessment Billing - YOVANY-7 Assessment Tool: YOVANY-7 Assessment 97607 ([id number]) PHQ-9 - 18213 - PHQ-9 Billing: Yes ([id number]) Time Spent (min) 21 Assessment & Plan Assessment & Plan (1) Diabetes mellitus: Code(s): E11.9 - Type 2 diabetes mellitus without complications Category: Medical Qualifiers: Diabetes mellitus type: type 2 Diabetes mellitus chcf insulin use: with chcf use Diabetes mellitus complication status: with hyperglycemia Qualified Code(s): E11.65 - Type 2 diabetes mellitus with hyperglycemia; Z79.4 - USP (current) use of insulin (2) Dyslipidemia: Code(s): E78.5 - Hyperlipidemia, unspecified Category: Medical (3) Essential hypertension: Code(s): I10 - Essential (primary) hypertension Category: Medical (4) GERD (gastroesophageal reflux disease): Code(s): K21.9 - Gastro-esophageal reflux disease without esophagitis Category: Medical Qualifiers: Esophagitis presence: esophagitis presence not specified Qualified Code(s): K21.9 - Gastro-esophageal reflux disease without esophagitis Plan Continue current meds. Blood pressure goal is equal or less than 130/80. LDL goal is less than 70. A1c goal is equal or less than 7%. Orders: Orders Lipid Panel Today E78.5 - Hyperlipidemia, unspecified Microalbumin, Random (w Creat) Today R80.9 - Proteinuria, unspecified Comprehensive [place]. Panel Fast Today E11.65 - Type 2 diabetes mellitus with hyperglycemia, Z79.4 - USP (current) use of insulin
--- OUTSIDE RECORDS SUMMARY | 2025-01-11 17:57 | XMS_ITS | Patient Health Record ---
Author Organization [facility] Address [address] [place] [address] Care Team Providers Care Chart Reader Name Role Phone TAYLOR KNIGHT Primary Care Provider Unavailab Puja Escobar Unavailable [phone] Allergies Allergen (clinical drug ingredient) Drug/Non Drug [...] a year Active Lantus SoloStar 100 UNIT/ML Subcutaneous; Duration: 90 Days Active Vitamin C 500 MG 1 tablet Orally Twice a day Active Aspirin 81MG 1 ORAL daily; Duration: -3 12/15/2012 Active Denia Allergy Acti ve HumaLOG 100 UNIT/ML Subcutaneous bolus on pump Active Propranolol HCl Acti ve Omeprazole 20 MG 1 capsule Orally 1-2 x daily prn 12/15/2012 Active Glucagon Emergency 1 MG PLEASE SEE ATTACHED FOR DETAILED DIRECTIONS Injection; Duration: 1 Days Active Rosuvastatin Calcium 10 MG 1 tablet Orally Once a day Active Lotrisone 1-0.05 % 1 application to affected area Externally Twice a day; Duration: 14 days 12/25/2019 Not-Taking Lidocaine 5 % External; Duration: 90 Days Active Losartan Potassium 50 MG 1 tablet Orally Once a day; Duration: 30 day(s) plus 25 mg at night [...] Status Risk Notes Problem Postmenopausal atrophic vaginitis (95648375) Postmenopausal atrophic vaginitis (N95.2) Active confirmed Problem Age-related osteoporosis (468853810) Age-related osteoporosis without current pathological fracture (M81.0) Active confirmed Problem Type I diabetes mellitus without complication (716308981) Diabetes mellitus without mention of complication, type I [juvenile type], not stated as uncontrolled (250.01) Active confirmed Major Problem Menopausal symptom (56843493) Symptomatic menopausal or female climacteric states (627.2) Active confirmed Major Problem Osteoporosis (16025380) Unspecified osteoporosis (733.00) Active confirmed Diag Problem Gynecological examination normal (602784708857361) Routine gynecological examination (V72.31) Active confirmed Major Problem Screening for malignant neoplasm of colon (060442818) Special screening for malignant neoplasms, colon (V76.51) Active confirmed Major Vital Signs Temperature 97.9 degrees Fahrenheit 05/11/2024 Blood pressure diastolic 78 mm Hg 05/11/2024 Height 65 in 05/11/2024 Blood pressure systolic 128 mm Hg 05/11/2024 Weight 134 lbs 05/11/2024 BMI 22.3 kg/m2 05/11/2024 Encounters Encounter Location Date Provider Diagnosis [address] [place] [address] 05/11/2024 [facility] Encounter for gynecological examination (general) (routine) without abnormal findings Z01.419 ; Encounter for screening mammogram for malignant neoplasm of breast Z12.31 ; Age-related osteoporosis without current pathological fracture M81.0 and Other ovarian cyst, right side N83.291 Total [facility] [address] [place] [address] 05/30/2024 [facility] Assessments Encounter Date Diagnosis [...] Screening 12/15/2018 Next Appt Details Provider Name:Puja cook, 05/18/2025 01:00:00 PM, [address], [address], [place], [address], Insurance Providers Payer Name Payer Address Payer Phone Subscriber Number Group Number Insured Name Patient Relationship to Insured Coverage Start Date Coverage End Date [employer] [address] [place] [address] [phone] [id number] STORM DORANTES Self - patient is the [...]
--- OUTSIDE RECORDS SUMMARY | 2025-01-11 17:57 | XMS_ITS | Continuity of Care Document ---
Author Organization [facility] [address] [place] [address] Phone [phone] Care Team Providers Care Computational Chemist Name Role Phone Wilda Schwartz Care Team Information Senior Health Educator [phone] Problems Active Problems Provider Date Diabetes mellitus [...] Pump. 900units E10.9 Scotty River M.D. 10/20/2023 Mdzxamt112Mkrf/ML Solution Inject 50 Units Every Day With Pump 50units E10.9 Scotty River M.D. 05/26/2022 Rosuvastatin Hpngkmi90je Tablets Take 1 Tablet 1 Time Daily 90tabs Scotty River M.D. 05/18/2022 Losartan Eqoctsqwl77nw Tablets Take 1 Tablet twice a day 180tabs Scotty River M.D. 12/15/2021 Aspirin Adult Low Efyl07ip Tablets DR 1 by mouth every day Scotty River M.D. 12/15/2021 Snhgjmd3dh/100ML Solution Scotty River M.D. 12/15/2021 Lidocaine5% Patches Use 1 Patch Daily 90units Florence Gilbert M.D. Valacyclovir HCL1gm Tablets Take 2 Tablets By Mouth Now And 2 Tabs 12 Hours Later. Evan Kraus MD Pantoprazole Vyrsxx52ob Tablets DR Take One Tablet By Mouth [...] [facility] Glucose 94 mg/dL 70-99 Potassium 07/08/2023 [facility] Potassium 5.3 mmol/L High (3.6-5.2 ) Comprehensive Metabolic Panl 06/04/2023 [facility] Glucose 204 mg/dL High [...] 97 ML/MIN/1. 73M2 2 Lipid Panel 06/04/2023 [facility] Cholesterol, Total 182 mg/dL (<200) Triglyceride 57 mg/dL (<150) HDL Chol 81 mg/dL (>39) LDL Cholesterol , Calculated 90 mg/dL (0-130) Non HDL Cholesterol (Calc) 101 mg/dL (<160) Hemoglobin A1c 06/04/2023 [facility] Hemoglobin A1c 8.5 % High (4.0-5.6 ) 3 Complete Abc With Diff 06/04/2023 [facility] WBC 9.0 K/MM3 (4.0-11. [...] ) Lymph # 2.4 K/MM3 (0.8-3.1 ) [place]# 0.9 K/MM3 (0.4-0.9 ) Eo # 0.4 K/MM3 (0.0-0.4 ) Baso # 0.1 K/MM3 (0.0-0.1 ) Abs. Imm Gran 0.1 K/MM3 Neut 55.8 % (44-76) Lymph 27.1 % (15-43) Monocyte 9.9 % (4.5-10. 5) Eo 4.8 % (0-6) Baso 1.0 % (0-2) Imm Gran 1.4 % TSH With Reflex To FT4 06/04/2023 [facility] TSH With Reflex To FT4 1.20 uIU/mL (0.4-4.2 ) Urinary Microalbumin 06/04/2023 [facility] Micro-Albumin <12.0 mg/L (<20) 4 Malb/Creat Ratio Unable t o calcul <SEE NOTE> MG/GM (0-20) 5 Urine Creat For Micro Albumin 82.6 mg/dL Hemoglobin A1c 05/14/2023 Inhouse Hemoglobin A1c 8.8% Glucose Fingerstick 05/14/2023 Inhouse Glucose Fingerstick 246 Hemoglobin A1c 12/29/2022 Inhouse Hemoglobin A1c 8.7% Glucose Fingerstick 12/29/2022 Inhouse Glucose Fingerstick 199 Urinary Microalbumin 08/28/2022 [facility] Micro-Albumin <12.0 mg/L (<20) 6 Malb/Creat Ratio Unable t o calcul <SEE NOTE> MG/GM (0-20) 7 Urine Creat For Micro Albumin 28.5 mg/dL Hemoglobin A1c 08/28/2022 Inhouse Hemoglobin A1c 407 Glucose Fingerstick 08/28/2022 Inhouse Glucose Fingerstick 8.7% Albumin 05/29/2022 [facility] Albumin 4.7 GM/DL (3.4-4.8 ) BUN 05/29/2022 [facility] BUN 10 mg/dL (8-23) Calcium 05/29/2022 [facility] Calcium 9.9 mg/dL (8.6-10. 5) Creatinine 05/29/2022 [facility] Creatinine 0.6 mg/dL (0.5-1.0 [...] with health care provider. DIAGNOSTIC USE: The [place] Diabetes Association (ADA) and the World Health [...] sex. Procedures Date Code Description Status 01/13/2024 58583 Glucose Monitoring Interpeta tion And Report Completed 08/28/2022 46013 Glucose Monitoring Interpeta tion And Report Completed 05/14/2022 93976 Glucose Monitoring Interpeta tion And Report Completed [...]
--- OUTSIDE RECORDS SUMMARY | 2025-01-11 17:57 | XMS_ITS | Patient Health Record ---
[facility] [place] Address [address] [place] [address] Care Team Providers Care Assembling Fabricator Name Role Phone Alexandre WELLS, Andressa Primary Care Provider Unavail able Jose E Silver Unavailable [phone] Allergies Allergen (clinical drug ingredient) Drug/Non Drug [...] Status Risk Notes Problem Contusion of toe (05218456) Contusion of toe (924.3) Active confirmed Problem Type II diabetes mellitus without complication (990701368) Diabetic - NIDDM (250.00) Active confirmed Problem Hammer toe (127403907) Hammer toe (735.4) Active confirmed Plan Of Treatment No Information Insurance Providers Payer Name Payer Address Payer Phone Subscriber Number Group Number Insured Name Patient Relationship to Insured Coverage Start Date Coverage End Date [facility] [address] [facility] [place] [address] [id number] Lisa Burnham Self - patient is the insured Medical (General) History Medical History History ICD Code Diabetes mellitus Osteoporosis Measles Chicken pox
== END 2025-01-11 14:40 | disposition home or self-care (01) ==
LOC: HO.HMCH 14:09
PROVIDERS: PCP Internal Medicine; Visit Provider Internal Medicine
DX: E11.65 Type 2 diabetes mellitus with hyperglycemia (principal); Z79.4 Long term (current) use of insulin; E78.5 Hyperlipidemia, unspecified; I10 Essential (primary) hypertension; K21.9 Gastro-esophageal reflux disease without esophagitis

== ENCOUNTER → 2025-01-11 14:08 | Outpatient (BNVA) | payer MEDICARE, SELFPAY | PROVIDERS: PCP Internal Medicine; Visit Provider Internal Medicine | DX: E11.65 Type 2 diabetes mellitus with hyperglycemia (principal); E78.5 Hyperlipidemia, unspecified; I10 Essential (primary) hypertension; K21.9 Gastro-esophageal reflux disease without esophagitis; Z79.4 Long term (current) use of insulin; Z13.31 Encounter for screening for depression; Z13.39 Encounter for screening examination for other mental health and behavioral disorders | CPT/HCPCS: 96127; 99212 ==

== ENCOUNTER 2025-02-15 13:48 | Outpatient (REF) | payer MEDICARE, SELFPAY ==
--- OUTSIDE RECORDS SUMMARY | 2024-01-07 09:00 | XMS_ITS ---
Author Organization Total [facility] Address [address] [place] [address] Care Team Providers Care Pinion And Wheel Truer Name Role Phone TAYLOR KNIGHT Primary Care Provider Unavailab Puja Escobar Unavailable [phone] REASON FOR VISIT HR MEDICARE PE Encounters Encounter Location Date Provider Diagnosis [facility] [address] [place] [address] 01/07/2024 Puja Camp Plan Of Treatment Next Appt Details Provider Name:Puja cook, 05/18/2025 01:00:00 PM, [address], [address], [place], [address], Progress Notes * JOSE EGINO HUERTAB:1960 ([age] yo F)Acc No.[id number]:01/07/2024 PROGRESS NOTES Patient: STORM WADSWORTH Appointment Provider: Nidhi Camp M.D. :1960 A ge:63 Y S ex:Female Date:01/07/2024 Address:[address] [place], [place] [address] Pcp:TAYLOR NEWMAN Subjective: * Chief Complaints: * 1 . HR MEDICARE PE. * Medical History: Objective: * Vitals: Assessment: Plan: * Treatment: * Images: Billing Information: * Visit Code: * Procedure Codes: * Electronic signature of Екатерина Camp MD on 02/15/2025 at 05:32 PM EDT Sign off status: Pending * Appointment Provider: Nidhi Camp M.D. Date: 0 01/07/2024 Generated for Owen pantoja/Santana/Rosalind on: 1 05:32 PM EDT
--- NOTE | 2025-02-15 14:07 | PFT_ITS ---
Flows: FEV1: 94 % of predicted at 2.20 L FVC: 91 % of predicted at 2.75 L FEV1/FVC: 80 % Bronchodilator response: Absent Volumes: Total lung capacity: 78 % of predicted at 3.97 L Residual volume: 60 % of predicted at 1.14 L Slow vital capacity: 89 % of predicted at 2.83 L Expiratory reserve volume: 82 % of predicted at 0.64 L Diffusion capacity: Mildly decreased, corrects to normal after adjustment for alveolar ventilation. Impression: Mild restrictive ventilatory defect with no bronchodilator response. Combination of restrictive ventilatory defect with decreased diffusion capacity suggests underlying pulmonary parenchymal disease. Clinical correlation is advised. MTDD
[2025-02-15 14:39] VITALS: PULSE 75; O2SAT 97
--- OUTSIDE RECORDS SUMMARY | 2025-02-15 17:33 | XMS_ITS | Continuity of Care Document ---
Author Organization [facility] [address] [place] [address] Phone [phone] Care Team Providers Care Clinical Statistical Programmer Name Role Phone Wilda Schwartz Care Team Information Director Child Abuse Therapy [phone] Problems Active Problems Provider Date Diabetes mellitus [...] Pump. 900units E10.9 Scotty River M.D. 10/20/2023 Otssjpk644Zhlx/ML Solution Inject 50 Units Every Day With Pump 50units E10.9 Scotty River M.D. 05/26/2022 Rosuvastatin Poaksrl03nc Tablets Take 1 Tablet 1 Time Daily 90tabs Scotty River M.D. 05/18/2022 Losartan Vjwdxzgel33yc Tablets Take 1 Tablet twice a day 180tabs Scotty River M.D. 12/15/2021 Aspirin Adult Low Gxzi65np Tablets DR 1 by mouth every day Scotty River M.D. 12/15/2021 Kmigubk0la/100ML Solution Scotty River M.D. 12/15/2021 Lidocaine5% Patches Use 1 Patch Daily 90units Florence Gilbert M.D. Valacyclovir HCL1gm Tablets Take 2 Tablets By Mouth Now And 2 Tabs 12 Hours Later. Evan Kraus MD Pantoprazole Aofaww07wa Tablets DR Take One Tablet By Mouth [...] [facility] Glucose 94 mg/dL 70-99 Potassium 07/08/2023 [facility] Potassium 5.3 mmol/L High (3.6-5.2 ) Comprehensive Metabolic Panl 06/04/2023 [facility] Glucose 204 mg/dL High [...] 97 ML/MIN/1. 73M2 2 Lipid Panel 06/04/2023 [facility] Cholesterol, Total 182 mg/dL (<200) Triglyceride 57 mg/dL (<150) HDL Chol 81 mg/dL (>39) LDL Cholesterol , Calculated 90 mg/dL (0-130) Non HDL Cholesterol (Calc) 101 mg/dL (<160) Hemoglobin A1c 06/04/2023 [facility] Hemoglobin A1c 8.5 % High (4.0-5.6 ) 3 Complete Abc With Diff 06/04/2023 [facility] WBC 9.0 K/MM3 (4.0-11. [...] ) Lymph # 2.4 K/MM3 (0.8-3.1 ) [place]# 0.9 K/MM3 (0.4-0.9 ) Eo # 0.4 K/MM3 (0.0-0.4 ) Baso # 0.1 K/MM3 (0.0-0.1 ) Abs. Imm Gran 0.1 K/MM3 Neut 55.8 % (44-76) Lymph 27.1 % (15-43) Monocyte 9.9 % (4.5-10. 5) Eo 4.8 % (0-6) Baso 1.0 % (0-2) Imm Gran 1.4 % TSH With Reflex To FT4 06/04/2023 [facility] TSH With Reflex To FT4 1.20 uIU/mL (0.4-4.2 ) Urinary Microalbumin 06/04/2023 [facility] Micro-Albumin <12.0 mg/L (<20) 4 Malb/Creat Ratio Unable t o calcul <SEE NOTE> MG/GM (0-20) 5 Urine Creat For Micro Albumin 82.6 mg/dL Hemoglobin A1c 05/14/2023 Inhouse Hemoglobin A1c 8.8% Glucose Fingerstick 05/14/2023 Inhouse Glucose Fingerstick 246 Hemoglobin A1c 12/29/2022 Inhouse Hemoglobin A1c 8.7% Glucose Fingerstick 12/29/2022 Inhouse Glucose Fingerstick 199 Urinary Microalbumin 08/28/2022 [facility] Micro-Albumin <12.0 mg/L (<20) 6 Malb/Creat Ratio Unable t o calcul <SEE NOTE> MG/GM (0-20) 7 Urine Creat For Micro Albumin 28.5 mg/dL Hemoglobin A1c 08/28/2022 Inhouse Hemoglobin A1c 407 Glucose Fingerstick 08/28/2022 Inhouse Glucose Fingerstick 8.7% Albumin 05/29/2022 [facility] Albumin 4.7 GM/DL (3.4-4.8 ) BUN 05/29/2022 [facility] BUN 10 mg/dL (8-23) Calcium 05/29/2022 [facility] Calcium 9.9 mg/dL (8.6-10. 5) Creatinine 05/29/2022 [facility] Creatinine 0.6 mg/dL (0.5-1.0 [...] with health care provider. DIAGNOSTIC USE: The [place] Diabetes Association (ADA) and the World Health [...] sex. Procedures Date Code Description Status 01/13/2024 43012 Glucose Monitoring Interpeta tion And Report Completed 08/28/2022 89770 Glucose Monitoring Interpeta tion And Report Completed 05/14/2022 54075 Glucose Monitoring Interpeta tion And Report Completed [...]
--- OUTSIDE RECORDS SUMMARY | 2025-02-15 17:33 | XMS_ITS | Patient Health Record ---
[facility] [place] Address [address] [place] [address] Care Team Providers Care Neck Band Setter Name Role Phone Alexandre WELLS, Anderssa Primary Care Provider Unavail able Jose E Silver Unavailable [phone] Allergies Allergen (clinical drug ingredient) Drug/Non Drug [...] Status Risk Notes Problem Contusion of toe (88244643) Contusion of toe (924.3) Active confirmed Problem Type II diabetes mellitus without complication (281451259) Diabetic - NIDDM (250.00) Active confirmed Problem Hammer toe (586140973) Hammer toe (735.4) Active confirmed Plan Of Treatment No Information Insurance Providers Payer Name Payer Address Payer Phone Subscriber Number Group Number Insured Name Patient Relationship to Insured Coverage Start Date Coverage End Date [facility] [address] [place] [address] [id number] Lisa Burnham Self - patient is the insured Medical (General) History Medical History History ICD Code Diabetes mellitus Osteoporosis Measles Chicken pox
--- OUTSIDE RECORDS SUMMARY | 2025-02-15 17:33 | XMS_ITS | Patient Health Record ---
Author Organization [facility] Address [address] [place] [address] Care Team Providers Care Disbursement Clerk Name Role Phone TAYLOR KNIGHT Primary Care Provider Unavailab Puja Escobar Unavailable [phone] Allergies Allergen (clinical drug ingredient) Drug/Non Drug [...] Status Risk Notes Problem Postmenopausal atrophic vaginitis (36219664) Postmenopausal atrophic vaginitis (N95.2) Active confirmed Problem Age-related osteoporosis (155329994) Age-related osteoporosis without current pathological fracture (M81.0) Active confirmed Problem Type I diabetes mellitus without complication (382433490) Diabetes mellitus without mention of complication, type I [juvenile type], not stated as uncontrolled (250.01) Active confirmed Major Problem Menopausal symptom (54791669) Symptomatic menopausal or female climacteric states (627.2) Active confirmed Major Problem Osteoporosis (18856409) Unspecified osteoporosis (733.00) Active confirmed Diag Problem Gynecological examination normal (352140833113099) Routine gynecological examination (V72.31) Active confirmed Major Problem Screening for malignant neoplasm of colon (285872681) Special screening for malignant neoplasms, colon (V76.51) Active confirmed Major Vital Signs Temperature 97.9 degrees Fahrenheit 05/11/2024 Blood pressure diastolic 78 mm Hg 05/11/2024 Height 65 in 05/11/2024 Blood pressure systolic 128 mm Hg 05/11/2024 Weight 134 lbs 05/11/2024 BMI 22.3 kg/m2 05/11/2024 Encounters Encounter Location Date Provider Diagnosis [address] [place] [address] 05/11/2024 [facility] Encounter for gynecological examination (general) (routine) without abnormal findings Z01.419 ; Encounter for screening mammogram for malignant neoplasm of breast Z12.31 ; Age-related osteoporosis without current pathological fracture M81.0 and Other ovarian cyst, right side N83.291 [facility] [address] [place] [address] 05/30/2024 [facility] Assessments Encounter Date Diagnosis [...] Provider Name:Puja cook, 05/18/2025 01:00:00 PM, [address], [address], [place], [address], Insurance Providers Payer Name Payer Address Payer Phone Subscriber Number Group Number Insured Name Patient Relationship to Insured Coverage Start Date Coverage End Date [employer] [address] [place] [address] [id number] STORM DORANTES Self - patient is the [...]
== END 2025-02-15 13:49 | disposition home or self-care (01) ==
LOC: HO.RESP 13:48
PROVIDERS: PCP Internal Medicine
DX: R06.02 Shortness of breath (principal); Z87.891 Personal history of nicotine dependence
CPT/HCPCS: 94060; 94640; 94727; 94729

== ENCOUNTER → 2025-02-15 14:07 | Outpatient (BNV) | payer MEDICARE, SELFPAY | PROVIDERS: PCP Internal Medicine; Visit Provider Internal Medicine Pulmonary Disease | DX: J98.4 Other disorders of lung (principal) | CPT/HCPCS: 94060; 94727; 94729 ==

== ENCOUNTER 2025-03-22 12:48 | Outpatient (AMB) | payer MEDICARE, SELFPAY ==
--- NOTE | 2025-03-22 12:51 | A.OFFPC_ITS ---
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 Accompanied by: Self / Same As Patient Allergies metronidazole Allergy (Severe, Verified 03/22/25 13:06) Rash acetaminophen (Percocet) Allergy (Unknown, Verified 03/22/25 13:06) Unknown alendronate sodium (From FOSAMAX) Allergy (Unknown, Verified 03/22/25 13:06) STOMACH PROBLEMS aspirin (Percodan) Allergy (Unknown, Verified 03/22/25 13:06) Unknown cephalexin (CEPHALEXIN) Allergy (Unknown, Verified 03/22/25 13:06) WHOLE BODY RASH clindamycin Allergy (Unknown, Verified 03/22/25 13:06) Unknown latex Allergy (Unknown, Verified 03/22/25 13:06) Unknown oxycodone (Percocet) Allergy (Unknown, Verified 03/22/25 13:06) Unknown risedronate sodium (From ACTONEL) Allergy (Unknown, Verified 03/22/25 13:06) STOMACH PROBLEMS sulfamethoxazole (SULFAMETHOXAZOLE) Allergy (Unknown, Verified 03/22/25 13:06) BODY RASH trimethoprim (Bactrim) Allergy (Unknown, Verified 03/22/25 13:06) Unknown Medication List - Last Reconciled 03/22/25 by Wilda Brooks MD acetone (urine) test (Ketone Care strips) As directed ascorbic acid (vitamin C) 500 mg PO BID aspirin (Aspirin Childrens) 81 mg PO DAILY betamethasone dipropionate 0.05% 1 appl topical DAILY PRN blood sugar diagnostic (Accu-Chek Guide test strips) As directed to check blood sugars 7-10 times a day , on insulin pump , doesnt have sensor dicloxacillin 500 mg PO BID 10 days glucagon 1 mg IM Q20M PRN insulin glargine (Lantus Solostar U-100 Insulin) 18 units (0.18 mL) subcut QAM insulin lispro (Humalog U-100 Insulin) PT USING HUMALOG IN INSULIN PUMP, using up to 60 units in pump daily insulin pump-infus. set-meter HUMALOG lidocaine 5% 1 patch topical DAILY PRN 30 days losartan 100 mg PO DAILY 90 days olopatadine 0.1% 1 drp ophthalmic (eye) BID omeprazole 20 mg PO DAILY 90 days pen needle, diabetic (1st Tier Unifine Pentips) As directed rosuvastatin 10 mg PO BEDTIME 90 days triamcinolone acetonide 0.1% 1 appl topical BID PRN Tobacco use date assessed: 03/22/25 Fall risk assessment: 2 + Falls in past year Last assessed Fall Risk: 03/22/25 Dental Screening Dental Screen Date: 03/22/25 Did you have a dental visit in the last 12 months?: Yes Did you have a dental problem in the last 6 months where you did not have access to dental care?: Yes Was dental information given to patient?: Patient has dentist HPI HPI Comments History of Present Illness Details The patient is a 64 year old individual presenting for a physical exam. Regarding health maintenance, the patient's last mammogram was in May 2023 and the last Pap smear was in 2022, which was normal. An eye exam in January of this year revealed a cataract, which is being monitored. The patient has diabetes and reports that blood sugar levels are variable, with good days and bad days. The patient uses an insulin pump and also takes Lantus 18 units on an as-needed basis. An A1c check is scheduled for April 05. For other chronic conditions, the patient takes losartan 100 mg for hypertension, omeprazole for heartburn, and rosuvastatin 10 mg for cholesterol. The patient's past surgical history includes a cholecystectomy in 2014. The patient is due for a colonoscopy, with the last one having been in 2014. Regarding immunizations, the last tetanus vaccine was in 2011, and the patient declined the flu shot, pneumonia vaccine, and a tetanus booster. The patient reports multiple drug allergies, including metronidazole, Percocet, alendronate, Keflex, clindamycin, and sulfa, which cause rashes or diarrhea. The patient also has an allergy to latex when worn on the hands. The patient quit smoking and drinks alcohol only on holidays and special occasions. [facility] Medical History (Updated 03/22/25 @ 13:23 by Wilda Brooks MD) Swelling of left index finger IBS (irritable bowel syndrome) Osteoporosis Essential hypertension Diabetes mellitus GERD (gastroesophageal reflux disease) Surgical History H/O colonoscopy Hx laparoscopic cholecystectomy Family History Father Diabetes CVD (cardiovascular disease) Chronic mental illness Mental health disorder Mother CVD (cardiovascular disease) Diabetes Family/Other FH: mental illness Mental health disorder Social History Housing: House Alcohol intake: current Alcohol intake frequency: holidays/special occasions only Alcohol type: hard liquor Patient Tobacco Use Status: Former Tobacco user e-Cigarette/Vaping Use: Never Used Second Hand Smoke Exposure: No Use of substances other than those prescribed or required for medical reasons: No Advance Directives Date on File: 11/08/20 service: No Current occupational status: unemployed Current occupation: right hand dominant Current occupational exposures/hazards: No Cognitive needs: No Hearing needs: No Vision needs: Yes (glasses) Questionnaire Thrive Questionnaire Date Thrive assessed: 12/04/24 I am a: Patient What is your living situation today?: I choose not to answer this question Within the past 12 months, did the food you bought not last and you didn't have the money to get more?: I choose not to answer this question Within the past 12 months, did you worry whether your food would run out before you got money to buy more?: I choose not to answer this question Do you have trouble paying for medicines?: I choose not to answer this question Do you have trouble getting transportation to medical appointments?: I choose not to answer this question Do you have trouble paying your heating and electricity bill?: I choose not to answer this question Do you have trouble taking care of your child, family member or friend?: I choose not to answer this question Do you have trouble with day-to-day activities such as bathing, preparing meals, shopping, managing finances, etc.?: I choose not to answer this question Are you currently unemployed and looking for a job?: I choose not to answer this question Are you interested in more education?: I choose not to answer this question Please select the resources that you would like help with: None Currently or been in a relationship where the following occur: I choose not to answer THRIVE Score: 0 YOVANY-7 AMB Questionnaire YOVANY-7 Date YOVANY - 7 assessed: 01/11/25 Feeling nervous, anxious, or on edge: 0 = Not at all Source: Developed by Drs. Miguelangel Jeong, Alannah Ferreira, Murali Norton and colleagues, with an educational jefe from [employer]. Review of Systems Const All systems reviewed & are unremarkable except as noted in HPI and below Card Denies chest pain at rest, Denies chest pain with activity, Denies edema, Denies irregular heart rhythm, Denies claudication, Denies dyspnea, Denies dyspnea on exertion, Denies orthopnea, Denies paroxysmal nocturnal dyspnea and Denies slow heart rate Resp Denies cough, Denies dyspnea and Denies dyspnea on exertion GI Denies abdominal pain, Denies change in bowel habits, Denies excessive flatus, Denies nausea and Denies vomiting Physical exam (Primary Care) Vital Signs: Last Vital Signs Temp 97.1 F 03/22/25 12:52 Pulse 80 03/22/25 12:52 Resp 20 03/22/25 12:52 BP 138/72 03/22/25 12:52 Pulse Ox 97 03/22/25 12:52 Oxygen Delivery Method Room Air 03/22/25 12:52 BMI result Body Mass Index 24.3 Tobacco/Smoking Status: Tobacco use Status Tobacco use date assessed 03/22/25 03/22/25 13:00 Patient Tobacco Use Status Former Tobacco user 03/22/25 12:59 e-Cigarette/Vaping Use Never Used 03/22/25 12:59 Thrive Assessment: Date of Thrive Assessment Date Thrive assessed 12/04/24 03/22/25 12:52 Currently or been in a relationship where the following occur: I choose not to answer HENKY Head: Yes normal to inspection, Yes normocephalic and Yes atraumatic Ears: external ears normal Eyes General: appearance normal, both eyes and all related structures Eyelids: Yes eyelids normal Conjunctivae: conjunctivae normal Neck Neck: Yes normal visual inspection and Yes supple Resp Effort & Inspection: normal respiratory effort Auscultation: clear to auscultation bilaterally Cardio Jugular venous distension: no JVD Rate: regular rate Rhythm: regular rhythm Heart sounds: S1 normal heart sound present and S2 normal heart sound present GI Inspection: Yes normal to inspection Palpation (GI): Soft to palpation and nontender Auscultation: normal bowel sounds Skin General skin exam: no rashes or lesions noted Neuro General: no focal motor deficits Extrem General: Yes full ROM Psych Appearance: grossly normal Coding Level of Care Code Est Pt Prev Care >65y(70425) Diagnoses Physical exam Z00.00 Diabetes mellitus with diabetic cataract E11.36 Time Spent (min) 30 Assessment & Plan Assessment & Plan (1) Physical exam: Code(s): Z00.00 - Encounter for general adult medical examination without abnormal findings Category: Medical (2) Diabetes mellitus with diabetic cataract: Code(s): E11.36 - Type 2 diabetes mellitus with diabetic cataract Category: Medical Plan Plan 1. Encounter for general adult medical examination without abnormal findings Z00.00 A referral for a colonoscopy will be sent, as the patient is due. We discussed immunizations, and the patient declined the flu, pneumonia, and tetanus vaccines at this time. The patient will proceed with scheduled blood work with Dr. Ortiz in April to check cholesterol, sugar, kidneys, and liver function. 2. Type 2 diabetes mellitus with cataract E11.9 HCC 19 The patient reports variable blood sugar control. The patient will continue using the insulin pump and Lantus as needed. Pending A1c results from the upcoming appointment with endocrinology on April 05 will guide further management.
[2025-03-22 12:52] VITALS: BP 138/72; PULSE 80; RESP 20; TEMP 36.2; O2SAT 97; BMI 24.3
--- OUTSIDE RECORDS SUMMARY | 2025-03-22 18:31 | XMS_ITS | Continuity of Care Document ---
Author Organization [facility] [address] [place] [address] Phone [phone] Care Team Providers Care Grounds Keeper Name Role Phone Wilda Schwartz Care Team Information Arabic Translator [phone] Problems Active Problems Provider Date Diabetes mellitus [...] Pump. 900units E10.9 Scotty River M.D. 10/20/2023 [id number]/ML Solution Inject 50 Units Every Day With Pump 50ml E10.9 Scotty River M.D. 05/26/2022 Rosuvastatin [id number] Tablets Take 1 Tablet 1 Time Daily 90tabs Scotty River M.D. 05/18/2022 Losartan [id number] Tablets Take 1 Tablet twice a day 180tabs Scotty River M.D. 12/15/2021 Aspirin Adult Low Qxqe95lw Tablets DR 1 by mouth every day Scotty River M.D. 12/15/2021 Minrteo5wq/100ML Solution Scotty River M.D. 12/15/2021 Lidocaine5% Patches Use 1 Patch Daily 90units Florence Gilbert M.D. Valacyclovir HCL1gm Tablets Take 2 Tablets By Mouth Now And 2 Tabs 12 Hours Later. Evan Kraus MD Pantoprazole [id number] Tablets DR Take One Tablet By Mouth [...] [facility] Glucose 94 mg/dL 70-99 Potassium 07/08/2023 [facility] Potassium 5.3 mmol/L High (3.6-5.2 ) Comprehensive Metabolic Panl 06/04/2023 [facility] Glucose 204 mg/dL High [...] 97 ML/MIN/1. 73M2 2 Lipid Panel 06/04/2023 [facility] Cholesterol, Total 182 mg/dL (<200) Triglyceride 57 mg/dL (<150) HDL Chol 81 mg/dL (>39) LDL Cholesterol , Calculated 90 mg/dL (0-130) Non HDL Cholesterol (Calc) 101 mg/dL (<160) Hemoglobin A1c 06/04/2023 [facility] Hemoglobin A1c 8.5 % High (4.0-5.6 ) 3 Complete Abc With Diff 06/04/2023 [facility] WBC 9.0 K/MM3 (4.0-11. [...] ) Lymph # 2.4 K/MM3 (0.8-3.1 ) Taney# 0.9 K/MM3 (0.4-0.9 ) Eo # 0.4 K/MM3 (0.0-0.4 ) Baso # 0.1 K/MM3 (0.0-0.1 ) Abs. Imm Gran 0.1 K/MM3 Neut 55.8 % (44-76) Lymph 27.1 % (15-43) Monocyte 9.9 % (4.5-10. 5) Eo 4.8 % (0-6) Baso 1.0 % (0-2) Imm Gran 1.4 % TSH With Reflex To FT4 06/04/2023 [facility] TSH With Reflex To FT4 1.20 uIU/mL (0.4-4.2 ) Urinary Microalbumin 06/04/2023 [facility] Micro-Albumin <12.0 mg/L (<20) 4 Malb/Creat Ratio Unable t o calcul <SEE NOTE> MG/GM (0-20) 5 Urine Creat For Micro Albumin 82.6 mg/dL Hemoglobin A1c 05/14/2023 Inhouse Hemoglobin A1c 8.8% Glucose Fingerstick 05/14/2023 Inhouse Glucose Fingerstick 246 Hemoglobin A1c 12/29/2022 Inhouse Hemoglobin A1c 8.7% Glucose Fingerstick 12/29/2022 Inhouse Glucose Fingerstick 199 Urinary Microalbumin 08/28/2022 [facility] Micro-Albumin <12.0 mg/L (<20) 6 Malb/Creat Ratio Unable t o calcul <SEE NOTE> MG/GM (0-20) 7 Urine Creat For Micro Albumin 28.5 mg/dL Hemoglobin A1c 08/28/2022 Inhouse Hemoglobin A1c 407 Glucose Fingerstick 08/28/2022 Inhouse Glucose Fingerstick 8.7% Albumin 05/29/2022 [facility] Albumin 4.7 GM/DL (3.4-4.8 ) BUN 05/29/2022 [facility] BUN 10 mg/dL (8-23) Calcium 05/29/2022 [facility] Calcium 9.9 mg/dL (8.6-10. 5) Creatinine 05/29/2022 [facility] Creatinine 0.6 mg/dL (0.5-1.0 [...] with health care provider. DIAGNOSTIC USE: The [place] [employer] (ADA) and the World Health [...] sex. Procedures Date Code Description Status 01/13/2024 85427 Glucose Monitoring Interpeta tion And Report Completed 08/28/2022 69268 Glucose Monitoring Interpeta tion And Report Completed 05/14/2022 94209 Glucose Monitoring Interpeta tion And Report Completed [...]
== END 2025-03-22 14:19 | disposition home or self-care (01) ==
LOC: HO.HMCH 12:49
PROVIDERS: PCP Internal Medicine; Visit Provider Internal Medicine
DX: Z00.00 Encounter for general adult medical examination without abnormal findings (principal); E11.36 Type 2 diabetes mellitus with diabetic cataract

== ENCOUNTER → 2025-03-22 12:48 | Outpatient (BNVA) | payer MEDICARE, SELFPAY | PROVIDERS: PCP Internal Medicine; Visit Provider Internal Medicine | DX: Z00.00 Encounter for general adult medical examination without abnormal findings (principal); E11.36 Type 2 diabetes mellitus with diabetic cataract | CPT/HCPCS: 99397 ==